=== PATIENT | female | born 1935 | race Caucasian/White ===

== ENCOUNTER → 2017-02-13 | Outpatient (CLI) | payer OTHER ==
[~2017-02-13] MED LIST: ALBUAER19 INH; ANT25 PO; CHOL1000 PO; CLC100 PO; CLINPOW; CLOP1TAB54 PO; DOXY100C2 PO; HYDR-5688 PO; LEVO100T PO; LEVO100T7 PO; LVQ750 PO; MDRDP21 PO; MECL1TAB42 PO; MRLP17X PO; PHEN-1043 PO; PLV75 PO; RANI150T2 PO; SPIR1TAB72 PO; TRAM-10 PO; ULT50 PO; ZNTT/150 PO
[2017-02-13 12:13] LABS: ALT/SGPT 15 U/L (12-78); BLOOD UREA NITROGEN 21 mg/dl (7-18); BUN/CREATININE RATIO 17.8 (10-20); CALCIUM 9.3 mg/dl (8.5-10.1); CARBON DIOXIDE 28 mmol/L (21-32); CHLORIDE 101 mmol/L (98-107); CHOLESTEROL 201 mg/dl (0-200); GLUCOSE 89 mg/dl (70-99); POTASSIUM 4.6 mmol/L (3.5-5.1); SODIUM 139 mmol/L (136-145)
[2017-02-13 12:22] LABS: BASO % 0.5 %; BASO ABS # 0.04 K/uL (0-0.2); COMPLETE YES; HEMATOCRIT 43.2 % (37-47); IG% 0.4 %; LYMPH % 27.4 %; LYMPH ABS # 2.17 K/uL (1.2-3.4); MEAN CELL VOLUME 96.9 fL (80-100); MONO % 10.5 %; NEUT % 60.2 %; PLATELET COUNT 248 K/uL (130-400); RED BLOOD COUNT 4.46 M/uL (4.2-5.4); WHITE BLOOD COUNT 7.93 K/uL (4.8-10.8)
[2017-02-13 12:24] LABS: ALB/GLOB RATIO 1.1 (0.9-2); ALKALINE PHOSPHATASE 76 U/L (45-117); AST/SGOT 19 U/L (15-37); CHOLESTEROL/HDL RATIO 3.4; HDL CHOLESTEROL 59 mg/dl; LDL CHOLESTEROL CALCULATED 117 mg/dl; PHOSPHORUS 2.8 mg/dl (2.5-4.9); THYROID STIMULATING HORMONE 0.393 uIu/ml (0.300-4.500); TRIGLYCERIDES 126 mg/dl (0-150); VERY LOW DENSITY LIPOPROT CALC 25 mg/dl
== END | disposition home or self-care (01) ==
LOC: C.LABBFT 09:36
PROVIDERS: ATTEND Physician Assistant Medical
DX: N18.3 Chronic kidney disease, stage 3 (moderate) (principal); E03.9 Hypothyroidism, unspecified; E55.9 Vitamin D deficiency, unspecified; I12.9 Hypertensive chronic kidney disease with stage 1 through stage 4 chronic kidney disease, or unspecified chronic kidney disease

== ENCOUNTER → 2017-02-20 | Outpatient (CLI) | payer OTHER ==
[~2017-02-20] MED LIST changes: +GADAVIST IV PRN
--- NOTE | 2017-02-20 10:38 | DIAGNOSTIC IMAGING REPORT ---
LUMBAR SPINE MRI WITH AND WITHOUT CONTRAST HISTORY: M54.16 Lumbar [id number] TECHNIQUE: Multiplanar multisequence MRI of the lumbar spine was performed both before and after the intravenous administration of contrast. COMPARISON: Lumbar spine 12/30/2015. FINDINGS: For the purpose of the report the L5-S1 disc space will be located on axial image 23 of 25. At the left side of the T8 vertebral body there is a 2.7 cm hyperintense paraspinal lesion. This is only seen on the decal decorator images. Alignment is intact. No fractures within the lumbar spine. Posterior decompression from L3 through L5. There are pedicle screws and rods at L3-L4. There is a single left-sided pedicle screw at L5. Severe disc space narrowing at L2-L3 and L5-S1. The conus terminates at the L2-L3 disc space level. Mild soft tissue edema at the laminectomy site is likely due to postoperative change. Endplate edema at L2-L3 and L4-L5 with minimal paraspinal soft tissue edema. Anterior disc protrusions at these locations. These endplates demonstrate enhancement. However, there is no significant bony destruction identified. Therefore, these findings favor long-standing degenerative change rather than discitis/osteomyelitis. The visualized retroperitoneal soft tissues are unremarkable. L1-L2: No significant central canal or neural foraminal narrowing. L2-L3: Small broad-based posterior disc bulge without significant central canal narrowing. There is mild bilateral neural foraminal narrowing. L3-L4: No central canal narrowing due to the posterior decompression. There is mild left and moderate right neural foraminal narrowing. L4-L5: No central canal narrowing due to the posterior decompression. Mild right neural foraminal narrowing. L5-S1: No significant central canal narrowing. There is moderate left and mild right neural foraminal narrowing. IMPRESSION: 1. Postoperative changes as described above. 2. Severe disc space at L2-L3 and L5-S1. There is associated endplate signal abnormality and enhancement. However, there is no endplate erosion. The endplate signal abnormality favors long-standing degenerative change. A discitis/osteomyelitis is considered less likely given the lack of bony destruction. However, if the patient symptoms continue to progress, then consider follow-up MRI to exclude the less likely possibility of a developing discitis/osteomyelitis. 3. No significant central canal narrowing. Multilevel bilateral neural foraminal narrowing as described above. Electronically signed by: Robinson Coon M.D. 02/20/2017 10:36 AM Dictated Date/Time: 02/20/2017 10:24 AM
== END | disposition home or self-care (01) ==
LOC: C.MRI 08:35
PROVIDERS: ATTEND Internal Medicine
DX: M54.16 Radiculopathy, lumbar region (principal)

== ENCOUNTER 2017-05-12 09:52 | Emergency (ER) | payer OTHER ==
[~2017-05-12 09:52] MED LIST changes: -ANT25 PO; -CHOL1000 PO; -CLC100 PO; -CLINPOW; -DOXY100C2 PO; -GADAVIST IV PRN; -HYDR-5688 PO; -LEVO100T7 PO; -LVQ750 PO; -MDRDP21 PO; -MRLP17X PO; -PHEN-1043 PO; -PLV75 PO; -RANI150T2 PO; -ULT50 PO
[2017-05-12 09:55] VITALS: TEMP 36.5; Ht 162.6 cm
[2017-05-12] MEDS ORDERED: KETOROLAC TROMETHAMINE 30 MG/ML VIAL IV STA (10:05)
[2017-05-12] MEDS ORDERED: SODIUM CHLORIDE 0.9% 1000ML 250 ML IV STA (10:05)
[2017-05-12] MEDS ORDERED: ONDANSETRON INJ 2 MG/ML 2 ML VIAL IV STA (10:05)
[2017-05-12] MEDS ORDERED: MoRPHine SULFATE 4 MG/ML 1 ML CARP\\VIAL IV PRN (10:15)
--- NOTE | 2017-05-12 10:15 | EMERGENCY ROOM VISIT NOTE ---
History Report prepared by Milagros: Maximo Llamas Under the Supervision of: Dr. Camilo Malik M.D. First contact with patient: 09:59 Chief Complaint: FLANK PAIN Stated Complaint: PAIN ON RIGHT SIDE GOING TO LEFT SIDE UNDER BREAST History of Present Illness The patient is a 81 year old female who presents to the Emergency Room with complaints of persistent bilateral flank pain beginning this week. She states that her pain was previously just on her left, but now wraps around across her back to her right side as well. Her pain is worsened with certain movements. The patient denies any falls, trauma, or abnormal twisting. She also complains of a cough and sweating. She denies any fevers, urinary symptoms, or SOB. The patient has no history of similar symptoms. She has a history of osteoporosis but states that her current symptoms feel very different. She notes that she is on doxycycline and prednisone for bronchitis--started today. The patient has a history of a blood clot in her leg occurring many years ago, and was previously on blood thinners. She states that she has been eating and drinking normally today. Source of History: patient Onset: This week Position: other (bilateral flank) Timing: other (persistent) Modifying Factors (Worsening): movement (certain) Associated Symptoms: + cough, No fevers, No SOB, No urinary symptoms Review of Systems See HPI for pertinent positives & negatives. A total of 10 systems reviewed and were otherwise negative. 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,& CEREBRAL INFARCTION W/OUT RES DEFICITS (15) PURE HYPERCHOLESTEROLEM (16) SCIATICA (17) SPINAL STENOSIS-LUMBAR Family History Cancer Heart disease Social History Smoking Status: Former Smoker Alcohol Use: none Drug Use: none Marital Status: Housing Status: lives with significant other Occupation Status: retired Current/Historical Medications Scheduled Clopidogrel Bisulfate (Plavix), 75 MG PO DAILY Doxycycline Hyclate (Vibramycin), 100 MG PO BID Hctz/Spironolactone (Spironolactone/Hydrochlor 25-25 mg), 1 TAB PO DAILY Levothyroxine Sodium (Synthroid), 100 MCG PO DAILY Methylprednisolone (Methylprednisolone Dose P), 1 DOSE PO DIRECTED Ranitidine (Zantac), 150 MG PO BID Scheduled PRN Meclizine Hcl (Meclizine Hcl), 25 MG PO TID PRN for Dizziness or Vertigo Tramadol (Ultram), 50 MG PO BID PRN for Pain Tramadol (Ultram), 50-100 MG PO Q6 PRN for Pain Allergies Coded Allergies: Clarithromycin (Verified Allergy, Intermediate, RASH, 05/12/17) Penicillins (Verified Allergy, Intermediate, RASH, 05/12/17) Shellfish (Verified Allergy, Intermediate, itch all over, 05/12/17) Propranolol (Unverified Allergy, Unknown, dizziness, 05/12/17) Sulfa Antibiotics (Verified Allergy, Unknown, ?, 05/12/17) White Fish (Verified Allergy, Unknown, SEAFOOD, FISH, 05/12/17) Codeine (Verified Adverse Reaction, Intermediate, NAUSEA/VOMITING, 05/12/17) Oxycodone (Verified Adverse Reaction, Unknown, UNKN, 05/12/17) Physical Exam Vital Signs Date Time Temp Pulse Resp B/P (MAP) Pulse Ox O2 Delivery O2 Flow Rate FiO2 05/12/17 12:35 65 18 136/69 95 05/12/17 11:10 62 20 127/52 05/12/17 10:21 75 05/12/17 09:55 36.5 78 20 145/81 96 Room Air Physical Exam GENERAL: Patient is in no acute distress. HEENT: No acute trauma, normocephalic atraumatic, mucous membranes moist, no nasal congestion, no scleral icterus. NECK: No stridor, no adenopathy, no meningismus, trachea is midline. LUNGS: Clear to auscultation bilaterally, no wheeze, no rhonchi, breath sounds equal. HEART: Without murmurs gallops or rubs, regular rate and rhythm. ABDOMEN: Soft, nontender, bowel sounds positive, no hernias, no peritonitis. BACK: No rash. No bony step-off. Old healed surgical scars. Pain worsens with movement. EXTREMITIES: No cyanosis, full range of motion of all the joints without pain or difficulty, no signs for acute trauma. Mild bilateral pedal edema. NEUROLOGIC: Oriented x 3, no acute motor or sensory deficits, no focal weakness. SKIN: No rash, no jaundice, no diaphoresis. Medical Decision & Procedures ER Provider Diagnostic Interpretation: Radiology results as stated below per my review and radiologist interpretation: CHEST ONE VIEW PORTABLE FINDINGS: The bones soft tissues and hemidiaphragms are normal. The cardiomediastinal silhouette is normal. The lungs are clear. The pulmonary vasculature is normal. IMPRESSION: Negative chest. Electronically signed by: Francois Ward M.D. THORACIC SPINE CT FINDINGS: Degenerative disc change throughout the entire thoracic region. No evidence for an acute compression deformity. Left paravertebral soft tissue density measuring 2 cm unchanged compared to prior studies and felt to be benign given stability characteristics. This is approximately at the level T9 on the left. No acute process is appreciated. IMPRESSION: Moderate degenerative change. No acute process. Electronically signed by: Francois Ward M.D. LUMBAR SPINE WITHOUT FINDINGS: Prior laminectomy with posterior interbody rods and screw fixation again seen at the L3-L4 through L4-L5 levels. Prior discectomy at L4-L5. There is unchanged 4 mm anterolisthesis of L4 on L5. Multilevel severe intervertebral disc space narrowing with spondylitic spurring and advanced facet arthropathy is present. Ankylosis of the facets at L4-L5 is present with partial ankylosis at L3-L4. No acute compression deformity. There is nodular thickening of the bilateral adrenal glands. There is a 1.2 x 0.9 cm somewhat low attenuating lesion of the left adrenal gland with Hounsfield unit of 14. This appears unchanged from 08/09/2015 suggesting benign etiology. There is atherosclerosis of the aorta. T11-T12: Moderate intervertebral disc space narrowing with moderate facet arthropathy, posterior spondylitic ridging and circumferential annular disc bulge. There is mild central canal narrowing without significant foraminal stenosis. T12-L1: Moderate facet arthrosis without central canal or foraminal narrowing. L1-L2: Facet arthrosis without central canal or foraminal narrowing. L2-L3: Severe intervertebral disc space narrowing with circumferential annular disc bulge and moderate to severe facet arthrosis. There is mild central canal and mild inferior right foraminal narrowing. The left foramen is patent. No significant change. L3-L4: Severe intervertebral disc space narrowing and severe facet arthrosis. Circumferential annular disc bulge is present with broad-based posterior disc osteophyte complex. There is effacement of the ventral thecal sac without significant central canal narrowing. There is moderate bilateral foraminal narrowing. No significant change. L4-L5: Unchanged 4 mm anterolisthesis. Severe facet arthrosis in intervertebral disc space narrowing with posterior spondylitic ridging combines to form moderate to severe right foraminal narrowing. The central canal and left foramen are patent. L5-S1: Severe intervertebral disc space narrowing with broad-based posterior disc osteophyte complex and facet arthrosis. There is moderate to severe left and moderate right foraminal narrowing. No central canal stenosis. Unchanged. IMPRESSION: 1. No acute fracture or dislocation is identified. 2. Prior laminectomy with posterior interbody rods and screw fixation at L3-L5 with discectomy at L4-L5. Unchanged 4 mm anterolisthesis at L4-L5. 3. Multilevel advanced intervertebral disc space narrowing and severe facet arthropathy as detailed level by level above results in varying degrees of central canal and foraminal narrowing without significant change from MRI study dated 02/20/2017. 4. Incidental note of a 1.2 cm lesion of the left adrenal gland, unchanged from 08/09/2015 suggesting benign etiology. The above report was generated using voice recognition software. It may contain grammatical, syntax or spelling errors. Electronically signed by: Avtar Arce CHEST CTA for PULMONARY ARTERIES FINDINGS: Mild abscess chronic change thoracic aorta. No evidence for aneurysm or dissection. Moderate prominence of the central pulmonary arterial vasculature is similar compared to the prior study. Mild in homogeneity of enhancement of the left main pulmonary artery transaxial image 68 felt to represent flow artifact. Pulmonary vasculature enhances appropriately. There are no major filling defects. Lungs are considered clear. There are no focal infiltrative changes. Minimal dependent bibasilar atelectasis. Paravertebral soft tissue nodule on the left measuring 2.2 cm. This is been present previously and is essentially unchanged. Survey evaluation of the thoracic vertebral column shows moderate degenerative disc change. There is no acute compression deformity. IMPRESSION: 1. Study is negative for pulmonary embolus. 2. Chronic prominence of the central pulmonary vasculature. 3. Lungs are clear. 4. Unchanging stable left paravertebral soft tissue density considered stable and benign in appearance Electronically signed by: Francois Ward M.D. Laboratory Results 05/12/17 10:20 Red Blood Count 4.57, Mean Corpuscular Volume 97.4, Mean Corpuscular Hemoglobin 33.3, Mean Corpuscular Hemoglobin Concent 34.2, Mean Platelet Volume 10.7, Neutrophils (%) (Auto) 80.8, Lymphocytes (%) (Auto) 13.7, Monocytes (%) (Auto) 4.3, Eosinophils (%) (Auto) 0.4, Basophils (%) (Auto) 0.5, Neutrophils # (Auto) 6.17, Lymphocytes # (Auto) 1.05, Monocytes # (Auto) 0.33, Eosinophils # (Auto) 0.03, Basophils # (Auto) 0.04 05/12/17 10:20 Test 05/12/17 10:20 05/12/17 11:05 White Blood Count 7.64 K/uL (4.8-10.8) Red Blood Count 4.57 M/uL (4.2-5.4) Hemoglobin 15.2 g/dL (12.0-16.0) Hematocrit 44.5 % (37-47) Mean Corpuscular Volume 97.4 fL (80-100) Mean Corpuscular Hemoglobin 33.3 pg (25-34) Mean Corpuscular Hemoglobin Concent 34.2 g/dl (32-36) Platelet Count 246 K/uL (130-400) Mean Platelet Volume 10.7 fL (7.4-10.4) Neutrophils (%) (Auto) 80.8 % Lymphocytes (%) (Auto) 13.7 % Monocytes (%) (Auto) 4.3 % Eosinophils (%) (Auto) 0.4 % Basophils (%) (Auto) 0.5 % Neutrophils # (Auto) 6.17 K/uL (1.4-6.5) Lymphocytes # (Auto) 1.05 K/uL (1.2-3.4) Monocytes # (Auto) 0.33 K/uL (0.11-0.59) Eosinophils # (Auto) 0.03 K/uL (0-0.5) Basophils # (Auto) 0.04 K/uL (0-0.2) RDW Standard Deviation 44.1 fL (36.4-46.3) RDW Coefficient of Variation 12.5 % (11.5-14.5) Immature Granulocyte % (Auto) 0.3 % Immature Granulocyte # (Auto) 0.02 K/uL (0.00-0.02) Prothrombin Time 10.7 SECONDS (9.0-12.0) Prothromb Time International Ratio 1.0 (0.9-1.1) Activated Partial Thromboplast Time 25.9 SECONDS (21.0-31.0) Partial Thromboplastin Ratio 1.0 Anion Gap 9.0 mmol/L (3-11) Estimated GFR () 44.9 Estimated GFR (Non- 38.7 BUN/Creatinine Ratio 15.6 (10-20) Calcium Level 9.8 mg/dl (8.5-10.1) Total Bilirubin 0.8 mg/dl (0.2-1) Direct Bilirubin 0.1 mg/dl (0-0.2) Aspartate Amino Transf (AST/SGOT) 23 U/L (15-37) Alanine Aminotransferase (ALT/SGPT) 19 U/L (12-78) Alkaline Phosphatase 86 U/L (45-117) Troponin I < 0.015 ng/ml (0-0.045) Total Protein 7.9 gm/dl (6.4-8.2) Albumin 4.0 gm/dl (3.4-5.0) Lipase 362 U/L (73-393) Urine Color YELLOW Urine Appearance CLEAR (CLEAR) Urine pH 8.0 (4.5-7.5) Urine Specific [place] 1.023 (1.000-1.030) Urine Protein NEG (NEG) Urine Glucose (UA) NEG (NEG) Urine Ketones NEG (NEG) Urine Occult Blood NEG (NEG) Urine Nitrite NEG (NEG) Urine Bilirubin NEG (NEG) Urine Urobilinogen NEG (NEG) Urine Leukocyte Esterase SMALL (NEG) Urine WBC (Auto) 1-5 /hpf (0-5) Urine RBC (Auto) 0-4 /hpf (0-4) Urine Hyaline Casts (Auto) 1-5 /lpf (0-5) Urine Epithelial Cells (Auto) >30 /lpf (0-5) Urine Bacteria (Auto) NEG (NEG) Laboratory results reviewed by me. Medications Administered Medications (Trade) Dose Ordered Sig/Rea Route Start Time Stop Time Status Last Admin Dose Admin Sodium Chloride 250 ml @ 999 mls/hr Q16M STAT IV 7/7/17 10:05 05/12/17 10:20 DC 05/12/17 10:25 999 MLS/HR Ondansetron HCl (Zofran Inj) 4 mg NOW STAT IV 05/12/17 10:05 05/12/17 10:09 DC 05/12/17 10:25 4 MG Morphine Sulfate (MoRPHine SULFATE INJ) 2 mg Q15M PRN IV 05/12/17 10:15 05/12/17 13:20 DC 05/12/17 10:25 2 MG Ketorolac Tromethamine (Toradol Inj) 15 mg NOW STAT IV 05/12/17 10:05 05/12/17 10:09 DC 05/12/17 10:25 15 MG ECG Indication: back/shoulder pain Rate (beats per minute): 66 Rhythm: normal sinus Findings: RBBB, no acute ischemic change, no ectopy ED Course 1001: The patient was evaluated in room B4B. A complete history and physical exam was performed. 1005: Ordered Toradol Inj 15 mg IV, Zofran Inj 4 mg IV, Sodium Chloride 250 ml @ 999 mls/hr IV. 1015: Ordered Morphine Sulfate 2 mg IV. 1210: Reevaluated the patient. Discussed results and discharge instructions: she verbalized understanding and agreement. The patient is ready for discharge. Medical Decision The patient is a 81 year old female who presents to the ED with complaints of bilateral flank pain. Differential diagnoses considered include nerve impingement, compression fracture, renal colic, UTI, pancreatitis, biliary colic , pneumonia, PE, aortic dissection, MO as well as other etiologies were considered. Blood pressure screening: Patient was found to have a slightly elevated blood pressure due to circumstances. I do not believe that the patient requires hypertension monitoring. Medication Reconciliation: I attest that I have personally reviewed the patient' s current medication list. There is no leukocytosis or concerning anemia. No significant electrolyte abnormality, kidney failure or hepatitis. There is no pancreatitis. Urinalysis does not show significant hematuria or infection. Chest film does not show pneumonia or CHF. Chest CT shows no PE, no pneumonia. Thoracic and lumbar spine CTs show old changes, nothing appears acute by CT scan. EKG shows a sinus rhythm, no acute ischemia. Cardiac enzyme testing times one is not consistent with acute cardiac injury. The patient received IV saline, IV Toradol, IV Zofran and IV morphine, she feels improved. The patient's pain seems musculoskeletal. I suspect the pain is related to her previous back surgical issues. Patient was advised to use tramadol for pain, she has used this in the past with success. She will watch for any shingles rash. She can follow with her doctor and return here for worsening symptoms. [place] Drug Monitoring Program Search Results: patient reviewed within database, no issues identified Impression Primary Impression: Thoracic back pain Scribe Attestation The scribe's documentation has been prepared under my direction and personally reviewed by me in its entirety. I confirm that the note above accurately reflects all work, treatment, procedures, and medical decision making performed by me. Departure Information Dispostion Home / Self-Care Prescriptions Tramadol (Ultram) 50 Mg Tab 50-100 MG PO Q6 Y for Pain, #15 TAB Prov: Camilo Malik M.D. 05/12/17 Referrals Dada Bernard M.D. (PCP) Forms HOME CARE DOCUMENTATION FORM, IMPORTANT VISIT INFORMATION Patient Instructions My [facility] Additional Instructions may use tylenol for pain heat or heating pad should help see your doctor monday for a recheck return to ER for fever or worsening pain watch for a shingles rash as discussed Tramadol 1-2 tab every 6 hours for severe pain
[2017-05-12] MEDS ORDERED: MDRDP21 PO (10:24)
[2017-05-12] MEDS ORDERED: DOXY100C2 PO (10:24)
--- NOTE | 2017-05-12 10:41 | DIAGNOSTIC IMAGING REPORT ---
CHEST ONE VIEW PORTABLE CLINICAL HISTORY: FLANK PAIN/HEMATURIA pain COMPARISON STUDY: 08/22/2015 FINDINGS: The bones soft tissues and hemidiaphragms are normal. The cardiomediastinal silhouette is normal. The lungs are clear. The pulmonary vasculature is normal. IMPRESSION: Negative chest. Electronically signed by: Francois Ward M.D. 05/12/2017 10:40 AM Dictated Date/Time: 05/12/2017 10:38 AM
[2017-05-12 10:46] LABS: BASO % 0.5 %; BASO ABS # 0.04 K/uL (0-0.2); COMPLETE YES; EOS % 0.4 %; HEMATOCRIT 44.5 % (37-47); IG% 0.3 %; LYMPH % 13.7 %; LYMPH ABS # 1.05 K/uL (1.2-3.4); MEAN CELL VOLUME 97.4 fL (80-100); MEAN CORPUSCULAR HEMOGLOBIN 33.3 pg (25-34); MEAN CORPUSCULAR HGB CONC 34.2 g/dl (32-36); MEAN PLATELET VOLUME 10.7 fL (7.4-10.4); MONO % 4.3 %; NEUT % 80.8 %; PLATELET COUNT 246 K/uL (130-400); RED BLOOD COUNT 4.57 M/uL (4.2-5.4); WHITE BLOOD COUNT 7.64 K/uL (4.8-10.8)
[2017-05-12 10:54] LABS: PROTHROMBIN TIME (PATIENT) 10.7 SECONDS (9.0-12.0)
[2017-05-12 10:57] LABS: ALT/SGPT 19 U/L (12-78); BLOOD UREA NITROGEN 20 mg/dl (7-18); BUN/CREATININE RATIO 15.6 (10-20); CALCIUM 9.8 mg/dl (8.5-10.1); CARBON DIOXIDE 26 mmol/L (21-32); CHLORIDE 102 mmol/L (98-107); GLUCOSE 97 mg/dl (70-99); SODIUM 137 mmol/L (136-145)
[2017-05-12 11:02] LABS: ALKALINE PHOSPHATASE 86 U/L (45-117); AST/SGOT 23 U/L (15-37)
[2017-05-12] MEDS ORDERED: OPTIRAY 320 IV PRN (11:15)
[2017-05-12 11:25] LABS: URINE APPEARANCE CLEAR (CLEAR); URINE BILIRUBIN NEG (NEG); URINE COLOR YELLOW; URINE EPITHELIAL CELL AUTO >30 /lpf (0-5); URINE NITRITE NEG (NEG); URINE SPECIFIC GRAVITY 1.023 (1.000-1.030); UROBILINOGEN NEG (NEG); ZZUR CULT IF INDIC CLEAN CATCH NO
[2017-05-12 11:26] LABS: MANUAL MICROSCOPIC REQUIRED? NO; REVIEW REQ? NO
--- NOTE | 2017-05-12 11:55 | DIAGNOSTIC IMAGING REPORT ---
CHEST CTA for PULMONARY ARTERIES CT DOSE: 1507.58 mGy.cm HISTORY: Pain postoperative pain TECHNIQUE: Multiaxial CT images of the chest were performed following the intravenous administration of contrast to evaluate the pulmonary arteries. Maximal intensity projection images were also obtained. COMPARISON STUDY: 05/06/2009 FINDINGS: Mild abscess chronic change thoracic aorta. No evidence for aneurysm or dissection. Moderate prominence of the central pulmonary arterial vasculature is similar compared to the prior study. Mild in homogeneity of enhancement of the left main pulmonary artery transaxial image 68 felt to represent flow artifact. Pulmonary vasculature enhances appropriately. There are no major filling defects. Lungs are considered clear. There are no focal infiltrative changes. Minimal dependent bibasilar atelectasis. Paravertebral soft tissue nodule on the left measuring 2.2 cm. This is been present previously and is essentially unchanged. Survey evaluation of the thoracic vertebral column shows moderate degenerative disc change. There is no acute compression deformity. IMPRESSION: 1. Study is negative for pulmonary embolus. 2. Chronic prominence of the central pulmonary vasculature. 3. Lungs are clear. 4. Unchanging stable left paravertebral soft tissue density considered stable and benign in appearance Electronically signed by: Francois Ward M.D. 05/12/2017 11:54 AM Dictated Date/Time: 05/12/2017 11:47 AM
--- NOTE | 2017-05-12 11:57 | DIAGNOSTIC IMAGING REPORT ---
THORACIC SPINE CT CT DOSE: HISTORY: Trauma history of osteoporosis and fx--had surgery TECHNIQUE: Multiaxial CT images of the thoracic spine were performed and reformatted in the sagittal and coronal plane without the use of contrast. COMPARISON: None. FINDINGS: Degenerative disc change throughout the entire thoracic region. No evidence for an acute compression deformity. Left paravertebral soft tissue density measuring 2 cm unchanged compared to prior studies and felt to be benign given stability characteristics. This is approximately at the level T9 on the left. No acute process is appreciated. IMPRESSION: Moderate degenerative change. No acute process. Electronically signed by: Francois Ward M.D. 05/12/2017 11:56 AM Dictated Date/Time: 05/12/2017 11:54 AM
--- NOTE | 2017-05-12 12:00 | DIAGNOSTIC IMAGING REPORT ---
LUMBAR SPINE WITHOUT HISTORY:81 yearsFemalehistory of osteoporosis and fx--had surgery COMPARISON: MRI of the lumbar spine dated 02/20/2017, CT abdomen and pelvis 08/09/2015 TECHNIQUE: Multiple axial CT images of the lumbar spine were obtained without IV contrast. Coronal and sagittal reformatted images were obtained from the axial data set and submitted for review. FINDINGS: Prior laminectomy with posterior interbody rods and screw fixation again seen at the L3-L4 through L4-L5 levels. Prior discectomy at L4-L5. There is unchanged 4 mm anterolisthesis of L4 on L5. Multilevel severe intervertebral disc space narrowing with spondylitic spurring and advanced facet arthropathy is present. Ankylosis of the facets at L4-L5 is present with partial ankylosis at L3-L4. No acute compression deformity. There is nodular thickening of the bilateral adrenal glands. There is a 1.2 x 0.9 cm somewhat low attenuating lesion of the left adrenal gland with Hounsfield unit of 14. This appears unchanged from 08/09/2015 suggesting benign etiology. There is atherosclerosis of the aorta. T11-T12: Moderate intervertebral disc space narrowing with moderate facet arthropathy, posterior spondylitic ridging and circumferential annular disc bulge. There is mild central canal narrowing without significant foraminal stenosis. T12-L1: Moderate facet arthrosis without central canal or foraminal narrowing. L1-L2: Facet arthrosis without central canal or foraminal narrowing. L2-L3: Severe intervertebral disc space narrowing with circumferential annular disc bulge and moderate to severe facet arthrosis. There is mild central canal and mild inferior right foraminal narrowing. The left foramen is patent. No significant change. L3-L4: Severe intervertebral disc space narrowing and severe facet arthrosis. Circumferential annular disc bulge is present with broad-based posterior disc osteophyte complex. There is effacement of the ventral thecal sac without significant central canal narrowing. There is moderate bilateral foraminal narrowing. No significant change. L4-L5: Unchanged 4 mm anterolisthesis. Severe facet arthrosis in intervertebral disc space narrowing with posterior spondylitic ridging combines to form moderate to severe right foraminal narrowing. The central canal and left foramen are patent. L5-S1: Severe intervertebral disc space narrowing with broad-based posterior disc osteophyte complex and facet arthrosis. There is moderate to severe left and moderate right foraminal narrowing. No central canal stenosis. Unchanged. IMPRESSION: 1. No acute fracture or dislocation is identified. 2. Prior laminectomy with posterior interbody rods and screw fixation at L3-L5 with discectomy at L4-L5. Unchanged 4 mm anterolisthesis at L4-L5. 3. Multilevel advanced intervertebral disc space narrowing and severe facet arthropathy as detailed level by level above results in varying degrees of central canal and foraminal narrowing without significant change from MRI study dated 02/20/2017. 4. Incidental note of a 1.2 cm lesion of the left adrenal gland, unchanged from 08/09/2015 suggesting benign etiology. The above report was generated using voice recognition software. It may contain grammatical, syntax or spelling errors. Electronically signed by: Avtar Arce 05/12/2017 11:59 AM Dictated Date/Time: 05/12/2017 11:46 AM
[2017-05-12] MEDS ORDERED: TRAM-10 PO (12:20)
[2017-05-12 12:35] VITALS: BP 136/69; PULSE 65; O2SAT 95
[2017-07-07] MEDS ORDERED: CLINPOW (13:09)
== END 2017-05-12 12:36 | disposition home or self-care (01) ==
LOC: C.EDB 09:53
DX: M54.6 Pain in thoracic spine (principal); M81.0 Age-related osteoporosis without current pathological fracture; Z86.718 Personal history of other venous thrombosis and embolism; F41.9 Anxiety disorder, unspecified; J45.909 Unspecified asthma, uncomplicated; K21.9 Gastro-esophageal reflux disease without esophagitis; Z82.49 Family history of ischemic heart disease and other diseases of the circulatory system; Z80.9 Family history of malignant neoplasm, unspecified; I10 Essential (primary) hypertension; E03.9 Hypothyroidism, unspecified; Z96.659 Presence of unspecified artificial knee joint; M19.90 Unspecified osteoarthritis, unspecified site; Z86.73 Personal history of transient ischemic attack (TIA), and cerebral infarction without residual deficits; E78.00 Pure hypercholesterolemia, unspecified; Z87.891 Personal history of nicotine dependence; Z79.01 Long term (current) use of anticoagulants; Z79.899 Other long term (current) drug therapy

== ENCOUNTER 2017-06-11 10:26 | Inpatient (IN) | payer OTHER ==
[~2017-06-11] VITALS: Ht 165.1 cm; Wt 86.4 kg
[~2017-06-11 10:26] MED LIST changes: -ALBUAER19 INH; +DOXY100C2 PO; +MDRDP21 PO
[2017-06-11] MEDS ORDERED: CHOL1000 PO (10:41)
[2017-06-11] MEDS ORDERED: ONDANSETRON INJ 2 MG/ML 2 ML VIAL IV STA (11:07)
[2017-06-11] MEDS ORDERED: SODIUM CHLORIDE 0.9% 1000ML 250 ML IV STA (11:07)
[2017-06-11] MEDS ORDERED: MoRPHine SULFATE 2 MG/ML CARP IV STA (11:07)
[2017-06-11] MEDS ORDERED: SODIUM CHLORIDE 0.9% 1000ML 1,000 ML IV STA (11:07)
--- NOTE | 2017-06-11 11:48 | EMERGENCY ROOM VISIT NOTE ---
History Report prepared by Milagros: Lorrie Barrett Under the Supervision of: Dr. Cresencio Xie M.D. First contact with patient: 11:01 Chief Complaint: ABD PAIN Stated Complaint: RIGHT SIDED PAIN, PAIN BACK/TOP OF LEG PAIN History of Present Illness The patient is a 81 year old female who presents to the Emergency Room with complaints of constant lower abdominal pain for the past 7 hours. She has two known hernias in her abdomen that she states are on each side of her belly button. She woke up this morning at 4am with right sided pain that radiated into her right leg and up to her chest. The patient rates her pain as a 6/10 in severity. Movement exacerbates her pain. She thinks that her pain is from her hernias. The patient denies fevers, chills, nausea, vomiting, and urinary symptoms. She has been having normal bowel movements. She has not taken any medications for her pain. She is on Plavix for previous history of strokes. Source of History: patient Onset: 7 hours ago Position: abdomen Symptom Intensity: 6/10 Quality: other (radiating) Timing: constant Modifying Factors (Worsening): movement Associated Symptoms: No fevers, No chills, No nausea, No vomiting, No urinary symptoms Review of Systems See HPI for pertinent positives & negatives. A total of 10 systems reviewed and were otherwise negative. 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,& CEREBRAL INFARCTION W/OUT RES DEFICITS (15) PURE HYPERCHOLESTEROLEM (16) SCIATICA (17) SPINAL STENOSIS-LUMBAR Old medical records were reviewed. Nurse's notes were reviewed and I agree with. She is on chronic Plavix Family History Cancer Heart disease Social History Smoking Status: Former Smoker Alcohol Use: none Drug Use: none Marital Status: Housing Status: lives with significant other Occupation Status: retired Current/Historical Medications Scheduled Cholecalciferol (Vitamin D3), 2,000 INTER.UNIT PO DAILY Clopidogrel Bisulfate (Plavix), 75 MG PO DAILY Hctz/Spironolactone (Spironolactone/Hydrochlor 25-25 mg), 1 TAB PO DAILY Levothyroxine Sodium (Synthroid), 100 MCG PO DAILY Ranitidine (Zantac), 150 MG PO BID Scheduled PRN Meclizine Hcl (Meclizine Hcl), 25 MG PO TID PRN for Dizziness or Vertigo Tramadol (Ultram), 50 MG PO BID PRN for Pain Allergies Coded Allergies: Clarithromycin (Verified Allergy, Intermediate, RASH, 06/11/17) Penicillins (Verified Allergy, Intermediate, RASH, 06/11/17) Shellfish (Verified Allergy, Intermediate, itch all over, 06/11/17) Propranolol (Unverified Allergy, Unknown, dizziness, 06/11/17) Sulfa Antibiotics (Verified Allergy, Unknown, ?, 06/11/17) White Fish (Verified Allergy, Unknown, SEAFOOD, FISH, 06/11/17) Codeine (Verified Adverse Reaction, Intermediate, NAUSEA/VOMITING, 06/11/17) Oxycodone (Verified Adverse Reaction, Unknown, UNKN, 06/11/17) Physical Exam Vital Signs Date Time Temp Pulse Resp B/P (MAP) Pulse Ox O2 Delivery O2 Flow Rate FiO2 06/11/17 14:27 70 16 117/69 94 Room Air 06/11/17 14:15 94 Room Air 06/11/17 12:05 66 18 102/61 94 Room Air 06/11/17 10:34 36.5 96 20 136/81 95 Room Air Physical Exam General: Well developed well nourished non ill appearing older female, mildly uncomfortable, in no acute distress, breathing comfortably on room air. Normal speech HEENT: Normal cephalic atraumatic. Pupils are equal round and reactive to light. Extraocular movements are intact. Oropharynx is pink with moist mucous membranes. No swelling of the mouth lips or tongue. Neck: Supple with a midline trachea. No meningeal signs or stiffness, no JVD or bruits. No Stridor. Chest: Clear to auscultation bilaterally. No wheezes or rhonchi. No increased work of breathing. Heart: regular rate and rhythm. Abdomen: Soft, tenderness centrally slightly to the right and inferior to the umbilicus, mild induration. No redness or warmth, nondistended without rebound guarding or rigidity. Extremities: No cyanosis clubbing or edema. No calf tenderness or assymetry Spine/Back. Non tender to palpation. No CVA tenderness Skin: Good turgor without rashes. Neurologic exam: Cranial nerves two through 12 are intact. Motor and sensation are intact and symmetrical throughout. Medical Decision & Procedures ER Provider Diagnostic Interpretation: Radiology results as stated below per my review and radiologist interpretation: ABDOMEN AND PELVIS CT WITHOUT CONTRAST CT DOSE: 605.17 mGy.cm HISTORY: Right lower quadrant abdominal pain. eval for hernia TECHNIQUE: Multiaxial CT images of the abdomen and pelvis were performed without contrast. A dose lowering technique was utilized adhering to the principles of ALARA. COMPARISON STUDY: Abdomen and pelvis CT 08/09/2015. FINDINGS: The lung bases are clear. Posterior decompression and fusion within the lumbar spine. Trace pericardial fluid, unchanged. Stable 3 x 2.4 cm low-density left paraspinal lesion at the T9 level. Cholecystectomy. The unenhanced liver, pancreas, spleen, and adrenal glands are unremarkable. No renal stones or hydronephrosis. Punctate calcifications within the pelvis. Represent phleboliths. No retroperitoneal lymphadenopathy. Normal bladder. Hysterectomy. Suboptimal evaluation for bowel pathology due to the lack of intravenous and oral contrast. However, there is no definite bowel wall thickening or obstruction. The appendix is not identified and is likely surgically absent. Small fat-containing left inguinal hernia. There is also small right inguinal hernia which contains a short segment of nondilated small bowel. Punctate focus of gas adjacent to the distal sigmoid colon on image 307 is likely due to a diverticulum. IMPRESSION: 1. Small right inguinal hernia containing a short segment of nondilated small bowel. No distended loops of small bowel at this time to suggest an obstruction. 2. Small left inguinal fat-containing hernia. 3. Colonic diverticulosis. 4. Cholecystectomy, hysterectomy, and appendectomy. 5. No change in the 3.0 x 2.4 cm low-density left paraspinal lesion at the T9 level. Electronically signed by: Robinson Coon M.D. 06/11/2017 12:05 PM Dictated Date/Time: 06/11/2017 11:56 AM Laboratory Results 06/11/17 11:30 Red Blood Count 4.39, Mean Corpuscular Volume 96.4, Mean Corpuscular Hemoglobin 33.9, Mean Corpuscular Hemoglobin Concent 35.2, Mean Platelet Volume 10.3, Neutrophils (%) (Auto) 61.3, Lymphocytes (%) (Auto) 26.0, Monocytes (%) (Auto) 10.7, Eosinophils (%) (Auto) 1.2, Basophils (%) (Auto) 0.4, Neutrophils # (Auto ) 4.99, Lymphocytes # (Auto) 2.12, Monocytes # (Auto) 0.87, Eosinophils # (Auto ) 0.10, Basophils # (Auto) 0.03 06/11/17 11:30 Test 06/11/17 11:25 06/11/17 11:30 06/11/17 13:07 Urine Color YELLOW Urine Appearance CLEAR (CLEAR) Urine pH 8.0 (4.5-7.5) Urine Specific [place] 1.012 (1.000-1.030) Urine Protein NEG (NEG) Urine Glucose (UA) NEG (NEG) Urine Ketones NEG (NEG) Urine Occult Blood NEG (NEG) Urine Nitrite NEG (NEG) Urine Bilirubin NEG (NEG) Urine Urobilinogen NEG (NEG) Urine Leukocyte Esterase TRACE (NEG) Urine WBC (Auto) 1-5 /hpf (0-5) Urine RBC (Auto) 0-4 /hpf (0-4) Urine Hyaline Casts (Auto) 0 /lpf (0-5) Urine Epithelial Cells (Auto) 20-30 /lpf (0-5) Urine Bacteria (Auto) NEG (NEG) White Blood Count 8.14 K/uL (4.8-10.8) Red Blood Count 4.39 M/uL (4.2-5.4) Hemoglobin 14.9 g/dL (12.0-16.0) Hematocrit 42.3 % (37-47) Mean Corpuscular Volume 96.4 fL (80-100) Mean Corpuscular Hemoglobin 33.9 pg (25-34) Mean Corpuscular Hemoglobin Concent 35.2 g/dl (32-36) Platelet Count 236 K/uL (130-400) Mean Platelet Volume 10.3 fL (7.4-10.4) Neutrophils (%) (Auto) 61.3 % Lymphocytes (%) (Auto) 26.0 % Monocytes (%) (Auto) 10.7 % Eosinophils (%) (Auto) 1.2 % Basophils (%) (Auto) 0.4 % Neutrophils # (Auto) 4.99 K/uL (1.4-6.5) Lymphocytes # (Auto) 2.12 K/uL (1.2-3.4) Monocytes # (Auto) 0.87 K/uL (0.11-0.59) Eosinophils # (Auto) 0.10 K/uL (0-0.5) Basophils # (Auto) 0.03 K/uL (0-0.2) RDW Standard Deviation 43.6 fL (36.4-46.3) RDW Coefficient of Variation 12.4 % (11.5-14.5) Immature Granulocyte % (Auto) 0.4 % Immature Granulocyte # (Auto) 0.03 K/uL (0.00-0.02) Anion Gap 7.0 mmol/L (3-11) Est Creatinine Clear Calc Drug Dose 40.6 ml/min Estimated GFR () 49.4 Estimated GFR (Non- 42.7 BUN/Creatinine Ratio 13.9 (10-20) Calcium Level 9.8 mg/dl (8.5-10.1) Total Bilirubin 1.0 mg/dl (0.2-1) Direct Bilirubin 0.2 mg/dl (0-0.2) Aspartate Amino Transf (AST/SGOT) 23 U/L (15-37) Alanine Aminotransferase (ALT/SGPT) 19 U/L (12-78) Alkaline Phosphatase 82 U/L (45-117) Total Protein 7.4 gm/dl (6.4-8.2) Albumin 3.8 gm/dl (3.4-5.0) Lipase 293 U/L (73-393) Bedside Lactic Acid Venous 0.78 mmol/L (0.90-1.70) Laboratory studies as stated above per my review. Medications Administered Medications (Trade) Dose Ordered Sig/Rea Route Start Time Stop Time Status Last Admin Dose Admin Ondansetron HCl (Zofran Inj) 4 mg NOW STAT IV 06/11/17 11:07 06/11/17 11:10 DC 06/11/17 11:25 4 MG Morphine Sulfate (MoRPHine SULFATE INJ) 2 mg NOW STAT IV 06/11/17 11:07 06/11/17 11:10 DC 8/6/17 11:25 2 MG Sodium Chloride 250 ml @ 999 mls/hr Q16M STAT IV 06/11/17 11:07 06/11/17 11:22 DC 06/11/17 11:25 999 MLS/HR Sodium Chloride 1,000 ml @ 100 mls/hr Q10H STAT IV 06/11/17 11:07 06/11/17 21:06 06/11/17 11:26 100 MLS/HR ED Course 1101: Past medical records reviewed. The patient was evaluated in room B3B, and a complete history and physical examination were performed. 1107: NSS 1000 ml @ 100 mls/hr IV, NSS 250 ml @ 999 mls/hr IV, Morphine sulfate 2 mg IV, Zofran 4 mg IV 1241: I reassessed the patient at this time. She is feeling better and resting comfortably. I discussed the results and treatment plan with the patient and her family. I answered all pertaining questions that they had. They expressed understanding and verbalized agreement. 1249: I discussed the patient's case with Dr. aRo of general surgery. 1319: I spoke with Dr. Sweet. We discussed the patients case. The patient will be evaluated by the [facility] for further management. Medical Decision Differential diagnoses includes hernia, bowel obstruction, infection, electrolyte or metabolic abnormality. This patient comes in as described above she has no known hernia that has gotten more painful today was severely painful this morning. She initially appeared uncomfortable and had some tenderness on exam. She has no redness or warmth. IV access established and she was given IV morphine and IV Zofran and felt a lot better. She had some gentle IV hydration. She's had no white count or fever to suggest infection. No vomiting. I did a CAT scan of her abdomen the hernia is seen with some small intestines but there is no definite obstruction at this point. I did discuss case with Dr. Rao and he feels she should be admitted in the hospital for further treatment and monitoring. He will see her and also asked if the medical team can admit her given the fact she is on Plavix she will not likely go to the or acutely regardless. At this point, she has no evidence of incarceration however would be at risk for this. Dr. Jennings will be seen her. Dr. Cox also saw her in the ER will admit her for these measures. Medication Reconcilliation Current Medication List: was personally reviewed by me Blood Pressure Screening Patient's blood pressure: Normal blood pressure Consults Time Called: 1247 Consulting Physician: Dr. Rao Returned Call: 1248 I discussed the patient's case with Dr. Rao of general surgery. Additional Consults: Time Called: 1310 Consulted Physician: Dr. Sweet Returned Call: 1311 Additional Comments: I spoke with Dr. Sweet. We discussed the patients case. The patient will be evaluated by the [facility] for further management. Impression Primary Impression: Central abdominal pain Additional Impression: Hernia Scribe Attestation The scribe's documentation has been prepared under my direction and personally reviewed by me in its entirety. I confirm that the note above accurately reflects all work, treatment, procedures, and medical decision making performed by me. Departure Information Dispostion Being Evaluated By Hospitalist Referrals Dada Bernard M.D. (PCP) Patient Instructions My [facility] Problem Qualifiers
[2017-06-11 11:53] LABS: URINE APPEARANCE CLEAR (CLEAR); URINE BILIRUBIN NEG (NEG); URINE COLOR YELLOW; URINE EPITHELIAL CELL AUTO 20-30 /lpf (0-5); URINE NITRITE NEG (NEG); URINE SPECIFIC GRAVITY 1.012 (1.000-1.030); UROBILINOGEN NEG (NEG)
[2017-06-11 11:58] LABS: MANUAL MICROSCOPIC REQUIRED? NO; REVIEW REQ? NO
[2017-06-11 12:06] LABS: BUN/CREATININE RATIO 13.9 (10-20); CALCIUM 9.8 mg/dl (8.5-10.1); CREATININE 1.2 mg/dl (0.60-1.20); POTASSIUM 3.6 mmol/L (3.5-5.1)
--- NOTE | 2017-06-11 12:07 | DIAGNOSTIC IMAGING REPORT ---
ABDOMEN AND PELVIS CT WITHOUT CONTRAST CT DOSE: 605.17 mGy.cm HISTORY: Right lower quadrant abdominal pain. eval for hernia TECHNIQUE: Multiaxial CT images of the abdomen and pelvis were performed without contrast. A dose lowering technique was utilized adhering to the principles of ALARA. COMPARISON STUDY: Abdomen and pelvis CT 08/09/2015. FINDINGS: The lung bases are clear. Posterior decompression and fusion within the lumbar spine. Trace pericardial fluid, unchanged. Stable 3 x 2.4 cm low-density left paraspinal lesion at the T9 level. Cholecystectomy. The unenhanced liver, pancreas, spleen, and adrenal glands are unremarkable. No renal stones or hydronephrosis. Punctate calcifications within the pelvis. Represent phleboliths. No retroperitoneal lymphadenopathy. Normal bladder. Hysterectomy. Suboptimal evaluation for bowel pathology due to the lack of intravenous and oral contrast. However, there is no definite bowel wall thickening or obstruction. The appendix is not identified and is likely surgically absent. Small fat-containing left inguinal hernia. There is also small right inguinal hernia which contains a short segment of nondilated small bowel. Punctate focus of gas adjacent to the distal sigmoid colon on image 307 is likely due to a diverticulum. IMPRESSION: 1. Small right inguinal hernia containing a short segment of nondilated small bowel. No distended loops of small bowel at this time to suggest an obstruction. 2. Small left inguinal fat-containing hernia. 3. Colonic diverticulosis. 4. Cholecystectomy, hysterectomy, and appendectomy. 5. No change in the 3.0 x 2.4 cm low-density left paraspinal lesion at the T9 level. Electronically signed by: Robinson Coon M.D. 06/11/2017 12:05 PM Dictated Date/Time: 06/11/2017 11:56 AM
[2017-06-11 12:14] LABS: BASO % 0.4 %; BASO ABS # 0.03 K/uL (0-0.2); COMPLETE YES; EOS % 1.2 %; HEMATOCRIT 42.3 % (37-47); IG% 0.4 %; LYMPH ABS # 2.12 K/uL (1.2-3.4); MEAN CELL VOLUME 96.4 fL (80-100); MEAN CORPUSCULAR HEMOGLOBIN 33.9 pg (25-34); MEAN CORPUSCULAR HGB CONC 35.2 g/dl (32-36); MEAN PLATELET VOLUME 10.3 fL (7.4-10.4); MONO % 10.7 %; NEUT % 61.3 %; PLATELET COUNT 236 K/uL (130-400); RED BLOOD COUNT 4.39 M/uL (4.2-5.4); WHITE BLOOD COUNT 8.14 K/uL (4.8-10.8)
[2017-06-11 14:15] VITALS: O2SAT 94; Ht 165.1 cm; Wt 86.4 kg
[2017-06-11] MEDS ORDERED: MoRPHine SULFATE 2 MG/ML CARP IV PRN (14:15)
--- NOTE | 2017-06-11 14:33 | DIAGNOSTIC IMAGING REPORT ---
CHEST ONE VIEW PORTABLE HISTORY: PRE-OP COMPARISON: Chest 05/12/2017. FINDINGS: Stable calcified granuloma within the right upper lobe. Small linear scarlike densities within the left midlung zone, unchanged. No new focal lung consolidations. No evidence for pulmonary edema. The heart is normal in size. No pleural effusions. No pneumothorax. IMPRESSION: No significant change compared to the prior study. No acute process. Electronically signed by: Robinson Coon M.D. 06/11/2017 2:32 PM Dictated Date/Time: 06/11/2017 2:31 PM
[2017-06-11 15:30] VITALS: BP 142/77; PULSE 76; TEMP 36.5; O2SAT 94
--- NOTE | 2017-06-11 16:33 | History and Physical ---
History & Physical Date & Time of Service: Jun 11, 2017 at 16:24 Chief Complaint: Abdominal Pain, Hernia Primary Care Physician: Dada Bernard M.D. History of Present Illness Source: patient, family pt with known hernias/has occ pain from them began to have severe 10/10 pain this am around 4 am. no n/v. no inciting incident other than walking to the bathroom. she does c/o of chronic constipation. she also complains of chronic upper abdominal pain that she blames a prior attempt at hiatal hernia repair on. Past Medical/Surgical History Medical Problems: (1) ANXIETY STATE NOS Status: Chronic (2) ASTHMA, UNSPECIFIED Status: Chronic (3) CHRONIC SINUSITIS NOS Status: Chronic (4) ESOPHAGEAL REFLUX Status: Chronic (5) FAMILY HISTORY OF OTHER CARDIOVASCULAR DISEASES Status: Chronic (6) FAMILY HX-MALIGNANCY NOS Status: Chronic (7) HEMORRHOIDS NOS Status: Chronic (8) HYPERTENSION NOS Status: Chronic (9) HYPOTHYROIDISM NOS Status: Chronic (10) KNEE JOINT REPLACEMENT STATUS Status: Chronic (11) LUMBAGO Status: Chronic (12) OSTEOARTHROS NOS-UNSPEC Status: Chronic (13) OSTEOPOROSIS NOS Status: Chronic (14) PERSONAL HX OF TIA,& 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 (15) PURE HYPERCHOLESTEROLEM Status: Chronic (16) SCIATICA Status: Chronic (17) SPINAL STENOSIS-LUMBAR Status: Chronic Family History Cancer Heart disease Social History Smoking Status: Former Smoker Drug Use: none Marital Status: Housing status: lives with family Occupational Status: retired Immunizations History of Influenza Vaccine: No Influenza Vaccine Date: Aug 06, 2009 History of Tetanus Vaccine?: Yes History of Pneumococcal: No Pneumococcal Date: Jan 06, 1998 History of Hepatitis B Vaccine: No Multi-Drug Resistant Organisms History of MDRO: No Allergies Coded Allergies: Clarithromycin (Verified Allergy, Intermediate, RASH, 06/11/17) Penicillins (Verified Allergy, Intermediate, RASH, 06/11/17) Shellfish (Verified Allergy, Intermediate, itch all over, 06/11/17) Propranolol (Unverified Allergy, Unknown, dizziness, 06/11/17) Sulfa Antibiotics (Verified Allergy, Unknown, ?, 06/11/17) White Fish (Verified Allergy, Unknown, SEAFOOD, FISH, 06/11/17) Codeine (Verified Adverse Reaction, Intermediate, NAUSEA/VOMITING, 06/11/17) Oxycodone (Verified Adverse Reaction, Unknown, UNKN, 06/11/17) Home Medications Scheduled Cholecalciferol (Vitamin D3), 2,000 INTER.UNIT PO DAILY Clopidogrel Bisulfate (Plavix), 75 MG PO DAILY Hctz/Spironolactone (Spironolactone/Hydrochlor 25-25 mg), 1 TAB PO DAILY Levothyroxine Sodium (Synthroid), 100 MCG PO DAILY Ranitidine (Zantac), 150 MG PO BID Scheduled PRN Meclizine Hcl (Meclizine Hcl), 25 MG PO TID PRN for Dizziness or Vertigo Tramadol (Ultram), 50 MG PO BID PRN for Pain Review of Systems Abdomen: + pain, + constipation Neurologic: + memory loss, + problem reported (history of 3 TIA's) Physical Exam Vital Signs Date Time Temp Pulse Resp B/P (MAP) Pulse Ox O2 Delivery O2 Flow Rate FiO2 06/11/17 15:21 62 16 109/64 98 06/11/17 14:27 70 16 117/69 94 Room Air 06/11/17 14:15 94 Room Air 06/11/17 12:05 66 18 102/61 94 Room Air 06/11/17 10:34 36.5 96 20 136/81 95 Room Air General Appearance: + mild distress Head: normocephalic, atraumatic Eyes: EOMI ENT: hearing grossly normal Neck: supple, no JVD Respiratory/Chest: no respiratory distress, no accessory muscle use Abdomen/GI: soft, + pertinent finding (+tenderness in RLQ. hernia not palpable. no g/r/r) Neurologic/Psych: alert, oriented x 3 Skin: warm/dry, no rash Diagnostics Laboratory Results Results Past 24 Hours Test 06/11/17 11:25 06/11/17 11:30 06/11/17 13:07 Range/Units Urine Color YELLOW Urine Appearance CLEAR CLEAR Urine pH 8.0 4.5-7.5 Urine Specific [place] 1.012 1.000-1.030 Urine Protein NEG NEG Urine Glucose (UA) NEG NEG Urine Ketones NEG NEG Urine Occult Blood NEG NEG Urine Nitrite NEG NEG Urine Bilirubin NEG NEG Urine Urobilinogen NEG NEG Urine Leukocyte Esterase TRACE NEG Urine WBC (Auto) 1-5 0-5 /hpf Urine RBC (Auto) 0-4 0-4 /hpf Urine Hyaline Casts (Auto) 0 0-5 /lpf Urine Epithelial Cells (Auto) 20-30 0-5 /lpf Urine Bacteria (Auto) NEG NEG White Blood Count 8.14 4.8-10.8 K/uL Red Blood Count 4.39 4.2-5.4 M/uL Hemoglobin 14.9 12.0-16.0 g/dL Hematocrit 42.3 37-47 % Mean Corpuscular Volume 96.4 80-100 fL Mean Corpuscular Hemoglobin 33.9 25-34 pg Mean Corpuscular Hemoglobin Concent 35.2 32-36 g/dl Platelet Count 236 130-400 K/uL Mean Platelet Volume 10.3 7.4-10.4 fL Neutrophils (%) (Auto) 61.3 % Lymphocytes (%) (Auto) 26.0 % Monocytes (%) (Auto) 10.7 % Eosinophils (%) (Auto) 1.2 % Basophils (%) (Auto) 0.4 % Neutrophils # (Auto) 4.99 1.4-6.5 K/uL Lymphocytes # (Auto) 2.12 1.2-3.4 K/uL Monocytes # (Auto) 0.87 0.11-0.59 K/uL Eosinophils # (Auto) 0.10 0-0.5 K/uL Basophils # (Auto) 0.03 0-0.2 K/uL RDW Standard Deviation 43.6 36.4-46.3 fL RDW Coefficient of Variation 12.4 11.5-14.5 % Immature Granulocyte % (Auto) 0.4 % Immature Granulocyte # (Auto) 0.03 0.00-0.02 K/uL Sodium Level 138 136-145 mmol/L Potassium Level 3.6 3.5-5.1 mmol/L Chloride Level 101 98-107 mmol/L Carbon Dioxide Level 30 21-32 mmol/L Anion Gap 7.0 3-11 mmol/L Blood Urea Nitrogen 17 7-18 mg/dl Creatinine 1.20 0.60-1.20 mg/dl Est Creatinine Clear Calc Drug Dose 40.6 ml/min Estimated GFR () 49.4 Estimated GFR (Non- 42.7 BUN/Creatinine Ratio 13.9 10-20 Random Glucose 92 70-99 mg/dl Calcium Level 9.8 8.5-10.1 mg/dl Total Bilirubin 1.0 0.2-1 mg/dl Direct Bilirubin 0.2 0-0.2 mg/dl Aspartate Amino Transf (AST/SGOT) 23 15-37 U/L Alanine Aminotransferase (ALT/SGPT) 19 12-78 U/L Alkaline Phosphatase 82 45-117 U/L Total Protein 7.4 6.4-8.2 gm/dl Albumin 3.8 3.4-5.0 gm/dl Lipase 293 73-393 U/L Bedside Lactic Acid Venous 0.78 0.90-1.70 mmol/L Microbiology Results 06/11/17 Urine Culture, Received Pending Diagnostic Radiology b/l inguinal hernias with some non-dilated/non-obstructed small bowel in right hernia. Impression Assessment and Plan 1.abdominal pain secondary to incarcerated RIH. clinically still some mild discomfort but much improved lactic acid and wbc normal last dose of plavix was last night. preferably would be able to wait a couple of days for the plavix to washout but I don't think she will be able to wait that long. her is currently in the room beside her with metastatic colon ca, non-operable. currently not emergent. will plan to repair tomorrow. will attempt laparoscopically with mesh. I told her I will also at least look up to where her chronic upper abdominal pain is though the goal tomorrow is the incarcerated inguinal hernia. discussed options and risks ( bleeding infection, dvt/pe, mi, injury to other organs such as bladder, bowel etc... chronic post op pain) all questions answered. will plan for OR tomorrow. hold plavix Advanced Directives Existing Living Will: Yes Existing Power of Broacher: Yes VTE Prophylaxis VTE Risk Assessment Done? Y/N: Yes Risk Level: Moderate
[2017-06-11] MEDS: FAMOTIDINE IV INJ 20 MG in DEXTROSE 5% 100ML 100 ML IV SCH (16:35)
[2017-06-11] MEDS: NSS + 20MEQ KCL 1000ML 1,000 ML IV SCH (16:35)
[2017-06-11] MEDS ORDERED: CEFTRIAXONE SOD INJ 1 GM in DEXTROSE 5% ADD-VANTAGE 50ML 50 ML IV SCH (18:30)
[2017-06-11] MEDS: MoRPHine SULFATE 4 MG/ML 1 ML CARP\\VIAL IV PRN (21:57)
[2017-06-11 22:52] VITALS: BP 106/67; PULSE 71; TEMP 36.5; O2SAT 94
[2017-06-12] VITALS (9 sets, daily range): BP systolic 102–118; BP diastolic 53–76; PULSE 45–98; TEMP 36.1–36.8; O2SAT 95–100
[2017-06-12] MEDS: NSS + 20MEQ KCL 1000ML 1,000 ML IV SCH ×2 (02:44→18:38)
[2017-06-12] MEDS: FAMOTIDINE IV INJ 20 MG in DEXTROSE 5% 100ML 100 ML IV SCH ×2 (03:56→18:27)
[2017-06-12] MEDS: LEVOTHYROXINE 100 MCG TAB PO SCH (05:42)
[2017-06-12] MEDS: ONDANSETRON INJ 2 MG/ML 2 ML VIAL IV PRN (05:53)
[2017-06-12 06:48] LABS: BASO % 0.7 %; BASO ABS # 0.04 K/uL (0-0.2); COMPLETE YES; EOS % 2.1 %; HEMATOCRIT 37.9 % (37-47); IG% 0.3 %; LYMPH % 28.2 %; LYMPH ABS # 1.62 K/uL (1.2-3.4); MEAN CELL VOLUME 97.9 fL (80-100); MEAN CORPUSCULAR HEMOGLOBIN 32.6 pg (25-34); MEAN CORPUSCULAR HGB CONC 33.2 g/dl (32-36); MEAN PLATELET VOLUME 9.8 fL (7.4-10.4); NEUT % 57.7 %; PLATELET COUNT 203 K/uL (130-400); RED BLOOD COUNT 3.87 M/uL (4.2-5.4); WHITE BLOOD COUNT 5.75 K/uL (4.8-10.8)
[2017-06-12 06:56] LABS: INR 1.1 (0.9-1.1); PROTHROMBIN TIME (PATIENT) 11.3 SECONDS (9.0-12.0)
[2017-06-12 07:31] LABS: BUN/CREATININE RATIO 11.7 (10-20); CALCIUM 8.6 mg/dl (8.5-10.1); CREATININE 1.1 mg/dl (0.60-1.20); MAGNESIUM 1.7 mg/dl (1.8-2.4); POTASSIUM 4.1 mmol/L (3.5-5.1)
[2017-06-12] MEDS ORDERED: FENTANYL CITRATE INJ 50 MCG/1 ML 2 ML VIAL ONE ×2 (09:34→11:03)
[2017-06-12] MEDS ORDERED: ROCURONIUM BROMIDE 10 MG/ML 5 ML VIAL ONE (09:34)
[2017-06-12] MEDS ORDERED: LIDOCAINE HCL 2% 2 ML VIAL (20MG/ML) ONE (09:34)
[2017-06-12] MEDS ORDERED: PROPOFOL IV EMULSION 10 MG/ML 20 ML VIAL IV ONE (09:34)
[2017-06-12] MEDS ORDERED: ONDANSETRON INJ 2 MG/ML 2 ML VIAL ONE (09:34)
[2017-06-12] MEDS ORDERED: CEFAZOLIN IV 2,000 MG/60 ML D5W IV ONE (09:47)
--- NOTE | 2017-06-12 09:47 | History & Physical Bridge Note ---
H&P Re-Evaluation Bridge Note: I have examined the patient, reviewed the History & Physical and in the interval since the performance of the History & Physical I have noted the following changes of clinical significance: No changes noted
[2017-06-12] MEDS ORDERED: NURSING VERBAL MED ORDER ONE (10:00)
[2017-06-12] MEDS ORDERED: BUPIVACAINE/EPINEPHRINE 0.5% MPF 1:200,000 10 ML VIAL ONE (10:50)
[2017-06-12] MEDS ORDERED: NEOSTIGMINE METHYLSULFATE 5 MG/5 ML SYR ONE (10:53)
[2017-06-12] MEDS ORDERED: GLYCOPYRROLATE INJ 0.2 MG/ML VIAL ONE (10:53)
[2017-06-12] MEDS ORDERED: EpHEDrine SULFATE 50MG/5ML SYR ONE ×2 (10:53→12:00)
[2017-06-12] MEDS ORDERED: ATROPINE SULFATE 0.1 MG/ML 5ML SYR IV PRN (11:00)
[2017-06-12] MEDS ORDERED: ONDANSETRON INJ 2 MG/ML 2 ML VIAL IV PRN (11:00)
[2017-06-12] MEDS ORDERED: LABETALOL HCL IV 5 MG/ML 20ML IV ONE (12:28)
[2017-06-12] MEDS ORDERED: CEFOXITIN IV 2,000 MG in DEXTROSE 5% 50ML 50 ML IV SCH (12:45)
[2017-06-12] MEDS: HYDROmorphone INJ 2 MG/ML SYR/VIAL IV PRN ×8 (12:48→13:37)
--- NOTE | 2017-06-12 13:05 | [facility] Operative Report ---
Operative Report Operative Date Jun 12, 2017. Pre-Operative Diagnosis Incarcerated Right Inguinal Hernia Post-Operative Diagnosis Incarcerated Right Inguinal Hernia; extensive adhesions Procedure(s) Performed Laparoscopy with extensive entrolysis, repair of right inguinal hernia with mesh, mini laparotomy with repair of enterotomy Surgeon Dr. Rao Supervisor [employer] Surgeon(s) Irene Ortiz PA-C; Rasheed Manley PA-C Estimated Blood Loss 30cc Findings large RIH; extensive adhesions Specimens none Drains NETTE into RUQ Anesthesia get Complication(s) enterotomy during enterolysis requiring staple/oversew Disposition Recovery Room / PACU Description of Procedure After informed consent was obtained the patient was taken operating suite placed in supine position. After successful intubation a Osorio catheter was placed and the arms were tucked. The abdomen was sterilely prepped and draped. A periumbilical incision was made with an 11 blade scalpel and carried down through the soft tissue using electrocautery. Anterior rectus fascia was opened using electrocautery and 2 #0 Vicryl stay sutures were placed. Peritoneum was entered using blunt finger penetration and a finger sweep was performed. A 12 mm Martinez trocar was placed in the abdomen was insufflated to 18 mmHg. Lap scope was inserted in the abdomen was examined 360. There was extensive adhesions in the upper abdomen. There was also a large right inguinal hernia. There was no bowel stuck within it at the time. The left groin despite findings on CAT scan appeared to have scarring and there was no evidence of a left inguinal hernia. We did examine all the small bowel in the lower abdomen there was no evidence of any ischemia or injury. I placed a left lower quadrant 5 mL trocar a left midabdominal 5 mm trocar and eventually a left upper quadrant 12 mm trocar. We began by taking down adhesions in the lower abdomen. we did this with the Harmonic scalpel. Once these were down I placed a 12 cm round mesh with silicone barrier into the lower abdomen through the camera port site. We unrolled it and laid it over top of the hernia defect. It overlapped for several centimeters in all directions. I used a pro- tack device to secure the mesh anterior to the iliopubic tract as well as one into the pubic bone itself. It laid nice and tension free and covered the defect nicely. Because of the patient's rather severe upper abdominal pain she had asked me to evaluate this as well. She did have a lot of adhesions to her prior upper midline upper abdominal incision. There was some bowel twisted and stuck and it was hanging from the undersurface of the fascia certainly could have been the etiology of her pain. I saw no other reason for her having this pain. We then tediously used traction countertraction blunt dissection sharp scissor lysis and small amounts of Harmonic scalpel to take all these adhesions down. Unfortunately during one aspect I saw what appeared to be a tinge of bile. I could not definitively identify an enterotomy but I was worried enough and then decided to make a minilaparotomy to better evaluate things. Once I had all the adhesions down laparoscopically we used her old scar line in the right upper quadrant and used a 10 blade scalpel to open this. We used electrocautery down to the fascia which we also opened. We then were able to identify the area of the enterotomy. I was able to take down the remainder of the bowel from the fascial surface. It did involve the cecum and right colon. It was a very small subcentimeter pinhole. I was able to free this up and then used a NIR 60mm camargo cartridge stapler to staple off this small enterotomy. I used 3-0 silk to oversew it. We oversewed it with Lembert fashion. There was no evidence of contamination within the abdomen. I did change my gloves and then thoroughly irrigated the abdomen. We placed a 10 flat Fran-Florentino drain in the right upper quadrant and brought out through one of the port sites secured to skin using 2-0 nylon. One final irrigation was performed. There was adequate hemostasis at the end of the case. I closed the fascia using #1 PDS starting interpole and running them securing them in the midline. Soft tissue was irrigated and skin was closed using skin toya the fascia the camera port was closed using 0 Vicryl figure of 8 fashion in all the trocar sites were also closed using toya. Silver dressing was applied. The patient was awaken extubated and transferred recovery in stable condition I attest to the content of the Intraoperative Record and any orders documented therein. Any exceptions are noted below.
[2017-06-12] MEDS: ACETAMINOPHEN IV 100 ML IV PRN (13:41)
[2017-06-12] MEDS ORDERED: PROMETHAZINE HCL INJ 6.25 MG in SODIUM CHLORIDE 0.9% 50ML 50 ML IV PRN (13:45)
[2017-06-12] MEDS ORDERED: FENTANYL CITRATE INJ 50 MCG/1 ML 2 ML VIAL IV PRN (13:45)
--- NOTE | 2017-06-12 14:09 | Anesthesiology Progress Note ---
Anesthesia Post Op Note Date & Time Jun 12, 2017 at 14:09 Vital Signs Vital Signs Past 12 Hours Date Time Temp Pulse Resp B/P (MAP) Pulse Ox O2 Delivery O2 Flow Rate FiO2 06/12/17 13:17 76 15 06/12/17 13:17 74 15 97 06/12/17 13:16 114/74 06/12/17 13:12 85 22 06/12/17 13:12 85 22 100 06/12/17 13:11 139/85 06/12/17 13:07 84 26 06/12/17 13:07 84 26 100 06/12/17 13:06 134/75 06/12/17 13:02 79 18 06/12/17 13:02 79 18 100 06/12/17 13:01 140/102 06/12/17 12:58 84 21 100 06/12/17 12:58 83 21 06/12/17 12:56 118/77 06/12/17 12:53 80 16 100 06/12/17 12:53 81 16 06/12/17 12:51 131/74 06/12/17 12:48 80 20 100 06/12/17 12:48 80 20 06/12/17 12:46 134/78 06/12/17 12:43 82 19 98 06/12/17 12:43 82 19 06/12/17 12:41 147/81 06/12/17 12:39 139/83 06/12/17 12:38 87 18 06/12/17 12:38 36.3 87 18 139/83 99 Mask 15 06/12/17 12:38 100 18 97 06/12/17 07:30 Room Air 06/12/17 06:51 36.7 62 18 117/76 (90) 95 Room Air Notes Mental Status: alert / awake / arousable, participated in evaluation Pt Amnestic to Procedure: Yes Nausea / Vomiting: adequately controlled Pain: adequately controlled Airway Patency, RR, SpO2: stable & adequate BP & HR: stable & adequate Hydration State: stable & adequate Anesthetic Complications: no major complications apparent
--- NOTE | 2017-06-12 14:18 | Surgery Consultation ---
Consultation Date of Consultation: Jun 12, 2017. Attending Physician: Spencer Sweet M.D. Reason for Consultation: History & Physical Patient Name: Kirti Pink Unit Number: [id number] Date of : 1935 Patient Status: Admitted Inpatient Attending Doctor: Spencer Sweet M.D. History - H&P History & Physical Date & Time of Service: Jun 11, 2017 at 16:24 Chief Complaint: Abdominal Pain, Hernia Primary Care Physician: Dada Bernard M.D. History of Present Illness Source: patient, family pt with known hernias/has occ pain from them began to have severe 10/10 pain this am around 4 am. no n/v. no inciting incident other than walking to the bathroom. she does c/o of chronic constipation. she also complains of chronic upper abdominal pain that she blames a prior attempt at hiatal hernia repair on. Past Medical/Surgical History Medical Problems: (1) ANXIETY STATE NOS Status: Chronic (2) ASTHMA, UNSPECIFIED Status: Chronic (3) CHRONIC SINUSITIS NOS Status: Chronic (4) ESOPHAGEAL REFLUX Status: Chronic (5) FAMILY HISTORY OF OTHER CARDIOVASCULAR DISEASES Status: Chronic (6) FAMILY HX-MALIGNANCY NOS Status: Chronic (7) HEMORRHOIDS NOS Status: Chronic (8) HYPERTENSION NOS Status: Chronic (9) HYPOTHYROIDISM NOS Status: Chronic (10) KNEE JOINT REPLACEMENT STATUS Status: Chronic (11) LUMBAGO Status: Chronic (12) OSTEOARTHROS NOS-UNSPEC Status: Chronic (13) OSTEOPOROSIS NOS Status: Chronic (14) PERSONAL HX OF TIA,& 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 (15) PURE HYPERCHOLESTEROLEM Status: Chronic (16) SCIATICA Status: Chronic (17) SPINAL STENOSIS-LUMBAR Status: Chronic Family History Cancer Heart disease Social History Smoking Status: Former Smoker Drug Use: none Marital Status: Housing status: lives with family Occupational Status: retired Immunizations History of Influenza Vaccine: No Influenza Vaccine Date: Aug 06, 2009 History of Tetanus Vaccine?: Yes History of Pneumococcal: No Pneumococcal Date: Jan 06, 1998 History of Hepatitis B Vaccine: No Multi-Drug Resistant Organisms History of MDRO: No Allergies Coded Allergies: Clarithromycin (Verified Allergy, Intermediate, RASH, 06/11/17) Penicillins (Verified Allergy, Intermediate, RASH, 06/11/17) Shellfish (Verified Allergy, Intermediate, itch all over, 06/11/17) Propranolol (Unverified Allergy, Unknown, dizziness, 06/11/17) Sulfa Antibiotics (Verified Allergy, Unknown, ?, 06/11/17) White Fish (Verified Allergy, Unknown, SEAFOOD, FISH, 06/11/17) Codeine (Verified Adverse Reaction, Intermediate, NAUSEA/VOMITING, 06/11/17) Oxycodone (Verified Adverse Reaction, Unknown, UNKN, 06/11/17) Home Medications Scheduled Cholecalciferol (Vitamin D3), 2,000 INTER.UNIT PO DAILY Clopidogrel Bisulfate (Plavix), 75 MG PO DAILY Hctz/Spironolactone (Spironolactone/Hydrochlor 25-25 mg), 1 TAB PO DAILY Levothyroxine Sodium (Synthroid), 100 MCG PO DAILY Ranitidine (Zantac), 150 MG PO BID Scheduled PRN Meclizine Hcl (Meclizine Hcl), 25 MG PO TID PRN for Dizziness or Vertigo Tramadol (Ultram), 50 MG PO BID PRN for Pain Review of Systems Abdomen: + pain, + constipation Neurologic: + memory loss, + problem reported (history of 3 TIA's) Physical Ex - H&P Physical Exam Vital Signs Date Time Temp Pulse Resp B/P (MAP) Pulse Ox O2 Delivery O2 Flow Rate FiO2 06/11/17 15:21 62 16 109/64 98 06/11/17 14:27 70 16 117/69 94 Room Air 06/11/17 14:15 94 Room Air 06/11/17 12:05 66 18 102/61 94 Room Air 06/11/17 10:34 36.5 96 20 136/81 95 Room Air General Appearance: + mild distress Head: normocephalic, atraumatic Eyes: EOMI ENT: hearing grossly normal Neck: supple, no JVD Respiratory/Chest: no respiratory distress, no accessory muscle use Abdomen/GI: soft, + pertinent finding (+tenderness in RLQ. hernia not palpable. no g/r/r) Neurologic/Psych: alert, oriented x 3 Skin: warm/dry, no rash Diagnostics - H&P Diagnostics Laboratory Results Results Past 24 Hours Test 06/11/17 11:25 06/11/17 11:30 06/11/17 13:07 Range/Units Urine Color YELLOW Urine Appearance CLEAR CLEAR Urine pH 8.0 4.5-7.5 Urine Specific [place] 1.012 1.000-1.030 Urine Protein NEG NEG Urine Glucose (UA) NEG NEG Urine Ketones NEG NEG Urine Occult Blood NEG NEG Urine Nitrite NEG NEG Urine Bilirubin NEG NEG Urine Urobilinogen NEG NEG Urine Leukocyte Esterase TRACE NEG Urine WBC (Auto) 1-5 0-5 /hpf Urine RBC (Auto) 0-4 0-4 /hpf Urine Hyaline Casts (Auto) 0 0-5 /lpf Urine Epithelial Cells (Auto) 20-30 0-5 /lpf Urine Bacteria (Auto) NEG NEG White Blood Count 8.14 4.8-10.8 K/uL Red Blood Count 4.39 4.2-5.4 M/uL Hemoglobin 14.9 12.0-16.0 g/dL Hematocrit 42.3 37-47 % Mean Corpuscular Volume 96.4 80-100 fL Mean Corpuscular Hemoglobin 33.9 25-34 pg Mean Corpuscular Hemoglobin Concent 35.2 32-36 g/dl Platelet Count 236 130-400 K/uL Mean Platelet Volume 10.3 7.4-10.4 fL Neutrophils (%) (Auto) 61.3 % Lymphocytes (%) (Auto) 26.0 % Monocytes (%) (Auto) 10.7 % Eosinophils (%) (Auto) 1.2 % Basophils (%) (Auto) 0.4 % Neutrophils # (Auto) 4.99 1.4-6.5 K/uL Lymphocytes # (Auto) 2.12 1.2-3.4 K/uL Monocytes # (Auto) 0.87 0.11-0.59 K/uL Eosinophils # (Auto) 0.10 0-0.5 K/uL Basophils # (Auto) 0.03 0-0.2 K/uL RDW Standard Deviation 43.6 36.4-46.3 fL RDW Coefficient of Variation 12.4 11.5-14.5 % Immature Granulocyte % (Auto) 0.4 % Immature Granulocyte # (Auto) 0.03 0.00-0.02 K/uL Sodium Level 138 136-145 mmol/L Potassium Level 3.6 3.5-5.1 mmol/L Chloride Level 101 98-107 mmol/L Carbon Dioxide Level 30 21-32 mmol/L Anion Gap 7.0 3-11 mmol/L Blood Urea Nitrogen 17 7-18 mg/dl Creatinine 1.20 0.60-1.20 mg/dl Est Creatinine Clear Calc Drug Dose 40.6 ml/min Estimated GFR () 49.4 Estimated GFR (Non- 42.7 BUN/Creatinine Ratio 13.9 10-20 Random Glucose 92 70-99 mg/dl Calcium Level 9.8 8.5-10.1 mg/dl Total Bilirubin 1.0 0.2-1 mg/dl Direct Bilirubin 0.2 0-0.2 mg/dl Aspartate Amino Transf (AST/SGOT) 23 15-37 U/L Alanine Aminotransferase (ALT/SGPT) 19 12-78 U/L Alkaline Phosphatase 82 45-117 U/L Total Protein 7.4 6.4-8.2 gm/dl Albumin 3.8 3.4-5.0 gm/dl Lipase 293 73-393 U/L Bedside Lactic Acid Venous 0.78 0.90-1.70 mmol/L Microbiology Results 06/11/17 Urine Culture, Received Pending Diagnostic Radiology b/l inguinal hernias with some non-dilated/non-obstructed small bowel in right hernia. Impression - H&P Impression Assessment and Plan 1.abdominal pain secondary to incarcerated RIH. clinically still some mild discomfort but much improved lactic acid and wbc normal last dose of plavix was last night. preferably would be able to wait a couple of days for the plavix to washout but I don't think she will be able to wait that long. her is currently in the room beside her with metastatic colon ca, non-operable. currently not emergent. will plan to repair tomorrow. will attempt laparoscopically with mesh. I told her I will also at least look up to where her chronic upper abdominal pain is though the goal tomorrow is the incarcerated inguinal hernia. discussed options and risks ( bleeding infection, dvt/pe, mi, injury to other organs such as bladder, bowel etc... chronic post op pain) all questions answered. will plan for OR tomorrow. hold plavix Advanced Directives Existing Living Will: Yes Existing Power of Nurse College: Yes VTE Prophylaxis VTE Risk Assessment Done? Y/N: Yes Risk Level: Moderate Past Medical/Surgical History Medical Problems: (1) Abdominal pain Status: Acute (2) Central abdominal pain Status: Acute (3) Hernia Status: Acute (4) Thoracic back pain Status: Acute Family History Cancer Heart disease Social History Smoking Status: Former Smoker Drug Use: none Marital Status: Housing Status: lives with significant other Occupation Status: retired Allergies Coded Allergies: Clarithromycin (Verified Allergy, Intermediate, RASH, 06/11/17) Penicillins (Verified Allergy, Intermediate, RASH, 06/11/17) Shellfish (Verified Allergy, Intermediate, itch all over, 06/11/17) Propranolol (Unverified Allergy, Unknown, dizziness, 06/11/17) Sulfa Antibiotics (Verified Allergy, Unknown, ?, 06/11/17) White Fish (Verified Allergy, Unknown, SEAFOOD, FISH, 06/11/17) Codeine (Verified Adverse Reaction, Intermediate, NAUSEA/VOMITING, 06/11/17) Oxycodone (Verified Adverse Reaction, Unknown, UNKN, 06/11/17) Home Medications Scheduled Cholecalciferol (Vitamin D3), 2,000 INTER.UNIT PO DAILY Clopidogrel Bisulfate (Plavix), 75 MG PO DAILY Hctz/Spironolactone (Spironolactone/Hydrochlor 25-25 mg), 1 TAB PO DAILY Levothyroxine Sodium (Synthroid), 100 MCG PO DAILY Ranitidine (Zantac), 150 MG PO BID Scheduled PRN Meclizine Hcl (Meclizine Hcl), 25 MG PO TID PRN for Dizziness or Vertigo Tramadol (Ultram), 50 MG PO BID PRN for Pain Current Inpatient Medications Current Inpatient Medications Medications (Trade) Dose Ordered Sig/Rea Route Start Time Stop Time Status Last Admin Dose Admin Levothyroxine Sodium (Synthroid Tab) 100 mcg DAILYBB PO 06/12/17 06:00 07/12/17 06:59 06/12/17 05:42 100 MCG Ondansetron HCl (Zofran Inj) 4 mg Q6H PRN IV 06/11/17 14:15 07/11/17 14:14 06/12/17 05:53 4 MG Famotidine 20 mg/ Dextrose 102 ml @ 200 mls/hr Q12H IV 06/11/17 16:00 07/11/17 14:14 06/12/17 03:56 200 MLS/HR Acetaminophen 100 ml @ 400 mls/hr Q8H PRN IV 06/11/17 14:15 07/11/17 14:14 06/12/17 13:41 400 MLS/HR Potassium Chloride/Sodium Chloride 1,000 ml @ 100 mls/hr Q10H IV 06/11/17 16:15 07/11/17 14:04 06/12/17 02:44 100 MLS/HR Morphine Sulfate (MoRPHine SULFATE INJ) 2 mg Q2H PRN IV 06/11/17 14:15 06/25/17 14:14 Morphine Sulfate (MoRPHine SULFATE INJ) 4 mg Q2H PRN IV 06/11/17 14:15 06/25/17 14:14 06/11/17 21:57 4 MG Ondansetron HCl (Zofran Inj) 4 mg ONE PRN IV 06/12/17 11:00 06/12/17 16:00 06/12/17 13:36 4 MG Atropine Sulfate (Atropine Sulfate 0.1MG/Ml Inj) 0.5 mg Q1M PRN IV 06/12/17 11:00 06/12/17 16:00 Hydromorphone HCl (Dilaudid Inj) 0.25 mg Q5M PRN IV 06/12/17 11:00 06/12/17 16:00 06/12/17 13:37 0.25 MG Ciprofloxacin/ Dextrose 400 mg/ Prmx 200 ml @ 100 mls/hr Q12 IV 06/12/17 21:00 06/22/17 20:59 UNV Metronidazole 500 mg/Prmx 100 ml @ 100 mls/hr Q8H IV 06/12/17 13:00 06/22/17 12:59 UNV Fentanyl Citrate (Fentanyl Inj) 25 mcg Q5M PRN IV 06/12/17 13:45 06/12/17 18:45 06/12/17 13:59 25 MCG Promethazine HCl 6.25 mg/Sodium Chloride 50.25 ml @ 202 mls/hr ONE PRN IV 06/12/17 13:45 06/13/17 13:44 Physical Exam Date Time Temp Pulse Resp B/P (MAP) Pulse Ox O2 Delivery O2 Flow Rate FiO2 06/12/17 13:17 76 15 06/12/17 13:17 74 15 97 06/12/17 13:16 114/74 06/12/17 13:12 85 22 06/12/17 13:12 85 22 100 06/12/17 13:11 139/85 06/12/17 13:07 84 26 06/12/17 13:07 84 26 100 06/12/17 13:06 134/75 06/12/17 13:02 79 18 06/12/17 13:02 79 18 100 06/12/17 13:01 140/102 06/12/17 12:58 84 21 100 06/12/17 12:58 83 21 06/12/17 12:56 118/77 06/12/17 12:53 80 16 100 06/12/17 12:53 81 16 06/12/17 12:51 131/74 06/12/17 12:48 80 20 100 06/12/17 12:48 80 20 06/12/17 12:46 134/78 06/12/17 12:43 82 19 98 06/12/17 12:43 82 19 06/12/17 12:41 147/81 06/12/17 12:39 139/83 06/12/17 12:38 87 18 06/12/17 12:38 36.3 87 18 139/83 99 Mask 15 06/12/17 12:38 100 18 97 06/12/17 07:30 Room Air 06/12/17 06:51 36.7 62 18 117/76 (90) 95 Room Air 06/11/17 23:25 Room Air 06/11/17 22:52 36.5 71 16 106/67 (80) 94 Room Air 06/11/17 15:30 36.5 76 14 142/77 (98) 94 Room Air 06/11/17 15:30 Room Air 06/11/17 15:21 62 16 109/64 98 06/11/17 14:27 70 16 117/69 94 Room Air Laboratory Results Last 24 Hours Test 06/12/17 06:25 White Blood Count 5.75 K/uL Red Blood Count 3.87 M/uL Hemoglobin 12.6 g/dL Hematocrit 37.9 % Mean Corpuscular Volume 97.9 fL Mean Corpuscular Hemoglobin 32.6 pg Mean Corpuscular Hemoglobin Concent 33.2 g/dl Platelet Count 203 K/uL Mean Platelet Volume 9.8 fL Neutrophils (%) (Auto) 57.7 % Lymphocytes (%) (Auto) 28.2 % Monocytes (%) (Auto) 11.0 % Eosinophils (%) (Auto) 2.1 % Basophils (%) (Auto) 0.7 % Neutrophils # (Auto) 3.32 K/uL Lymphocytes # (Auto) 1.62 K/uL Monocytes # (Auto) 0.63 K/uL Eosinophils # (Auto) 0.12 K/uL Basophils # (Auto) 0.04 K/uL RDW Standard Deviation 45.0 fL RDW Coefficient of Variation 12.6 % Immature Granulocyte % (Auto) 0.3 % Immature Granulocyte # (Auto) 0.02 K/uL Prothrombin Time 11.3 SECONDS Prothromb Time International Ratio 1.1 Activated Partial Thromboplast Time 26.0 SECONDS Partial Thromboplastin Ratio 1.0 Sodium Level 139 mmol/L Potassium Level 4.1 mmol/L Chloride Level 105 mmol/L Carbon Dioxide Level 30 mmol/L Anion Gap 4.0 mmol/L Blood Urea Nitrogen 13 mg/dl Creatinine 1.10 mg/dl Est Creatinine Clear Calc Drug Dose 44.3 ml/min Estimated GFR () 54.9 Estimated GFR (Non- 47.4 BUN/Creatinine Ratio 11.7 Random Glucose 83 mg/dl Calcium Level 8.6 mg/dl Magnesium Level 1.7 mg/dl Assessment & Plan 1.abdominal pain secondary to incarcerated RIH. clinically still some mild discomfort but much improved lactic acid and wbc normal last dose of plavix was last night. preferably would be able to wait a couple of days for the plavix to washout but I don't think she will be able to wait that long. her is currently in the room beside her with metastatic colon ca, non-operable. currently not emergent. will plan to repair tomorrow. will attempt laparoscopically with mesh. I told her I will also at least look up to where her chronic upper abdominal pain is though the goal tomorrow is the incarcerated inguinal hernia. discussed options and risks ( bleeding infection, dvt/pe, mi, injury to other organs such as bladder, bowel etc... chronic post op pain) all questions answered. will plan for OR tomorrow. hold plavix
[2017-06-12] MEDS: METRONIDAZOLE / NSS 500 MG in PREMIXED NSS 100 ML IV SCH ×2 (15:38→21:27)
[2017-06-12] MEDS: CIPROFLOXACIN / D5W 400 MG in PREMIXED IN D5W 200 ML IV SCH (16:08)
--- NOTE | 2017-06-12 16:33 | Progress Note ---
Subjective Date of Service: Jun 12, 2017. Subjective Pt evaluation today including: conversation w/ patient, conversation w/ family (daughters), physical exam, lab review, review of inpatient medication list Pain: post op pain PO Intake: chips and sips Voiding: no voiding problems patient had lap inguinal hernia repair with mesh and lysis of adhesions small jori in bowel, repaired immediately patient with pain post op, no dyspnea or chest pain no vomiting discussed with daughters at bedside Problem List Medical Problems: (1) Abdominal pain Status: Acute (2) Central abdominal pain Status: Acute (3) Hernia Status: Acute (4) Thoracic back pain Status: Acute Review of Systems Abdomen: + pain All Other Systems: Reviewed and Negative Medications Current Inpatient Medications Medications (Trade) Dose Ordered Sig/Rea Route Start Time Stop Time Status Last Admin Dose Admin Levothyroxine Sodium (Synthroid Tab) 100 mcg DAILYBB PO 06/12/17 06:00 07/12/17 06:59 06/12/17 05:42 100 MCG Ondansetron HCl (Zofran Inj) 4 mg Q6H PRN IV 06/11/17 14:15 07/11/17 14:14 06/12/17 05:53 4 MG Famotidine 20 mg/ Dextrose 102 ml @ 200 mls/hr Q12H IV 06/11/17 16:00 07/11/17 14:14 06/12/17 03:56 200 MLS/HR Acetaminophen 100 ml @ 400 mls/hr Q8H PRN IV 06/11/17 14:15 07/11/17 14:14 06/12/17 13:41 400 MLS/HR Potassium Chloride/Sodium Chloride 1,000 ml @ 100 mls/hr Q10H IV 06/11/17 16:15 07/11/17 14:04 06/12/17 02:44 100 MLS/HR Morphine Sulfate (MoRPHine SULFATE INJ) 2 mg Q2H PRN IV 06/11/17 14:15 06/25/17 14:14 Morphine Sulfate (MoRPHine SULFATE INJ) 4 mg Q2H PRN IV 06/11/17 14:15 06/25/17 14:14 06/11/17 21:57 4 MG Ciprofloxacin/ Dextrose 400 mg/ Prmx 200 ml @ 100 mls/hr Q12@0400,1600 IV 06/12/17 16:00 06/22/17 15:59 06/12/17 16:08 100 MLS/HR Metronidazole 500 mg/Prmx 100 ml @ 100 mls/hr Q8 IV 06/12/17 15:00 06/22/17 14:59 06/12/17 15:38 100 MLS/HR Fentanyl Citrate (Fentanyl Inj) 25 mcg Q5M PRN IV 06/12/17 13:45 06/12/17 18:45 06/12/17 13:59 25 MCG Promethazine HCl 6.25 mg/Sodium Chloride 50.25 ml @ 202 mls/hr ONE PRN IV 06/12/17 13:45 06/13/17 13:44 06/12/17 14:19 202 MLS/HR Objective Vital Signs Date Time Temp Pulse Resp B/P (MAP) Pulse Ox O2 Delivery O2 Flow Rate FiO2 06/12/17 15:45 36.3 83 18 116/70 (85) 100 Nasal Cannula 4.0 06/12/17 15:15 36.1 76 16 118/53 (74) 97 Nasal Cannula 4.0 06/12/17 14:45 36.1 45 12 115/73 (87) 95 Nasal Cannula 4.0 06/12/17 14:33 116/54 06/12/17 14:31 90/50 06/12/17 14:29 72 17 06/12/17 14:29 74 17 97 06/12/17 14:26 109/61 06/12/17 14:24 54 15 06/12/17 14:24 55 15 98 06/12/17 14:22 112/57 06/12/17 14:21 98/72 06/12/17 14:19 67 15 06/12/17 14:19 66 15 94 06/12/17 14:17 36.2 06/12/17 14:16 113/59 06/12/17 14:14 72 13 94 06/12/17 14:14 72 13 06/12/17 14:13 68 16 06/12/17 14:13 68 16 92 06/12/17 14:11 123/64 06/12/17 14:08 69 19 92 06/12/17 14:08 69 19 06/12/17 14:06 120/58 06/12/17 14:03 78 19 06/12/17 14:03 78 19 98 8/7/17 14:01 95/57 87/17 13:58 53 15 87/17 13:58 52 15 97 87/17 13:56 135/76 87/17 13:53 72 16 87/17 13:53 73 16 97 87/17 13:51 113/72 87/17 13:48 58 14 87/17 13:48 58 14 97 87/17 13:46 123/71 87/17 13:43 71 15 97 87/17 13:43 69 15 87/17 13:41 121/83 87/17 13:38 78 16 98 87/17 13:38 78 16 87/17 13:36 116/61 87/17 13:33 79 18 87/17 13:33 79 18 98 87/17 13:31 121/70 87/17 13:28 81 21 99 87/17 13:28 81 21 87/17 13:26 135/64 06/12/17 13:23 81 21 87/17 13:23 81 21 96 7/17 13:21 138/62 8/17 13:18 78 24 8/17 13:18 78 24 96 06/12/17 13:17 76 15 06/12/17 13:17 74 15 97 7/17 13:16 114/74 06/12/17 13:12 85 22 87/17 13:12 85 22 100 87/17 13:11 139/85 17 13:07 84 26 87/17 13:07 84 26 100 87/17 13:06 134/75 87/17 13:02 79 18 87/17 13:02 79 18 100 87/17 13:01 140/102 87/17 12:58 84 21 100 8/7/17 12:58 83 21 8/7/17 12:56 118/77 87/17 12:53 80 16 100 8/7/17 12:53 81 16 8/7/17 12:51 131/74 87/17 12:48 80 20 100 8/7/17 12:48 80 20 8/7/17 12:46 134/78 06/12/17 12:43 82 19 98 06/12/17 12:43 82 19 06/12/17 12:41 147/81 06/12/17 12:39 139/83 06/12/17 12:38 87 18 06/12/17 12:38 36.3 87 18 139/83 99 Mask 15 06/12/17 12:38 100 18 97 06/12/17 07:30 Room Air 06/12/17 06:51 36.7 62 18 117/76 (90) 95 Room Air 06/11/17 23:25 Room Air 06/11/17 22:52 36.5 71 16 106/67 (80) 94 Room Air Physical Exam General Appearance: WD/WN, no apparent distress Respiratory/Chest: chest non-tender, lungs clear, no respiratory distress, no accessory muscle use, + decreased breath sounds (bases) Cardiovascular: regular rate, rhythm, no edema, no gallop, no JVD, no murmur Abdomen: soft, no organomegaly, + abnormal bowel sounds (hypoactive), + tenderness Extremities: normal range of motion, non-tender, normal inspection, no pedal edema, no calf tenderness Neurologic/Psychiatric: cigarette maker II-XII nml as tested, no motor/sensory deficits, alert, normal mood/affect, oriented x 3 Skin: normal color, warm/dry, no rash Laboratory Results Last 24 Hours Test 06/12/17 06:25 White Blood Count 5.75 K/uL Red Blood Count 3.87 M/uL Hemoglobin 12.6 g/dL Hematocrit 37.9 % Mean Corpuscular Volume 97.9 fL Mean Corpuscular Hemoglobin 32.6 pg Mean Corpuscular Hemoglobin Concent 33.2 g/dl Platelet Count 203 K/uL Mean Platelet Volume 9.8 fL Neutrophils (%) (Auto) 57.7 % Lymphocytes (%) (Auto) 28.2 % Monocytes (%) (Auto) 11.0 % Eosinophils (%) (Auto) 2.1 % Basophils (%) (Auto) 0.7 % Neutrophils # (Auto) 3.32 K/uL Lymphocytes # (Auto) 1.62 K/uL Monocytes # (Auto) 0.63 K/uL Eosinophils # (Auto) 0.12 K/uL Basophils # (Auto) 0.04 K/uL RDW Standard Deviation 45.0 fL RDW Coefficient of Variation 12.6 % Immature Granulocyte % (Auto) 0.3 % Immature Granulocyte # (Auto) 0.02 K/uL Prothrombin Time 11.3 SECONDS Prothromb Time International Ratio 1.1 Activated Partial Thromboplast Time 26.0 SECONDS Partial Thromboplastin Ratio 1.0 Sodium Level 139 mmol/L Potassium Level 4.1 mmol/L Chloride Level 105 mmol/L Carbon Dioxide Level 30 mmol/L Anion Gap 4.0 mmol/L Blood Urea Nitrogen 13 mg/dl Creatinine 1.10 mg/dl Est Creatinine Clear Calc Drug Dose 44.3 ml/min Estimated GFR () 54.9 Estimated GFR (Non- 47.4 BUN/Creatinine Ratio 11.7 Random Glucose 83 mg/dl Calcium Level 8.6 mg/dl Magnesium Level 1.7 mg/dl Assessment and Plan 81 yo female with abdominal pain, found to have incarcerated right inguinal hernia - Incarcerated right inguinal hernia: reduced and repaired with mesh on 06/11 - Lysis of adhesions: small enterostomy, repaired immediately - H/o stroke: continue Plavix - HTN: continue home meds diet, pain control and d/c per surgery
[2017-06-12] MEDS: MoRPHine SULFATE 4 MG/ML 1 ML CARP\\VIAL IV PRN (23:49)
[2017-06-13] VITALS (10 sets, daily range): BP systolic 104–118; BP diastolic 67–78; PULSE 84–98; TEMP 36.5–37.3; O2SAT 80–98
[2017-06-13] MEDS: NSS + 20MEQ KCL 1000ML 1,000 ML IV SCH ×3 (03:35→21:41)
[2017-06-13] MEDS: FAMOTIDINE IV INJ 20 MG in DEXTROSE 5% 100ML 100 ML IV SCH ×2 (03:35→16:25)
[2017-06-13] MEDS: CIPROFLOXACIN / D5W 400 MG in PREMIXED IN D5W 200 ML IV SCH ×2 (03:35→15:23)
[2017-06-13] MEDS: LEVOTHYROXINE 100 MCG TAB PO SCH (05:42)
[2017-06-13] MEDS: MoRPHine SULFATE 4 MG/ML 1 ML CARP\\VIAL IV PRN ×2 (05:42→08:04)
[2017-06-13] MEDS: METRONIDAZOLE / NSS 500 MG in PREMIXED NSS 100 ML IV SCH ×3 (05:42→21:41)
[2017-06-13 06:36] LABS: BASO % 0.2 %; BASO ABS # 0.02 K/uL (0-0.2); COMPLETE YES; HEMATOCRIT 37.7 % (37-47); IG% 0.4 %; LYMPH ABS # 1.21 K/uL (1.2-3.4); MEAN CELL VOLUME 98.7 fL (80-100); MEAN CORPUSCULAR HGB CONC 33.4 g/dl (32-36); MEAN PLATELET VOLUME 10.4 fL (7.4-10.4); MONO % 10.2 %; NEUT % 79.2 %; PLATELET COUNT 182 K/uL (130-400); RED BLOOD COUNT 3.82 M/uL (4.2-5.4); WHITE BLOOD COUNT 12.15 K/uL (4.8-10.8)
[2017-06-13 07:04] LABS: CREATININE 1.3 mg/dl (0.60-1.20)
[2017-06-13 07:05] LABS: BUN/CREATININE RATIO 10.4 (10-20); CALCIUM 8.4 mg/dl (8.5-10.1); MAGNESIUM 1.2 mg/dl (1.8-2.4); POTASSIUM 4.4 mmol/L (3.5-5.1)
--- NOTE | 2017-06-13 08:58 | Surgery Progress Note ---
Surgery Progress Note Date of Service Jun 13, 2017. Subjective Post OP Day: 1 + complaints (pain), + diet (ice/water), No nausea Objective Vital Signs: Date Time Temp Pulse Resp B/P (MAP) Pulse Ox O2 Delivery O2 Flow Rate FiO2 06/13/17 08:13 96 Nasal Cannula 1.0 06/13/17 07:58 36.6 94 16 118/78 (91) 96 Nasal Cannula 1.0 06/13/17 07:39 Nasal Cannula 1.0 06/13/17 06:02 98 Nasal Cannula 1.0 06/13/17 06:01 80 Room Air 06/13/17 03:11 36.9 98 16 115/67 (83) 97 Nasal Cannula 2.0 06/12/17 23:45 Nasal Cannula 2.0 06/12/17 23:07 36.4 98 16 102/67 (79) 98 Nasal Cannula 2.0 06/12/17 21:39 100 Nasal Cannula 2.0 06/12/17 19:40 36.2 84 16 110/70 (83) 100 Nasal Cannula 4.0 06/12/17 17:51 36.8 75 16 108/70 (83) 100 Nasal Cannula 4.0 06/12/17 16:45 36.2 72 16 106/69 (81) 100 Nasal Cannula 4.0 06/12/17 15:45 36.3 83 18 116/70 (85) 100 Nasal Cannula 4.0 06/12/17 15:20 Nasal Cannula 4.0 06/12/17 15:20 Nasal Cannula 4.0 06/12/17 15:15 36.1 76 16 118/53 (74) 97 Nasal Cannula 4.0 06/12/17 14:45 36.1 45 12 115/73 (87) 95 Nasal Cannula 4.0 06/12/17 14:33 116/54 06/12/17 14:31 90/50 06/12/17 14:29 72 17 06/12/17 14:29 74 17 97 06/12/17 14:26 109/61 06/12/17 14:24 54 15 06/12/17 14:24 55 15 98 06/12/17 14:22 112/57 06/12/17 14:21 98/72 06/12/17 14:19 67 15 06/12/17 14:19 66 15 94 06/12/17 14:17 36.2 06/12/17 14:16 113/59 06/12/17 14:14 72 13 94 06/12/17 14:14 72 13 06/12/17 14:13 68 16 06/12/17 14:13 68 16 92 06/12/17 14:11 123/64 06/12/17 14:08 69 19 92 06/12/17 14:08 69 19 06/12/17 14:06 120/58 06/12/17 14:03 78 19 06/12/17 14:03 78 19 98 06/12/17 14:01 95/57 06/12/17 13:58 53 15 06/12/17 13:58 52 15 97 06/12/17 13:56 135/76 06/12/17 13:53 72 16 06/12/17 13:53 73 16 97 06/12/17 13:51 113/72 06/12/17 13:48 58 14 06/12/17 13:48 58 14 97 06/12/17 13:46 123/71 06/12/17 13:43 71 15 97 06/12/17 13:43 69 15 06/12/17 13:41 121/83 06/12/17 13:38 78 16 98 06/12/17 13:38 78 16 06/12/17 13:36 116/61 06/12/17 13:33 79 18 06/12/17 13:33 79 18 98 06/12/17 13:31 121/70 06/12/17 13:28 81 21 99 06/12/17 13:28 81 21 06/12/17 13:26 135/64 06/12/17 13:23 81 21 06/12/17 13:23 81 21 96 06/12/17 13:21 138/62 17 13:18 78 24 06/12/17 13:18 78 24 96 06/12/17 13:17 76 15 06/12/17 13:17 74 15 97 06/12/17 13:16 114/74 06/12/17 13:12 85 22 8/ 13:12 85 22 100 06/12/17 13:11 139/85 06/12/17 13:07 84 26 06/12/17 13:07 84 26 100 8//17 13:06 134/75 06/12/17 13:02 79 18 06/12/17 13:02 79 18 100 06/12/17 13:01 140/102 06/12/17 12:58 84 21 100 06/12/17 12:58 83 21 06/12/17 12:56 118/77 06/12/17 12:53 80 16 100 06/12/17 12:53 81 16 06/12/17 12:51 131/74 06/12/17 12:48 80 20 100 06/12/17 12:48 80 20 06/12/17 12:46 134/78 06/12/17 12:43 82 19 98 06/12/17 12:43 82 19 06/12/17 12:41 147/81 06/12/17 12:39 139/83 06/12/17 12:38 87 18 06/12/17 12:38 36.3 87 18 139/83 99 Mask 15 06/12/17 12:38 100 18 97 Physical Exam: NETTE drainage (10 cc overnight) Abdomen: non distended, soft Incision(s): drainage (lateral ports) Laboratory Results: Results Past 24 Hours Test 06/13/17 05:46 Range/Units White Blood Count 12.15 4.8-10.8 K/uL Red Blood Count 3.82 4.2-5.4 M/uL Hemoglobin 12.6 12.0-16.0 g/dL Hematocrit 37.7 37-47 % Mean Corpuscular Volume 98.7 80-100 fL Mean Corpuscular Hemoglobin 33.0 25-34 pg Mean Corpuscular Hemoglobin Concent 33.4 32-36 g/dl Platelet Count 182 130-400 K/uL Mean Platelet Volume 10.4 7.4-10.4 fL Neutrophils (%) (Auto) 79.2 % Lymphocytes (%) (Auto) 10.0 % Monocytes (%) (Auto) 10.2 % Eosinophils (%) (Auto) 0.0 % Basophils (%) (Auto) 0.2 % Neutrophils # (Auto) 9.63 1.4-6.5 K/uL Lymphocytes # (Auto) 1.21 1.2-3.4 K/uL Monocytes # (Auto) 1.24 0.11-0.59 K/uL Eosinophils # (Auto) 0.00 0-0.5 K/uL Basophils # (Auto) 0.02 0-0.2 K/uL RDW Standard Deviation 45.8 36.4-46.3 fL RDW Coefficient of Variation 12.7 11.5-14.5 % Immature Granulocyte % (Auto) 0.4 % Immature Granulocyte # (Auto) 0.05 0.00-0.02 K/uL Sodium Level 136 136-145 mmol/L Potassium Level 4.4 3.5-5.1 mmol/L Chloride Level 103 98-107 mmol/L Carbon Dioxide Level 25 21-32 mmol/L Anion Gap 8.0 3-11 mmol/L Blood Urea Nitrogen 14 7-18 mg/dl Creatinine 1.30 0.60-1.20 mg/dl Est Creatinine Clear Calc Drug Dose 37.5 ml/min Estimated GFR () 44.9 Estimated GFR (Non- 38.7 BUN/Creatinine Ratio 10.4 10-20 Random Glucose 135 70-99 mg/dl Calcium Level 8.4 8.5-10.1 mg/dl Magnesium Level 1.2 1.8-2.4 mg/dl Assessment & Plan s/p lap RI repair, open repair enterotomy wants to ambulate can have clears later today IV Cipro/Flagyl PT
[2017-06-13] MEDS: HYDROmorphone INJ 1 MG/ML SYR IV PRN ×3 (10:28→20:36)
[2017-06-13] MEDS: MAGNESIUM SULFATE 1GM / D5W 1 GM in PREMIXED IN D5W 100 ML IV SCH ×2 (10:29→11:31)
--- NOTE | 2017-06-13 10:46 | Anesthesiology Progress Note ---
Anesthesia Post Op Note Date & Time Jun 13, 2017 at 10:46 Vital Signs Pain Intensity: 9.0 Vital Signs Past 12 Hours Date Time Temp Pulse Resp B/P (MAP) Pulse Ox O2 Delivery O2 Flow Rate FiO2 06/13/17 08:13 96 Nasal Cannula 1.0 06/13/17 07:58 36.6 94 16 118/78 (91) 96 Nasal Cannula 1.0 06/13/17 07:39 Nasal Cannula 1.0 06/13/17 06:02 98 Nasal Cannula 1.0 06/13/17 06:01 80 Room Air 06/13/17 03:11 36.9 98 16 115/67 (83) 97 Nasal Cannula 2.0 06/12/17 23:45 Nasal Cannula 2.0 06/12/17 23:07 36.4 98 16 102/67 (79) 98 Nasal Cannula 2.0 Notes Mental Status: alert / awake / arousable, participated in evaluation Pt Amnestic to Procedure: Yes Nausea / Vomiting: adequately controlled Pain: adequately controlled Airway Patency, RR, SpO2: stable & adequate BP & HR: stable & adequate Hydration State: stable & adequate Anesthetic Complications: no major complications apparent
--- NOTE | 2017-06-13 14:50 | Progress Note ---
Subjective Date of Service: Jun 13, 2017. Subjective Pt evaluation today including: conversation w/ patient, physical exam, lab review, conversation w/ accounting policy consultant, review of inpatient medication list Pain: moderate pain PO Intake: clears today Voiding: lopez catheter in place patient with pain, limits deep breathing and coughing tolerating sips of clears, no real appetite not OOB today, feels weak appreciate note from surgery labs reviewed, Mag low, will replace IV Problem List Medical Problems: (1) Abdominal pain Status: Acute (2) Central abdominal pain Status: Acute (3) Hernia Status: Acute (4) Thoracic back pain Status: Acute Review of Systems All Other Systems: Reviewed and Negative Medications Current Inpatient Medications Medications (Trade) Dose Ordered Sig/Rea Route Start Time Stop Time Status Last Admin Dose Admin Levothyroxine Sodium (Synthroid Tab) 100 mcg DAILYBB PO 06/12/17 06:00 07/12/17 06:59 06/13/17 05:42 100 MCG Ondansetron HCl (Zofran Inj) 4 mg Q6H PRN IV 06/11/17 14:15 07/11/17 14:14 06/12/17 05:53 4 MG Famotidine 20 mg/ Dextrose 102 ml @ 200 mls/hr Q12H IV 06/11/17 16:00 07/11/17 14:14 06/13/17 03:35 200 MLS/HR Acetaminophen 100 ml @ 400 mls/hr Q8H PRN IV 06/11/17 14:15 07/11/17 14:14 06/12/17 13:41 400 MLS/HR Potassium Chloride/Sodium Chloride 1,000 ml @ 100 mls/hr Q10H IV 06/11/17 16:15 07/11/17 14:04 06/13/17 11:31 100 MLS/HR Ciprofloxacin/ Dextrose 400 mg/ Prmx 200 ml @ 100 mls/hr Q12@0400,1600 IV 06/12/17 16:00 06/22/17 15:59 06/13/17 03:35 100 MLS/HR Metronidazole 500 mg/Prmx 100 ml @ 100 mls/hr Q8 IV 06/12/17 15:00 06/22/17 14:59 06/13/17 14:18 100 MLS/HR Hydromorphone HCl (Dilaudid Inj) 1 mg Q2HWA PRN IV 06/13/17 10:00 06/27/17 09:59 06/13/17 10:28 1 MG Objective Vital Signs Date Time Temp Pulse Resp B/P (MAP) Pulse Ox O2 Delivery O2 Flow Rate FiO2 06/13/17 11:15 37.3 92 14 114/70 (85) 96 Nasal Cannula 06/13/17 08:13 96 Nasal Cannula 1.0 06/13/17 07:58 36.6 94 16 118/78 (91) 96 Nasal Cannula 1.0 06/13/17 07:39 Nasal Cannula 1.0 06/13/17 06:02 98 Nasal Cannula 1.0 06/13/17 06:01 80 Room Air 06/13/17 03:11 36.9 98 16 115/67 (83) 97 Nasal Cannula 2.0 06/12/17 23:45 Nasal Cannula 2.0 06/12/17 23:07 36.4 98 16 102/67 (79) 98 Nasal Cannula 2.0 06/12/17 21:39 100 Nasal Cannula 2.0 06/12/17 19:40 36.2 84 16 110/70 (83) 100 Nasal Cannula 4.0 06/12/17 17:51 36.8 75 16 108/70 (83) 100 Nasal Cannula 4.0 06/12/17 16:45 36.2 72 16 106/69 (81) 100 Nasal Cannula 4.0 06/12/17 15:45 36.3 83 18 116/70 (85) 100 Nasal Cannula 4.0 06/12/17 15:20 Nasal Cannula 4.0 06/12/17 15:20 Nasal Cannula 4.0 06/12/17 15:15 36.1 76 16 118/53 (74) 97 Nasal Cannula 4.0 Physical Exam General Appearance: WD/WN, no apparent distress Eyes: normal inspection, EOMI, sclerae normal ENT: normal ENT inspection, hearing grossly normal, pharynx normal Respiratory/Chest: chest non-tender, lungs clear, no respiratory distress, no accessory muscle use, + decreased breath sounds (bases) Cardiovascular: regular rate, rhythm, no edema, no gallop, no JVD, no murmur Abdomen: no organomegaly, + abnormal bowel sounds (hypoactive), + tenderness, + pertinent finding (incision clean and dry) Extremities: normal range of motion, non-tender, normal inspection, no pedal edema, no calf tenderness, pelvis stable Neurologic/Psychiatric: folding machine tender II-XII nml as tested, no motor/sensory deficits, alert, normal mood/affect, oriented x 3 Skin: normal color, warm/dry, no rash Laboratory Results Last 24 Hours Test 06/13/17 05:46 White Blood Count 12.15 K/uL Red Blood Count 3.82 M/uL Hemoglobin 12.6 g/dL Hematocrit 37.7 % Mean Corpuscular Volume 98.7 fL Mean Corpuscular Hemoglobin 33.0 pg Mean Corpuscular Hemoglobin Concent 33.4 g/dl Platelet Count 182 K/uL Mean Platelet Volume 10.4 fL Neutrophils (%) (Auto) 79.2 % Lymphocytes (%) (Auto) 10.0 % Monocytes (%) (Auto) 10.2 % Eosinophils (%) (Auto) 0.0 % Basophils (%) (Auto) 0.2 % Neutrophils # (Auto) 9.63 K/uL Lymphocytes # (Auto) 1.21 K/uL Monocytes # (Auto) 1.24 K/uL Eosinophils # (Auto) 0.00 K/uL Basophils # (Auto) 0.02 K/uL RDW Standard Deviation 45.8 fL RDW Coefficient of Variation 12.7 % Immature Granulocyte % (Auto) 0.4 % Immature Granulocyte # (Auto) 0.05 K/uL Sodium Level 136 mmol/L Potassium Level 4.4 mmol/L Chloride Level 103 mmol/L Carbon Dioxide Level 25 mmol/L Anion Gap 8.0 mmol/L Blood Urea Nitrogen 14 mg/dl Creatinine 1.30 mg/dl Est Creatinine Clear Calc Drug Dose 37.5 ml/min Estimated GFR () 44.9 Estimated GFR (Non- 38.7 BUN/Creatinine Ratio 10.4 Random Glucose 135 mg/dl Calcium Level 8.4 mg/dl Magnesium Level 1.2 mg/dl Assessment and Plan 81 yo female with abdominal pain, found to have incarcerated right inguinal hernia - Incarcerated right inguinal hernia: reduced and repaired with mesh on 06/11 pain control per surgery diet advanced to clears today - Lysis of adhesions: small enterotomy, repaired immediately continue Cipro and Flagyl per surgery clears only today d/c will be up to surgery - Hypomagnesemia: 2gm IV today - H/o stroke: continue Plavix - HTN: BP stable, holding spironolactone/HCTZ - Hypothyroid: continue Synthroid diet, pain control and d/c per surgery
[2017-06-13] MEDS: ACETAMINOPHEN IV 100 ML IV PRN (21:49)
[2017-06-14] MEDS: FAMOTIDINE IV INJ 20 MG in DEXTROSE 5% 100ML 100 ML IV SCH (04:07)
[2017-06-14] MEDS: CIPROFLOXACIN / D5W 400 MG in PREMIXED IN D5W 200 ML IV SCH (04:07)
[2017-06-14] MEDS: METRONIDAZOLE / NSS 500 MG in PREMIXED NSS 100 ML IV SCH (05:25)
[2017-06-14] MEDS: LEVOTHYROXINE 100 MCG TAB PO SCH (05:30)
[2017-06-14 07:57] VITALS: BP 128/64; PULSE 79; TEMP 36.6; O2SAT 98
[2017-06-14 08:09] LABS: BASO % 0.1 %; BASO ABS # 0.01 K/uL (0-0.2); COMPLETE YES; HEMATOCRIT 34.1 % (37-47); IG% 0.5 %; LYMPH % 10.6 %; LYMPH ABS # 1.06 K/uL (1.2-3.4); MEAN CELL VOLUME 97.7 fL (80-100); MEAN CORPUSCULAR HGB CONC 33.7 g/dl (32-36); MONO % 13.5 %; NEUT % 74.3 %; PLATELET COUNT 168 K/uL (130-400); RED BLOOD COUNT 3.49 M/uL (4.2-5.4); WHITE BLOOD COUNT 9.97 K/uL (4.8-10.8)
[2017-06-14 08:50] LABS: BUN/CREATININE RATIO 9.6 (10-20); CALCIUM 8.9 mg/dl (8.5-10.1); CREATININE 0.97 mg/dl (0.60-1.20); MAGNESIUM 1.5 mg/dl (1.8-2.4)
--- NOTE | 2017-06-14 09:06 | Surgery Progress Note ---
Surgery Progress Note Date of Service Jun 14, 2017. Subjective Post OP Day: 2 + pain controlled (improved), No complaints, No bowel movement, No flatus, No nausea Objective Vital Signs: Date Time Temp Pulse Resp B/P (MAP) Pulse Ox O2 Delivery O2 Flow Rate FiO2 06/14/17 07:57 36.6 79 15 128/64 (85) 98 Nasal Cannula 2.0 06/14/17 07:40 Nasal Cannula 2.0 06/14/17 00:15 Nasal Cannula 2.0 06/13/17 23:00 36.5 84 18 104/67 (79) 97 Nasal Cannula 2.0 06/13/17 20:46 93 Nasal Cannula 2.0 06/13/17 20:45 87 Room Air 06/13/17 15:20 Nasal Cannula 1.0 06/13/17 15:04 36.5 90 16 110/71 (84) 91 Nasal Cannula 1.0 06/13/17 11:15 37.3 92 14 114/70 (85) 96 Nasal Cannula Abdomen: non distended, soft Incision(s): intact (dressing) Laboratory Results: Results Past 24 Hours Test 06/14/17 07:45 Range/Units White Blood Count 9.97 4.8-10.8 K/uL Red Blood Count 3.49 4.2-5.4 M/uL Hemoglobin 11.5 12.0-16.0 g/dL Hematocrit 34.1 37-47 % Mean Corpuscular Volume 97.7 80-100 fL Mean Corpuscular Hemoglobin 33.0 25-34 pg Mean Corpuscular Hemoglobin Concent 33.7 32-36 g/dl Platelet Count 168 130-400 K/uL Mean Platelet Volume 10.0 7.4-10.4 fL Neutrophils (%) (Auto) 74.3 % Lymphocytes (%) (Auto) 10.6 % Monocytes (%) (Auto) 13.5 % Eosinophils (%) (Auto) 1.0 % Basophils (%) (Auto) 0.1 % Neutrophils # (Auto) 7.40 1.4-6.5 K/uL Lymphocytes # (Auto) 1.06 1.2-3.4 K/uL Monocytes # (Auto) 1.35 0.11-0.59 K/uL Eosinophils # (Auto) 0.10 0-0.5 K/uL Basophils # (Auto) 0.01 0-0.2 K/uL RDW Standard Deviation 45.0 36.4-46.3 fL RDW Coefficient of Variation 12.7 11.5-14.5 % Immature Granulocyte % (Auto) 0.5 % Immature Granulocyte # (Auto) 0.05 0.00-0.02 K/uL Sodium Level 138 136-145 mmol/L Potassium Level 4.0 3.5-5.1 mmol/L Chloride Level 105 98-107 mmol/L Carbon Dioxide Level 27 21-32 mmol/L Anion Gap 6.0 3-11 mmol/L Blood Urea Nitrogen 9 7-18 mg/dl Creatinine 0.97 0.60-1.20 mg/dl Est Creatinine Clear Calc Drug Dose 50.2 ml/min Estimated GFR () 63.9 Estimated GFR (Non- 55.2 BUN/Creatinine Ratio 9.6 10-20 Random Glucose 98 70-99 mg/dl Calcium Level 8.9 8.5-10.1 mg/dl Magnesium Level 1.5 1.8-2.4 mg/dl Assessment & Plan s/p lap RIH repair, open repair enterotomy keep on clears for today IV Cipro/Flagyl d/c jessica seen with Dr. Rao
[2017-06-14 09:18] VITALS: O2SAT 98
[2017-06-14] MEDS: NSS + 20MEQ KCL 1000ML 1,000 ML IV SCH (09:35)
[2017-06-14] MEDS: HYDROmorphone INJ 1 MG/ML SYR IV PRN (09:37)
[2017-06-14] MEDS: METRONIDAZOLE 500 MG TAB PO SCH ×2 (14:05→20:42)
[2017-06-14 14:25] VITALS: BP 156/83; PULSE 109; O2SAT 94
--- NOTE | 2017-06-14 14:25 | Progress Note ---
Subjective Date of Service: Jun 14, 2017. Subjective Pt evaluation today including: conversation w/ patient, physical exam, lab review, conversation w/ center lead consultant, review of inpatient medication list Pain: moderate, better after Dilaudid PO Intake: clears Voiding: lopez catheter in place patient with pain this AM, relieved with Dilaudid 1mg but it made her very dizzy d/w RN and patient, will try 0.5mg next time for pain relief tolerating clears, not much of an appetite, no flatus or BM, + belching breathing well, no chest pain tearful at the end of visit, frustrated with being in hospital Problem List Medical Problems: (1) Abdominal pain Status: Acute (2) Central abdominal pain Status: Acute (3) Hernia Status: Acute (4) Thoracic back pain Status: Acute Review of Systems Constitutional: + weakness, + fatigue Abdomen: + pain, + constipation Neurologic: + weakness, + vertigo Psychiatric: + depression symptoms All Other Systems: Reviewed and Negative Medications Current Inpatient Medications Medications (Trade) Dose Ordered Sig/Rea Route Start Time Stop Time Status Last Admin Dose Admin Levothyroxine Sodium (Synthroid Tab) 100 mcg DAILYBB PO 06/12/17 06:00 07/12/17 06:59 06/14/17 05:30 100 MCG Ondansetron HCl (Zofran Inj) 4 mg Q6H PRN IV 06/11/17 14:15 07/11/17 14:14 06/12/17 05:53 4 MG Acetaminophen 100 ml @ 400 mls/hr Q8H PRN IV 06/11/17 14:15 07/11/17 14:14 06/13/17 21:49 400 MLS/HR Potassium Chloride/Sodium Chloride 1,000 ml @ 50 mls/hr Q20H IV 06/11/17 16:15 07/11/17 14:04 06/14/17 09:35 50 MLS/HR Hydromorphone HCl (Dilaudid Inj) 1 mg Q2HWA PRN IV 06/13/17 10:00 06/27/17 09:59 06/14/17 09:37 1 MG Ciprofloxacin (Cipro Tab) 500 mg BID PO 06/14/17 16:00 06/22/17 15:59 Metronidazole (Flagyl Tab) 500 mg TID PO 8/9/17 14:00 06/22/17 13:59 06/14/17 14:05 500 MG Famotidine (Pepcid Tab) 20 mg BID PO 06/14/17 21:00 07/14/17 20:59 Objective Vital Signs Date Time Temp Pulse Resp B/P (MAP) Pulse Ox O2 Delivery O2 Flow Rate FiO2 06/14/17 09:18 98 Nasal Cannula 2.0 06/14/17 07:57 36.6 79 15 128/64 (85) 98 Nasal Cannula 2.0 06/14/17 07:40 Nasal Cannula 2.0 06/14/17 00:15 Nasal Cannula 2.0 06/13/17 23:00 36.5 84 18 104/67 (79) 97 Nasal Cannula 2.0 06/13/17 20:46 93 Nasal Cannula 2.0 06/13/17 20:45 87 Room Air 06/13/17 15:20 Nasal Cannula 1.0 06/13/17 15:04 36.5 90 16 110/71 (84) 91 Nasal Cannula 1.0 Physical Exam General Appearance: WD/WN, no apparent distress Eyes: normal inspection, EOMI, sclerae normal Respiratory/Chest: chest non-tender, lungs clear, normal breath sounds, no respiratory distress, no accessory muscle use Cardiovascular: regular rate, rhythm, no edema, no gallop, no JVD, no murmur Abdomen: soft, no organomegaly, + abnormal bowel sounds (hypoactive), + tenderness, + pertinent finding (incision clean and dry, NETTE with serosanguinous drainage) Extremities: normal range of motion, non-tender, normal inspection, no pedal edema, no calf tenderness Neurologic/Psychiatric: take down sorter II-XII nml as tested, alert, oriented x 3, + motor weakness, + depressed affect Skin: normal color, warm/dry, no rash Laboratory Results Last 24 Hours Test 06/14/17 07:45 White Blood Count 9.97 K/uL Red Blood Count 3.49 M/uL Hemoglobin 11.5 g/dL Hematocrit 34.1 % Mean Corpuscular Volume 97.7 fL Mean Corpuscular Hemoglobin 33.0 pg Mean Corpuscular Hemoglobin Concent 33.7 g/dl Platelet Count 168 K/uL Mean Platelet Volume 10.0 fL Neutrophils (%) (Auto) 74.3 % Lymphocytes (%) (Auto) 10.6 % Monocytes (%) (Auto) 13.5 % Eosinophils (%) (Auto) 1.0 % Basophils (%) (Auto) 0.1 % Neutrophils # (Auto) 7.40 K/uL Lymphocytes # (Auto) 1.06 K/uL Monocytes # (Auto) 1.35 K/uL Eosinophils # (Auto) 0.10 K/uL Basophils # (Auto) 0.01 K/uL RDW Standard Deviation 45.0 fL RDW Coefficient of Variation 12.7 % Immature Granulocyte % (Auto) 0.5 % Immature Granulocyte # (Auto) 0.05 K/uL Sodium Level 138 mmol/L Potassium Level 4.0 mmol/L Chloride Level 105 mmol/L Carbon Dioxide Level 27 mmol/L Anion Gap 6.0 mmol/L Blood Urea Nitrogen 9 mg/dl Creatinine 0.97 mg/dl Est Creatinine Clear Calc Drug Dose 50.2 ml/min Estimated GFR () 63.9 Estimated GFR (Non- 55.2 BUN/Creatinine Ratio 9.6 Random Glucose 98 mg/dl Calcium Level 8.9 mg/dl Magnesium Level 1.5 mg/dl Assessment and Plan 81 yo female with abdominal pain, found to have incarcerated right inguinal hernia - Incarcerated right inguinal hernia: reduced and repaired with mesh on 06/11 pain control per surgery, will try 0.5mg of Dilaudid IV to see if it offers relief without weakness/dizziness continue clears today no flatus or BM, + belching defer timing of d/c lopez to surgery - Lysis of adhesions: small enterotomy, repaired immediately continue Cipro and Flagyl per surgery clears only today - Hypomagnesemia: repeat 2gm IV today for Mg of 1.5 - H/o stroke: continue Plavix - HTN: BP stable, holding spironolactone/HCTZ - Hypothyroid: continue Synthroid diet, pain control and d/c per surgery
[2017-06-14] MEDS ORDERED: HYDROmorphone INJ 0.5 MG/0.5 ML SYR IV PRN (15:00)
[2017-06-14 15:40] VITALS: BP 113/73; PULSE 95; TEMP 36.5; O2SAT 94
[2017-06-14] MEDS: MAGNESIUM SULFATE 1GM / D5W 1 GM in PREMIXED IN D5W 100 ML IV SCH ×2 (15:40→17:29)
[2017-06-14] MEDS: ONDANSETRON INJ 2 MG/ML 2 ML VIAL IV PRN (15:44)
[2017-06-14] MEDS: CIPROFLOXACIN 500 MG TAB PO SCH (15:46)
[2017-06-14] MEDS ORDERED: NURSING VERBAL MED ORDER ONE (17:00)
[2017-06-14] MEDS ORDERED: CALCIUM CARBONATE 500 MG CHEWABLE PO PRN (17:00)
[2017-06-14] MEDS ORDERED: PANTOprazole INJ 40 MG in SYRINGE 0 ML IV ONE (17:30)
[2017-06-14] MEDS: FAMOTIDINE 20 MG TAB PO SCH (20:43)
[2017-06-14] MEDS: ACETAMINOPHEN IV 100 ML IV PRN (21:38)
[2017-06-14 23:35] VITALS: BP 112/69; PULSE 93; TEMP 36.9; O2SAT 93
[2017-06-15] MEDS: NSS + 20MEQ KCL 1000ML 1,000 ML IV SCH ×2 (02:37→23:14)
[2017-06-15] MEDS: LEVOTHYROXINE 100 MCG TAB PO SCH (05:39)
[2017-06-15 07:37] VITALS: BP 132/78; PULSE 91; TEMP 36.7; O2SAT 95
[2017-06-15] MEDS: FAMOTIDINE 20 MG TAB PO SCH ×2 (07:40→21:38)
[2017-06-15] MEDS: CIPROFLOXACIN 500 MG TAB PO SCH ×2 (07:40→21:38)
[2017-06-15] MEDS: METRONIDAZOLE 500 MG TAB PO SCH ×3 (07:40→21:38)
[2017-06-15 07:59] VITALS: O2SAT 95
[2017-06-15 08:00] VITALS: O2SAT 95
--- NOTE | 2017-06-15 08:12 | Surgery Progress Note ---
Surgery Progress Note Date of Service Jun 15, 2017. Subjective Post OP Day: 3 + pain controlled, + diet (clears), No bowel movement, No flatus, No nausea Objective Vital Signs: Date Time Temp Pulse Resp B/P (MAP) Pulse Ox O2 Delivery O2 Flow Rate FiO2 06/15/17 07:59 95 Room Air 06/15/17 07:37 36.7 91 18 132/78 (96) 95 Room Air 06/14/17 23:35 36.9 93 17 112/69 (83) 93 Room Air 06/14/17 19:20 Room Air 06/14/17 15:40 36.5 95 16 113/73 (86) 94 Room Air 06/14/17 14:25 109 94 06/14/17 09:18 98 Nasal Cannula 2.0 Physical Exam: Fausto drainage (60) Abdomen: non distended, soft Incision(s): intact (dressing) Assessment & Plan s/p lap RIH repair, open repair enterotomy advance to full liquids continue IV abx
[2017-06-15 14:07] VITALS: BP 144/83; PULSE 90; O2SAT 95
[2017-06-15 15:22] VITALS: BP 135/76; PULSE 99; TEMP 37.4; O2SAT 97
--- NOTE | 2017-06-15 16:16 | Progress Note ---
Subjective Date of Service: Jun 15, 2017. Subjective Pt evaluation today including: conversation w/ patient, physical exam, lab review, review of inpatient medication list Pain: less abdominal pain today PO Intake: tolerating clears Voiding: no voiding problems patient feeling slightly better, depressed about not going home yet and leaving tolerating full liquids no flatus or BM, more bowel sounds on exam though ambulating in halls labs reviewed appreciate surgery note Problem List Medical Problems: (1) Abdominal pain Status: Acute (2) Central abdominal pain Status: Acute (3) Hernia Status: Acute (4) Thoracic back pain Status: Acute Review of Systems Constitutional: + weakness, + fatigue Abdomen: + pain, + constipation Psychiatric: + depression symptoms All Other Systems: Reviewed and Negative Medications Current Inpatient Medications Medications (Trade) Dose Ordered Sig/Rea Route Start Time Stop Time Status Last Admin Dose Admin Levothyroxine Sodium (Synthroid Tab) 100 mcg DAILYBB PO 06/12/17 06:00 07/12/17 06:59 06/15/17 05:39 100 MCG Ondansetron HCl (Zofran Inj) 4 mg Q6H PRN IV 06/11/17 14:15 07/11/17 14:14 06/14/17 15:44 4 MG Acetaminophen 100 ml @ 400 mls/hr Q8H PRN IV 06/11/17 14:15 07/11/17 14:14 06/14/17 21:38 400 MLS/HR Potassium Chloride/Sodium Chloride 1,000 ml @ 50 mls/hr Q20H IV 06/11/17 16:15 07/11/17 14:04 06/15/17 02:37 50 MLS/HR Ciprofloxacin (Cipro Tab) 500 mg BID PO 06/14/17 16:00 06/22/17 15:59 06/15/17 07:40 500 MG Metronidazole (Flagyl Tab) 500 mg TID PO 06/14/17 14:00 06/22/17 13:59 06/15/17 14:23 500 MG Famotidine (Pepcid Tab) 20 mg BID PO 06/14/17 21:00 07/14/17 20:59 06/15/17 07:40 20 MG Hydromorphone HCl (Dilaudid Inj) 0.5 mg Q2HWA PRN IV 06/14/17 15:00 06/27/17 09:59 Calcium Carbonate (Tums Chew Tab) 500 mg Q4H PRN PO 06/14/17 17:00 07/14/17 16:59 Objective Vital Signs Date Time Temp Pulse Resp B/P (MAP) Pulse Ox O2 Delivery O2 Flow Rate FiO2 06/15/17 15:22 37.4 99 18 135/76 (95) 97 Room Air 06/15/17 14:07 90 95 06/15/17 08:00 95 Room Air 06/15/17 07:59 95 Room Air 06/15/17 07:37 36.7 91 18 132/78 (96) 95 Room Air 06/14/17 23:35 36.9 93 17 112/69 (83) 93 Room Air 06/14/17 19:20 Room Air Physical Exam General Appearance: WD/WN, no apparent distress Neck: supple, no adenopathy, no JVD, trachea midline Respiratory/Chest: chest non-tender, lungs clear, normal breath sounds, no respiratory distress, no accessory muscle use Cardiovascular: regular rate, rhythm, no edema, no gallop, no JVD, no murmur Abdomen: normal bowel sounds, non tender, soft, no organomegaly Extremities: normal range of motion, non-tender, normal inspection, no pedal edema, no calf tenderness Neurologic/Psychiatric: automobile repossessor II-XII nml as tested, no motor/sensory deficits, alert, normal mood/affect, oriented x 3 Skin: normal color, warm/dry, no rash Lymphatic: no adenopathy Assessment and Plan 81 yo female with abdominal pain, found to have incarcerated right inguinal hernia - Incarcerated right inguinal hernia: reduced and repaired with mesh on 06/11 pain controlled better today tolerating clears no flatus or BM, + belching, more bowel sounds today loepz out keep on full liquids, look for bowel function - Lysis of adhesions: small enterotomy, repaired immediately continue Cipro and Flagyl per surgery full liquids today - Hypomagnesemia: treated with total of 4gm IV - H/o stroke: continue Plavix - HTN: BP stable, holding spironolactone/HCTZ - Hypothyroid: continue Synthroid PT/OT, pain control, look for bowel function
[2017-06-15] MEDS: ACETAMINOPHEN IV 100 ML IV PRN (20:14)
[2017-06-15] MEDS: ONDANSETRON INJ 2 MG/ML 2 ML VIAL IV PRN (20:14)
[2017-06-15 23:23] VITALS: BP 115/74; PULSE 90; TEMP 36.8; O2SAT 92
[2017-06-16] MEDS: LEVOTHYROXINE 100 MCG TAB PO SCH (05:28)
--- NOTE | 2017-06-16 07:44 | Surgery Progress Note ---
Surgery Progress Note Date of Service Jun 16, 2017. Subjective Post OP Day: 4 + flatus, + pain controlled, + diet (full liquids), No complaints, No bowel movement Objective Vital Signs: Date Time Temp Pulse Resp B/P (MAP) Pulse Ox O2 Delivery O2 Flow Rate FiO2 06/15/17 23:30 Room Air 06/15/17 23:23 36.8 90 18 115/74 (88) 92 Room Air 06/15/17 15:40 Room Air 06/15/17 15:22 37.4 99 18 135/76 (95) 97 Room Air 06/15/17 14:07 90 95 06/15/17 08:00 95 Room Air 06/15/17 07:59 95 Room Air Abdomen: non tender, non distended, soft Incision(s): clean, dry, no erythema, ecchymosis Assessment & Plan s/p lap RIH repair, open repair enterotomy bowel function returning, can have regular diet likely home in next 24 hours
[2017-06-16 07:50] VITALS: BP 112/58; PULSE 74; TEMP 36.7; O2SAT 94
[2017-06-16 08:13] VITALS: BP 138/88; PULSE 88; TEMP 36.6; O2SAT 96
[2017-06-16 08:14] VITALS: O2SAT 94
[2017-06-16] MEDS: FAMOTIDINE 20 MG TAB PO SCH ×2 (08:38→21:03)
[2017-06-16] MEDS: CIPROFLOXACIN 500 MG TAB PO SCH ×2 (08:38→21:03)
[2017-06-16] MEDS: METRONIDAZOLE 500 MG TAB PO SCH ×3 (08:38→21:03)
[2017-06-16] MEDS ORDERED: BISACODYL 10 MG SUPP PR ONE (11:00)
[2017-06-16] MEDS ORDERED: MECLIZINE HCL 25 MG TAB PO PRN (11:00)
[2017-06-16] MEDS ORDERED: BISACODYL 10 MG SUPP PR PRN (11:00)
[2017-06-16] MEDS ORDERED: ACETAMINOPHEN 325 MG TAB PO PRN (11:45)
--- NOTE | 2017-06-16 13:25 | Progress Note ---
Subjective Date of Service: Jun 16, 2017. Subjective Pt evaluation today including: conversation w/ patient, physical exam, conversation w/ workforce consultant, review of inpatient medication list Pain: less abdominal pain today PO Intake: improving Voiding: no voiding problems + flatus last night, no BM yet, less abdominal pain, no vomiting, tolerating diet surgery anticipates discharge in 24 hours discussed with patient she has vertigo today, will give Meclizine, history of intermittent vertigo plan to go home tomorrow with home nursing Problem List Medical Problems: (1) Abdominal pain Status: Acute (2) Central abdominal pain Status: Acute (3) Hernia Status: Acute (4) Thoracic back pain Status: Acute Review of Systems Abdomen: + pain, + constipation Neurologic: + vertigo Psychiatric: + depression symptoms All Other Systems: Reviewed and Negative Medications Current Inpatient Medications Medications (Trade) Dose Ordered Sig/Rea Route Start Time Stop Time Status Last Admin Dose Admin Levothyroxine Sodium (Synthroid Tab) 100 mcg DAILYBB PO 06/12/17 06:00 07/12/17 06:59 06/16/17 05:28 100 MCG Ondansetron HCl (Zofran Inj) 4 mg Q6H PRN IV 06/11/17 14:15 07/11/17 14:14 06/15/17 20:14 4 MG Ciprofloxacin (Cipro Tab) 500 mg BID PO 06/14/17 16:00 06/22/17 15:59 06/16/17 08:38 500 MG Metronidazole (Flagyl Tab) 500 mg TID PO 06/14/17 14:00 06/22/17 13:59 06/16/17 08:38 500 MG Famotidine (Pepcid Tab) 20 mg BID PO 06/14/17 21:00 07/14/17 20:59 06/16/17 08:38 20 MG Hydromorphone HCl (Dilaudid Inj) 0.5 mg Q2HWA PRN IV 06/14/17 15:00 06/27/17 09:59 Calcium Carbonate (Tums Chew Tab) 500 mg Q4H PRN PO 06/14/17 17:00 07/14/17 16:59 Meclizine HCl (Antivert Tab) 25 mg TID PRN PO 06/16/17 11:00 07/16/17 10:59 Bisacodyl (Dulcolax Supp) 10 mg BID PRN OR 06/16/17 11:00 07/16/17 10:59 Acetaminophen (Tylenol Tab) 650 mg Q4H PRN PO 06/16/17 11:45 07/16/17 11:44 Objective Vital Signs Date Time Temp Pulse Resp B/P (MAP) Pulse Ox O2 Delivery O2 Flow Rate FiO2 06/16/17 08:20 Room Air 06/16/17 08:14 94 Room Air 06/16/17 08:13 36.6 88 18 138/88 (105) 96 Room Air 06/15/17 23:30 Room Air 06/15/17 23:23 36.8 90 18 115/74 (88) 92 Room Air 06/15/17 15:40 Room Air 06/15/17 15:22 37.4 99 18 135/76 (95) 97 Room Air 06/15/17 14:07 90 95 Physical Exam General Appearance: WD/WN, no apparent distress Neck: supple, no adenopathy, no JVD, trachea midline Respiratory/Chest: chest non-tender, lungs clear, normal breath sounds, no respiratory distress, no accessory muscle use Cardiovascular: regular rate, rhythm, no edema, no gallop, no JVD, no murmur Abdomen: normal bowel sounds, soft, no organomegaly, + tenderness (mild), + pertinent finding (incision clean and dry) Extremities: normal range of motion, non-tender, normal inspection, no pedal edema, no calf tenderness 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, no motor/sensory deficits, alert, normal mood/affect, oriented x 3 Skin: normal color, warm/dry, no rash Assessment and Plan 81 yo female with abdominal pain, found to have incarcerated right inguinal hernia - Incarcerated right inguinal hernia: reduced and repaired with mesh on 06/11 much less pain today tolerating full liquids today, advance to low fat, mechanical soft + flatus last night and this AM, no BM yet surgery anticipates d/c in 24 hours if she progresses - Lysis of adhesions: small enterotomy, repaired immediately continue Cipro and Flagyl per surgery, will need to discuss if she needs this on discharge and how long afebrile, WBC normal, no peritoneal signs - Hypomagnesemia: treated with total of 4gm IV two days ago, will repeat BMP and Mag tomorrow - H/o stroke: continue Plavix - HTN: BP stable, holding spironolactone/HCTZ, can resume on discharge - Hypothyroid: continue Synthroid tentatively plan to d/c to home tomorrow with home nursing, surgery follow up
[2017-06-16 15:45] VITALS: BP 128/78; PULSE 89; TEMP 36.8; O2SAT 96
[2017-06-16 23:04] VITALS: BP 122/74; PULSE 80; TEMP 36.9; O2SAT 95
[2017-06-17] MEDS ORDERED: NURSING VERBAL MED ORDER ONE (01:00)
[2017-06-17] MEDS: LEVOTHYROXINE 100 MCG TAB PO SCH (05:42)
[2017-06-17 06:58] VITALS: BP 127/80; PULSE 91; TEMP 37.2; O2SAT 92
[2017-06-17 07:50] LABS: CALCIUM 8.6 mg/dl (8.5-10.1); CREATININE 0.91 mg/dl (0.60-1.20); MAGNESIUM 1.1 mg/dl (1.8-2.4); POTASSIUM 3.8 mmol/L (3.5-5.1)
--- NOTE | 2017-06-17 08:47 | Surgery Progress Note ---
Surgery Progress Note Date of Service Jun 17, 2017. Subjective Post OP Day: 5 + feeling well, + bowel movement, + diet (doing well), No complaints, No nausea , No vomiting Objective Vital Signs: Date Time Temp Pulse Resp B/P (MAP) Pulse Ox O2 Delivery O2 Flow Rate FiO2 06/17/17 06:58 37.2 91 17 127/80 (96) 92 Room Air 06/16/17 23:30 Room Air 06/16/17 23:04 36.9 80 20 122/74 (90) 95 Room Air 06/16/17 15:45 36.8 89 16 128/78 (95) 96 Room Air 06/16/17 15:45 Room Air Physical Exam: NETTE drainage (minimal) General Appearance: WD/WN, no apparent distress Head: normocephalic, atraumatic Neck: supple, trachea midline Respiratory/Chest: lungs clear Cardiovascular: regular rate, rhythm Abdomen: normal bowel sounds, non distended, soft, + tenderness (mild) Incision(s): clean, dry, intact Extremities: non-tender, no pedal edema Laboratory Results: Results Past 24 Hours Test 06/17/17 06:48 Range/Units Sodium Level 138 136-145 mmol/L Potassium Level 3.8 3.5-5.1 mmol/L Chloride Level 104 98-107 mmol/L Carbon Dioxide Level 27 21-32 mmol/L Anion Gap 7.0 3-11 mmol/L Blood Urea Nitrogen 8 7-18 mg/dl Creatinine 0.91 0.60-1.20 mg/dl Est Creatinine Clear Calc Drug Dose 53.5 ml/min Estimated GFR () 69.1 Estimated GFR (Non- 59.6 BUN/Creatinine Ratio 9.0 10-20 Random Glucose 90 70-99 mg/dl Calcium Level 8.6 8.5-10.1 mg/dl Magnesium Level 1.1 1.8-2.4 mg/dl Assessment & Plan s/p IH repair and repair of cecal injury -eating well -ambulating -drain removed -discharge today per medical team -F/U [address] Rao's office
[2017-06-17] MEDS ORDERED: HYDR-5688 PO (08:49)
[2017-06-17] MEDS ORDERED: MAGNESIUM OXIDE 400 MG TAB PO SCH (09:00)
[2017-06-17] MEDS: MAGNESIUM SULFATE 1GM / D5W 1 GM in PREMIXED IN D5W 100 ML IV SCH ×2 (09:18→10:37)
[2017-06-17] MEDS: CIPROFLOXACIN 500 MG TAB PO SCH (09:18)
[2017-06-17] MEDS: METRONIDAZOLE 500 MG TAB PO SCH (09:18)
[2017-06-17] MEDS: FAMOTIDINE 20 MG TAB PO SCH (09:19)
--- NOTE | 2017-06-17 10:07 | Discharge Instructions ---
Discharge Instructions Date of Service Jun 17, 2017. Admission Reason for Admission: Incarcerated right inguinal hernia Discharge Discharge Diagnosis / Problem: Incarcerated right inguinal hernia, s/p repain, lysis of adhesions Discharge Goals Goal(s): Decrease discomfort, Improve function Activity Recommendations Activity Limitations: resume your previous activity Lifting Limitations: no more than 5 pounds Exercise/Sports Limitations: as tolerated May Resume Sexual Activity: when tolerated Shower/Bathe: keep incision dry (may shower, do not soak in tub) Driving or Machine Use: no driving . Instructions / Follow-Up Instructions / Follow-Up Medications: resume all prior home medications - NORCO: may use as needed for abdominal pain In summary, you had a repair of right inguinal hernia with mesh as well as lysis of adhesions. Small cut in colon, repaired immediately, treated with several days of antibiotics, no signs of infection. You are eating well, moving bowels, ambulating well. Cleared for discharge home. FOLLOW UP - Dr. Rao in 1-2 weeks, call his office on Monday if you want to schedule the visit with your , Current Hospital Diet Patient's current hospital diet: Low Fat Diet Discharge Diet Recommended Diet: Low Fat Diet (advance as tolerated) Procedures Procedures Performed: Laparoscopy with extensive entrolysis, repair of right inguinal hernia with mesh, mini laparotomy with repair of enterotomy Pending Studies Studies pending at discharge: no Medical Emergencies . Who to Call and When: Medical Emergencies: If at any time you feel your situation is an emergency, please call 911 immediately. . Non-Emergent Contact Non-Emergency issues call your: Surgeon (Dr. Rao) Contact Number: [phone] Call Non-Emergent contact if: you have a fever, your pain is worsening, you have any medication questions . . "Provider Documentation" section prepared by Jake Wray. . VTE Core Measure Inpt VTE Proph given/why not?: SCD's [place] Drug Monitoring Program Search Results: no issues identified
[2017-06-17 11:49] VITALS: BP 127/80; PULSE 91; TEMP 37.2; O2SAT 92
--- NOTE | 2017-06-17 11:57 | Discharge Summary ---
Discharge Summary Date of Service Jun 17, 2017. Discharge Summary Admission Date: Jun 11, 2017 at 14:09 Discharge Date: Jun 17, 2017 Discharge Disposition: Home with services Principal Diagnosis: Incarcerated right inguinal hernia Problems/Secondary Diagnoses: Lysis of adhesions with enterotomy, immediately repaired H/o stroke HTN Depression Immunizations: Have You Had Influenza Vaccine: No Influenza Vaccine Date: Aug 06, 2009 History of Tetanus Vaccine?: Yes History of Pneumococcal: No Pneumococcal Date: Jan 06, 1998 History of Hepatitis B Vaccine: No Procedures: Laparoscopy with extensive entrolysis, repair of right inguinal hernia with mesh, mini laparotomy with repair of enterotomy Consultations: General surgery - Dr. Rao Medication Reconciliation New Medications: Hydrocodone/Acetaminophen 5MG/325MG ([place] 5MG/325MG) Tab 1 TABLET PO Q6H PRN for Pain, #20 TAB Continued Medications: Cholecalciferol (Vitamin D3) 1,000 Unit Tab 2000 INTER.UNIT PO DAILY, TAB 3 Refills Clopidogrel Bisulfate (Plavix) 75 Mg Tab 75 MG PO DAILY, TAB Hctz/Spironolactone (Spironolactone/Hydrochlor 25-25 mg) 1 Ea Tab 1 TAB PO DAILY Levothyroxine Sodium (Synthroid) 100 Mcg Tab 100 MCG PO DAILY, TAB Meclizine Hcl (Meclizine Hcl) 25 Mg Tab 25 MG PO TID PRN for Dizziness or Vertigo for 30 Days, #90 TAB Ranitidine (Zantac) 150 Mg Tab 150 MG PO BID, TAB Tramadol (Ultram) 50 Mg Tab 50 MG PO BID PRN for Pain, TAB Discharge Exam Patient feeling much better today, no pain, eating well, moved bowels twice yesterday. Dr. Park pulled NETTE today. Cleared to d/c home from surgical standpoint. Mag low, getting IV replacement and PO, can go home after finished. Review of Systems: Constitutional: + weakness, + fatigue, No fever, No chills, No sweats, No weight loss, No problem reported Eyes: No worsening of vision, No eye pain, No redness, No discharge, No diplopia, No problem reported ENT: No hearing loss, No unusual epistaxis, No nasal symptoms, No sore throat, No tinnitus, No dental problems, No trouble swallowing, No problem reported Respiratory: No cough, No sputum, No wheezing, No shortness of breath, No dyspnea on exertion, No dyspnea at rest, No hemoptysis, No problem reported Cardiovascular: No chest pain, No orthopnea, No PND, No edema, No claudication, No palpitations, No problem reported Abdomen: + pain (only on coughing), No nausea, No vomiting, No diarrhea, No constipation, No GI bleeding, No problem reported Musculoskeletal: No joint pain, No muscle pain, No swelling, No calf pain, No problem reported Genitourinary - Female: No dysuria, No urinary frequency, No urinary urgency , No urinary incontinence, No urinary retention, No hematuria Neurologic: No memory loss, No paralysis, No weakness, No numbness/tingling , No vertigo, No balance problems, No problem reported Psychiatric: + depression symptoms (but now happy to go home with ), No anhedonism, No anxiety, No insomnia, No substance abuse, No problem reported Endocrine: No fatigue, No excessive thirst, No excessive urination, No problem reported Hematologic / Lymphatic: No abnormal bleeding/bruising, No clotting problems , No swollen lymph nodes, No night sweats, No problem reported Integumentary: No rash, No itch, No new/changing skin lesions, No color change, No bleeding, No problem reported Physical Exam: General Appearance: WD/WN, no apparent distress Eyes: normal inspection, EOMI, sclerae normal ENT: normal ENT inspection, hearing grossly normal, pharynx normal Neck: supple, no adenopathy, no JVD, trachea midline Respiratory/Chest: chest non-tender, lungs clear, normal breath sounds, no respiratory distress, no accessory muscle use Cardiovascular: regular rate, rhythm, no edema, no gallop, no JVD, no murmur , normal peripheral pulses Abdomen / GI: normal bowel sounds, soft, no organomegaly, + tenderness ( mild tenderness with incisions), + pertinent finding (incisions clean and dry, well approximated) Extremities: normal inspection, no calf tenderness, normal capillary refill , no pedal edema, normal range of motion, pelvis stable 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 Rao in 2 weeks - Lysis of adhesions: small enterotomy, repaired immediately treated with Cipro and Flagyl while admitted afebrile, WBC normal, no peritoneal signs no need for antibiotics after discharge - Hypomagnesemia: low at 1.1 this AM, 2gm IV ordered and 400mg Mag Oxide - H/o stroke: continue Plavix - HTN: BP stable, holding spironolactone/HCTZ, can resume on discharge - Hypothyroid: continue Synthroid d/c to home with home health Total Time Spent: Greater than 30 minutes This includes examination of the patient, discharge planning, medication reconciliation, and communication with other providers. Discharge Instructions Please refer to the electronic Patient Visit Report (Discharge Instructions) for additional information. Follow-Up Dr. Rao in 1-2 weeks Additional Copies To Jitendra Rao D.O.; Dada Bernard M.D.
[2017-07-07] MEDS ORDERED: CLINPOW (13:09)
== END 2017-06-17 12:29 | disposition home health service (06) | DRG 330 ==
LOC: C.EDB 10:28 → C.MSN 14:09 → ENRESERV 14:48 → C.MSN 06-14 13:56
PROVIDERS: ADMIT Hospitalist; ATTEND Hospitalist
PROC: 0WUF0JZ Supplement Abdominal Wall with Synthetic Substitute, Open Approach (ICD-10-PCS; principal; 2017-06-12 10:15)
PROC: 0DNW4ZZ Release Peritoneum, Percutaneous Endoscopic Approach (ICD-10-PCS; principal; 2017-06-12 10:15)
PROC: 0DQK0ZZ Repair Ascending Colon, Open Approach (ICD-10-PCS; principal; 2017-06-12 10:15)
DX: K40.30 Unilateral inguinal hernia, with obstruction, without gangrene, not specified as recurrent (principal); K91.71 Accidental puncture and laceration of a digestive system organ or structure during a digestive system procedure; K56.5 Intestinal adhesions [bands] with obstruction (postinfection); S36.530A Laceration of ascending [right] colon, initial encounter; J45.909 Unspecified asthma, uncomplicated; I10 Essential (primary) hypertension; E78.00 Pure hypercholesterolemia, unspecified; E03.9 Hypothyroidism, unspecified; M81.0 Age-related osteoporosis without current pathological fracture; E83.42 Hypomagnesemia; K21.9 Gastro-esophageal reflux disease without esophagitis; M48.06 Spinal stenosis, lumbar region; Z87.891 Personal history of nicotine dependence; Z96.659 Presence of unspecified artificial knee joint; Z88.0 Allergy status to penicillin; Z86.73 Personal history of transient ischemic attack (TIA), and cerebral infarction without residual deficits; Y83.8 Other surgical procedures as the cause of abnormal reaction of the patient, or of later complication, without mention of misadventure at the time of the procedure; Y92.234 Operating room of hospital as the place of occurrence of the external cause; Z88.2 Allergy status to sulfonamides

== ENCOUNTER → 2017-07-11 | Outpatient (CLI) | payer OTHER ==
[~2017-07-11] MED LIST changes: +CHOL1000 PO; +CLINPOW; -DOXY100C2 PO; +HYDR-5688 PO; -MDRDP21 PO
[2017-07-11 12:51] LABS: MAGNESIUM 1.7 mg/dl (1.8-2.4); THYROID STIMULATING HORMONE 3.18 uIu/ml (0.300-4.500)
== END | disposition home or self-care (01) ==
LOC: C.LABBFT 08:31
PROVIDERS: ATTEND Internal Medicine
DX: E83.42 Hypomagnesemia (principal); E03.9 Hypothyroidism, unspecified; E55.9 Vitamin D deficiency, unspecified

== ENCOUNTER 2017-09-23 18:57 | Observation (INO) | payer OTHER ==
[~2017-09-23] VITALS: Ht 165.1 cm; Wt 82.5 kg
[~2017-09-23 18:57] MED LIST changes: -CLINPOW; -SPIR1TAB72 PO
[2017-09-23] MEDS ORDERED: ONDANSETRON INJ 2 MG/ML 2 ML VIAL IV STA (19:09)
[2017-09-23] MEDS ORDERED: MoRPHine SULFATE 4 MG/ML 1 ML CARP\\VIAL IV STA ×2 (19:09→20:32)
[2017-09-23] MEDS ORDERED: OPTIRAY 320 IV PRN (19:15)
[2017-09-23 19:32] LABS: BASO % 0.5 %; BASO ABS # 0.04 K/uL (0-0.2); COMPLETE YES; EOS % 2.7 %; HEMATOCRIT 40.1 % (37-47); IG% 0.3 %; LYMPH % 33.7 %; LYMPH ABS # 2.64 K/uL (1.2-3.4); MEAN CELL VOLUME 95.9 fL (80-100); MEAN CORPUSCULAR HEMOGLOBIN 32.1 pg (25-34); MEAN CORPUSCULAR HGB CONC 33.4 g/dl (32-36); MEAN PLATELET VOLUME 10.2 fL (7.4-10.4); MONO % 15.1 %; NEUT % 47.7 %; PLATELET COUNT 253 K/uL (130-400); RED BLOOD COUNT 4.18 M/uL (4.2-5.4); WHITE BLOOD COUNT 7.84 K/uL (4.8-10.8)
[2017-09-23 19:45] LABS: BUN/CREATININE RATIO 13.3 (10-20); CALCIUM 9.6 mg/dl (8.5-10.1); CREATININE 1.52 mg/dl (0.60-1.20); POTASSIUM 3.8 mmol/L (3.5-5.1)
[2017-09-23] MEDS ORDERED: SPIR1TAB72 PO (19:56)
[2017-09-23] MEDS ORDERED: ULT50 PO (20:54)
[2017-09-23] MEDS ORDERED: PLV75 PO (20:54)
[2017-09-23] MEDS ORDERED: LEVO100T7 PO (20:54)
[2017-09-23] MEDS ORDERED: ANT25 PO (20:54)
[2017-09-23] MEDS ORDERED: RANI150T2 PO (20:54)
[2017-09-23] MEDS ORDERED: ONDANSETRON INJ 2 MG/ML 2 ML VIAL ONE (21:55)
--- NOTE | 2017-09-23 21:58 | DIAGNOSTIC IMAGING REPORT ---
CT ABD/PELVIS IV AND ORAL CONT CLINICAL HISTORY: Lower abdominal pain. Possible diverticulitis. COMPARISON STUDY: 06/11/2017 TECHNIQUE: Following the IV administration of 92 mL of Optiray-320, CT scan of the abdomen and pelvis was performed from the lung bases to the proximal femurs. Images are reviewed in the axial, sagittal, and coronal planes. IV contrast was administered without complication. A dose lowering technique was utilized adhering to the principles of ALARA. CT DOSE: 728.61 mGy.cm FINDINGS: Lower chest: There is a partially visualized low-density 28 mm left-sided paraspinal mass. This remains essentially unchanged. There are bibasal atelectatic changes. Liver: There are no focal hepatic masses. There is mild intrahepatic biliary ductal dilatation. Gallbladder: Surgically absent. The common bile duct remains mildly dilated measuring 1 cm. Spleen: Normal in size and attenuation. Pancreas: Unremarkable. Adrenal glands: Unremarkable. Kidneys: There is symmetric renal cortical enhancement. The kidneys are normal in size without hydronephrosis. Bowel: There are no transition zones indicate bowel obstruction. Peritoneum: There are bilateral fat-containing inguinal hernias. The right internal hernia contains a small low-density tubular focus. This does not contain contrast and is unlikely represent a bowel loop. There is no free air. There is trace fluid in the lower right paracolic gutter. Vasculature: The abdominal aorta is normal in course and caliber. Adenopathy: None. Pelvic viscera: The uterus is surgically absent. Skeletal structures: There are postsurgical changes present within the lumbar spine. IMPRESSION: 1. Surgically absent gallbladder and appendix and uterus 2. No evidence of bowel obstruction. No evidence of free air 3. No evidence of acute diverticulitis 4. Bilateral inguinal hernias. 5. Trace free fluid within the right paracolic gutter 6. Mild intra and extrahepatic biliary ductal dilatation, similar to the prior study and possibly related to prior gallbladder disease. 7. Stable low density left paraspinal lesion at the T9 level Electronically signed by: Wong Mtz M.D. 09/23/2017 9:56 PM Dictated Date/Time: 09/23/2017 9:48 PM
--- NOTE | 2017-09-23 23:12 | History and Physical ---
History & Physical Date & Time of Service: Sep 23, 2017 at 23:11 Chief Complaint: Abd Pain Primary Care Physician: Dada Bernard M.D. History of Present Illness Source: patient, family 82 yo F, in June had an R incarcerated inguinal hernia repaired by Dr Rao.She reports she was fine since then but has been more constipated lately. Noticed lower abdominal pain x 2 days with "rabbit stool" pellets only. The pain was more on the left side, did not radiate, 5/10 severity. She did not have any nausea or vomiting. She did have diarrhea a few days ago, which lasted 2-3 days. Does feel dehydrated. When she came to the ED, she was given IV narcotics which made her pain go away, but she feels it is creeping back now. 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 Past Medical/Surgical History Medical Problems: (1) ANXIETY STATE NOS Status: Chronic (2) ASTHMA, UNSPECIFIED Status: Chronic (3) CHRONIC SINUSITIS NOS Status: Chronic (4) ESOPHAGEAL REFLUX Status: Chronic (5) FAMILY HISTORY OF OTHER CARDIOVASCULAR DISEASES Status: Chronic (6) FAMILY HX-MALIGNANCY NOS Status: Chronic (7) HEMORRHOIDS NOS Status: Chronic (8) HYPERTENSION NOS Status: Chronic (9) HYPOTHYROIDISM NOS Status: Chronic (10) KNEE JOINT REPLACEMENT STATUS Status: Chronic (11) LUMBAGO Status: Chronic (12) OSTEOARTHROS NOS-UNSPEC Status: Chronic (13) OSTEOPOROSIS NOS Status: Chronic (14) PERSONAL HX OF TIA,& 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 (15) PURE HYPERCHOLESTEROLEM Status: Chronic (16) SCIATICA Status: Chronic (17) SPINAL STENOSIS-LUMBAR Status: Chronic Family History Cancer Heart disease Social History Smoking Status: Never Smoker Smokeless Tobacco Use: No Alcohol Use: none Drug Use: none Marital Status: Housing status: lives with family Occupational Status: retired Immunizations History of Influenza Vaccine: No Influenza Vaccine Date: Aug 06, 2009 History of Tetanus Vaccine?: Yes History of Pneumococcal: No Pneumococcal Date: Jan 06, 1998 History of Hepatitis B Vaccine: No Multi-Drug Resistant Organisms History of MDRO: No Allergies Coded Allergies: Clarithromycin (Verified Allergy, Intermediate, RASH, 06/11/17) Penicillins (Verified Allergy, Intermediate, RASH, 06/11/17) Shellfish (Verified Allergy, Intermediate, itch all over, 06/11/17) Propranolol (Unverified Allergy, Unknown, dizziness, 06/11/17) Sulfa Antibiotics (Verified Allergy, Unknown, ?, 06/11/17) White Fish (Verified Allergy, Unknown, SEAFOOD, FISH, 06/11/17) Codeine (Verified Adverse Reaction, Intermediate, NAUSEA/VOMITING, 06/11/17) Oxycodone (Verified Adverse Reaction, Unknown, UNKN, 06/11/17) Home Medications Scheduled Cholecalciferol (Vitamin D3), 2,000 INTER.UNIT PO DAILY Clopidogrel Bisulfate (Clopidogrel), 75 MG PO DAILY Docusate Sodium (Docusate Sodium), 100 MG PO BID Hctz/Spironolactone (Spironolactone/Hydrochlor 25-25 mg), 1 TAB PO DAILY Levofloxacin (Levofloxacin), 750 MG PO Q2D@1100 Levothyroxine Sodium (Levothyroxine Sodium), 100 MCG PO DAILY Ranitidine HCl (Ranitidine HCl), 150 MG PO BID Scheduled PRN Meclizine HCl (Meclizine HCl), 25 MG PO Q6H PRN for Dizziness or Vertigo Phenazopyridine HCl (Phenazopyridine HCl), 200 MG PO TID PRN for Bladder pain Polyethylene (Miralax), 17 GM PO DAILY PRN for Constipation Tramadol HCl (Tramadol HCl), 50-100 MG PO Q6H PRN for Pain Review of Systems See HPI for pertinent positives & negatives. A total of 10 systems reviewed and were otherwise negative. Physical Exam Vital Signs Date Time Temp Pulse Resp B/P (MAP) Pulse Ox O2 Delivery O2 Flow Rate FiO2 09/23/17 21:52 76 18 124/111 93 Room Air 09/23/17 20:43 77 18 119/78 97 Room Air 09/23/17 19:00 36.9 83 20 152/79 95 Room Air General Appearance: WD/WN, no apparent distress Head: normocephalic, atraumatic Eyes: normal inspection, PERRL ENT: hearing grossly normal Neck: supple, no JVD Respiratory/Chest: lungs clear, normal breath sounds, no respiratory distress Cardiovascular: regular rate, rhythm, no murmur Abdomen/GI: normal bowel sounds, non tender, soft Back: no CVA tenderness, no muscle spasm Extremities/Musculoskelatal: no calf tenderness, no pedal edema Neurologic/Psych: alert, normal mood/affect, normal reflexes, oriented x 3 Skin: no rash Diagnostics Laboratory Results Results Past 24 Hours Test 09/23/17 19:10 Range/Units White Blood Count 7.84 4.8-10.8 K/uL Red Blood Count 4.18 4.2-5.4 M/uL Hemoglobin 13.4 12.0-16.0 g/dL Hematocrit 40.1 37-47 % Mean Corpuscular Volume 95.9 80-100 fL Mean Corpuscular Hemoglobin 32.1 25-34 pg Mean Corpuscular Hemoglobin Concent 33.4 32-36 g/dl Platelet Count 253 130-400 K/uL Mean Platelet Volume 10.2 7.4-10.4 fL Neutrophils (%) (Auto) 47.7 % Lymphocytes (%) (Auto) 33.7 % Monocytes (%) (Auto) 15.1 % Eosinophils (%) (Auto) 2.7 % Basophils (%) (Auto) 0.5 % Neutrophils # (Auto) 3.75 1.4-6.5 K/uL Lymphocytes # (Auto) 2.64 1.2-3.4 K/uL Monocytes # (Auto) 1.18 0.11-0.59 K/uL Eosinophils # (Auto) 0.21 0-0.5 K/uL Basophils # (Auto) 0.04 0-0.2 K/uL RDW Standard Deviation 43.9 36.4-46.3 fL RDW Coefficient of Variation 12.8 11.5-14.5 % Immature Granulocyte % (Auto) 0.3 % Immature Granulocyte # (Auto) 0.02 0.00-0.02 K/uL Sodium Level 136 136-145 mmol/L Potassium Level 3.8 3.5-5.1 mmol/L Chloride Level 100 98-107 mmol/L Carbon Dioxide Level 30 21-32 mmol/L Anion Gap 6.0 3-11 mmol/L Blood Urea Nitrogen 20 7-18 mg/dl Creatinine 1.52 0.60-1.20 mg/dl Est Creatinine Clear Calc Drug Dose 30.0 ml/min Estimated GFR () 36.9 Estimated GFR (Non- 31.8 BUN/Creatinine Ratio 13.3 10-20 Random Glucose 86 70-99 mg/dl Calcium Level 9.6 8.5-10.1 mg/dl Total Bilirubin 0.5 0.2-1 mg/dl Direct Bilirubin 0.1 0-0.2 mg/dl Aspartate Amino Transf (AST/SGOT) 21 15-37 U/L Alanine Aminotransferase (ALT/SGPT) 14 12-78 U/L Alkaline Phosphatase 74 45-117 U/L Total Protein 7.9 6.4-8.2 gm/dl Albumin 3.8 3.4-5.0 gm/dl Lipase 366 73-393 U/L Diagnostic Radiology CT ABD/PELVIS IV AND ORAL CONT CLINICAL HISTORY: Lower abdominal pain. Possible diverticulitis. COMPARISON STUDY: 06/11/2017 TECHNIQUE: Following the IV administration of 92 mL of Optiray-320, CT scan of the abdomen and pelvis was performed from the lung bases to the proximal femurs. Images are reviewed in the axial, sagittal, and coronal planes. IV contrast was administered without complication. A dose lowering technique was utilized adhering to the principles of ALARA. CT DOSE: 728.61 mGy.cm FINDINGS: Lower chest: There is a partially visualized low-density 28 mm left-sided paraspinal mass. This remains essentially unchanged. There are bibasal atelectatic changes. Liver: There are no focal hepatic masses. There is mild intrahepatic biliary ductal dilatation. Gallbladder: Surgically absent. The common bile duct remains mildly dilated measuring 1 cm. Spleen: Normal in size and attenuation. Pancreas: Unremarkable. Adrenal glands: Unremarkable. Kidneys: There is symmetric renal cortical enhancement. The kidneys are normal in size without hydronephrosis. Bowel: There are no transition zones indicate bowel obstruction. Peritoneum: There are bilateral fat-containing inguinal hernias. The right internal hernia contains a small low-density tubular focus. This does not contain contrast and is unlikely represent a bowel loop. There is no free air. There is trace fluid in the lower right paracolic gutter. Vasculature: The abdominal aorta is normal in course and caliber. Adenopathy: None. Pelvic viscera: The uterus is surgically absent. Skeletal structures: There are postsurgical changes present within the lumbar spine. IMPRESSION: 1. Surgically absent gallbladder and appendix and uterus 2. No evidence of bowel obstruction. No evidence of free air 3. No evidence of acute diverticulitis 4. Bilateral inguinal hernias. 5. Trace free fluid within the right paracolic gutter 6. Mild intra and extrahepatic biliary ductal dilatation, similar to the prior study and possibly related to prior gallbladder disease. 7. Stable low density left paraspinal lesion at the T9 level Impression Assessment and Plan 82 yo F, hx of R inguinal hernia repair, who presents with LLQ abdominal pain, with no evidence of obstruction, incarcerated hernia, or free air. DDx constipation vs stress related vs idiopathic Abdominal pain - Observe overnight - Bentyl PRN ROSEMARIE, likely pre-renal - Hydrate overnight - Repeat PRP in Am Hypothyroidism - Continue Synthroid HTN - Continue HCTZ-Spironolactone - Continue aspirin VTE: Heparin Dispo: Obs on Med surg Code status: Full Attending addendum: I have physically seen this patient, have supervised the medical residents activities, and agree with the H&P unless as otherwise noted. Assessment and Plan: Abdominal/groin pain-- Admitted to the medical floor for observation. No significant abnormality on CT abdomen and pelvis Hypertension/Acute kidney injury-- IV fluids overnight Hold HCTZ/spironolactone Continue aspirin Repeat PRP and magnesium in the a.m. Level of Care Med/Surg Advanced Directives Existing Advance Directive: No Existing Living Will: No Existing Power of Remote Inpatient Coder: No Resuscitation Status FULL RESUSCITATION VTE Prophylaxis VTE Risk Assessment Done? Y/N: Yes Risk Level: Moderate Given or contraindicated: SCD's Resident Tracking Resident Involvement: Resident Care Provided Care Provided: Adult Hospital Medicine
[2017-09-23] MEDS ORDERED: DICYCLOMINE HCL 10 MG CAP PO PRN (23:15)
[2017-09-23] MEDS ORDERED: POLYETHYLENE (MIRALAX) 17 GM PACK PO PRN (23:15)
[2017-09-23] MEDS ORDERED: MAGNESIUM HYDROXIDE SUSP 30 ML UDC PO PRN (23:15)
[2017-09-23] MEDS ORDERED: ALUMINUM/MAGNESIUM/SIMETH (MAALOX MAX) 30 ML UDC PO PRN (23:15)
[2017-09-23] MEDS ORDERED: ACETAMINOPHEN 325 MG TAB PO PRN (23:15)
[2017-09-23] MEDS ORDERED: ONDANSETRON INJ 2 MG/ML 2 ML VIAL IV PRN (23:15)
[2017-09-23] MEDS ORDERED: MECLIZINE HCL 25 MG TAB PO PRN (23:15)
[2017-09-23] MEDS ORDERED: TRAMADOL HCL 50 MG TAB PO PRN (23:15)
--- NOTE | 2017-09-23 23:42 | EMERGENCY ROOM VISIT NOTE ---
History Report prepared by Milagros: Shala Mayer Under the Supervision of: Dr. Nils Marmolejo M.D. First contact with patient: 19:03 Chief Complaint: ABDOMINAL PAIN Stated Complaint: ABD PAIN History of Present Illness The patient is an 82 year old female who presents to the Emergency Room with complaints of worsening abdominal pain starting a few days ago. The patient states that the pain is across her lower abdomen and shoots into her ribs. The patient states that it got worse this evening and feels like her previous hernia. She notes that the pain feels sharp. The patient denies vomiting, but notes intermittent diarrhea throughout the day. The patient denies urinary symptoms. She notes that she had surgery on it in June. Source of History: patient Onset: a few days ago Position: abdomen (lower) Quality: sharp Timing: worsening Associated Symptoms: + diarrhea, No vomiting, No urinary symptoms Review of Systems See HPI for pertinent positives & negatives. A total of 10 systems reviewed and were otherwise negative. Past Medical & Surgical Medical Problems: (1) ROSEMARIE (acute kidney injury) (2) ANXIETY STATE NOS (3) ASTHMA, UNSPECIFIED (4) CHRONIC SINUSITIS NOS (5) ESOPHAGEAL REFLUX (6) FAMILY HISTORY OF OTHER CARDIOVASCULAR DISEASES (7) FAMILY HX-MALIGNANCY NOS (8) HEMORRHOIDS NOS (9) HYPERTENSION NOS (10) HYPOTHYROIDISM NOS (11) KNEE JOINT REPLACEMENT STATUS (12) LUMBAGO (13) OSTEOARTHROS NOS-UNSPEC (14) OSTEOPOROSIS NOS (15) PERSONAL HX OF TIA,& CEREBRAL INFARCTION W/OUT RES DEFICITS (16) PURE HYPERCHOLESTEROLEM (17) SCIATICA (18) SPINAL STENOSIS-LUMBAR Family History Cancer Heart disease Social History Smoking Status: Never Smoker Alcohol Use: none Drug Use: none Marital Status: Housing Status: lives with significant other Occupation Status: retired Current/Historical Medications Scheduled Cholecalciferol (Vitamin D3), 2,000 INTER.UNIT PO DAILY Clopidogrel Bisulfate (Clopidogrel), 75 MG PO DAILY Hctz/Spironolactone (Spironolactone/Hydrochlor 25-25 mg), 1 TAB PO DAILY Levothyroxine Sodium (Levothyroxine Sodium), 100 MCG PO DAILY Ranitidine HCl (Ranitidine HCl), 150 MG PO BID Scheduled PRN Meclizine HCl (Meclizine HCl), 25 MG PO Q6H PRN for Dizziness or Vertigo Tramadol HCl (Tramadol HCl), 50-100 MG PO Q6H PRN for Pain Allergies Coded Allergies: Clarithromycin (Verified Allergy, Intermediate, RASH, 06/11/17) Penicillins (Verified Allergy, Intermediate, RASH, 06/11/17) Shellfish (Verified Allergy, Intermediate, itch all over, 06/11/17) Propranolol (Unverified Allergy, Unknown, dizziness, 06/11/17) Sulfa Antibiotics (Verified Allergy, Unknown, ?, 06/11/17) White Fish (Verified Allergy, Unknown, SEAFOOD, FISH, 06/11/17) Codeine (Verified Adverse Reaction, Intermediate, NAUSEA/VOMITING, 06/11/17) Oxycodone (Verified Adverse Reaction, Unknown, UNKN, 06/11/17) Physical Exam Vital Signs Date Time Temp Pulse Resp B/P (MAP) Pulse Ox O2 Delivery O2 Flow Rate FiO2 09/23/17 21:52 76 18 124/111 93 Room Air 09/23/17 20:43 77 18 119/78 97 Room Air 09/23/17 19:00 36.9 83 20 152/79 95 Room Air Physical Exam Constitutional: Vital signs reviewed. Eyes: Pupils are equal round reactive to light. Conjunctiva are noninjected. ENT: Pharynx is clear without erythema or exudate. Mucous membranes are moist. Neck supple without meningeal signs. Respiratory: Clear to auscultation bilaterally. Breath sounds are equal bilaterally. Cardiovascular: Regular rate and rhythm. No rubs or gallops. GI: Soft, nondistended. Bowel sounds are present. Suprapubic tenderness. No guarding. Musculoskeletal: No peripheral edema. No lower extremity tenderness. Integumentary: No cyanosis. Neurological: The patient is awake and alert. No focal deficits. Psychiatric: Normal affect. Medical Decision & Procedures ER Provider Diagnostic Interpretation: Radiology results as stated below per my review and the radiologist's interpretation: CT ABD/PELVIS IV AND ORAL CONT CLINICAL HISTORY: Lower abdominal pain. Possible diverticulitis. COMPARISON STUDY: 06/11/2017 TECHNIQUE: Following the IV administration of 92 mL of Optiray-320, CT scan of the abdomen and pelvis was performed from the lung bases to the proximal femurs. Images are reviewed in the axial, sagittal, and coronal planes. IV contrast was administered without complication. A dose lowering technique was utilized adhering to the principles of ALARA. CT DOSE: 728.61 mGy.cm FINDINGS: Lower chest: There is a partially visualized low-density 28 mm left-sided paraspinal mass. This remains essentially unchanged. There are bibasal atelectatic changes. Liver: There are no focal hepatic masses. There is mild intrahepatic biliary ductal dilatation. Gallbladder: Surgically absent. The common bile duct remains mildly dilated measuring 1 cm. Spleen: Normal in size and attenuation. Pancreas: Unremarkable. Adrenal glands: Unremarkable. Kidneys: There is symmetric renal cortical enhancement. The kidneys are normal in size without hydronephrosis. Bowel: There are no transition zones indicate bowel obstruction. Peritoneum: There are bilateral fat-containing inguinal hernias. The right internal hernia contains a small low-density tubular focus. This does not contain contrast and is unlikely represent a bowel loop. There is no free air. There is trace fluid in the lower right paracolic gutter. Vasculature: The abdominal aorta is normal in course and caliber. Adenopathy: None. Pelvic viscera: The uterus is surgically absent. Skeletal structures: There are postsurgical changes present within the lumbar spine. IMPRESSION: 1. Surgically absent gallbladder and appendix and uterus 2. No evidence of bowel obstruction. No evidence of free air 3. No evidence of acute diverticulitis 4. Bilateral inguinal hernias. 5. Trace free fluid within the right paracolic gutter 6. Mild intra and extrahepatic biliary ductal dilatation, similar to the prior study and possibly related to prior gallbladder disease. 7. Stable low density left paraspinal lesion at the T9 level Electronically signed by: Wong Mtz M.D. 09/23/2017 9:56 PM Dictated Date/Time: 09/23/2017 9:48 PM Laboratory Results 09/23/17 19:10 Red Blood Count 4.18, Mean Corpuscular Volume 95.9, Mean Corpuscular Hemoglobin 32.1, Mean Corpuscular Hemoglobin Concent 33.4, Mean Platelet Volume 10.2, Neutrophils (%) (Auto) 47.7, Lymphocytes (%) (Auto) 33.7, Monocytes (%) (Auto) 15.1, Eosinophils (%) (Auto) 2.7, Basophils (%) (Auto) 0.5, Neutrophils # (Auto ) 3.75, Lymphocytes # (Auto) 2.64, Monocytes # (Auto) 1.18, Eosinophils # (Auto ) 0.21, Basophils # (Auto) 0.04 09/23/17 19:10 Test 09/23/17 19:10 White Blood Count 7.84 K/uL (4.8-10.8) Red Blood Count 4.18 M/uL (4.2-5.4) Hemoglobin 13.4 g/dL (12.0-16.0) Hematocrit 40.1 % (37-47) Mean Corpuscular Volume 95.9 fL (80-100) Mean Corpuscular Hemoglobin 32.1 pg (25-34) Mean Corpuscular Hemoglobin Concent 33.4 g/dl (32-36) Platelet Count 253 K/uL (130-400) Mean Platelet Volume 10.2 fL (7.4-10.4) Neutrophils (%) (Auto) 47.7 % Lymphocytes (%) (Auto) 33.7 % Monocytes (%) (Auto) 15.1 % Eosinophils (%) (Auto) 2.7 % Basophils (%) (Auto) 0.5 % Neutrophils # (Auto) 3.75 K/uL (1.4-6.5) Lymphocytes # (Auto) 2.64 K/uL (1.2-3.4) Monocytes # (Auto) 1.18 K/uL (0.11-0.59) Eosinophils # (Auto) 0.21 K/uL (0-0.5) Basophils # (Auto) 0.04 K/uL (0-0.2) RDW Standard Deviation 43.9 fL (36.4-46.3) RDW Coefficient of Variation 12.8 % (11.5-14.5) Immature Granulocyte % (Auto) 0.3 % Immature Granulocyte # (Auto) 0.02 K/uL (0.00-0.02) Anion Gap 6.0 mmol/L (3-11) Est Creatinine Clear Calc Drug Dose 30.0 ml/min Estimated GFR () 36.9 Estimated GFR (Non- 31.8 BUN/Creatinine Ratio 13.3 (10-20) Calcium Level 9.6 mg/dl (8.5-10.1) Total Bilirubin 0.5 mg/dl (0.2-1) Direct Bilirubin 0.1 mg/dl (0-0.2) Aspartate Amino Transf (AST/SGOT) 21 U/L (15-37) Alanine Aminotransferase (ALT/SGPT) 14 U/L (12-78) Alkaline Phosphatase 74 U/L (45-117) Total Protein 7.9 gm/dl (6.4-8.2) Albumin 3.8 gm/dl (3.4-5.0) Lipase 366 U/L (73-393) Laboratory results as reviewed by me. Medications Administered Medications (Trade) Dose Ordered Sig/Rea Route Start Time Stop Time Status Last Admin Dose Admin Morphine Sulfate (MoRPHine SULFATE INJ) 4 mg ONE STAT IV 09/23/17 19:09 09/23/17 19:10 DC 09/23/17 19:21 4 MG Ondansetron HCl (Zofran Inj) 4 mg NOW STAT IV 09/23/17 19:09 09/23/17 19:10 DC 09/23/17 19:21 4 MG Morphine Sulfate (MoRPHine SULFATE INJ) 4 mg NOW STAT IV 09/23/17 20:32 09/23/17 20:33 DC 09/23/17 20:40 4 MG Ondansetron HCl (Zofran Inj) 4 mg STK-MED ONCE .ROUTE 09/23/17 21:55 09/23/17 21:56 DC 09/23/17 21:55 4 MG ED Course 5: The patient was evaluated in room B6. A complete history and physical exam was performed. 1908: Ordered Zofran Inj 4 mg IV, Morphine Sulfate 4 mg IV. 2030: The patient would like more pain medications. 2031: Ordered Morphine Sulfate 4 mg IV. 3: I spoke to Dr. Mtz of Radiology. He said that the right side does not appear to be a loop of bowel within the inguinal hernia. 2224: I consulted Dr. Hastings of Surgery. She said that she wouldn't do any acute intervention at this time, but to admit the patient to medicine for pain control and further work up. 2256: I spoke with Dr. Sweet of [facility]. We discussed the patient and her results. The patient will be further evaluated by Dr. Sweet. Medical Decision This is an 82-year-old female presents with lower abdominal pain. Differential diagnosis includes diverticulitis, colitis, partial bowel obstruction, hernia, perforation, abscess. I did perform a limited focused review of portions of the patient's old chart on the electronic medical record. The patient was here in June for an incarcerated right inguinal hernia. The patient had lyses of adhesions with enterotomy. I did evaluate the patient as noted above. The patient is presenting with lower abdominal pain. She states it feels similar to when she had an incarcerated hernia in June. On examination she is tender mostly in the suprapubic and left lower quadrant. Some minor tenderness to the right side. IV access was established. I did treat the patient with IV morphine and Zofran. The patient did require an additional dose of IV morphine and Zofran for continued nausea and pain. I did order and review the patient's blood work as noted in the electronic medical record. Her creatinine is slightly elevated. I did order a CT of the abdomen and pelvis. I did review the images myself as well as the radiology report as described above. She does not have any evidence of bowel obstruction. She does have bilateral inguinal hernias. I did speak to the radiologist who did not feel it was likely that she had any bowel in the right inguinal hernia. I did discuss the case with the surgeon principal automation engineer who felt that the patient did not require any acute intervention. I did discuss the case with the hospitalist for further care. I did discuss the test results with the patient and reexamined her. She continues to be tender in the left pelvic region. He does not have any significant right lower quadrant pain. Medication Reconcilliation Current Medication List: was personally reviewed by me Blood Pressure Screening Patient's blood pressure: Elevated blood pressure Blood pressure disposition: Referred to PCP Consults Time Called: 2199 Consulting Physician: Dr. Mtz of Radiology Returned Call: [phone] Mtz of Radiology. He said that the right side does not appear to be a loop of bowel within the inguinal hernia. Additional Consults: Time Called: 2206 Consulted Physician: Dr. Hastings of Surgery Returned Call: [phone] Additional Comments: I consulted Dr. Hastings of Surgery. She said that she wouldn't do any acute intervention at this time, but to admit the patient to medicine for pain control and further work up. Time Called: 2226 Consulted Physician: Dr. Sweet of [facility] Returned Call: 1 Additional Comments: I spoke with Dr. Sweet of [facility]. We discussed the patient and her results. The patient will be further evaluated by Dr. Sweet. Impression Primary Impression: Lower abdominal pain Additional Impression: Bilateral inguinal hernia Scribe Attestation The scribe's documentation has been prepared under my direct and personally reviewed by me in its entirety. I confirm that the note above accurately reflects all work, treatment, procedures, and medical decision making performed by me. Departure Information Dispostion Being Evaluated By Hospitalist Referrals Dada Bernard M.D. (PCP) Patient Instructions My [facility] Problem Qualifiers Additional Impression: Bilateral inguinal hernia Obstruction and gangrene presence: without obstruction or gangrene Recurrence : recurrent Qualified Codes: K40.21 - Bilateral inguinal hernia, without obstruction or gangrene, recurrent
[2017-09-23] MEDS ORDERED: IV FLUIDS COMPLETED PRN (23:45)
[2017-09-24] VITALS: BP 133/76; PULSE 73; TEMP 36.6; O2SAT 98
[2017-09-24] MEDS: LACTATED RINGER'S 1000ML 1,000 ML IV SCH ×2 (00:16→06:29)
[2017-09-24 01:37] VITALS: Ht 165.1 cm; Wt 82.5 kg
[2017-09-24] MEDS ORDERED: LEVOTHYROXINE 100 MCG TAB PO SCH (06:30)
[2017-09-24 06:58] VITALS: BP 134/72; PULSE 55; TEMP 36.7; O2SAT 99
[2017-09-24] MEDS ORDERED: SPIRONOLACTONE/HCTZ 25-25 PO SCH (08:00)
[2017-09-24] MEDS ORDERED: CHOLECALCIFEROL 1000 INTER.UNIT TAB PO SCH (08:00)
[2017-09-24] MEDS ORDERED: RANITIDINE HCL 150 MG TAB PO SCH (08:00)
[2017-09-24] MEDS ORDERED: CLOPIDOGREL BISULFATE 75 MG TAB PO SCH (08:00)
[2017-09-24 08:10] LABS: INR 1.1 (0.9-1.1); PROTHROMBIN TIME (PATIENT) 11.4 SECONDS (9.0-12.0)
[2017-09-24] MEDS ORDERED: HEPARIN SOD 5000 UNIT/0.5 ML CARP SQ SCH (09:00)
[2017-09-24 09:59] VITALS: O2SAT 99
[2017-09-24 10:17] LABS: CREATININE 1.21 mg/dl (0.60-1.20); POTASSIUM 4.4 mmol/L (3.5-5.1)
[2017-09-24 13:32] LABS: URINE APPEARANCE CLEAR (CLEAR); URINE BILIRUBIN NEG (NEG); URINE COLOR YELLOW; URINE EPITHELIAL CELL AUTO >30 /lpf (0-5); URINE NITRITE NEG (NEG); URINE PH 6.5 (4.5-7.5); URINE SPECIFIC GRAVITY 1.015 (1.000-1.030); UROBILINOGEN NEG (NEG)
[2017-09-24 13:35] LABS: MANUAL MICROSCOPIC REQUIRED? NO; REVIEW REQ? NO
[2017-09-24] MEDS ORDERED: LEVOFLOXACIN 750 MG TAB PO ONE (13:50)
[2017-09-24] MEDS ORDERED: NURSING VERBAL MED ORDER ONE (14:30)
[2017-09-24] MEDS ORDERED: PHENAZOPYRIDINE HCL 200 MG TAB PO SCH ×2 (14:30)
[2017-09-24 14:37] VITALS: BP 146/81; PULSE 74; TEMP 36.6; O2SAT 93
[2017-09-24 15:53] VITALS: O2SAT 93
[2017-09-24] MEDS ORDERED: CLC100 PO (16:19)
[2017-09-24] MEDS ORDERED: LVQ750 PO (16:19)
[2017-09-24] MEDS ORDERED: MRLP17X PO (16:19)
[2017-09-24] MEDS ORDERED: PHEN-1043 PO (16:19)
--- NOTE | 2017-09-24 16:23 | Discharge Instructions ---
Discharge Instructions Date of Service Sep 24, 2017. Admission Reason for Admission: Abdominal pain, Acute kidney injury Discharge Discharge Diagnosis / Problem: UTI Discharge Goals Goal(s): Improve disease control, Diagnostic testing, Therapeutic intervention Activity Recommendations Activity Limitations: resume your previous activity Lifting Limitations: none Exercise/Sports Limitations: none Shower/Bathe: no limitations . Instructions / Follow-Up Instructions / Follow-Up You were admitted with abdominal pain in your lower abdomen. You were found to have a urinary tract infection as well as constipation. Your symptoms completely resolved after taking Pyridium and an antibiotic called Levaquin, as well as after you had a bowel movement. You should continue on the Pyridium and the antibiotic as prescribed. Please follow up with your PCP within 1 week. Your PCP will need to follow up on the final Urine culture result to see which bacteria grows out (if any). Please take a stool softener twice daily and increase your prune juice intake to once daily to help with your constipation. Current Hospital Diet Patient's current hospital diet: [facility] Diet (Heart Healthy) Discharge Diet Recommended Diet: [facility] Diet (Heart Healthy) Procedures Procedures Performed: CT abdomen/pelvis Pending Studies Studies pending at discharge: yes List of pending studies: Urine culture Laboratory Results Last 24 Hours Test 09/23/17 19:10 09/24/17 07:42 09/24/17 13:18 White Blood Count 7.84 K/uL Red Blood Count 4.18 M/uL Hemoglobin 13.4 g/dL Hematocrit 40.1 % Mean Corpuscular Volume 95.9 fL Mean Corpuscular Hemoglobin 32.1 pg Mean Corpuscular Hemoglobin Concent 33.4 g/dl Platelet Count 253 K/uL Mean Platelet Volume 10.2 fL Neutrophils (%) (Auto) 47.7 % Lymphocytes (%) (Auto) 33.7 % Monocytes (%) (Auto) 15.1 % Eosinophils (%) (Auto) 2.7 % Basophils (%) (Auto) 0.5 % Neutrophils # (Auto) 3.75 K/uL Lymphocytes # (Auto) 2.64 K/uL Monocytes # (Auto) 1.18 K/uL Eosinophils # (Auto) 0.21 K/uL Basophils # (Auto) 0.04 K/uL RDW Standard Deviation 43.9 fL RDW Coefficient of Variation 12.8 % Immature Granulocyte % (Auto) 0.3 % Immature Granulocyte # (Auto) 0.02 K/uL Sodium Level 136 mmol/L 137 mmol/L Potassium Level 3.8 mmol/L 4.4 mmol/L Chloride Level 100 mmol/L 100 mmol/L Carbon Dioxide Level 30 mmol/L 30 mmol/L Anion Gap 6.0 mmol/L 7.0 mmol/L Blood Urea Nitrogen 20 mg/dl 16 mg/dl Creatinine 1.52 mg/dl 1.21 mg/dl Est Creatinine Clear Calc Drug Dose 30.0 ml/min 38.7 ml/min Estimated GFR () 36.9 48.6 Estimated GFR (Non- 31.8 41.9 BUN/Creatinine Ratio 13.3 13.0 Random Glucose 86 mg/dl 85 mg/dl Calcium Level 9.6 mg/dl 9.0 mg/dl Total Bilirubin 0.5 mg/dl Direct Bilirubin 0.1 mg/dl Aspartate Amino Transf (AST/SGOT) 21 U/L Alanine Aminotransferase (ALT/SGPT) 14 U/L Alkaline Phosphatase 74 U/L Total Protein 7.9 gm/dl Albumin 3.8 gm/dl Lipase 366 U/L Prothrombin Time 11.4 SECONDS Prothromb Time International Ratio 1.1 Magnesium Level 2.0 mg/dl Urine Color YELLOW Urine Appearance CLEAR Urine pH 6.5 Urine Specific [place] 1.015 Urine Protein NEG Urine Glucose (UA) NEG Urine Ketones NEG Urine Occult Blood NEG Urine Nitrite NEG Urine Bilirubin NEG Urine Urobilinogen NEG Urine Leukocyte Esterase SMALL Urine WBC (Auto) 5-10 /hpf Urine RBC (Auto) 0-4 /hpf Urine Hyaline Casts (Auto) 0 /lpf Urine Epithelial Cells (Auto) >30 /lpf Urine Bacteria (Auto) NEG Medical Emergencies . Who to Call and When: Medical Emergencies: If at any time you feel your situation is an emergency, please call 911 immediately. . Non-Emergent Contact Non-Emergency issues call your: Primary Care Provider Call Non-Emergent contact if: you have a fever, temperature is above 100.5, your pain is not controlled, your pain is worsening, your pain is unusual for you, your pain is concerning you, you have any medication questions . . "Provider Documentation" section prepared by Kateryna Boyd. . VTE Core Measure Inpt VTE Proph given/why not?: Unfractionated heparin SQ
[2017-09-24 16:26] VITALS: BP 146/81; PULSE 74; TEMP 36.6; O2SAT 93
[2017-09-24] MEDS ORDERED: PHENAZOPYRIDINE HOME PACK 200 MG VIAL PO ONE (16:30)
--- NOTE | 2017-09-24 16:40 | Discharge Summary ---
Discharge Summary Date of Service Sep 24, 2017. Discharge Summary Admission Date: Sep 23, 2017 at 23:11 Discharge Date: Sep 24, 2017 Discharge Disposition: Home Principal Diagnosis: UTI, ROSEMARIE Problems/Secondary Diagnoses: Constipation Bilateral fat containing inguinal hernias Asthma GERD HTN HYPOTHYROIDISM OSTEOPOROSIS NOS PERSONAL HX OF TIA,& CEREBRAL INFARCTION W/OUT RES DEFICITS Dyslipidemia Sciatica SPINAL STENOSIS-LUMBAR Stable 28 mm left-sided paraspinal mass at T9 on CT Immunizations: Have You Had Influenza Vaccine: No Influenza Vaccine Date: Aug 06, 2009 History of Tetanus Vaccine?: Yes History of Pneumococcal: No Pneumococcal Date: Jan 06, 1998 History of Hepatitis B Vaccine: No Procedures: CT abdomen/pelvis Consultations: None Medication Reconciliation New Medications: Docusate Sodium (Docusate Sodium) 100 Mg Cap 100 MG PO BID for 30 Days To prevent constipation Levofloxacin (Levofloxacin) 750 Mg Tab 750 MG PO Q2D@1100, #3 TAB Next dose DUE 09/26/17 Phenazopyridine HCl (Phenazopyridine HCl) 200 Mg Tab 200 MG PO TID PRN for Bladder pain, #3 TAB Polyethylene (Miralax) 17 Gm Pow 17 GM PO DAILY PRN for Constipation for 30 Days Continued Medications: Cholecalciferol (Vitamin D3) 1,000 Unit Tab 2000 INTER.UNIT PO DAILY, TAB Clopidogrel Bisulfate (Clopidogrel) 75 Mg Tab 75 MG PO DAILY Hctz/Spironolactone (Spironolactone/Hydrochlor 25-25 mg) 1 Ea Tab 1 TAB PO DAILY Levothyroxine Sodium (Levothyroxine Sodium) 100 Mcg Tab 100 MCG PO DAILY Meclizine HCl (Meclizine HCl) 25 Mg Tab 25 MG PO Q6H PRN for Dizziness or Vertigo Ranitidine HCl (Ranitidine HCl) 150 Mg Tab 150 MG PO BID Tramadol HCl (Tramadol HCl) 50 Mg Tab 50-100 MG PO Q6H PRN for Pain Discharge Exam Pt described suprapubic pain that radiated across entire lower abdomen and somewhat around to the lower back on admission. This was constant and progressing over several days. Upon further questioning, she did also report dysuria. No fevers here or at home. UA here performed after admission was contaminated with epis, but did have small LE and some WBCs. She also describes constipation since her RIH repair 3 months ago. Stools are every other day and frequently hard chano or thin pencils. No bleeding. SHe had a colonoscopy about 1 year ago that was normal. All of her abdominal pain completely resolved today about 1 hour after taking Levaquin, pyridium, and after having a large looser BM. She was doing very well and was stable for discharge to home. Her repeat abdominal exam later in the day was completely benign; she had no further TTP. Review of Systems: Constitutional: No fever, No chills Eyes: No problem reported ENT: No problem reported Respiratory: No shortness of breath Cardiovascular: No chest pain Abdomen: + problem reported (as per HPI) Musculoskeletal: No problem reported Genitourinary - Female: + dysuria, No hematuria Neurologic: No problem reported Psychiatric: No problem reported Endocrine: No problem reported Hematologic / Lymphatic: No problem reported Integumentary: No problem reported Physical Exam: General Appearance: WD/WN, no apparent distress, + obese Eyes: normal inspection, sclerae normal ENT: hearing grossly normal, pharynx normal Neck: trachea midline Respiratory/Chest: lungs clear, normal breath sounds, no respiratory distress, no accessory muscle use Cardiovascular: regular rate, rhythm, no edema, no gallop, no JVD, no murmur , normal peripheral pulses Abdomen / GI: normal bowel sounds, soft, + tenderness (in suprapubic region without guarding or rebound) Extremities: normal inspection, no calf tenderness, normal capillary refill , no pedal edema Neurologic/Psychiatric: alert, normal mood/affect, oriented x 3 Skin: normal color, warm/dry, no rash Hospital Course This pt is an 82 yo female with a h/o Asthma, GERD, HTN, hypothyroidism, osteoporosis, TIA, Dyslipidemia, Sciatica, and SPINAL STENOSIS-LUMBAR, and a recent hx of R incarcerated inguinal hernia repair, who presents with suprapubic abdominal pain, with no evidence of obstruction, incarcerated hernia , or free air seen on CT abd/pelvis. She was initially admitted for observation for abdominal pain thought to be from constipation, however a UA was not done prior to admission. Pt described suprapubic pain that radiated across entire lower abdomen and somewhat around to the lower back on admission. This was constant and progressing over several days. Upon further questioning, she did also report dysuria. No fevers here or at home. UA here performed after admission was contaminated with epis, but did have small LE and some WBCs. She also describes constipation since her RIH repair 3 months ago. Stools are every other day and frequently hard chano or thin pencils. No bleeding. SHe had a colonoscopy about 1 year ago that was normal. All of her abdominal pain completely resolved today about 1 hour after taking Levaquin, pyridium, and after having a large looser BM. She was doing very well and was stable for discharge to home. 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 It improved with IVF hydration to 1.2 by the next day. She will be continued on all of her usual home medications upon discharge. For her constipation, it is recommended that she take prune juice daily, Miralax daily prn, and docusate 100mg po bid. Total Time Spent: Greater than 30 minutes This includes examination of the patient, discharge planning, medication reconciliation, and communication with other providers. Discharge Instructions Please refer to the electronic Patient Visit Report (Discharge Instructions) for additional information. Follow-Up PCP within 1 week Follow up on urine culture Additional Copies To Dada Bernard M.D.
[2017-09-26] MEDS ORDERED: LEVOFLOXACIN 750 MG TAB PO SCH (11:00)
== END 2017-09-24 17:07 | disposition home or self-care (01) ==
LOC: C.EDB 18:58 → C.MS4W 23:11 → ENRESERV 23:26
PROVIDERS: ADMIT Hospitalist; ATTEND Family Medicine
DX: N39.0 Urinary tract infection, site not specified (principal); N17.9 Acute kidney failure, unspecified; K40.20 Bilateral inguinal hernia, without obstruction or gangrene, not specified as recurrent; K59.00 Constipation, unspecified; I10 Essential (primary) hypertension; E78.5 Hyperlipidemia, unspecified; J45.909 Unspecified asthma, uncomplicated; K21.9 Gastro-esophageal reflux disease without esophagitis; E03.9 Hypothyroidism, unspecified; F41.9 Anxiety disorder, unspecified; M81.0 Age-related osteoporosis without current pathological fracture; M19.90 Unspecified osteoarthritis, unspecified site; M48.061 Spinal stenosis, lumbar region without neurogenic claudication; Z96.659 Presence of unspecified artificial knee joint; Z82.49 Family history of ischemic heart disease and other diseases of the circulatory system; Z80.9 Family history of malignant neoplasm, unspecified; Z79.899 Other long term (current) drug therapy

== ENCOUNTER → 2017-10-03 | Outpatient (CLI) | payer OTHER ==
[~2017-10-03] MED LIST changes: +ANT25 PO; +CLC100 PO; -CLOP1TAB54 PO; -HYDR-5688 PO; -LEVO100T PO; +LEVO100T7 PO; +LVQ750 PO; -MECL1TAB42 PO; +MRLP17X PO; +PHEN-1043 PO; +PLV75 PO; +RANI150T2 PO; +SPIR1TAB72 PO; -TRAM-10 PO; +ULT50 PO; -ZNTT/150 PO
[2017-10-03 12:54] LABS: THYROID STIMULATING HORMONE 1.81 uIu/ml (0.300-4.500)
== END | disposition home or self-care (01) ==
LOC: C.LABBFT 09:33
PROVIDERS: ATTEND Physician Assistant Medical
DX: E03.9 Hypothyroidism, unspecified (principal)

== ENCOUNTER 2018-01-25 15:47 | Emergency (ER) | payer OTHER ==
[~2018-01-25] VITALS: Ht 165.1 cm; Wt 93.0 kg
[2018-01-25 15:58] VITALS: TEMP 36.7; O2SAT 95; Ht 165.1 cm; Wt 93.0 kg
[2018-01-25] MEDS ORDERED: SERT25TA PO (16:05)
[2018-01-25] MEDS ORDERED: DOXY100C76 PO (16:05)
[2018-01-25] MEDS ORDERED: PRD/1 PO (16:10)
[2018-01-25] MEDS ORDERED: SODIUM CHLORIDE 0.9% 500ML 500 ML IV STA (16:19)
[2018-01-25] MEDS ORDERED: GI COCKTAIL PO STA (16:19)
[2018-01-25] MEDS ORDERED: FAMOTIDINE 20 MG TAB PO ONE (16:30)
[2018-01-25] MEDS ORDERED: ALUMINUM/MAGNESIUM SUSP 30 ML UDC ONE (16:35)
[2018-01-25] MEDS ORDERED: LIDOCAINE HCL 2% VISC SOLN 20 ML UDC ONE (16:35)
--- NOTE | 2018-01-25 16:45 | DIAGNOSTIC IMAGING REPORT ---
CHEST ONE VIEW PORTABLE CLINICAL HISTORY: CHEST PAIN dyspnea COMPARISON STUDY: 06/11/2017 FINDINGS: The bones soft tissues and hemidiaphragms are normal. The cardiomediastinal silhouette is normal. The lungs are clear. The pulmonary vasculature is normal. IMPRESSION: Negative chest. The above report was generated using voice recognition software. It may contain grammatical, syntax or spelling errors. Electronically signed by: Francois Ward M.D. 01/25/2018 4:44 PM Dictated Date/Time: 01/25/2018 4:44 PM
[2018-01-25 16:49] LABS: BASO % 0.4 %; BASO ABS # 0.04 K/uL (0-0.2); EOS % 0.2 %; EOS ABS # 0.02 K/uL (0-0.5); HEMATOCRIT 38.9 % (37-47); HEMOGLOBIN 12.9 g/dL (12.0-16.0); LYMPH % 17.9 %; LYMPH ABS # 1.82 K/uL (1.2-3.4); MEAN CORPUSCULAR HEMOGLOBIN 31.9 pg (25-34); MEAN CORPUSCULAR HGB CONC 33.2 g/dl (32-36); MEAN PLATELET VOLUME 10.3 fL (7.4-10.4); MONO % 9.7 %; MONO ABS # 0.99 K/uL (0.11-0.59); NEUT % 70.8 %; NEUT ABS # 7.21 K/uL (1.4-6.5); PLATELET COUNT 262 K/uL (130-400); RED CELL DISTRIBUTION WIDTH CV 13.5 % (11.5-14.5); RED CELL DISTRIBUTION WIDTH SD 47.3 fL (36.4-46.3); WHITE BLOOD COUNT 10.18 K/uL (4.8-10.8)
[2018-01-25 16:59] LABS: ALBUMIN 3.2 gm/dl (3.4-5.0); CALCIUM 8.4 mg/dl (8.5-10.1); CREATININE 1.26 mg/dl (0.60-1.20); POTASSIUM 4.1 mmol/L (3.5-5.1)
[2018-01-25 17:05] LABS: TOTAL PROTEIN 6.6 gm/dl (6.4-8.2)
[2018-01-25] MEDS ORDERED: FAMO20TA9 PO (18:27)
--- NOTE | 2018-01-25 18:28 | EMERGENCY ROOM VISIT NOTE ---
History Report prepared by Milagros: Maximo Llamas Under the Supervision of: Dr. Jamar Abad M.D. First contact with patient: 16:04 Chief Complaint: CHEST PAIN Stated Complaint: CHEST PAIN History of Present Illness The patient is a 82 year old female who presents to the Emergency Room by EMS with complaints of constant chest pain beginning 1.5 hours ago. Her pain began in her epigastric area and moved upwards into her right chest and neck. The patient rates her pain as a 4/10 in severity. Her pain is worsened with deep breathing. She notes that she had a hamburger and hungarian fries for lunch a few hours ago (which she notes she eats frequently). The patient states "I thought I was gonna ". She was given Nitroglycerin and Zofran en route. The patient denies SOB, nausea, vomiting, diarrhea, fevers, chills, cough, or urinary symptoms. She states that she occasionally feels dizzy, but this is normal for her. She notes that she normally has very small bowel movement since she had a hernia surgery seven months ago. The patient is on Plavix. She has a previous history of GERD. Source of History: patient Onset: 1.5 hours ago Position: chest Symptom Intensity: 4/10 Timing: constant Modifying Factors (Worsening): breathing (deep) Associated Symptoms: + neck pain, + abdominal pain (epigastric), No fevers, No chills, No cough, No SOB, No nausea, No vomiting, No diarrhea, No urinary symptoms Review of Systems See HPI for pertinent positives and negatives. A total of ten systems were reviewed and were otherwise negative. Past Medical & Surgical Medical Problems: (1) ROSEMARIE (acute kidney injury) (2) ANXIETY STATE NOS (3) ASTHMA, UNSPECIFIED (4) CHRONIC SINUSITIS NOS (5) ESOPHAGEAL REFLUX (6) FAMILY HISTORY OF OTHER CARDIOVASCULAR DISEASES (7) FAMILY HX-MALIGNANCY NOS (8) HEMORRHOIDS NOS (9) HYPERTENSION NOS (10) HYPOTHYROIDISM NOS (11) KNEE JOINT REPLACEMENT STATUS (12) LUMBAGO (13) OSTEOARTHROS NOS-UNSPEC (14) OSTEOPOROSIS NOS (15) PERSONAL HX OF TIA,& CEREBRAL INFARCTION W/OUT RES DEFICITS (16) PURE HYPERCHOLESTEROLEM (17) SCIATICA (18) SPINAL STENOSIS-LUMBAR Family History Cancer Heart disease Social History Smoking Status: Former Smoker Alcohol Use: none Drug Use: none Marital Status: Housing Status: lives with significant other Occupation Status: retired Current/Historical Medications Scheduled Cholecalciferol (Vitamin D3), 1,000 INTER.UNIT PO DAILY Clopidogrel Bisulfate (Clopidogrel), 75 MG PO DAILY Doxycycline Monohydrate (Monodox), 100 MG PO BID Famotidine (Pepcid), 20 MG PO BID Hctz/Spironolactone (Spironolactone/Hydrochlor 25-25 mg), 1 TAB PO DAILY Levothyroxine Sodium (Levothyroxine Sodium), 100 MCG PO DAILY Prednisone (Prednisone), 4 MG PO TID Ranitidine HCl (Ranitidine HCl), 150 MG PO BID Scheduled PRN Meclizine HCl (Meclizine HCl), 25 MG PO Q6H PRN for Dizziness or Vertigo Allergies Coded Allergies: Clarithromycin (Verified Allergy, Intermediate, RASH, 01/25/18) Penicillins (Verified Allergy, Intermediate, RASH, 01/25/18) Shellfish (Verified Allergy, Intermediate, itch all over, 01/25/18) Propranolol (Unverified Allergy, Unknown, dizziness, 01/25/18) Sulfa Antibiotics (Verified Allergy, Unknown, ?, 01/25/18) White Fish (Verified Allergy, Unknown, SEAFOOD, FISH, 01/25/18) Codeine (Verified Adverse Reaction, Intermediate, NAUSEA/VOMITING, 01/25/18 ) Oxycodone (Verified Adverse Reaction, Unknown, UNKN, 01/25/18) Physical Exam Vital Signs Date Time Temp Pulse Resp B/P (MAP) Pulse Ox O2 Delivery O2 Flow Rate FiO2 01/25/18 18:44 68 18 109/59 96 01/25/18 18:08 70 16 109/57 95 Room Air 01/25/18 17:47 73 20 95 Room Air 01/25/18 17:17 68 22 97 Room Air 01/25/18 16:47 66 17 96 Room Air 01/25/18 16:17 74 19 96 Room Air 01/25/18 16:13 79 01/25/18 15:58 36.7 77 20 133/76 95 Room Air 01/25/18 15:58 95 Room Air 01/25/18 15:58 95 Room Air Physical Exam GENERAL: Awake, alert, uncomfortable-appearing, in no distress HENT: Normocephalic, atraumatic. Oropharynx unremarkable other than dry mucous membranes. EYES: Normal conjunctiva. Sclera non-icteric. NECK: Supple. No nuchal rigidity. FROM. No JVD. RESPIRATORY: Clear to auscultation. CARDIAC: Regular rate, normal rhythm. Extremities warm and well perfused. Pulses equal. ABDOMEN: Soft, non-distended. No rebound or guarding. No masses. Mild epigastric discomfort, but no discrete tenderness. No peritoneal signs. RECTAL: Deferred. MUSCULOSKELETAL: Chest examination reveals no tenderness. The back is symmetrical on inspection without obvious abnormality. There is no CVA tenderness to palpation. No joint edema. LOWER EXTREMITIES: Calves are equal size bilaterally and non-tender. No edema. No discoloration. NEURO: Normal sensorium. No sensory or motor deficits noted. SKIN: No rash or jaundice noted. Medical Decision & Procedures ER Provider Diagnostic Interpretation: Radiology results as stated below per my review and radiologist interpretation: CHEST ONE VIEW PORTABLE FINDINGS: The bones soft tissues and hemidiaphragms are normal. The cardiomediastinal silhouette is normal. The lungs are clear. The pulmonary vasculature is normal. IMPRESSION: Negative chest. The above report was generated using voice recognition software. It may contain grammatical, syntax or spelling errors. Electronically signed by: Francois Ward M.D. 01/25/2018 4:44 PM Laboratory Results 01/25/18 16:09 Red Blood Count 4.05, Mean Corpuscular Volume 96.0, Mean Corpuscular Hemoglobin 31.9, Mean Corpuscular Hemoglobin Concent 33.2, Mean Platelet Volume 10.3, Neutrophils (%) (Auto) 70.8, Lymphocytes (%) (Auto) 17.9, Monocytes (%) (Auto) 9.7, Eosinophils (%) (Auto) 0.2, Basophils (%) (Auto) 0.4, Neutrophils # (Auto) 7.21, Lymphocytes # (Auto) 1.82, Monocytes # (Auto) 0.99, Eosinophils # (Auto) 0.02, Basophils # (Auto) 0.04 01/25/18 16:09 Test 01/25/18 16:09 01/25/18 17:44 White Blood Count 10.18 K/uL (4.8-10.8) Red Blood Count 4.05 M/uL (4.2-5.4) Hemoglobin 12.9 g/dL (12.0-16.0) Hematocrit 38.9 % (37-47) Mean Corpuscular Volume 96.0 fL (80-100) Mean Corpuscular Hemoglobin 31.9 pg (25-34) Mean Corpuscular Hemoglobin Concent 33.2 g/dl (32-36) Platelet Count 262 K/uL (130-400) Mean Platelet Volume 10.3 fL (7.4-10.4) Neutrophils (%) (Auto) 70.8 % Lymphocytes (%) (Auto) 17.9 % Monocytes (%) (Auto) 9.7 % Eosinophils (%) (Auto) 0.2 % Basophils (%) (Auto) 0.4 % Neutrophils # (Auto) 7.21 K/uL (1.4-6.5) Lymphocytes # (Auto) 1.82 K/uL (1.2-3.4) Monocytes # (Auto) 0.99 K/uL (0.11-0.59) Eosinophils # (Auto) 0.02 K/uL (0-0.5) Basophils # (Auto) 0.04 K/uL (0-0.2) RDW Standard Deviation 47.3 fL (36.4-46.3) RDW Coefficient of Variation 13.5 % (11.5-14.5) Immature Granulocyte % (Auto) 1.0 % Immature Granulocyte # (Auto) 0.10 K/uL (0.00-0.02) Prothrombin Time 10.9 SECONDS (9.0-12.0) Prothromb Time International Ratio 1.0 (0.9-1.1) Anion Gap 4.0 mmol/L (3-11) Est Creatinine Clear Calc Drug Dose 39.5 ml/min Estimated GFR () 46.3 Estimated GFR (Non- 39.9 BUN/Creatinine Ratio 22.5 (10-20) Calcium Level 8.4 mg/dl (8.5-10.1) Magnesium Level 1.8 mg/dl (1.8-2.4) Total Bilirubin 0.6 mg/dl (0.2-1) Direct Bilirubin 0.2 mg/dl (0-0.2) Aspartate Amino Transf (AST/SGOT) 24 U/L (15-37) Alanine Aminotransferase (ALT/SGPT) 21 U/L (12-78) Alkaline Phosphatase 67 U/L (45-117) Pro-B-Type Natriuretic Peptide 253 pg/ml (0-1800) Total Protein 6.6 gm/dl (6.4-8.2) Albumin 3.2 gm/dl (3.4-5.0) Lipase 328 U/L (73-393) Troponin I 0.021 ng/ml (0-0.045) Laboratory results reviewed by me Medications Administered Medications (Trade) Dose Ordered Sig/Rea Route Start Time Stop Time Status Last Admin Dose Admin Sodium Chloride 500 ml @ 999 mls/hr Q31M STAT IV 01/25/18 16:19 01/25/18 16:49 DC 01/25/18 16:41 999 MLS/HR Famotidine (Pepcid Tab) 20 mg NOW ONCE PO 01/25/18 16:30 01/25/18 16:31 DC 01/25/18 16:40 20 MG Al Hydroxide/Mg Hydroxide (Maalox Susp) 30 ml STK-MED ONCE .ROUTE 01/25/18 16:35 01/25/18 16:36 DC 01/25/18 16:41 30 ML Lidocaine HCl (Viscous Lidocaine 2% Soln) 20 ml STK-MED ONCE .ROUTE 01/25/18 16:35 01/25/18 16:36 DC 01/25/18 16:40 20 ML ECG Per My Interpretation Indication: chest pain Rate (beats per minute): 76 Rhythm: normal sinus Findings: RBBB, other (Normal axis. No ST elevation. ) ED Course 1611: The patient was evaluated in room B2. A complete history and physical exam was performed. Medical Decision I reviewed the patient's past medical history, medications, and the nursing notes as described above. Differential diagnosis: Etiologies such as cardiac ischemia, aortic dissection, pulmonary embolism, pneumonia, pneumothorax, musculoskeletal, infections, pericarditis, myocarditis , esophageal rupture, gastrointestinal, as well as others were entertained. 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 On arrival the patient is in NAD, AFVSS. EKG unremarkable, unchanged from prior. CXR negative. Initial troponin negative. WBC wnl. Cr at baseline. On exam patient has mild epigastric discomfort suggesting likely reflux gastritis. Patient has no improvement with NTG by EMS. Patient with resolution of sx with pepcid and GI cocktail further suggesting likely reflux/gastritis particularly given sx occurred in the setting of a heavy meal (hamburger and hungarian fries). Given patient's age and risk factors, delta troponin sent and was negative/unhchanged. Findings and plan for follow-up reviewed with patient. Patient agreeable and d/c'd per discharge instructions. Medication Reconcilliation Current Medication List: was personally reviewed by me Blood Pressure Screening Patient's blood pressure: Elevated blood pressure Blood pressure disposition: Elevated BP felt to be situational Impression Primary Impression: Chest pain due to GERD Scribe Attestation The scribe's documentation has been prepared under my direction and personally reviewed by me in its entirety. I confirm that the note above accurately reflects all work, treatment, procedures, and medical decision making performed by me. Departure Information Dispostion Home / Self-Care Prescriptions Famotidine (PEPCID) 20 Mg Tab 20 MG PO BID for 14 Days, #28 TAB Prov: Jamar Abad M.D. 01/25/18 Referrals Dada Bernard M.D. (PCP) Patient Instructions ED Chest Pain Atypical Unkn Cause, ED GERD, ED Gastritis, My [facility] Additional Instructions Please follow up with your primary care physician in the next 1-3 days for re- evaluation. Your symptoms are most likely related to reflux/gastritis. Otherwise, your exam, EKG, chest xray, and lab results did not show signs of an emergent condition at this time. Pepcid as directed for acid reduction. Drink plenty of fluids to ensure hydration. Return to the emergency department for worsening symptoms as described in the accompanying instructions.
[2018-01-25 18:44] VITALS: BP 109/59; PULSE 68; O2SAT 96
== END 2018-01-25 18:44 | disposition home or self-care (01) ==
LOC: EDBD 15:47 → C.EDB 15:48
DX: R07.9 Chest pain, unspecified (principal); K21.9 Gastro-esophageal reflux disease without esophagitis; F41.9 Anxiety disorder, unspecified; N17.9 Acute kidney failure, unspecified; J45.909 Unspecified asthma, uncomplicated; J32.9 Chronic sinusitis, unspecified; I10 Essential (primary) hypertension; E03.9 Hypothyroidism, unspecified; M19.90 Unspecified osteoarthritis, unspecified site; M81.0 Age-related osteoporosis without current pathological fracture; Z86.73 Personal history of transient ischemic attack (TIA), and cerebral infarction without residual deficits; E78.00 Pure hypercholesterolemia, unspecified; M54.30 Sciatica, unspecified side; M48.061 Spinal stenosis, lumbar region without neurogenic claudication; Z80.9 Family history of malignant neoplasm, unspecified; Z82.49 Family history of ischemic heart disease and other diseases of the circulatory system; Z87.891 Personal history of nicotine dependence; Z79.52 Long term (current) use of systemic steroids; Z79.899 Other long term (current) drug therapy; Z88.0 Allergy status to penicillin; Z88.2 Allergy status to sulfonamides; Z88.5 Allergy status to narcotic agent; Z88.1 Allergy status to other antibiotic agents; Z91.013 Allergy to seafood

== ENCOUNTER → 2018-02-06 | Outpatient (CLI) | payer OTHER ==
[~2018-02-06] MED LIST changes: -CLC100 PO; +DOXY100C76 PO; +FAMO20TA9 PO; -LVQ750 PO; -MRLP17X PO; -PHEN-1043 PO; +PRD/1 PO; -ULT50 PO
== END | disposition home or self-care (01) ==
LOC: C.LABBFT 12:08
PROVIDERS: ATTEND Internal Medicine
DX: R25.1 Tremor, unspecified (principal); E78.5 Hyperlipidemia, unspecified; E55.9 Vitamin D deficiency, unspecified

== ENCOUNTER → 2018-06-27 | Outpatient (CLI) | payer OTHER ==
[~2018-06-27] MED LIST changes: +CARB25TA12 PO; -DOXY100C76 PO; -FAMO20TA9 PO; -LEVO100T7 PO; -PRD/1 PO
== END | disposition home or self-care (01) ==
LOC: C.LABBFT 12:02
PROVIDERS: ATTEND Internal Medicine
DX: E03.9 Hypothyroidism, unspecified (principal)

== ENCOUNTER 2022-05-25 01:43 | Inpatient (IN) ==
[2022-05-25] MEDS ORDERED: ACETAMINOPHEN 1,000 MG/100 ML VIAL IV STA (02:13)
[2022-05-25] MEDS ORDERED: SODIUM CHLORIDE 0.9% 1000ML 1,000 ML IV SCH (02:15)
--- NOTE | 2022-05-25 02:34 | Emergency Department Note ---
History of Present Illness General Chief complaint: Chest Pain Time Seen by Provider: 05/25/22 01:47 Source: patient Mode of arrival: EMS Limitations: altered mental status History of Present Illness Provider complaint: Chest pain Onset (ago): hour(s) 2 This is an 86-year-old female brought in by EMS with complaints of chest pain. Patient states symptoms started a couple hours ago. Family who arrived at bedside stated she called them complaining of chest pain at a court of midnight. Patient states its in the left side of her chest. Family states she told him that it radiated into her back and left arm. Patient denies any coming dizziness, nausea, or shortness of breath. Family states when they arrived at her place, she appealed pale and diaphoretic. No prior cardiac history. Patient was given aspirin by EMS prior to arrival, no other treatment prior to arrival. Patient denies any similar previous episodes. She states she has never seen cardiology. She denies any recent fevers, chills, cough, or illness. Patient states she has noticed some slight leg swelling. Patient denies any change in medications. Family at bedside including son and daughter. Daughter states she as well as her sister are her anderson of contract attorney. They state they have been trying to get their mother placed into a facility but had a difficult time. They state they did have people coming to help her during the day and they have taken turns staying with her overnight as they are concerned for her decline over the last 6 months. He states she has chased away any help that they had arranged for during the day while they were at work. Pt seen during a time of high acuity and national emergency pandemic while wearing PPE. Home Medications Medication Instructions Recorded Confirmed Type tamoxifen 20 mg tablet 20 mg PO DAILY 09/29/21 05/25/22 History hydroxyzine HCl 25 mg tablet 25 mg PO BID PRN itching #30 tabs 12/23/21 05/25/22 Rx levothyroxine 150 mcg tablet 150 mcg PO DAILY #30 tabs 05/16/22 05/25/22 Rx acetaminophen 500 mg tablet 1,000 mg PO AMPM 05/25/22 05/25/22 History (Tylenol Extra Strength) diphenhydramine HCl 25 mg tablet 25 mg PO HS 05/25/22 05/25/22 History (Benadryl Allergy) lidocaine 5 % topical patch 1 patch topical DAILY PRN Pain 05/25/22 05/25/22 History Allergies Allergy/AdvReac Type Severity Reaction Status Date / Time clarithromycin Allergy Intermediate RASH Verified 05/25/22 03:05 Penicillins Allergy Intermediate RASH Verified 05/25/22 03:05 shellfish derived Allergy Intermediate itch all Verified 05/25/22 03:05 over Fish Containing Products Allergy Unknown SEAFOOD, Verified 05/25/22 03:05 FISH propranolol Allergy Unknown dizziness Verified 05/25/22 03:05 Sulfa (Sulfonamide Allergy Unknown CAN'T Verified 05/25/22 03:05 Antibiotics) REMEMBER codeine AdvReac Intermediate NAUSEA/VOMI Verified 05/25/22 03:05 TING paroxetine [From Paxil] AdvReac Intermediate hallucinati Verified 05/25/22 03:05 ons ibuprofen AdvReac Unknown Unknown Verified 05/25/22 03:05 levofloxacin [From Levaquin] AdvReac Unknown Unknown Verified 05/25/22 03:05 oxycodone AdvReac Unknown UNKN Verified 05/25/22 03:05 Past Med/Surg History Medical History Adverse drug reaction ROSEMARIE (acute kidney injury) Altered mental status Breast cancer CVA (cerebral vascular accident) Depression Grief reaction History of basal cell carcinoma History of SCC (squamous cell carcinoma) of skin Hypertension Hypokalemia Spondylolisthesis of lumbar region Unspecified hemorrhoids (03/19/13) Surgical History History of back surgery History of inguinal hernia repair History of lumbar laminectomy for spinal cord decompression History of repair of rectocele History of right knee surgery History of total abdominal hysterectomy Hx of appendectomy Hx of cholecystectomy Hx of laparoscopy S/P removal of left ovary Family History Sister Lung cancer Father Colorectal cancer Brother Colorectal cancer Prostate cancer Mother Colorectal cancer Denies family history of Ovarian cancer Myocardial infarction Breast cancer Social History Smoking Status: Never smoker Tobacco Type: Cigarettes Age Started Using Tobacco: 18; Age Quit Using Tobacco: 19; packs per day: 0.5; Second Hand Exposure: No; Hx Alcohol Use: No Hx Substance Use: No Preferred Language: Hungarian Visual Impairment: No Limitations Hearing Ability: Normal marital status: / Current Living Situation: Alone current occupational status: retired current occupation: retired from career in [employer] Feels Safe at Home: Yes Childhood Exposure to Second-Hand Smoke: No caffeine: No Dental Care, Regularly: No Physical Activity Frequency: Does not Exercise Seatbelt Use: always Sunscreen Use: No Review of Systems A total of 10 systems reviewed and were otherwise negative All systems reviewed & are unremarkable except as noted in HPI & below Physical Exam Vital Signs Vital Signs - 24 hr 05/25/22 02:01 Temperature 36.9 C Temperature Source Oral Pulse Rate 57 L Respiratory Rate 16 Respiratory Effort / Characteristics Non-Labored Spontaneous Respiratory Depth Normal Respiratory Pattern Regular Blood Pressure 144/65 H Blood Pressure Mean 91 Pulse Oximetry 98 Oxygen Delivery Method Room Air Sepsis Recent Fever Within 48 Hours No Sepsis New/Unexplained Change in Mental Status N/A Sepsis Action Taken by Nursing No Action Required GENERAL: alert, well appearing, well nourished, no distress, non-toxic EYE EXAM: normal conjunctiva, PERRL and EOM's grossly intact OROPHARYNX: no exudate, no erythema, lips, buccal mucosa, and tongue normal and mucous membranes are moist NECK: supple, no nuchal rigidity, no adenopathy, non-tender LUNGS: Clear to auscultation. Normal chest wall mechanics, no w/r/r HEART: no murmurs, S1 normal and S2 normal ABDOMEN: abdomen soft, non-tender, normo-active bowel sounds, no masses, no rebound or guarding. BACK: Back is symmetrical on inspection and there is no deformity, no midline tenderness, no CVA tenderness. SKIN: no rashes and no bruising UPPER EXTREMITIES: upper extremities are grossly normal. FROM, nml pulses b/l. LOWER EXTREMITIES: No pitting edema. FROM, nml pulses b/l. NEURO EXAM: Normal sensorium, cranial nerves II-XII grossly intact, normal speech, no gross weakness of arms, no gross weakness of legs. Gross sensation intact. Course Administered Medications Acetaminophen (Acetaminophen 325 Mg Tab) 650 mg PO Q6H PRN PRN Reason: Pain or Fever Stop: 06/24/22 05:51 Last Admin: 05/26/22 07:42 Dose: 650 mg Documented By: TAYLOR Enoxaparin Sodium (Enoxaparin Inj 30 Mg/0.3 Ml Syr) 30 mg SQ Q24H ROSEMARY Stop: 06/24/22 08:59 Last Admin: 05/26/22 07:37 Dose: Not Given Documented By: Admin: 05/25/22 08:14 Dose: 30 mg Documented By: TED Levothyroxine Sodium (Levothyroxine Sodium 150 Mcg Tablet) 150 mcg PO DAILYBB ROSEMARY Stop: 06/24/22 06:29 Last Admin: 05/26/22 06:22 Dose: Not Given Documented By: Admin: 05/25/22 06:45 Dose: 150 mcg Documented By: KEVIN Tamoxifen Citrate (Tamoxifen Citrate 10 Mg Tablet) 20 mg PO DAILY ROSEMARY Stop: 06/24/22 08:59 Last Admin: 05/26/22 07:37 Dose: 20 mg Documented By: TAYLOR Co-signed By: EVANS Admin: 05/25/22 08:14 Dose: 20 mg Documented By: TED Co-signed By: LUCY Discontinued Medications Acetaminophen (Ofirmev) 1,000 mg in 100 mls @ 400 mls/hr IV NOW STA Stop: 05/25/22 02:27 Last Infusion: 05/25/22 02:34 Dose: 0 mls/hr Documented By: Admin: 05/25/22 02:21 Dose: 400 mls/hr Documented By: OLLIE Sodium Chloride (Nss 1000ml) 1,000 mls @ 125 mls/hr IV .Q8H ROSEMARY Stop: 06/24/22 02:14 Last Infusion: 05/25/22 08:56 Dose: 0 mls/hr Documented By: Admin: 05/25/22 02:21 Dose: 125 mls/hr Documented By: OLLIE Magnesium Sulfate/Dextrose (Magnesium Sulfate / D5w) 1 gm in 100 mls @ 100 mls/hr IV NOW STA Stop: 05/25/22 04:13 Last Infusion: 05/25/22 04:36 Dose: 0 mls/hr Documented By: LUIS MANUEL Admin: 05/25/22 03:25 Dose: 100 mls/hr Documented By: LUIS MANUEL Magnesium Sulfate/Dextrose (Magnesium Sulfate / D5w) 1 gm in 100 mls @ 50 mls/hr IV ONE ONE Stop: 05/25/22 06:29 Last Infusion: 05/25/22 06:46 Dose: 0 mls/hr Documented By: Admin: 05/25/22 04:41 Dose: 50 mls/hr Documented By: LUIS MANUEL Potassium Chloride (K Boo / Wtr) 10 meq in 100 mls @ 100 mls/hr IV Q1H ROSEMARY; Protocol Stop: 05/25/22 12:14 Last Admin: 05/25/22 11:31 Dose: Not Given Documented By: VIKAS Medical Decision Making Differential Diagnosis Differential diagnoses includes but is not limited to acute coronary syndrome, myocardial infarction, pericarditis, pulmonary embolus, aortic dissection, pneumonia, pneumothorax, musculoskeletal, shingles, esophageal. Medical Records Attestation: I reviewed the patient's medical records. Home Medications Current Medication List: was personally reviewed by me Laboratory Data Attestation: I reviewed the patient's lab results. Result diagrams: 05/25/22 01:56 05/25/22 01:56 Lab Results 05/25/22 05/25/22 05/25/22 Range/Units 01:56 01:56 01:56 WBC 6.53 (4.8-10.8) K/ul RBC 3.71 L (3.93-5.22) M/uL Hgb 12.3 (12.0-16.0) g/dl Hct 37.2 (34.1-44.9) % MCV 100.3 H (80.0-100.0) fL MCH 33.2 (25.0-34.0) pg MCHC 33.1 (32.0-36.0) g/dL RDW Std Deviation 43.9 (36.4-46.3) fL RDW Coeff of Louie 12.0 (11.5-14.5) % Plt Count 199 (130-400) K/uL MPV 10.6 (9.4-12.3) fL Immature Gran % (Auto) 0.3 % Neut % (Auto) 47.5 % Lymph % (Auto) 35.1 % [place] % (Auto) 13.9 % Eos % (Auto) 2.3 % Baso % (Auto) 0.9 % Neut # (Auto) 3.10 (1.4-6.5) K/uL Lymph # (Auto) 2.29 (1.2-3.4) K/uL [place] # (Auto) 0.91 H (0.24-0.82) K/uL Eos # (Auto) 0.15 (0-0.50) K/uL Baso # (Auto) 0.06 (0-0.2) K/uL Immature Gran # (Auto) 0.02 (0.00-0.02) K/uL PT Cancelled INR Cancelled Sodium 139 (136-145) mmol/L Potassium 3.7 (3.5-5.1) mmol/L Chloride 106 (98-107) mmol/L Carbon Dioxide 27 (21-32) mmol/L Anion Gap 6 (3-11) BUN 15 (6-23) mg/dl Creatinine 1.16 (0.6-1.2) mg/dl Est Cr Clr Drug Dosing 33.5 ml/min Est GFR ( Amer) 49.7 ml/min Est GFR (Non-Af Amer) 42.9 ml/min BUN/Creatinine Ratio 12.9 (10-20) Glucose 97 (70-99(Fasting)) mg/dl Calcium 8.5 (8.5-10.1) mg/dl Magnesium 1.5 L (1.7-2.4) mg/dl Total Bilirubin 0.5 (0.2-1.0) mg/dl AST 20 (13-39) U/L ALT 10 (7-52) U/L Alkaline Phosphatase 58 (34-104) U/L Troponin I High Sens 28.0 H (0-14) pg/ml Total Protein 6.5 (6.0-8.3) gm/dl Albumin 3.7 (3.4-5.0) gm/dl Globulin 2.8 (2.5-4.0) gm/dl Albumin/Globulin Ratio 1.3 (0.9-2) Lipase 70 (11-82) U/L TSH (0.300-4.500) uIu/ml SARS-CoV-2, RNA, NAAT (NEGATIVE) 05/25/22 05/25/22 05/25/22 Range/Units 01:56 03:25 03:25 WBC (4.8-10.8) K/ul RBC (3.93-5.22) M/uL Hgb (12.0-16.0) g/dl Hct (34.1-44.9) % MCV (80.0-100.0) fL MCH (25.0-34.0) pg MCHC (32.0-36.0) g/dL RDW Std Deviation (36.4-46.3) fL RDW Coeff of Louie (11.5-14.5) % Plt Count (130-400) K/uL MPV (9.4-12.3) fL Immature Gran % (Auto) % Neut % (Auto) % Lymph % (Auto) % [place] % (Auto) % Eos % (Auto) % Baso % (Auto) % Neut # (Auto) (1.4-6.5) K/uL Lymph # (Auto) (1.2-3.4) K/uL [place] # (Auto) (0.24-0.82) K/uL Eos # (Auto) (0-0.50) K/uL Baso # (Auto) (0-0.2) K/uL Immature Gran # (Auto) (0.00-0.02) K/uL PT 11.8 INR 1.1 Sodium (136-145) mmol/L Potassium (3.5-5.1) mmol/L Chloride (98-107) mmol/L Carbon Dioxide (21-32) mmol/L Anion Gap (3-11) BUN (6-23) mg/dl Creatinine (0.6-1.2) mg/dl Est Cr Clr Drug Dosing ml/min Est GFR ( Amer) ml/min Est GFR (Non-Af Amer) ml/min BUN/Creatinine Ratio (10-20) Glucose (70-99(Fasting)) mg/dl Calcium (8.5-10.1) mg/dl Magnesium (1.7-2.4) mg/dl Total Bilirubin (0.2-1.0) mg/dl AST (13-39) U/L ALT (7-52) U/L Alkaline Phosphatase (34-104) U/L Troponin I High Sens (0-14) pg/ml Total Protein (6.0-8.3) gm/dl Albumin (3.4-5.0) gm/dl Globulin (2.5-4.0) gm/dl Albumin/Globulin Ratio (0.9-2) Lipase (11-82) U/L TSH 0.492 (0.300-4.500) uIu/ml SARS-CoV-2, RNA, NAAT NEGATIVE (NEGATIVE) Imaging Data My Impression: X-ray: I interpreted the following studies. Chest: A single view study of the chest was reviewed and was negative for cardiomegaly, focal infiltrate, effusion, pulmonary edema, or wide mediastinum. ECG Data Attestation: I personally reviewed and interpreted this ECG as follows: Indication: + chest pain Rate (beats per minute): 60 Rhythm: + normal sinus ECG Intervals/blocks: + Right Bundle branch block and + Normal QT ECG [place]: + Normal ECG ST segments: + Nonspecific ST abnormalities MDM Narrative An order was placed for continuous cardiac monitoring. The monitor shows a rate of _62_ with _normal sinus__ rhythm. This is an 86-year-old female who presents via EMS due to concern for chest pain and shortness of breath. Labs drawn and sent, chest x-ray performed, and EKG reviewed. No acute changes noted on EKG. Patient does have a history of dementia and family does help to provide additional history. Patient's symptoms resolved here, first troponin was elevated though. Did discuss with them additional cardiac evaluation as patient has no prior cardiac history. Family also concerned about possible need for more permanent placement as she has been living at home with aides coming in during the day and family taking turns in the evening. They state patient has been declining over the last 6 months. No evidence of acute CHF. I do not suspect PE, pericardial effusion, pericarditis/myocarditis, mediastinitis, perforation, GI bleed, or pneumonia. No ectopy or dysrhythmia noted on telemetry. Impression & Plan Chest pain, Hypertension, Dementia Discharge Plan Visit Data Chief Complaint: Chest Pain ED Provider: Denisha Frazier Discharge Problem: Chest pain, Hypertension, Dementia Patient Disposition: Admitted As Inpatient Condition: Good Discharge Instructions Interventions: ED Discharge Assessment Last Done: 05/25/22 05:56
[2022-05-25 02:45] LABS: Basophils # (auto) 0.06 K/uL (0-0.2); Basophils % (auto) 0.9 %; Eosinophils # (auto) 0.15 K/uL (0-0.50); Eosinophils % (auto) 2.3 %; Hematocrit (blood only) 37.2 % (34.1-44.9); Hemoglobin 12.3 g/dl (12.0-16.0); Immature Granulocytes # (auto) 0.02 K/uL (0.00-0.02); Immature Granulocytes % (auto) 0.3 %; Lymphocytes # (auto) 2.29 K/uL (1.2-3.4); Lymphocytes % (auto) 35.1 %; Mean Corpuscular Hemoglobin 33.2 pg (25.0-34.0); Mean Corpuscular Hgb Conc 33.1 g/dL (32.0-36.0); Mean Corpuscular Volume 100.3 fL (80.0-100.0); Mean Platelet Volume 10.6 fL (9.4-12.3); Monocytes # (auto) 0.91 K/uL (0.24-0.82); Monocytes % (auto) 13.9 %; Neutrophils % (auto) 47.5 %; Platelet Count 199 K/uL (130-400); RDW Standard Deviation 43.9 fL (36.4-46.3); Red Blood Count 3.71 M/uL (3.93-5.22); White Blood Count 6.53 K/ul (4.8-10.8)
[2022-05-25 03:04] LABS: Albumin Globulin Ratio 1.3 (0.9-2); Albumin Level 3.7 gm/dl (3.4-5.0); BUN Creatinine Ratio 12.9 (10-20); Bilirubin,Total 0.5 mg/dl (0.2-1.0); Calcium 8.5 mg/dl (8.5-10.1); Creatinine Clr Calc Pharmacy 33.5 ml/min; Est GFR (African American) 49.7 ml/min; Est GFR (Non-African American) 42.9 ml/min; Globulin 2.8 gm/dl (2.5-4.0); Magnesium 1.5 mg/dl (1.7-2.4); Potassium 3.7 mmol/L (3.5-5.1); Total Protein 6.5 gm/dl (6.0-8.3)
[2022-05-25] MEDS ORDERED: MAGNESIUM SULFATE / D5W 1 GM/100 ML BAG IV STA (03:14)
--- NOTE | 2022-05-25 03:46 | History & Physical Report ---
Date of Service May 25, 2022 Assessment & Plan (1) Elevated troponin: Plan: Atypical chest pain that woke patient up from sleep, with associated diaphoresis and skin pallor. Resolved after several hours, without Nitro. hsTroponin mildly elevated at 28, and EKG showing NSR with RBBB (chronic) and no ST/T abnormalities. - will admit to med/tele - ordered TTE - serial troponin now, and again in 6 hours - trend to peak - PRN EKG/Nitro for chest pain (2) Carotid artery plaque: Plan: Confirmed via previous CT imaging, without previous angina or [place]. - plan as stated above (3) Hypomagnesemia: Plan: Mg 1.5, repleted in ED - trend (4) Parkinsons disease: Plan: Chronic, progressive, with associated shuffling gait, instability, ambulatory dysfunction and occasional falls. Patient lives alone and family members are concerned that they cannot provide necessary assistance for her. - PT/OT consults placed - appreciate recs (5) Breast cancer: Plan: Diagnosed in 2020 - invasive lobular carcinoma grade 1, on Tamoxifen. Patient has declined surgery. - continue Tamoxifen (6) Chronic kidney disease, stage III (moderate): Plan: Chronic. Cr 1.16 here. - avoid nephrotoxic agents (7) Hypertension: Plan: Chronic, not on medications. Normotensive currently. - consider VERENA-I/ARB +/- BB - pending ACS work-up (8) Hyperlipidemia: Plan: Chronic. Cholesterol 211 and LDL 124 as of 2020 lipid profile. - consider statin - pending ACS work-up (9) Hypothyroidism: Plan: Chronic, TSH 0.492 today. - continue home Synthroid Plan FEN/GI: NPO for now (pending serial troponin) DVT Prophylaxis: Lovenox Code Status: full code Disposition: med/tele, PT/OT consults pending - may require SNF vs rehab on discharge History of Present Illness Chief Complaint: chest pain Primary Care Provider: Dada Bernard MD Kirti Pink is an 86yo female with PMHx significant for Parkinson's disease, dementia, breast cancer (invasive lobular carcinoma grade 1, on Tamoxifen), h/o CVA, and hypothyroidism, who presented to [facility] ED On 05/25 for acute-onset left- sided chest pain radiating to back and left arm that woke her up at ~midnight; symptoms x several hours. Per family patient was also diaphoretic and pale when they arrived at her house. Patient denies associated dizziness/lightheadedness, palpitations, SOB, syncope/near-syncope or nausea. Patient received Aspirin 324mg by EMS and chest pain reportedly resolved upon arrival at ED. Patient denies current chest pain and feels "good overall". Denies previous chest pain/angina or heart attack. Of note, patient has evidence of CAD, per previous CT imaging. Patient's daughter and sister have been trying to arrange help for their mother during the day and night, as she lives alone and has been progressively declining in overall function over the last year or so. Patient's daughter reports that she is concerned specifically for patient's declining ambulatory status - she has a progressively worsening shuffling gait and often trips, with occasional falls. Patient has a 30 pack smoking history - quit at age 51. No alcohol use or drug use. In the ED the patient was afebrile and hemodynamically stable on room air. Labs significant for hsTroponin 28 (EKG showing NSR with RBBB which is chronic, no ST/T abnormalities). Mg 1.5. Otherwise CBC/CMP/PT/INR WNL. TSH 0.492. COVID-19 negative. CXR unremarkable. Patient received Mg sulfate 1g, Tylenol 1g, and was started on NSS @125cc/hr. Allergies Allergy/AdvReac Type Severity Reaction Status Date / Time clarithromycin Allergy Intermediate RASH Verified 05/25/22 03:05 Penicillins Allergy Intermediate RASH Verified 05/25/22 03:05 shellfish derived Allergy Intermediate itch all Verified 05/25/22 03:05 over Fish Containing Products Allergy Unknown SEAFOOD, Verified 05/25/22 03:05 FISH propranolol Allergy Unknown dizziness Verified 05/25/22 03:05 Sulfa (Sulfonamide Allergy Unknown CAN'T Verified 05/25/22 03:05 Antibiotics) REMEMBER codeine AdvReac Intermediate NAUSEA/VOMI Verified 05/25/22 03:05 TING paroxetine [From Paxil] AdvReac Intermediate hallucinati Verified 05/25/22 03:05 ons ibuprofen AdvReac Unknown Unknown Verified 05/25/22 03:05 levofloxacin [From Levaquin] AdvReac Unknown Unknown Verified 05/25/22 03:05 oxycodone AdvReac Unknown UNKN Verified 05/25/22 03:05 Home Medications Medication Instructions Recorded Confirmed Type tamoxifen 20 mg tablet 20 mg PO DAILY 09/29/21 05/25/22 History hydroxyzine HCl 25 mg tablet 25 mg PO BID PRN itching #30 tabs 12/23/21 05/25/22 Rx levothyroxine 150 mcg tablet 150 mcg PO DAILY #30 tabs 05/16/22 05/25/22 Rx acetaminophen 500 mg tablet 1,000 mg PO AMPM 05/25/22 05/25/22 History (Tylenol Extra Strength) diphenhydramine HCl 25 mg tablet 25 mg PO HS 05/25/22 05/25/22 History (Benadryl Allergy) lidocaine 5 % topical patch 1 patch topical DAILY PRN Pain 05/25/22 05/25/22 History Past Med/Surg History Medical History Adverse drug reaction ROSEMARIE (acute kidney injury) Altered mental status Breast cancer CVA (cerebral vascular accident) Depression Grief reaction History of basal cell carcinoma History of SCC (squamous cell carcinoma) of skin Hypertension Hypokalemia Spondylolisthesis of lumbar region Unspecified hemorrhoids (03/19/13) Surgical History History of back surgery History of inguinal hernia repair History of lumbar laminectomy for spinal cord decompression History of repair of rectocele History of right knee surgery History of total abdominal hysterectomy Hx of appendectomy Hx of cholecystectomy Hx of laparoscopy S/P removal of left ovary Family History Sister Lung cancer Father Colorectal cancer Brother Colorectal cancer Prostate cancer Mother Colorectal cancer Denies family history of Ovarian cancer Myocardial infarction Breast cancer Social History Smoking Status: Never smoker Tobacco Type: Cigarettes Age Started Using Tobacco: 18; Age Quit Using Tobacco: 19; packs per day: 0.5; Second Hand Exposure: No; Hx Alcohol Use: No Hx Substance Use: No Preferred Language: Citizen Of [place] Visual Impairment: No Limitations Hearing Ability: Normal marital status: / Current Living Situation: Alone current occupational status: retired current occupation: retired from career in [employer] Feels Safe at Home: Yes Childhood Exposure to Second-Hand Smoke: No caffeine: No Dental Care, Regularly: No Physical Activity Frequency: Does not Exercise Seatbelt Use: always Sunscreen Use: No Review of Systems Review of Systems: All systems reviewed & are unremarkable except as noted in HPI & below Physical Exam Physical Exam: General: A&Ox3. NAD. Cooperative. HEENT: Atraumatic, normocephalic. Pulm: CTAB A&P. -wheezes, -rales, -rhonchi. Symmetrical chest rise. No increase work of breathing. No respiratory distress. Cardiac: RRR, -mrg. Radial pulses intact and symmetrical. No LE edema. Abdominal: soft, non-tender, non-distended, BS x 4 Skin: warm, dry, no rash Results & Data Results & Data ([facility]) Vital Signs (Past 12 Hours) Vital Signs Temp Pulse Pulse Resp BP BP Pulse Ox 05/25/22 02:41 55 L 16 117/56 L 98 05/25/22 02:01 36.9 C 57 L 16 144/65 H 98 O2 Del Method 05/25/22 02:41 Room Air 05/25/22 02:01 Room Air Supervising Physician Co-Signing Physician Notes Attending addendum: I have physically seen this patient, have supervised the medical residents activities, and agree with the H&P unless as otherwise noted. Assessment and Plan: Elevated troponin/atypical chest pain- The patient will be admitted to telemetry for serial cardiac enzymes, serial EKG's, cardiac rhythm monitoring and a 2-D echocardiogram with Dopplers. Aspirin 81 mg daily Check fasting lipid panel and hemoglobin A1c Hypomagnesemia- Magnesium 1.5 upon admission Bleeding both orally and IV Repeat laboratories in a.m. Hypothyroidism- Continue levothyroxine 150 mcg daily Breast cancer- Continue tamoxifen Remaining orders and notations as noted Resident Activity Tracking Resident Involvement: Resident Care Provided Care Provided: Adult Hospital Medicine
[2022-05-25 03:57] LABS: INR 1.1 (0.9-1.1); Prothrombin Time 11.8 Seconds (9.0-12.0)
[2022-05-25] MEDS ORDERED: MAGNESIUM SULFATE / D5W 1 GM/100 ML BAG IV ONE (04:30)
[2022-05-25] MEDS ORDERED: NITROGLYCERIN SL 0.4 MG/TAB TAB SL PRN (05:52)
[2022-05-25] MEDS ORDERED: ONDANSETRON INJ 2 MG/ML 2 ML VIAL IV PRN (05:52)
[2022-05-25] MEDS: LEVOTHYROXINE SODIUM 150 MCG TABLET PO SCH (06:45)
--- NOTE | 2022-05-25 08:03 | XRay Report ---
XR chest 1V portable CLINICAL HISTORY: chest pain. COMPARISON STUDY: 09/29/2021 TECHNIQUE: 1 view of the chest FINDINGS: Single frontal view of the chest demonstrates the cardiomediastinal silhouette to be within normal li mits. There is a decreased inspiratory effort with elevation of the hemidiaphragms and crowding of th e bronchovascular markings at the lung bases and centrally. The lungs are clear of alveolar opacities . There is no evidence for pleural effusion. There is no evidence for vascular congestion. There is n o acute osseous pathology. IMPRESSION: 1. There is a decreased inspiratory effort with otherwise no acute chest disease. ACT 112: Negative or not required by law. Electronically signed by: Dipesh Collazo M.D. 05/25/2022 8:02 AM
[2022-05-25] MEDS: ENOXAPARIN INJ 30 MG/0.3 ML SYR SQ SCH (08:14)
[2022-05-25] MEDS: TAMOXIFEN CITRATE 10 MG TABLET PO SCH (08:14)
--- NOTE | 2022-05-25 08:27 | Hospitalist Progress Note ---
Date of Service May 25, 2022 Assessment & Plan (1) Elevated troponin: Plan: 86yo female with PMHx significant for Parkinson's disease, dementia, breast cancer (invasive lobular carcinoma grade 1, on Tamoxifen), h/o CVA, and hypothyroidism, who presented to [facility] ED On 05/25 for acute-onset left-sided chest pain radiating to back and left arm that woke her up at ~midnight; symptoms x several hours 1) Dementia -Patient noted to have significant sundowning with hallucinations at night, occasional inability to recognize family in daytime, family concerned for safety risk. Patient lives alone, family able to accompany overnight but not in daytime. Request Case management assistance for home management as she is unlikely to quality for SNF or nursing homes given she is still fairly mobile -PT/OT ordered, OT recommend 24/7 care and supervision 1) Elevated troponin: - downtrending Atypical chest pain that woke patient up from sleep, with associated diaphoresis and skin pallor. Resolved after several hours, without Nitro. hsTroponin mildly elevated at 28, and EKG showing NSR with RBBB (chronic) and no ST/T abnormalities. - will admit to med/tele - TTE unremarkable - troponin downtrending - PRN EKG/Nitro for chest pain (2) Carotid artery plaque: Confirmed via previous CT imaging, without previous angina or [place]. - plan as stated above (3) Hypomagnesemia: - repleted Mg 1.5, repleted in ED - trend (5) Breast cancer: Diagnosed in 2020 - invasive lobular carcinoma grade 1, on Tamoxifen. Patient has declined surgery. - continue Tamoxifen (6) Chronic kidney disease, stage III (moderate): Chronic. Cr 1.16 here. - avoid nephrotoxic agents (7) Hypertension: Chronic, not on medications. Normotensive currently. - consider VERENA-I/ARB +/- BB - pending ACS work-up (8) Hyperlipidemia: Chronic. Cholesterol 211 and LDL 124 as of 2020 lipid profile. - consider statin - pending ACS work-up (9) Hypothyroidism: Chronic, TSH 0.492 today. - continue home Synthroid Plan FEN/GI: regular DVT Prophylaxis: Lovenox Code Status: full code Disposition: med/tele, PT/OT consulted (2) Carotid artery plaque: (3) Hypomagnesemia: (4) Breast cancer: (5) Chronic kidney disease, stage III (moderate): (6) Hypertension: (7) Hyperlipidemia: (8) Hypothyroidism: (9) Dementia: Admission and Anticipated Discharge Date Admission Date: May 25, 2022 Supervising Physician Co-Signing Physician Notes I personally examined the patient and verified all duong points of history and exam, discussed case, and agree with decision making with Dr Mabry Wants to go home, but does not know where she is. Son present at the bedsidenotes that they have been staying with her as a family for quite a while but are starting to get overwhelmed with her care, believe she probably needs placementfamily is working on that. Vitals noted, in general she is awake and alert fairly upset disoriented. Breathing unlabored no accessory muscle use good effort. Skin shows no rashes no pallor or icterus. Chest painvery nominal troponin elevation, echo very reassuring. Doubt cardiac Dementia/failure to thrive at homefamily has been providing a significant level of support, and it appears she is probably failing that as well. Family working on safe arrangements. DVT prophylaxisLovenox Subjective Patient was seen at bedside, comfortable cooperative. Daughter present in room. Patient unable to initially recall her chest pain, was able to remember with prompting from daughter. Patient denies any current chest pain SOB headache dizziness, states she wants to go home. Patient demonstrated ability to walk across the room with cane assistance. She states she feels fine, no acute concerns at this time. Daughter walks out of room, states patient has dementia with sundowning, is unable to recognize family members and has hallucinations during that time, family is alternating staying overnight with patient as she is unwilling to move, however patient occasionally unable to recognize family members. Daughter is concerned about patient having safety risk living by herself, is unable to provide supervision in daytime due to jobs. Review of Systems Review of Systems: Negative fever chills Negative headache dizziness Negative chest pain palpitations SOB Negative nausea vomitting diarrhea constipation Negative numbness tingling rash swelling Physical Exam Constitutional: WD/WN, vitals as above Eyes: PERRL, conjunctivae normal, anicteric sclerae ENMT: external ear and nose normal, oropharynx normal Neck: trachea midline, no thyromegaly Respiratory: normal respiratory effort, lungs clear to auscultation Cardiovascular: RRR, no murmur, no edema Chest (Breasts): normal inspection/palpation of breasts Gastrointestinal (Abdomen): normal bowel sounds, soft, nontender, no hepatosplenomegaly Skin: no rashes, warm and dry Psychiatric: Orientation: oriented to person and oriented to place Results & Data Results & Data ([facility]) Vital Signs (Past 12 Hours) Vital Signs Temp Pulse Pulse Resp BP BP Pulse Ox 05/25/22 07:16 59 L 18 111/53 L 100 05/25/22 04:30 64 20 131/67 95 05/25/22 04:00 67 18 139/80 98 05/25/22 03:30 59 L 20 128/64 96 05/25/22 02:41 55 L 16 117/56 L 98 05/25/22 02:01 36.9 C 57 L 16 144/65 H 98 O2 Del Method 05/25/22 07:16 Room Air 05/25/22 04:30 05/25/22 04:00 05/25/22 03:30 05/25/22 02:41 Room Air 05/25/22 02:01 Room Air Diagnostic Findings Laboratory Results WBC 6.53 K/ul (4.8-10.8) 05/25/22 01:56 RBC 3.71 M/uL (3.93-5.22) L 05/25/22 01:56 Hgb 12.3 g/dl (12.0-16.0) 05/25/22 01:56 Hct 37.2 % (34.1-44.9) 05/25/22 01:56 MCV 100.3 fL (80.0-100.0) H 05/25/22 01:56 MCH 33.2 pg (25.0-34.0) 05/25/22 01:56 MCHC 33.1 g/dL (32.0-36.0) 05/25/22 01:56 RDW Std Deviation 43.9 fL (36.4-46.3) 05/25/22 01:56 RDW Coeff of Louie 12.0 % (11.5-14.5) 05/25/22 01:56 Plt Count 199 K/uL (130-400) 05/25/22 01:56 MPV 10.6 fL (9.4-12.3) 05/25/22 01:56 Immature Gran % (Auto) 0.3 % 05/25/22 01:56 Neut % (Auto) 47.5 % 05/25/22 01:56 Lymph % (Auto) 35.1 % 05/25/22 01:56 [place] % (Auto) 13.9 % 05/25/22 01:56 Eos % (Auto) 2.3 % 05/25/22 01:56 Baso % (Auto) 0.9 % 05/25/22 01:56 Neut # (Auto) 3.10 K/uL (1.4-6.5) 05/25/22 01:56 Lymph # (Auto) 2.29 K/uL (1.2-3.4) 05/25/22 01:56 [place] # (Auto) 0.91 K/uL (0.24-0.82) H 05/25/22 01:56 Eos # (Auto) 0.15 K/uL (0-0.50) 05/25/22 01:56 Baso # (Auto) 0.06 K/uL (0-0.2) 05/25/22 01:56 Immature Gran # (Auto) 0.02 K/uL (0.00-0.02) 05/25/22 01:56 PT 11.8 Seconds (9.0-12.0) 05/25/22 03:25 INR 1.1 (0.9-1.1) 05/25/22 03:25 Sodium 139 mmol/L (136-145) 05/25/22 01:56 Potassium 3.7 mmol/L (3.5-5.1) 05/25/22 01:56 Chloride 106 mmol/L (98-107) 05/25/22 01:56 Carbon Dioxide 27 mmol/L (21-32) 05/25/22 01:56 Anion Gap 6 (3-11) 05/25/22 01:56 BUN 15 mg/dl (6-23) 05/25/22 01:56 Creatinine 1.16 mg/dl (0.6-1.2) 05/25/22 01:56 Est Cr Clr Drug Dosing 33.5 ml/min 05/25/22 01:56 Est GFR ( Amer) 49.7 ml/min 05/25/22 01:56 Est GFR (Non-Af Amer) 42.9 ml/min 05/25/22 01:56 BUN/Creatinine Ratio 12.9 (10-20) 05/25/22 01:56 Glucose 97 mg/dl (70-99(Fasting)) 05/25/22 01:56 Calcium 8.5 mg/dl (8.5-10.1) 05/25/22 01:56 Magnesium 1.5 mg/dl (1.7-2.4) L 05/25/22 01:56 Total Bilirubin 0.5 mg/dl (0.2-1.0) 05/25/22 01:56 AST 20 U/L (13-39) 05/25/22 01:56 ALT 10 U/L (7-52) 05/25/22 01:56 Alkaline Phosphatase 58 U/L (34-104) 05/25/22 01:56 Troponin I High Sens 27.1 pg/ml (0-14) H 05/25/22 10:08 Total Protein 6.5 gm/dl (6.0-8.3) 05/25/22 01:56 Albumin 3.7 gm/dl (3.4-5.0) 05/25/22 01:56 Globulin 2.8 gm/dl (2.5-4.0) 05/25/22 01:56 Albumin/Globulin Ratio 1.3 (0.9-2) 05/25/22 01:56 Lipase 70 U/L (11-82) 05/25/22 01:56 TSH 0.492 uIu/ml (0.300-4.500) 05/25/22 01:56 SARS-CoV-2, RNA, NAAT NEGATIVE (NEGATIVE) 05/25/22 03:25 Impressions Chest X-Ray 05/25/22 02:14 XR chest 1V portable CLINICAL HISTORY: chest pain. COMPARISON STUDY: 09/29/2021 TECHNIQUE: 1 view of the chest FINDINGS: Single frontal view of the chest demonstrates the cardiomediastinal silhouette to be within normal limits. There is a decreased inspiratory effort with elevation of the hemidiaphragms and crowding of the bronchovascular markings at the lung bases and centrally. The lungs are clear of alveolar opacities. There is no evidence for pleural effusion. There is no evidence for vascular congestion. There is no acute osseous pathology. IMPRESSION: 1. There is a decreased inspiratory effort with otherwise no acute chest disease. ACT 112: Negative or not required by law. Electronically signed by: Dipesh Collazo M.D. 05/25/2022 8:02 AM Resident Activity Tracking Resident Involvement: Resident Care Provided Care Provided: Adult Hospital Medicine
[2022-05-25] MEDS ORDERED: POTASSIUM CHLORIDE / WTR 10 MEQ/100 ML PLCT IV SCH (10:15)
--- NOTE | 2022-05-25 14:40 | XCELERA ---
[id number]
--- NOTE | 2022-05-25 16:42 | Electrocardiogram Report ---
Test Reason : Blood Pressure : / mmHG Vent. Rate : 060 BPM Atrial Rate : 060 BPM P-R Int : 116 ms QRS Dur : 122 ms QT Int : 476 ms P-R-T Axes : 116 -15 -01 degrees QTc Int : 476 ms Poor data quality, interpretation may be adversely affected Normal sinus rhythm Right bundle branch block Moderate voltage criteria for LVH, may be normal variant Abnormal ECG When compared with ECG of 29-SEP-2021 09:47, QT has lengthened Confirmed by Jose Edouard ([id number]) on 05/25/2022 4:42:43 PM Referred By: REFERRED SELF Confirmed By:Jose Edouard
[2022-05-25] MEDS ORDERED: MELATONIN 3 MG TAB PO PRN (21:44)
--- NOTE | 2022-05-26 03:18 | Billing Data ---
Date of Service May 26, 2022 Coding Level of Care Code 85888 Initial Inpt Care Lvl 2
[2022-05-26] MEDS: LEVOTHYROXINE SODIUM 150 MCG TABLET PO SCH (06:22)
[2022-05-26] MEDS: TAMOXIFEN CITRATE 10 MG TABLET PO SCH (07:37)
[2022-05-26] MEDS: ENOXAPARIN INJ 30 MG/0.3 ML SYR SQ SCH (07:37)
[2022-05-26] MEDS: ACETAMINOPHEN 325 MG TAB PO PRN (07:42)
--- NOTE | 2022-05-26 08:01 | Hospitalist Progress Note ---
Date of Service May 26, 2022 Assessment & Plan (1) Elevated troponin: Plan: 86yo female with PMHx significant for Parkinson's disease, dementia, breast cancer (invasive lobular carcinoma grade 1, on Tamoxifen), h/o CVA, and hypothyroidism, who presented to [facility] ED On 05/25 for acute-onset left-sided chest pain radiating to back and left arm that woke her up at ~midnight; symptoms x several hours 1) Dementia -Patient noted to have significant sundowning with hallucinations at night, occasional inability to recognize family in daytime, family concerned for safety risk. Patient lives alone, family able to accompany overnight but not in daytime. Request Case management assistance for home management as she is unlikely to quality for SNF or nursing homes given she is still fairly mobile -PT/OT ordered, OT recommend 24/7 care and supervision -Case management aware, looking into [facility], family informed of other locations to contact 1) Elevated troponin: - downtrending Atypical chest pain that woke patient up from sleep, with associated diaphoresis and skin pallor. Resolved after several hours, without Nitro. hsTroponin mildly elevated at 28, and EKG showing NSR with RBBB (chronic) and no ST/T abnormalities. - will admit to med/tele - TTE unremarkable - troponin downtrending - PRN EKG/Nitro for chest pain (2) Carotid artery plaque: Confirmed via previous CT imaging, without previous angina or [place]. - plan as stated above (3) Hypomagnesemia: - repleted Mg 1.5, repleted in ED - trend (5) Breast cancer: Diagnosed in 2020 - invasive lobular carcinoma grade 1, on Tamoxifen. Patient has declined surgery. - continue Tamoxifen (6) Chronic kidney disease, stage III (moderate): Chronic. Cr 1.16 here. - avoid nephrotoxic agents (7) Hypertension: Chronic, not on medications. Normotensive currently. - consider VERENA-I/ARB +/- BB - pending ACS work-up (8) Hyperlipidemia: Chronic. Cholesterol 211 and LDL 124 as of 2020 lipid profile. - consider statin - pending ACS work-up (9) Hypothyroidism: Chronic, TSH 0.492 today. - continue home Synthroid Plan FEN/GI: regular DVT Prophylaxis: Lovenox Code Status: full code Disposition: med/tele, PT/OT consulted (2) Carotid artery plaque: (3) Hypomagnesemia: (4) Breast cancer: (5) Chronic kidney disease, stage III (moderate): (6) Hypertension: (7) Hyperlipidemia: (8) Hypothyroidism: (9) Dementia: Admission and Anticipated Discharge Date Admission Date: May 25, 2022 Supervising Physician Co-Signing Physician Notes I personally examined the patient and verified all duong points of history and exam, discussed case, and agree with decision making with Dr Raghavendra Sinha today. Sitting in chair. No complaints. Just wonders when she is going home. Vitals noted, in general she is awake pleasant no distress. Breathing unlabored no accessory muscle use good effort. Skin shows no rashes no pallor or icterus. Chest painvery nominal troponin elevation, echo very reassuring. Doubt cardiac Dementia/failure to thrive at homefamily has been providing a significant level of support, and it appears she is probably failing that as well. Family working on safe arrangements. Case management assisting DVT prophylaxisLovenox Subjective Patient seen at bedside seated upright, calm comfortable cooperative, states she feels great and wants to go home. Family still would prefer placement at assisted living. Per nursing she took her tylenol and levothyroxine, did not want lovenox, no acute events overnight. Review of Systems Review of Systems: Negative fever chills Negative headache dizziness Negative chest pain palpitations SOB Negative nausea vomitting diarrhea constipation Negative numbness tingling rash swelling Physical Exam Constitutional: WD/WN, vitals as above Eyes: PERRL, conjunctivae normal, anicteric sclerae ENMT: external ear and nose normal, oropharynx normal Neck: trachea midline, no thyromegaly Respiratory: normal respiratory effort, lungs clear to auscultation Cardiovascular: RRR, no murmur, no edema Chest (Breasts): normal inspection/palpation of breasts Gastrointestinal (Abdomen): normal bowel sounds, soft, nontender, no hepatosplenomegaly Skin: no rashes, warm and dry Psychiatric: Orientation: oriented to person and oriented to place Results & Data Results & Data ([facility]) Vital Signs (Past 12 Hours) Vital Signs Temp Pulse Pulse Resp BP Pulse Ox O2 Del Method 05/26/22 07:23 56 L 05/26/22 07:18 37.1 C 76 18 159/76 H 91 Room Air 05/25/22 22:17 51 L Resident Activity Tracking Resident Involvement: Resident Care Provided Care Provided: Adult Hospital Medicine
[2022-05-26 10:37] LABS: BUN Creatinine Ratio 10.7 (10-20); Calcium 8.9 mg/dl (8.5-10.1); Creatinine Clr Calc Pharmacy 37.7 ml/min; Est GFR (African American) 57.4 ml/min; Est GFR (Non-African American) 49.5 ml/min; Magnesium 1.7 mg/dl (1.7-2.4); Potassium 4.2 mmol/L (3.5-5.1)
[2022-05-26 10:46] LABS: Folate (Folic Acid) 8.71 ng/ml (>5.38)
--- NOTE | 2022-05-26 18:14 | Billing Data ---
Date of Service May 26, 2022 Coding Level of Care Code 72076 Subseq Hosp Care Lvl 2
[2022-05-26] MEDS: MELATONIN 3 MG TAB PO SCH (22:40)
[2022-05-27] MEDS: LEVOTHYROXINE SODIUM 150 MCG TABLET PO SCH (06:42)
--- NOTE | 2022-05-27 07:15 | Hospitalist Progress Note ---
Date of Service May 27, 2022 Assessment & Plan (1) Elevated troponin: Plan: 86yo female with PMHx significant for Parkinson's disease, dementia, breast cancer (invasive lobular carcinoma grade 1, on Tamoxifen), h/o CVA, and hypothyroidism, who presented to [facility] ED On 05/25 for acute-onset left-sided chest pain radiating to back and left arm that woke her up at ~midnight; symptoms x several hours 1) Dementia -Patient noted to have significant sundowning with hallucinations at night, occasional inability to recognize family in daytime, family concerned for safety risk. Patient lives alone, family able to accompany overnight but not in daytime. Request Case management assistance for home management as she is unlikely to quality for SNF or nursing homes given she is still fairly mobile -PT/OT ordered, OT recommend 24/7 care and supervision -Case management aware, looking into [facility], family to look into other locations over the weekend, will reassess next week 1) Elevated troponin: - downtrending Atypical chest pain that woke patient up from sleep, with associated diaphoresis and skin pallor. Resolved after several hours, without Nitro. hsTroponin mildly elevated at 28, and EKG showing NSR with RBBB (chronic) and no ST/T abnormalities. Admitted to Med/Tele. TTE unremarkable. Troponin downtrending (2) Carotid artery plaque: Confirmed via previous CT imaging, without previous angina or [place]. (3) Hypomagnesemia: - repleted Mg 1.5, repleted in ED (5) Breast cancer: Diagnosed in 2020 - invasive lobular carcinoma grade 1, on Tamoxifen. Patient has declined surgery. Continue Tamoxifen (6) Chronic kidney disease, stage III (moderate): Chronic. Cr 1.16 here. Patient to avoid nephrotoxic agents (7) Hypertension: Chronic, not on medications. Normotensive currently. - consider VERENA-I/ARB +/- BB - pending ACS work-up (8) Hyperlipidemia: Chronic. Cholesterol 211 and LDL 124 as of 2020 lipid profile. - consider statin - pending ACS work-up (9) Hypothyroidism: Chronic, TSH 0.492 today. Continue home Synthroid Plan FEN/GI: regular DVT Prophylaxis: Lovenox Code Status: full code Disposition: med/tele, PT/OT consulted, case management and family looking into placement (2) Carotid artery plaque: (3) Hypomagnesemia: (4) Breast cancer: (5) Chronic kidney disease, stage III (moderate): (6) Hypertension: (7) Hyperlipidemia: (8) Hypothyroidism: (9) Dementia: Admission and Anticipated Discharge Date Admission Date: May 25, 2022 Supervising Physician Co-Signing Physician Notes I personally examined the patient and verified all duong points of history and exam, discussed case, and agree with decision making with Dr Mabry Sitting in chair. Calm today. When discussing disposition she becomes agitated, but is very quickly and almost definitively distracted by talking about the word search book in front of her. Later extensive discussion with daughter in regards to dementia, placement, provided empathy and support, discussed progression of dementia, distraction techniques, etc. Answered all questions to the best my ability. Daughter notes that they are actively searching for what they feel would be a good fit for personal care, and have no designs of leaving her in the hospital any longer than is absolutely necessary, but do not feel like she is safe at home anymore. Vitals noted, in general she is awake pleasant no distress. Breathing unlabored no accessory muscle use good effort. Skin shows no rashes no pallor or icterus. Chest painvery nominal troponin elevation, echo very reassuring. Doubt cardiac Dementia/failure to thrive at homefamily has been providing a significant level of support, and it appears she is probably failing that as well. Family working on safe arrangements. Case management assisting. Hopefully they will find arrangements in the very near future. Apparently had some episodes of violent agitation earlier, will add a very low-dose of Haldol only to be given as needed violent agitation. DVT prophylaxisLovenox Subjective Patient seen at bedside, comfortable. Still awaiting placement Review of Systems Review of Systems: Negative fever chills Negative headache dizziness Negative chest pain palpitations SOB Negative nausea vomitting diarrhea constipation Negative numbness tingling rash swelling Physical Exam Constitutional: WD/WN, vitals as above Eyes: PERRL, conjunctivae normal, anicteric sclerae ENMT: external ear and nose normal, oropharynx normal Neck: trachea midline, no thyromegaly Respiratory: normal respiratory effort, lungs clear to auscultation Cardiovascular: RRR, no murmur, no edema Chest (Breasts): normal inspection/palpation of breasts Gastrointestinal (Abdomen): normal bowel sounds, soft, nontender, no hepatosplenomegaly Skin: no rashes, warm and dry Psychiatric: Orientation: oriented to person and oriented to place Results & Data Results & Data ([facility]) Vital Signs (Past 12 Hours) Vital Signs Temp Pulse Resp BP Pulse Ox O2 Del Method 05/26/22 20:45 Room Air 05/26/22 19:26 36.7 C 75 18 166/76 H 98 Room Air Resident Activity Tracking Resident Involvement: Resident Care Provided Care Provided: Adult Hospital Medicine
[2022-05-27] MEDS: TAMOXIFEN CITRATE 10 MG TABLET PO SCH (07:21)
[2022-05-27] MEDS: ENOXAPARIN INJ 30 MG/0.3 ML SYR SQ SCH (07:22)
[2022-05-27] MEDS: CYANOCOBALAMIN (B-12) 500 MCG TABLET PO SCH (09:15)
[2022-05-27] MEDS ORDERED: HALOPERIDOL LACTATE 5 MG/ML 1 ML VIAL IM PRN (18:05)
--- NOTE | 2022-05-27 18:14 | Billing Data ---
Date of Service May 27, 2022 Coding Level of Care Code 55629 Subseq Hosp Care Lvl 3
[2022-05-27] MEDS: MELATONIN 3 MG TAB PO SCH (20:35)
[2022-05-27] MEDS: ACETAMINOPHEN 325 MG TAB PO PRN (20:36)
[2022-05-28] MEDS: LEVOTHYROXINE SODIUM 150 MCG TABLET PO SCH (06:39)
--- NOTE | 2022-05-28 07:02 | Hospitalist Progress Note ---
Date of Service May 28, 2022 Assessment & Plan (1) Elevated troponin: Plan: 86yo female with PMHx significant for Parkinson's disease, dementia, breast cancer (invasive lobular carcinoma grade 1, on Tamoxifen), h/o CVA, and hypothyroidism, who presented to [facility] ED On 05/25 for acute-onset left-sided chest pain radiating to back and left arm that woke her up at ~midnight; symptoms x several hours. 1) Dementia -Patient noted to have significant sundowning with hallucinations at night, occasional inability to recognize family in daytime, family concerned for safety risk. Patient lives alone, family able to accompany overnight but not in daytime. Request Case management assistance for home management as she is unlikely to quality for SNF or nursing homes given she is still fairly mobile. -PT/OT ordered, OT recommend 24/7 care and supervision -Case management aware, looking into [facility], family to look into other locations over the weekend, will reassess next week. -Haldol 1mg PRN available for agitation with physical component 1) Elevated troponin: - downtrending Atypical chest pain that woke patient up from sleep, with associated diaphoresis and skin pallor. Resolved after several hours, without Nitro. hsTroponin mildly elevated at 28, and EKG showing NSR with RBBB (chronic) and no ST/T abnormalities. Admitted to Med/Tele. TTE unremarkable. Troponin downtrending (2) Carotid artery plaque: Confirmed via previous CT imaging, without previous angina or [place]. (3) Hypomagnesemia: - repleted Mg 1.5, repleted in ED (5) Breast cancer: Diagnosed in 2020 - invasive lobular carcinoma grade 1, on Tamoxifen. Patient has declined surgery. Continue Tamoxifen (6) Chronic kidney disease, stage III (moderate): Chronic. Cr 1.16 here. Patient to avoid nephrotoxic agents (7) Hypertension: Chronic, not on medications. Normotensive currently. - consider VERENA-I/ARB +/- BB - pending ACS work-up (8) Hyperlipidemia: Chronic. Cholesterol 211 and LDL 124 as of 2020 lipid profile. - consider statin - pending ACS work-up (9) Hypothyroidism: Chronic, TSH 0.492 today. Continue home Synthroid Plan FEN/GI: regular DVT Prophylaxis: Lovenox Code Status: full code Disposition: med/tele, PT/OT consulted, case management and family looking into placement (2) Carotid artery plaque: (3) Hypomagnesemia: (4) Breast cancer: (5) Chronic kidney disease, stage III (moderate): (6) Hypertension: (7) Hyperlipidemia: (8) Hypothyroidism: (9) Dementia: Admission and Anticipated Discharge Date Admission Date: May 25, 2022 Supervising Physician Co-Signing Physician Notes I personally examined the patient and verified all duong points of history and exam, discussed case, and agree with decision making with Dr Mabry no complaints, initially says wants to go home, but then easily distracted Vitals noted, in general she is awake pleasant no distress. Breathing unlabored no accessory muscle use good effort. Skin shows no rashes no pallor or icterus. Chest painvery nominal troponin elevation, echo very reassuring. Doubt cardiac Dementia/failure to thrive at homefamily has been providing a significant level of support, and it appears she is probably failing that as well. Family working on safe arrangements. Case management assisting. Expecting that they will find arrangements in the very near future. Apparently had some episodes of violent agitationand therefore very low-dose of infrequent Haldol as needed violent agitation was added yesterdaywhich she does not appear to have needed it. DVT prophylaxisLovenox Subjective Patient seen at bedside. Still awaiting placement at this time. Per nursing no acute events overnight, patient was able to be redirected. Still wants to go home. Review of Systems Review of Systems: Negative fever chills Negative headache dizziness Negative chest pain palpitations SOB Negative nausea vomitting diarrhea constipation Negative numbness tingling rash swelling Physical Exam Constitutional: WD/WN, vitals as above Eyes: PERRL, conjunctivae normal, anicteric sclerae ENMT: external ear and nose normal, oropharynx normal Neck: trachea midline, no thyromegaly Respiratory: normal respiratory effort, lungs clear to auscultation Cardiovascular: RRR, no murmur, no edema Chest (Breasts): normal inspection/palpation of breasts Gastrointestinal (Abdomen): normal bowel sounds, soft, nontender, no hepatosplenomegaly Skin: no rashes, warm and dry Psychiatric: Orientation: oriented to person and oriented to place Results & Data Results & Data ([facility]) Vital Signs (Past 12 Hours) Vital Signs Temp Pulse Resp BP BP Pulse Ox O2 Del Method 05/28/22 03:46 36.6 C 56 L 18 126/67 97 Room Air 05/27/22 20:00 Room Air 05/27/22 23:04 36.4 C L 59 L 18 109/69 99 Room Air Medications Administered Current Inpatient Medications Acetaminophen (Acetaminophen 325 Mg Tab) 650 mg PO Q6H PRN PRN Reason: Pain or Fever Stop: 06/24/22 05:51 Last Admin: 05/27/22 20:36 Dose: 650 mg Cyanocobalamin (Cyanocobalamin (B-12) 500 Mcg Tablet) 1,000 mcg PO QAM [facility] Stop: 06/26/22 08:59 Last Admin: 05/28/22 07:33 Dose: 1,000 mcg Enoxaparin Sodium (Enoxaparin Inj 30 Mg/0.3 Ml Syr) 30 mg SQ Q24H [facility] Stop: 06/24/22 08:59 Last Admin: 05/28/22 07:33 Dose: 30 mg Haloperidol Lactate (Haloperidol Lactate 5 Mg/Ml 1 Ml Vial) 1 mg IM DAILY PRN PRN Reason: violent agitation Stop: 06/26/22 18:04 Levothyroxine Sodium (Levothyroxine Sodium 150 Mcg Tablet) 150 mcg PO DAILYBB [facility] Stop: 06/24/22 06:29 Last Admin: 05/28/22 06:39 Dose: 150 mcg Melatonin (Melatonin 3 Mg Tab) 3 mg PO HS [facility] Stop: 06/25/22 20:59 Last Admin: 05/27/22 20:35 Dose: 3 mg Nitroglycerin (Nitroglycerin Sl 0.4 Mg/Tab Tab) 0.4 mg SL UD PRN PRN Reason: Chest Pain Stop: 06/24/22 05:51 Ondansetron HCl (Ondansetron Inj 2 Mg/Ml 2 Ml Vial) 4 mg IV Q6H PRN PRN Reason: Nausea Stop: 06/24/22 05:51 Tamoxifen Citrate (Tamoxifen Citrate 10 Mg Tablet) 20 mg PO DAILY [facility] Stop: 06/24/22 08:59 Last Admin: 05/28/22 07:33 Dose: 20 mg Resident Activity Tracking Resident Involvement: Resident Care Provided Care Provided: Adult Hospital Medicine
[2022-05-28] MEDS: ENOXAPARIN INJ 30 MG/0.3 ML SYR SQ SCH (07:33)
[2022-05-28] MEDS: CYANOCOBALAMIN (B-12) 500 MCG TABLET PO SCH (07:33)
[2022-05-28] MEDS: TAMOXIFEN CITRATE 10 MG TABLET PO SCH (07:33)
--- NOTE | 2022-05-28 17:14 | Billing Data ---
Date of Service May 28, 2022 Coding Level of Care Code 93687 Subseq Hosp Care Lvl 1
[2022-05-28] MEDS: MELATONIN 3 MG TAB PO SCH (20:48)
[2022-05-29] MEDS: LEVOTHYROXINE SODIUM 150 MCG TABLET PO SCH (05:52)
--- NOTE | 2022-05-29 06:53 | Hospitalist Progress Note ---
Date of Service May 29, 2022 Assessment & Plan (1) Elevated troponin: Plan: 86yo female with PMHx significant for Parkinson's disease, dementia, breast cancer (invasive lobular carcinoma grade 1, on Tamoxifen), h/o CVA, and hypothyroidism, who presented to [facility] ED On 05/25 for acute-onset left-sided chest pain radiating to back and left arm that woke her up at ~midnight; symptoms x several hours. 1) Dementia -Patient noted to have significant sundowning with hallucinations at night, occasional inability to recognize family in daytime, family concerned for safety risk. Patient lives alone, family able to accompany overnight but not in daytime. Request Case management assistance for home management as she is unlikely to quality for SNF or nursing homes given she is still fairly mobile. -ordered 1:! PRN -PT/OT ordered, OT recommend 24 care and supervision -Case management aware, looking into [facility], family to look into other locations over the weekend, to be reviewed next week. Family does not want patient to stay in hospital for extended period of time. -Haldol 1mg PRN available for agitation with physical component 1) Elevated troponin: - downtrending Atypical chest pain that woke patient up from sleep, with associated diaphoresis and skin pallor. Resolved after several hours, without Nitro. hsTroponin mildly elevated at 28, and EKG showing NSR with RBBB (chronic) and no ST/T abnormalities. Admitted to Med/Tele. TTE unremarkable. Troponin downtrending ()Chest pain - resolved -EKG noted RBBB and occasional bradycardia otherwise unremarkable, troponins returned to wnl, CP resolved without further intervention. Echo showed mild AR and MR otherwise wnl. -b/l shoulder pain and back pain occured 05/29 likely arthritis, resolved with toradol. EKG unchanged (2) Carotid artery plaque: Confirmed via previous CT imaging, without previous angina or CT. (3) Hypomagnesemia: - repleted Mg 1.5, repleted in ED (5) Breast cancer: Diagnosed in 2020 - invasive lobular carcinoma grade 1, on Tamoxifen. Patient has declined surgery. Continue Tamoxifen (6) Chronic kidney disease, stage III (moderate): Chronic. Cr 1.16 here. Patient to avoid nephrotoxic agents (7) Hypertension: Chronic, not on medications. Normotensive currently. - consider VEREAN-I/ARB +/- BB - pending ACS work-up (8) Hyperlipidemia: Chronic. Cholesterol 211 and LDL 124 as of 2020 lipid profile. - consider statin - pending ACS work-up (9) Hypothyroidism: Chronic, TSH 0.492 today. Continue home Synthroid Plan FEN/GI: regular DVT Prophylaxis: Lovenox Code Status: full code Disposition: med/surg, PT/OT consulted, case management and family looking into placement (2) Carotid artery plaque: (3) Hypomagnesemia: (4) Breast cancer: (5) Chronic kidney disease, stage III (moderate): (6) Hypertension: (7) Hyperlipidemia: (8) Hypothyroidism: (9) Dementia: Admission and Anticipated Discharge Date Admission Date: May 25, 2022 Supervising Physician Co-Signing Physician Notes I personally examined the patient and verified all duong points of history and exam, discussed case, and agree with decision making with Dr Mabry no complaints,asks who i am. Vitals noted, in general she is awake pleasant no distress. Breathing unlabored no accessory muscle use good effort. Skin shows no rashes no pallor or icterus. Chest painvery nominal troponin elevation, echo very reassuring. Doubt cardiac. EKGs have been unchanged. likely MSK Dementia/failure to thrive at homefamily has been providing a significant level of support, and it appears she is probably failing that as well. Family working on safe arrangements. Case management assisting. Expecting that they will find arrangements in the very near future. has not had a need for haldol. generally has been calm. attempting to reduce 1:1 to prn DVT prophylaxisLovenox Subjective Patient seen at bedside complaining of b/l shoulder pain and back pain, states she probably has some arthritis in shoulders usually gets pain in these areas however it is worse than usual today. Ordered EKG to rule out cardiac origin, EKG unchanged from previous. Patient given tylenol lidocaine patch IM Toradol, no further complaints of pain noted. Review of Systems Review of Systems: Negative fever chills Negative headache dizziness Negative chest pain palpitations SOB Negative nausea vomitting diarrhea constipation Negative numbness tingling rash swelling Physical Exam Constitutional: WD/WN, vitals as above Eyes: PERRL, conjunctivae normal, anicteric sclerae ENMT: external ear and nose normal, oropharynx normal Neck: trachea midline, no thyromegaly Respiratory: normal respiratory effort, lungs clear to auscultation Cardiovascular: RRR, no murmur, no edema Chest (Breasts): normal inspection/palpation of breasts Gastrointestinal (Abdomen): normal bowel sounds, soft, nontender, no hepatosplenomegaly Skin: no rashes, warm and dry Psychiatric: Orientation: oriented to person and oriented to place Results & Data Results & Data ([facility]) Vital Signs (Past 12 Hours) Vital Signs Temp Pulse Resp BP Pulse Ox O2 Del Method 05/28/22 22:50 36.8 C 56 L 18 117/72 94 Room Air 05/28/22 22:03 37.2 C 70 18 139/71 97 Room Air Resident Activity Tracking Resident Involvement: Resident Care Provided Care Provided: Adult Hospital Medicine
[2022-05-29] MEDS: ACETAMINOPHEN 325 MG TAB PO PRN ×2 (07:26→20:14)
[2022-05-29] MEDS ORDERED: KETOROLAC TROMETHAMINE 15 MG/ML VIAL IM ONE (08:05)
[2022-05-29] MEDS: LIDOCAINE 5% 1 PATCH TD SCH (08:30)
[2022-05-29] MEDS: TAMOXIFEN CITRATE 10 MG TABLET PO SCH (09:00)
[2022-05-29] MEDS: CYANOCOBALAMIN (B-12) 500 MCG TABLET PO SCH (09:01)
[2022-05-29] MEDS: ENOXAPARIN INJ 30 MG/0.3 ML SYR SQ SCH (09:02)
--- NOTE | 2022-05-29 13:04 | Billing Data ---
Date of Service May 29, 2022 Coding Level of Care Code 17375 Subseq Hosp Care Lvl 1
[2022-05-29] MEDS: MELATONIN 3 MG TAB PO SCH (20:14)
[2022-05-30] MEDS: LEVOTHYROXINE SODIUM 150 MCG TABLET PO SCH (06:39)
[2022-05-30] MEDS: TAMOXIFEN CITRATE 10 MG TABLET PO SCH (08:36)
[2022-05-30] MEDS: ENOXAPARIN INJ 30 MG/0.3 ML SYR SQ SCH (08:36)
[2022-05-30] MEDS: LIDOCAINE 5% 1 PATCH TD SCH ×2 (08:36→08:52)
[2022-05-30] MEDS: CYANOCOBALAMIN (B-12) 500 MCG TABLET PO SCH (08:36)
[2022-05-30] MEDS: ACETAMINOPHEN 325 MG TAB PO PRN (08:49)
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
--- NOTE | 2022-05-30 13:28 | Billing Data ---
Date of Service May 30, 2022 Coding Level of Care Code 09270 Subseq Hosp Care Lvl 1
[2022-05-30] MEDS: POLYETHYLENE (MIRALAX) 17 GM PACK PO SCH (13:49)
--- NOTE | 2022-05-30 13:54 | Electrocardiogram Report ---
Test Reason : Blood Pressure : / mmHG Vent. Rate : 051 BPM Atrial Rate : 051 BPM P-R Int : 130 ms QRS Dur : 128 ms QT Int : 504 ms P-R-T Axes : 061 007 031 degrees QTc Int : 464 ms Sinus bradycardia Right bundle branch block Abnormal ECG When compared with ECG of 25-MAY-2022 01:51, No significant change was found Confirmed by Josh Atwood [id number]) on 05/30/2022 1:54:13 PM Referred By: REFERRED SELF Confirmed By:Josh Atwood
[2022-05-30] MEDS: MELATONIN 3 MG TAB PO SCH (20:37)
[2022-05-31] MEDS: LEVOTHYROXINE SODIUM 150 MCG TABLET PO SCH (05:52)
--- NOTE | 2022-05-31 07:00 | Hospitalist Progress Note ---
Date of Service May 31, 2022 Assessment & Plan (1) Elevated troponin: Plan: 86yo female with PMHx significant for Parkinson's disease, dementia, breast cancer (invasive lobular carcinoma grade 1, on Tamoxifen), h/o CVA, and hypothyroidism, who presented to [facility] ED On 05/25 for acute-onset left-sided chest pain radiating to back and left arm that woke her up at ~midnight; symptoms x several hours. 1) Elevated troponin: - downtrending Atypical chest pain that woke patient up from sleep, with associated diaphoresis and skin pallor. Resolved after several hours, without Nitro. hsTroponin mildly elevated at 28, and EKG showing NSR with RBBB (chronic) and no ST/T abnormalities. Admitted to Med/Tele. TTE unremarkable. Troponin downtrending. ()Chest pain - resolved EKG noted RBBB and occasional bradycardia otherwise unremarkable, troponins returned to wnl, CP resolved without further intervention. Echo showed mild AR and MR otherwise wnl. ()Back pain, musckuloskeletal Noted b/l shoulder pain and back pain occurred 05/29 likely arthritis, resolved with toradol. EKG unchanged -Toradol 10mg PO q12h available for pain (2) Carotid artery plaque: Confirmed via previous CT imaging, without previous angina or [place]. (3) Hypomagnesemia: - repleted Mg 1.5, repleted in ED (5) Breast cancer: Diagnosed in 2020 - invasive lobular carcinoma grade 1, on Tamoxifen. Patient has declined surgery. Continue Tamoxifen (6) Chronic kidney disease, stage III (moderate): Chronic. Cr 1.16 here. Last 1.03, will monitor. (7) Hypertension: Chronic, not on medications. Normotensive currently. (8) Hyperlipidemia: Chronic. Cholesterol 211 and LDL 124 as of 2020 lipid profile. (9) Hypothyroidism: Chronic, TSH 0.492 today. Continue home Synthroid () Dementia -Patient noted to have significant sundowning with hallucinations at night, occasional inability to recognize family in daytime, family concerned for safety risk. Patient lives alone, family able to accompany overnight but not in daytime. -ordered 1:1 PRN -Haldol 1mg PRN available for agitation with physical component -pleasant and comfortable today () Deconditioning -PT/OT ordered, OT recommend 29/05 care and supervision -Case management aware, looking into [facility], family identified bed available Plan FEN/GI: regular DVT Prophylaxis: Lovenox Code Status: full code Disposition: med/surg, PT/OT consulted, placement at [facility] (2) Carotid artery plaque: (3) Hypomagnesemia: (4) Breast cancer: (5) Chronic kidney disease, stage III (moderate): (6) Hypertension: (7) Hyperlipidemia: (8) Hypothyroidism: (9) Dementia: Admission and Anticipated Discharge Date Admission Date: May 25, 2022 Supervising Physician Co-Signing Physician Notes Resident Physician Supervision Note: I independently interviewed and examined the patient and verified the duong history and physical, reviewed labs and image studies and agree with resident Dr. Mabry findings and care plan. Subjective Patient seen at bedside complaining of lower back pain states she slid too far down the chair and it is uncomfortable, requests assistance in repositioning in chair, states she does not want the foot rest down. Patient was adjusted in chair, states her back still hurts she would appreciate something for the back, states pressing on her lower spine makes it worse. Patient reassured we would get her something for the pain. Placement pending Review of Systems Review of Systems: Negative fever chills Negative headache dizziness Negative chest pain palpitations SOB Negative nausea vomitting diarrhea constipation Negative numbness tingling rash swelling Physical Exam Constitutional: WD/WN, vitals as above Eyes: PERRL, conjunctivae normal, anicteric sclerae ENMT: external ear and nose normal, oropharynx normal Neck: trachea midline, no thyromegaly Respiratory: normal respiratory effort, lungs clear to auscultation Cardiovascular: RRR, no murmur, no edema Chest (Breasts): normal inspection/palpation of breasts Gastrointestinal (Abdomen): normal bowel sounds, soft, nontender, no hepa tosplenomegaly Skin: no rashes, warm and dry Psychiatric: Orientation: oriented to person and oriented to place Results & Data Results & Data ([facility]) Vital Signs (Past 12 Hours) Vital Signs Temp Pulse Resp BP Pulse Ox O2 Del Method 05/31/22 01:40 60 120/71 05/30/22 21:42 36.6 C 67 18 175/69 H 96 Room Air Resident Activity Tracking Resident Involvement: Resident Care Provided Care Provided: Adult Hospital Medicine
[2022-05-31] MEDS ORDERED: KETOROLAC TROMETHAMINE 15 MG/ML VIAL IM ONE (08:56)
[2022-05-31] MEDS: LIDOCAINE 5% 1 PATCH TD SCH (09:12)
[2022-05-31] MEDS: ENOXAPARIN INJ 30 MG/0.3 ML SYR SQ SCH (09:13)
[2022-05-31] MEDS: POLYETHYLENE (MIRALAX) 17 GM PACK PO SCH (09:13)
[2022-05-31] MEDS: CYANOCOBALAMIN (B-12) 500 MCG TABLET PO SCH (09:13)
[2022-05-31] MEDS: TAMOXIFEN CITRATE 10 MG TABLET PO SCH (09:13)
[2022-05-31] MEDS ORDERED: KETOROLAC TROMETHAMINE 10 MG TABLET PO PRN (10:28)
[2022-05-31] MEDS: MELATONIN 3 MG TAB PO SCH (20:08)
[2022-05-31] MEDS: ACETAMINOPHEN 325 MG TAB PO PRN (20:48)
[2022-06-01] MEDS: LEVOTHYROXINE SODIUM 150 MCG TABLET PO SCH (07:38)
--- NOTE | 2022-06-01 08:00 | Hospitalist Progress Note ---
Date of Service June 01, 2022 Assessment & Plan (1) Elevated troponin: Plan: 86yo female with PMHx significant for Parkinson's disease, dementia, breast cancer (invasive lobular carcinoma grade 1, on Tamoxifen), h/o CVA, and hypothyroidism, who presented to [facility] ED On 05/25 for acute-onset left-sided chest pain radiating to back and left arm that woke her up at ~midnight; symptoms x several hours. 1) Elevated troponin: - downtrending Atypical chest pain that woke patient up from sleep, with associated diaphoresis and skin pallor. Resolved after several hours, without Nitro. hsTroponin mildly elevated at 28, and EKG showing NSR with RBBB (chronic) and no ST/T abnormalities. TTE unremarkable. Troponin downtrending. ()Chest pain - resolved EKG noted RBBB and occasional bradycardia otherwise unremarkable, troponins returned to wnl, CP resolved without further intervention. Echo showed mild AR and MR otherwise wnl. ()Back pain, musckuloskeletal Noted b/l shoulder pain and back pain occurred 05/29 likely arthritis, resolved with toradol. EKG unchanged -Toradol 10mg PO q12h available for pain (2) Carotid artery plaque: Confirmed via previous CT imaging, without previous angina or PA. (3) Hypomagnesemia: - repleted Mg 1.5, repleted (5) Breast cancer: Diagnosed in 2020 - invasive lobular carcinoma grade 1, on Tamoxifen. Patient has declined surgery. Continue Tamoxifen (6) Chronic kidney disease, stage III (moderate): Chronic. Cr 1.16 here. Last 1.09 (7) Hypertension: Chronic, not on medications. Normotensive currently. (8) Hyperlipidemia: Chronic. Cholesterol 211 and LDL 124 as of 2020 lipid profile. (9) Hypothyroidism: Chronic, TSH 0.492 today. Continue home Synthroid () Dementia -Patient noted to have significant owning with hallucinations at night, occasional inability to recognize family in daytime, family concerned for safety risk. Patient lives alone, family able to accompany overnight but not in daytime. -ordered 1:1 PRN -Haldol 1mg PRN available for agitation with physical component () Deconditioning -PT/OT ordered, OT recommend 24/ care and supervision -Case management aware, looking into [facility], family identified bed available /Monday Plan FEN/GI: regular DVT Prophylaxis: Lovenox Code Status: full code Disposition: med/surg, PT/OT consulted, placement at [facility] (2) Carotid artery plaque: (3) Hypomagnesemia: (4) Breast cancer: (5) Chronic kidney disease, stage III (moderate): (6) Hypertension: (7) Hyperlipidemia: (8) Hypothyroidism: (9) Dementia: Admission and Anticipated Discharge Date Admission Date: May 25, 2022 Supervising Physician Co-Signing Physician Notes Resident Physician Supervision Note: I independently interviewed and examined the patient and verified the duong history and physical, reviewed labs and image studies and agree with resident Dr. Mabry findings and care plan. Subjective Patient seen at bedside, calm comfortable cooperative, states her back pain is chronic but not present at this time, requests a warm blanket and a warm washcloth for her face. Review of Systems Review of Systems: Negative fever chills Negative headache dizziness Negative chest pain palpitations SOB Negative nausea vomitting diarrhea constipation Negative numbness tingling rash swelling Physical Exam Constitutional: WD/WN, vitals as above Eyes: PERRL, conjunctivae normal, anicteric sclerae ENMT: external ear and nose normal, oropharynx normal Neck: trachea midline, no thyromegaly Respiratory: normal respiratory effort, lungs clear to auscultation Cardiovascular: RRR, no murmur, no edema Chest (Breasts): normal inspection/palpation of breasts Gastrointestinal (Abdomen): normal bowel sounds, soft, nontender, no hepatosplenomegaly Skin: no rashes, warm and dry Psychiatric: Orientation: oriented to person and oriented to place Results & Data Results & Data ([facility]) Vital Signs (Past 12 Hours) Vital Signs Temp Pulse Resp BP Pulse Ox O2 Del Method 06/01/22 07:34 36.6 C 100 H 16 134/82 97 Room Air Medications Administered Current Inpatient Medications Acetaminophen (Acetaminophen 325 Mg Tab) 650 mg PO Q6H PRN PRN Reason: Pain or Fever Stop: 06/24/22 05:51 Last Admin: 05/31/22 20:48 Dose: 650 mg Cyanocobalamin (Cyanocobalamin (B-12) 500 Mcg Tablet) 1,000 mcg PO QAM COUNTS INCLUDE 234 BEDS AT THE [facility] Stop: 06/26/22 08:59 Last Admin: 06/01/22 08:18 Dose: 1,000 mcg Enoxaparin Sodium (Enoxaparin Inj 30 Mg/0.3 Ml Syr) 30 mg SQ Q24H ROSEMARY Stop: 06/24/22 08:59 Last Admin: 06/01/22 08:18 Dose: 30 mg Haloperidol Lactate (Haloperidol Lactate 5 Mg/Ml 1 Ml Vial) 1 mg IM DAILY PRN PRN Reason: violent agitation Stop: 06/26/22 18:04 Ketorolac Tromethamine (Ketorolac Tromethamine 10 Mg Tablet) 10 mg PO Q12H PRN PRN Reason: pain Stop: 06/05/22 10:27 Levothyroxine Sodium (Levothyroxine Sodium 150 Mcg Tablet) 150 mcg PO DAILYBB ROSEMARY Stop: 06/24/22 06:29 Last Admin: 06/01/22 07:38 Dose: 150 mcg Lidocaine (Lidocaine 5% 1 Patch) 1 patch TD QAM ROSEMARY Stop: 06/28/22 08:59 Last Admin: 06/01/22 08:18 Dose: 1 patch Melatonin (Melatonin 3 Mg Tab) 3 mg PO HS ROSEMARY Stop: 06/25/22 20:59 Last Admin: 05/31/22 20:08 Dose: 3 mg Miscellaneous (Remove Lidoderm Patch) 1 each N/A DAILY@2100 ROSEMARY Stop: 06/28/22 20:59 Last Admin: 05/31/22 20:04 Dose: 1 each Nitroglycerin (Nitroglycerin Sl 0.4 Mg/Tab Tab) 0.4 mg SL UD PRN PRN Reason: Chest Pain Stop: 06/24/22 05:51 Ondansetron HCl (Ondansetron Inj 2 Mg/Ml 2 Ml Vial) 4 mg IV Q6H PRN PRN Reason: Nausea Stop: 06/24/22 05:51 Polyethylene Glycol (Polyethylene (Miralax) 17 Gm Pack) 17 gm PO DAILY ROSEMARY Stop: 06/29/22 12:29 Last Admin: 06/01/22 08:18 Dose: Not Given Tamoxifen Citrate (Tamoxifen Citrate 10 Mg Tablet) 20 mg PO DAILY ROSEMARY Stop: 06/24/22 08:59 Last Admin: 06/01/22 08:18 Dose: 20 mg Resident Activity Tracking Resident Involvement: Resident Care Provided Care Provided: Adult [facility]
[2022-06-01] MEDS: POLYETHYLENE (MIRALAX) 17 GM PACK PO SCH (08:18)
[2022-06-01] MEDS: LIDOCAINE 5% 1 PATCH TD SCH (08:18)
[2022-06-01] MEDS: ENOXAPARIN INJ 30 MG/0.3 ML SYR SQ SCH (08:18)
[2022-06-01] MEDS: TAMOXIFEN CITRATE 10 MG TABLET PO SCH (08:18)
[2022-06-01] MEDS: CYANOCOBALAMIN (B-12) 500 MCG TABLET PO SCH (08:18)
[2022-06-01 09:46] LABS: BUN Creatinine Ratio 10.1 (10-20); Calcium 8.8 mg/dl (8.5-10.1); Creatinine Clr Calc Pharmacy 35.3 ml/min; Est GFR (African American) 53.6 ml/min; Est GFR (Non-African American) 46.3 ml/min; Magnesium 1.4 mg/dl (1.7-2.4)
[2022-06-01] MEDS ORDERED: MAGNESIUM OXIDE 400 MG TAB PO ONE (10:48)
[2022-06-01] MEDS: MELATONIN 3 MG TAB PO SCH (20:04)
[2022-06-01] MEDS: ACETAMINOPHEN 325 MG TAB PO PRN (20:07)
[2022-06-02] MEDS: LEVOTHYROXINE SODIUM 150 MCG TABLET PO SCH (05:26)
--- NOTE | 2022-06-02 06:44 | Hospitalist Progress Note ---
Date of Service June 02, 2022 Assessment & Plan (1) Elevated troponin: Plan: 86yo female with PMHx significant for Parkinson's disease, dementia, breast cancer (invasive lobular carcinoma grade 1, on Tamoxifen), h/o CVA, and hypothyroidism, who presented to [facility] On 05/25 for acute-onset left-sided chest pain radiating to back and left arm that woke her up at ~midnight; symptoms x several hours. ()Chest pain - resolved EKG noted RBBB and occasional bradycardia otherwise unremarkable, troponins returned to wnl, CP resolved without further intervention. Echo showed mild AR and MR otherwise wnl. pain likely GI/MSK related. 1) Elevated troponin: Atypical chest pain that woke patient up from sleep, with associated diaphoresis and skin pallor. Resolved after several hours, without Nitro. hsTroponin mildly elevated at 28, and EKG showing NSR with RBBB (chronic) and no ST/T abnormalities. TTE unremarkable. ()Back pain, musckuloskeletal Noted b/l shoulder pain and back pain occurred 05/29 likely arthritis, resolved with toradol. EKG unchanged -Toradol 10mg PO q12h available for pain. (2) Carotid artery plaque: Confirmed via previous CT imaging, without previous angina or MT. (3) Hypomagnesemia: - repleted Mg 1.5, repleted. (5) Breast cancer: Diagnosed in 2020 - invasive lobular carcinoma grade 1, on Tamoxifen. Patient has declined surgery. Continue Tamoxifen (6) Chronic kidney disease, stage III (moderate): Chronic. Cr 1.16 here. Last 1.09. (7) Hypertension: Chronic, not on medications. Normotensive currently. (8) Hyperlipidemia: Chronic. Cholesterol 211 and LDL 124 as of 2020 lipid profile. (9) Hypothyroidism: Chronic, TSH 0.492 today. Continue home Synthroid. () Dementia -Patient noted to have significant owning with hallucinations at night, occasional inability to recognize family in daytime, family concerned for safety risk. Patient lives alone, family able to accompany overnight but not in daytime. -ordered 1:1 PRN -Haldol 1mg PRN available for agitation with physical component () Deconditioning -PT/OT ordered, OT recommend / care and supervision -Case management aware, looking into [facility], family identified bed available with transport Monday. Plan FEN/GI: regular DVT Prophylaxis: Lovenox Code Status: full code Disposition: med/surg, PT/OT consulted, placement at [facility] (2) Carotid artery plaque: (3) Hypomagnesemia: (4) Breast cancer: (5) Chronic kidney disease, stage III (moderate): (6) Hypertension: (7) Hyperlipidemia: (8) Hypothyroidism: (9) Dementia: Admission and Anticipated Discharge Date Admission Date: May 25, 2022 Supervising Physician Co-Signing Physician Notes Resident Physician Supervision Note: I independently interviewed and examined the patient and verified the duong history and physical, reviewed labs and image studies and agree with resident Dr. Mabry findings and care plan. Subjective Patient seen at bedside, calm comfortable cooperative, states she is going home tomorrow as stated by her sister Nilsa. Patient states it was too cold last ni ght, cmofortable temperature now not in any pain. Review of Systems Review of Systems: Negative fever chills Negative headache dizziness Negative chest pain palpitations SOB Negative nausea vomitting diarrhea constipation Negative numbness tingling rash swelling Physical Exam Constitutional: WD/WN, vitals as above Eyes: PERRL, conjunctivae normal, anicteric sclerae ENMT: external ear and nose normal, oropharynx normal Neck: trachea midline, no thyromegaly Respiratory: normal respiratory effort, lungs clear to auscultation Cardiovascular: RRR, no murmur, no edema Chest (Breasts): normal inspection/palpation of breasts Gastrointestinal (Abdomen): normal bowel sounds, soft, nontender, no hepatosplenomegaly Skin: no rashes, warm and dry Psychiatric: Orientation: oriented to person and oriented to place Results & Data Results & Data ([facility]) Vital Signs (Past 12 Hours) Vital Signs Temp Pulse Resp BP Pulse Ox O2 Del Method 06/01/22 22:41 36.4 C L 52 L 16 119/73 96 Room Air Medications Administered Current Inpatient Medications Acetaminophen (Acetaminophen 325 Mg Tab) 650 mg PO Q6H PRN PRN Reason: Pain or Fever Stop: 06/24/22 05:51 Last Admin: 06/02/22 09:00 Dose: 650 mg Cyanocobalamin (Cyanocobalamin (B-12) 500 Mcg Tablet) 1,000 mcg PO QAM [facility] Stop: 06/26/22 08:59 Last Admin: 06/02/22 08:57 Dose: 1,000 mcg Enoxaparin Sodium (Enoxaparin Inj 30 Mg/0.3 Ml Syr) 30 mg SQ Q24H ROSEMARY Stop: 06/24/22 08:59 Last Admin: 06/02/22 08:57 Dose: 30 mg Haloperidol Lactate (Haloperidol Lactate 5 Mg/Ml 1 Ml Vial) 1 mg IM DAILY PRN PRN Reason: violent agitation Stop: 06/26/22 18:04 Ketorolac Tromethamine (Ketorolac Tromethamine 10 Mg Tablet) 10 mg PO Q12H PRN PRN Reason: pain Stop: 06/05/22 10:27 Levothyroxine Sodium (Levothyroxine Sodium 150 Mcg Tablet) 150 mcg PO DAILYBB ROSEMARY Stop: 06/24/22 06:29 Last Admin: 06/02/22 05:26 Dose: 150 mcg Lidocaine (Lidocaine 5% 1 Patch) 1 patch TD QAM ROSEMARY Stop: 06/28/22 08:59 Last Admin: 06/02/22 08:57 Dose: 1 patch Melatonin (Melatonin 3 Mg Tab) 3 mg PO HS ROSEMARY Stop: 06/25/22 20:59 Last Admin: 06/01/22 20:04 Dose: 3 mg Miscellaneous (Remove Lidoderm Patch) 1 each N/A DAILY@2100 ROSEMARY Stop: 06/28/22 20:59 Last Admin: 06/01/22 20:04 Dose: 1 each Nitroglycerin (Nitroglycerin Sl 0.4 Mg/Tab Tab) 0.4 mg SL UD PRN PRN Reason: Chest Pain Stop: 06/24/22 05:51 Ondansetron HCl (Ondansetron Inj 2 Mg/Ml 2 Ml Vial) 4 mg IV Q6H PRN PRN Reason: Nausea Stop: 06/24/22 05:51 Polyethylene Glycol (Polyethylene (Miralax) 17 Gm Pack) 17 gm PO DAILY ROSEMARY Stop: 06/29/22 12:29 Last Admin: 06/02/22 08:57 Dose: 17 gm Tamoxifen Citrate (Tamoxifen Citrate 10 Mg Tablet) 20 mg PO DAILY ROSEMARY Stop: 06/24/22 08:59 Last Admin: 06/02/22 08:57 Dose: 20 mg Resident Activity Tracking Resident Involvement: Resident Care Provided Care Provided: Adult [facility] Medicine
[2022-06-02] MEDS: ENOXAPARIN INJ 30 MG/0.3 ML SYR SQ SCH (08:57)
[2022-06-02] MEDS: TAMOXIFEN CITRATE 10 MG TABLET PO SCH (08:57)
[2022-06-02] MEDS: LIDOCAINE 5% 1 PATCH TD SCH (08:57)
[2022-06-02] MEDS: CYANOCOBALAMIN (B-12) 500 MCG TABLET PO SCH (08:57)
[2022-06-02] MEDS: POLYETHYLENE (MIRALAX) 17 GM PACK PO SCH (08:57)
[2022-06-02] MEDS: ACETAMINOPHEN 325 MG TAB PO PRN ×2 (09:00→19:40)
[2022-06-02] MEDS: MELATONIN 3 MG TAB PO SCH (19:39)
[2022-06-03] MEDS: LEVOTHYROXINE SODIUM 150 MCG TABLET PO SCH (06:14)
--- NOTE | 2022-06-03 07:16 | Discharge Summary ---
Date of Service June 03, 2022 Admission HPI Per Admitting Provider Kirti Pink is an 86yo female with PMHx significant for Parkinson's disease, dementia, breast cancer (invasive lobular carcinoma grade 1, on Tamoxifen), h/o CVA, and hypothyroidism, who presented to [facility] On 05/25 for acute-onset left- sided chest pain radiating to back and left arm that woke her up at ~midnight; symptoms x several hours. Per family patient was also diaphoretic and pale when they arrived at her house. Patient denies associated dizziness/lightheadedness, palpitations, SOB, syncope/near-syncope or nausea. Patient received Aspirin 324mg by EMS and chest pain reportedly resolved upon arrival at ED. Patient denies current chest pain and feels "good overall". Denies previous chest pain/angina or heart attack. Of note, patient has evidence of CAD, per previous CT imaging. Patient's daughter and sister have been trying to arrange help for their mother during the day and night, as she lives alone and has been progressively declining in overall function over the last year or so. Patient's daughter reports that she is concerned specifically for patient's declining ambulatory status - she has a progressively worsening shuffling gait and often trips, with occasional falls. Patient has a 30 pack smoking history - quit at age 51. No alcohol use or drug use. In the ED the patient was afebrile and hemodynamically stable on room air. Labs significant for hsTroponin 28 (EKG showing NSR with RBBB which is chronic, no ST/T abnormalities). Mg 1.5. Otherwise CBC/CMP/PT/INR WNL. TSH 0.492. COVID-19 negative. CXR unremarkable. Patient received Mg sulfate 1g, Tylenol 1g, and was started on NSS @125cc/hr. Admission Exam Per Admitting Provider General: A&Ox3. NAD. Cooperative. HEENT: Atraumatic, normocephalic. Pulm: CTAB A&P. -wheezes, -rales, -rhonchi. Symmetrical chest rise. No increase work of breathing. No respiratory distress. Cardiac: RRR, -mrg. Radial pulses intact and symmetrical. No LE edema. Abdominal: soft, non-tender, non-distended, BS x 4 Skin: warm, dry, no rash Principal Diagnosis Dementia Discharge Exam Constitutional WD/WN, vitals as above Eyes PERRL, conjunctivae normal, anicteric sclerae ENMT external ear and nose normal, oropharynx normal Neck trachea midline, no thyromegaly Respiratory normal respiratory effort, lungs clear to auscultation Cardiovascular RRR, no murmur, no edema Chest (Breasts) normal inspection/palpation of breasts Gastrointestinal (Abdomen) normal bowel sounds, soft, nontender, no hepatosplenomegaly Skin no rashes, warm and dry Psychiatric Orientation: oriented to person and oriented to place Discharge Data Allergies Allergy/AdvReac Type Severity Reaction Status Date / Time clarithromycin Allergy Intermediate RASH Verified 05/25/22 03:05 Penicillins Allergy Intermediate RASH Verified 05/25/22 03:05 shellfish derived Allergy Intermediate itch all Verified 05/25/22 03:05 over Fish Containing Products Allergy Unknown SEAFOOD, Verified 05/25/22 03:05 FISH propranolol Allergy Unknown dizziness Verified 05/25/22 03:05 Sulfa (Sulfonamide Allergy Unknown CAN'T Verified 05/25/22 03:05 Antibiotics) REMEMBER codeine AdvReac Intermediate NAUSEA/VOMI Verified 05/25/22 03:05 TING paroxetine [From Paxil] AdvReac Intermediate hallucinati Verified 05/25/22 03:05 ons levofloxacin [From Levaquin] AdvReac Unknown Unknown Verified 05/25/22 03:05 oxycodone AdvReac Unknown UNKN Verified 05/25/22 03:05 Consultations 05/25/22 03:32 ED Decision to Admit Stat Hospital Course (1) Elevated troponin: 86yo female with PMHx significant for Parkinson's disease, dementia, breast cancer (invasive lobular carcinoma grade 1, on Tamoxifen), h/o CVA, and hypothyroidism, who presented to [facility] On 05/25 for acute-onset left-sided chest pain radiating to back and left arm that woke her up at ~midnight; symptoms x several hours. ()Chest pain - resolved EKG noted RBBB and occasional bradycardia otherwise unremarkable, troponins returned to wnl, CP resolved without further intervention. Echo showed mild AR and MR otherwise wnl. Pain likely GI/MSK related. 1) Elevated troponin: Atypical chest pain that woke patient up from sleep, with associated diaphoresis and skin pallor. Resolved after several hours, without Nitro. hsTroponin mildly elevated at 28, and EKG showing NSR with RBBB (chronic) and no ST/T abnormalities. TTE unremarkable. ()Back pain, musckuloskeletal Noted b/l shoulder pain and back pain occurred 05/29 likely arthritis, resolved with toradol. EKG unchanged (2) Carotid artery plaque: Confirmed via previous CT imaging, without previous angina or MO. (3) Hypomagnesemia: - repleted Mg 1.5, repleted. (5) Breast cancer: Diagnosed in 2020 - invasive lobular carcinoma grade 1, on Tamoxifen. Patient has declined surgery. Continue Tamoxifen (6) Chronic kidney disease, stage III (moderate): Chronic. Cr 1.16 here. Last 1.09. (7) Hypertension: Chronic, not on medications. Normotensive currently. (8) Hyperlipidemia: Chronic. Cholesterol 211 and LDL 124 as of 2020 lipid profile. (9) Hypothyroidism: Chronic, TSH 0.492 today. Continue home Synthroid. () Dementia Patient noted to have significant sundowning with hallucinations at night, occasional inability to recognize family in daytime, family concerned for safety risk. Patient lives alone, family able to accompany overnight but not in daytime. Patient sleeps well with Melatonin 3mg HS. () Deconditioning PT/OT ordered, OT recommend 29/05 care and supervision. Case management aware, looking into [facility], family identified bed available with transport Monday. (2) Carotid artery plaque: (3) Hypomagnesemia: (4) Breast cancer: (5) Chronic kidney disease, stage III (moderate): (6) Hypertension: (7) Hyperlipidemia: (8) Hypothyroidism: (9) Dementia: Total Time Total Time Spent Total Time Spent (In Minutes): see attending attestation Discharge Plan Discharge Items Patient Disposition: Personal Shelter Reason For Visit: CHEST PAIN Discharge Diagnosis: Dementia Condition on Discharge: Good Activity: Per Instructions section Non-emergency contact: Primary Care Provider Call non-emergency contact if: you have any medication questions, your symptoms worsen, your pain is not controlled and you have a fever Follow-up/Referrals: Dada Bernard MD [Primary Care Provider] - Diet: Regular Addtl Attending Provider Instructions: 86yo female with PMHx significant for Parkinson's disease, dementia, breast cancer (invasive lobular carcinoma grade 1, on Tamoxifen), h/o CVA, and hypothyroidism, who presented to [facility] On 05/25 for acute-onset left-sided chest pain radiating to back and left arm that woke her up at ~midnight; symptoms x several hours. ()Chest pain - resolved EKG noted RBBB and occasional bradycardia otherwise unremarkable, troponins returned to wnl, CP resolved without further intervention. Echo showed mild AR and MR otherwise wnl. Pain likely GI/MSK related. 1) Elevated troponin: Atypical chest pain that woke patient up from sleep, with associated diaphoresis and skin pallor. Resolved after several hours, without Nitro. hsTroponin mildly elevated at 28, and EKG showing NSR with RBBB (chronic) and no ST/T abnormalities. TTE unremarkable. ()Back pain, musckuloskeletal Noted b/l shoulder pain and back pain occurred 05/29 likely arthritis, resolved with toradol. EKG unchanged (2) Carotid artery plaque: Confirmed via previous CT imaging, without previous angina or MO. (3) Hypomagnesemia: - repleted Mg 1.5, repleted. (5) Breast cancer: Diagnosed in 2020 - invasive lobular carcinoma grade 1, on Tamoxifen. Patient has declined surgery. Continue Tamoxifen (6) Chronic kidney disease, stage III (moderate): Chronic. Cr 1.16 here. Last 1.09. (7) Hypertension: Chronic, not on medications. Normotensive currently. (8) Hyperlipidemia: Chronic. Cholesterol 211 and LDL 124 as of 2020 lipid profile. (9) Hypothyroidism: Chronic, TSH 0.492 today. Continue home Synthroid. () Dementia Patient noted to have significant sundowning with hallucinations at night, occasional inability to recognize family in daytime, family concerned for safety risk. Patient lives alone, family able to accompany overnight but not in daytime. Patient sleeps well with Melatonin 3mg HS. () Deconditioning PT/OT ordered, OT recommend 29/05 care and supervision. Case management aware, looking into [facility], family identified bed available with transport Monday. Pending Studies at Discharge: No Stand-Alone Forms: [employer], Smoking Cessation Skilled Items Patient informed of condition?: Yes DNR: No Discharge Level of Care: Other Communicable Disease: No Discharge Prognosis: Stable Lines: None Urinary Catheter: No Medications and DC Order Prescriptions: Continued hydroxyzine HCl 25 mg tablet 25 mg PO BID PRN (Reason: itching) Qty: 30 0RF levothyroxine 150 mcg tablet 150 mcg PO DAILY Qty: 30 0RF acetaminophen [Tylenol Extra Strength] 500 mg Tablet 1,000 mg PO AMPM diphenhydramine HCl [Benadryl Allergy] 25 mg Tablet 25 mg PO HS lidocaine 5 % adhesive patch,medicated 1 patch topical DAILY PRN (Reason: Pain) Rx Instructions: leave on most painful area for up to 12 hrs tamoxifen 20 mg tablet 20 mg PO DAILY Discharge Orders: Discharge Order (Routine); Ordered 06/03/22 Ordered By: Halley Mabry Admission Data Admit Date/Time: 05/25/22 04:13 Attending Provider: Lex George Admit Provider: oJse Osei Primary Care Provider: Dada Bernard Other Providers: Spencer Sweet ; Lemuel Morgan Other Interventions: Discharge Summary Assessment (RN) Last Done: 06/03/22 14:52 Supervising Physician Co-Signing Physician Notes Patient seen and examined independently of PGY-2 Dr. Mabry. Agree with history, exam findings, assessment and plan of care. 86 year old female with hx of Parkinsons, dementia, breast cancer (on tamoxifen), CVA, and hypothyroid admitted with acute left-sided chest pain that woke her from sleep. 1. Chest pain. Resolved. EKG with RBBB but no ischemic changes. Troponins normal. TTE unremarkable. 2. Back pain. Arthritis related. Resolved with Toradol. 3. Dementia. With hallucinations, sundowning. 1:1. Has not required Haldol for agitation. Dispo: Discharge to [facility] today. I personally spent 25 minute discharge planning for this patient. Resident Activity Tracking Resident Involvement: Resident Care Provided Care Provided: Adult Hospital Medicine
[2022-06-03] MEDS: CYANOCOBALAMIN (B-12) 500 MCG TABLET PO SCH (08:02)
[2022-06-03] MEDS: POLYETHYLENE (MIRALAX) 17 GM PACK PO SCH (08:02)
[2022-06-03] MEDS: TAMOXIFEN CITRATE 10 MG TABLET PO SCH (08:02)
[2022-06-03] MEDS: ENOXAPARIN INJ 30 MG/0.3 ML SYR SQ SCH (08:03)
[2022-06-03] MEDS: LIDOCAINE 5% 1 PATCH TD SCH (08:03)
== END 2022-06-03 15:56 | disposition home or self-care (01) | DRG 313 ==
LOC: ED 01:43 → EDINP 04:13 → SUATTDRO 04:13 → 2N 05:56 → 3W 05-28 22:43

== ENCOUNTER 2022-07-23 19:58 | Inpatient (IN) ==
[2022-07-23 21:35] LABS: INR 1.1 (0.9-1.1); Prothrombin Time 11.6 Seconds (9.0-12.0)
[2022-07-23 21:42] LABS: Basophils # (auto) 0.05 K/uL (0-0.2); Basophils % (auto) 0.8 %; Eosinophils # (auto) 0.06 K/uL (0-0.50); Hematocrit (blood only) 36.1 % (34.1-44.9); Hemoglobin 11.8 g/dl (12.0-16.0); Immature Granulocytes # (auto) 0.05 K/uL (0.00-0.02); Immature Granulocytes % (auto) 0.8 %; Lymphocytes # (auto) 1.85 K/uL (1.2-3.4); Lymphocytes % (auto) 30.6 %; Mean Corpuscular Hemoglobin 33.2 pg (25.0-34.0); Mean Corpuscular Hgb Conc 32.7 g/dL (32.0-36.0); Mean Corpuscular Volume 101.7 fL (80.0-100.0); Mean Platelet Volume 10.6 fL (9.4-12.3); Monocytes # (auto) 0.83 K/uL (0.24-0.82); Monocytes % (auto) 13.7 %; Neutrophils # (auto) 3.21 K/uL (1.4-6.5); Neutrophils % (auto) 53.1 %; Platelet Count 177 K/uL (130-400); RDW Coefficient of Variation 12.4 % (11.5-14.5); RDW Standard Deviation 46.5 fL (36.4-46.3); Red Blood Count 3.55 M/uL (3.93-5.22); White Blood Count 6.05 K/ul (4.8-10.8)
[2022-07-23 21:44] LABS: Anion Gap 5 (3-11); BUN Creatinine Ratio 13.5 (10-20); Blood Urea Nitrogen 15 mg/dl (6-23); Calcium 8.8 mg/dl (8.5-10.1); Carbon Dioxide 31 mmol/L (21-32); Chloride 102 mmol/L (98-107); Creatinine Clr Calc Pharmacy 34.9 ml/min; Est GFR (African American) 52.1 ml/min; Est GFR (Non-African American) 44.9 ml/min; Glucose 93 mg/dl (70-99(Fasting)); Potassium 3.4 mmol/L (3.5-5.1); Sodium 138 mmol/L (136-145)
[2022-07-23 21:49] LABS: Troponin I High Sensitivity 29.1 pg/ml (0-14)
[2022-07-23 21:58] LABS: Thyroid Stimulating Hormone 0.026 uIu/ml (0.300-4.500)
[2022-07-23 22:08] LABS: Alanine Aminotransferase < 3 U/L (7-52); Albumin Globulin Ratio 1.6 (0.9-2); Albumin Level 3.7 gm/dl (3.4-5.0); Alkaline Phosphatase 48 U/L (34-104); Aspartate Aminotransferase 24 U/L (13-39); Bilirubin,Total 0.5 mg/dl (0.2-1.0); Globulin 2.3 gm/dl (2.5-4.0); Lipase 256 U/L (11-82); Magnesium 1.5 mg/dl (1.7-2.4)
[2022-07-23] MEDS ORDERED: OPTIRAY 300 500mL IV ONE (22:33)
[2022-07-23 22:38] LABS: T4 Free Thyroxine 1.68 ng/dl (0.61-1.60)
[2022-07-23] MEDS ORDERED: MAGNESIUM SULFATE / D5W 1 GM/100 ML BAG IV STA (23:22)
--- NOTE | 2022-07-23 23:40 | Emergency Department Note ---
History of Present Illness General Chief complaint: Illness Stated complaint: FLUID IN LEGS, FOOT SWELLING, CHEST PAIN Time Seen by Provider: 07/23/22 20:31 Source: patient Mode of arrival: ambulatory Limitations: other (dementia) History of Present Illness Provider complaint: Chest pain, foot swelling Maximum Pain Intensity: 10 This is an 87-year-old female presents emergency department with complaints of chest pain and leg swelling. Family at bedside helps to provide history and states that the patient first began having increased leg swelling 2 weeks ago. She was started on furosemide 20 mg. The swelling continued to worsen and it was doubled to 40 mg daily. Patient states she continued to have swelling. She denies any dietary indiscretion. Denies any other change in medications. She states she has been trying to prop her feet up. She does not typically use compression stockings. This evening then patient complained of chest pain centrally and slightly right-sided that radiated into her right back. She denies any radiation of the pain into her arms, neck or jaw. She denies any coming shortness of breath, nausea, dizziness, or sweating. No recent illness including no fevers or chills. No recent change in activity. She denies any prior history of heart problems. Pt seen during a time of high acuity and national emergency pandemic while wearing PPE. Home Medications Medication Instructions Recorded Confirmed Type tamoxifen 20 mg tablet 20 mg PO DAILY 09/29/21 07/21/22 History acetaminophen 500 mg tablet 1,000 mg PO AMPM 05/25/22 07/21/22 History (Tylenol Extra Strength) diphenhydramine HCl 25 mg tablet 25 mg PO HS 05/25/22 07/21/22 History (Benadryl Allergy) hydrocortisone 2.5 % topical cream 1 applic PA TID PRN hemorrhoids 06/06/22 07/21/22 Rx with perineal applicator #30 grams aspirin 81 mg tablet,delayed 81 mg PO DAILY #30 tabs 06/08/22 07/21/22 Rx release citalopram 10 mg tablet 10 mg PO DAILY #30 tabs 06/08/22 07/21/22 Rx levothyroxine 150 mcg tablet 150 mcg PO DAILY #30 tabs 06/14/22 07/21/22 Rx carbidopa 25 mg-levodopa 100 mg 1 tab PO BID #60 tabs 09/09/22 09/15/22 Rx tablet compression socks, large #6 ea 07/15/22 07/21/22 Rx furosemide 20 mg tablet 20 mg PO DAILY #30 tabs 07/15/22 07/21/22 Rx melatonin 3 mg disintegrating 3 mg PO HS PRN sleep #90 tabs 07/15/22 07/21/22 Rx tablet Allergies Allergy/AdvReac Type Severity Reaction Status Date / Time clarithromycin Allergy Intermediate RASH Verified 07/21/22 09:46 Penicillins Allergy Intermediate RASH Verified 07/21/22 09:46 shellfish derived Allergy Intermediate itch all Verified 07/21/22 09:46 over Fish Containing Products Allergy Unknown SEAFOOD, Verified 07/21/22 09:46 FISH propranolol Allergy Unknown dizziness Verified 07/21/22 09:46 Sulfa (Sulfonamide Allergy Unknown CAN'T Verified 07/21/22 09:46 Antibiotics) REMEMBER codeine AdvReac Intermediate NAUSEA/VOMI Verified 07/21/22 09:46 TING paroxetine [From Paxil] AdvReac Intermediate hallucinati Verified 07/21/22 09:46 ons levofloxacin [From Levaquin] AdvReac Unknown Unknown Verified 07/21/22 09:46 oxycodone AdvReac Unknown UNKN Verified 07/21/22 09:46 Past Med/Surg History Medical History Adverse drug reaction ROSEMARIE (acute kidney injury) Altered mental status Breast cancer Chest pain CVA (cerebral vascular accident) Depression Elevated troponin Grief reaction History of basal cell carcinoma History of SCC (squamous cell carcinoma) of skin Hypertension Hypokalemia Hypomagnesemia Parkinsonism Spondylolisthesis of lumbar region Unspecified hemorrhoids (03/19/13) Surgical History History of back surgery History of inguinal hernia repair History of lumbar laminectomy for spinal cord decompression History of repair of rectocele History of right knee surgery History of total abdominal hysterectomy Hx of appendectomy Hx of cholecystectomy Hx of laparoscopy S/P removal of left ovary Family History Sister Lung cancer Father Colorectal cancer Brother Colorectal cancer Prostate cancer Mother Colorectal cancer Denies family history of Ovarian cancer Myocardial infarction Breast cancer Social History (Reviewed 09/17/22 @ 23:36 by JORDY Au Smoking Status: Unknown if ever smoked Tobacco Type: Cigarettes Age Started Using Tobacco: 18; Age Quit Using Tobacco: 19; packs per day: 0.5; Second Hand Exposure: No; Hx Alcohol Use: No Hx Substance Use: No Preferred Language: Colombian Communication Ability: Impaired Visual Impairment: No Limitations Hearing Ability: Normal Ambulatory Care Required: No marital status: / Current Living Situation: Residential current occupational status: retired current occupation: retired from career in [employer] Feels Safe at Home: Yes Childhood Exposure to Second-Hand Smoke: No caffeine: No Dental Care, Regularly: No Physical Activity Frequency: Does not Exercise Seatbelt Use: always Sunscreen Use: No Assistive Devices: Walker Review of Systems A total of 10 systems reviewed and were otherwise negative All systems reviewed & are unremarkable except as noted in HPI & below Physical Exam Vital Signs Vital Signs - 24 hr 07/23/22 20:03 07/23/22 20:21 07/23/22 21:01 Temperature 36.6 C Temperature Source Temporal Artery Scan Pulse Rate 69 Pulse Rate [Apical] 63 57 L Pulse Rhythm [Apical] Regular Regular Pulse Strength [Apical] Normal Normal Respiratory Rate 18 20 20 Respiratory Effort / Characteristics Non-Labored Spontaneous Non-Labored Non-Labored Respiratory Depth Normal Normal Normal Respiratory Pattern Regular Regular Blood Pressure 119/60 Blood Pressure [Right Arm] 121/60 111/62 Blood Pressure Mean 79 Blood Pressure Mean [Right Arm] 80 78 Blood Pressure Position Sitting Blood Pressure Position [Right Arm] Sitting Lying Pulse Oximetry 97 98 97 Oxygen Delivery Method Room Air Room Air Room Air Sepsis Recent Fever Within 48 Hours No Sepsis New/Unexplained Change in Mental Status No Sepsis Action Taken by Nursing No Action Required 07/23/22 23:00 Temperature Temperature Source Pulse Rate Pulse Rate [Apical] 60 Pulse Rhythm [Apical] Regular Pulse Strength [Apical] Normal Respiratory Rate 20 Respiratory Effort / Characteristics Non-Labored Respiratory Depth Normal Respiratory Pattern Regular Blood Pressure Blood Pressure [Right Arm] 102/51 L Blood Pressure Mean Blood Pressure Mean [Right Arm] 68 Blood Pressure Position Blood Pressure Position [Right Arm] Sitting Pulse Oximetry 96 Oxygen Delivery Method Room Air Sepsis Recent Fever Within 48 Hours Sepsis New/Unexplained Change in Mental Status Sepsis Action Taken by Nursing GENERAL: alert, well appearing, well nourished, no distress, non-toxic EYE EXAM: normal conjunctiva, PERRL and EOM's grossly intact OROPHARYNX: no exudate, no erythema, lips, buccal mucosa, and tongue normal and mucous membranes are moist NECK: supple, no nuchal rigidity, no adenopathy, non-tender LUNGS: Clear to auscultation. Normal chest wall mechanics, no w/r/r HEART: no murmurs, S1 normal and S2 normal, no reproducible chest wall tenderness with palpation ABDOMEN: abdomen soft, non-tender, normo-active bowel sounds, no masses, no rebound or guarding. BACK: Back is symmetrical on inspection and there is no deformity, no midline tenderness, no CVA tenderness. Patient along the medial border of the right scapula. SKIN: no rashes and no bruising UPPER EXTREMITIES: upper extremities are grossly normal. FROM, nml pulses b/l. LOWER EXTREMITIES: 3+ b/l pitting edema. FROM, nml pulses b/l. NEURO EXAM: Normal sensorium, cranial nerves II-XII grossly intact, normal speech, no gross weakness of arms, no gross weakness of legs. Gross sensation intact. Course Course 2350: Family updated at bedside. Administered Medications Acetaminophen (Acetaminophen 500 Mg Tab) 1,000 mg PO BID [facility] Stop: 08/23/22 08:59 Last Admin: 07/24/22 20:17 Dose: 1,000 mg Documented By: Admin: 07/24/22 07:59 Dose: 1,000 mg Documented By: DEYANIRA Aspirin (Aspirin 81 Mg Ectab) 81 mg PO DAILY [facility] Stop: 08/23/22 08:59 Last Admin: 07/24/22 08:01 Dose: 81 mg Documented By: DEYANIRA Carbidopa/Levodopa (Carbidopa/Levodopa 25/100mg Tab) 1 tab PO BID [facility] Stop: 08/23/22 08:59 Last Admin: 07/24/22 20:17 Dose: 1 tab Documented By: Admin: 07/24/22 08:01 Dose: 1 tab Documented By: DEYANIRA Citalopram Hydrobromide (Citalopram 20 Mg Tab) 10 mg PO DAILY [facility] Stop: 08/23/22 08:59 Last Admin: 07/24/22 08:01 Dose: 10 mg Documented By: DEYANIRA Enoxaparin Sodium (Enoxaparin Inj 40 Mg/0.4 Ml Syr) 40 mg SQ Q24H [facility] Stop: 08/23/22 01:14 Last Admin: 07/24/22 12:41 Dose: 40 mg Documented By: DEYANIRA Melatonin (Melatonin 3 Mg Tab) 3 mg PO HS PRN PRN Reason: sleep Stop: 08/23/22 04:13 Last Admin: 07/24/22 20:17 Dose: 3 mg Documented By: PETRONA Tamoxifen Citrate (Tamoxifen Citrate 10 Mg Tablet) 20 mg PO DAILY [facility] Stop: 08/23/22 08:59 Last Admin: 07/24/22 08:00 Dose: 20 mg Documented By: DEYANIRA Co-signed By: CUCO Discontinued Medications Diphenhydramine HCl (Diphenhydramine Capsule 25 Mg Cap) 25 mg PO HS [place] Stop: 08/23/22 20:59 Last Admin: 07/24/22 20:17 Dose: 25 mg Documented By: PETRONA Furosemide (Furosemide 40 Mg/4 Ml Vial) 40 mg IV ONE ONE Stop: 07/23/22 23:59 Last Admin: 07/24/22 03:46 Dose: Not Given Documented By: REINIER Furosemide (Furosemide 40 Mg/4 Ml Vial) Confirm Administered Dose 40 mg IV .STK- MED ONE Stop: 07/24/22 02:26 Last Admin: 07/24/22 03:31 Dose: Not Given Documented By: REINIER Furosemide (Furosemide 40 Mg/4 Ml Vial) 40 mg IV QAM [place] Stop: 07/25/22 08:59 Last Admin: 07/24/22 08:02 Dose: 40 mg Documented By: DEYANIRA Magnesium Sulfate/Dextrose (Magnesium Sulfate / D5w) 1 gm in 100 mls @ 100 mls/hr IV NOW STA Stop: 07/24/22 00:21 Last Infusion: 07/24/22 00:46 Dose: 0 mls/hr Documented By: Admin: 07/23/22 23:48 Dose: 100 mls/hr Documented By: REINIER Ioversol (Optiray 300 500ml) 118 ml IV ONCE ONE Stop: 07/23/22 22:34 Last Admin: 07/23/22 22:33 Dose: 118 ml Documented By: JOÃO Magnesium Hydroxide (Magnesium Hydroxide Susp 30 Ml Udc) 30 ml PO NOW ONE Stop: 07/24/22 17:34 Last Admin: 07/24/22 18:07 Dose: 30 ml Documented By: DEYANIRA Potassium Chloride (Potassium Chloride Crtab 20 Meq Tabcr) 40 meq PO NOW STA Stop: 07/23/22 23:59 Last Admin: 07/24/22 02:29 Dose: 40 meq Documented By: REINIER Potassium Chloride (Potassium Chloride 10 Meq Tabcr) Confirm Administered Dose 40 meq PO .STK-MED ONE Stop: 07/24/22 02:26 Last Admin: 07/24/22 03:32 Dose: Not Given Documented By: REINIER Medical Decision Making Differential Diagnosis Differential diagnoses includes but is not limited to acute coronary syndrome, myocardial infarction, pericarditis, pulmonary embolus, aortic dissection, pneumonia, pneumothorax, musculoskeletal, shingles, esophageal. Medical Records Attestation: I reviewed the patient's medical records. Home Medications Current Medication List: was personally reviewed by me Laboratory Data Attestation: I reviewed the patient's lab results. Result diagrams: 07/24/22 07:20 07/24/22 07:20 Lab Results 07/23/22 07/23/22 07/23/22 Range/Units 20:36 20:36 20:36 WBC 6.05 (4.8-10.8) K/ul RBC 3.55 L (3.93-5.22) M/uL Hgb 11.8 L (12.0-16.0) g/dl Hct 36.1 (34.1-44.9) % MCV 101.7 H (80.0-100.0) fL MCH 33.2 (25.0-34.0) pg MCHC 32.7 (32.0-36.0) g/dL RDW Std Deviation 46.5 H (36.4-46.3) fL RDW Coeff of Louie 12.4 (11.5-14.5) % Plt Count 177 (130-400) K/uL MPV 10.6 (9.4-12.3) fL Immature Gran % (Auto) 0.8 % Neut % (Auto) 53.1 % Lymph % (Auto) 30.6 % [place] % (Auto) 13.7 % Eos % (Auto) 1.0 % Baso % (Auto) 0.8 % Neut # (Auto) 3.21 (1.4-6.5) K/uL Lymph # (Auto) 1.85 (1.2-3.4) K/uL [place] # (Auto) 0.83 H (0.24-0.82) K/uL Eos # (Auto) 0.06 (0-0.50) K/uL Baso # (Auto) 0.05 (0-0.2) K/uL Immature Gran # (Auto) 0.05 H (0.00-0.02) K/uL PT 11.6 (9.0-12.0) Seconds INR 1.1 (0.9-1.1) Sodium 138 (136-145) mmol/L Potassium 3.4 L (3.5-5.1) mmol/L Chloride 102 (98-107) mmol/L Carbon Dioxide 31 (21-32) mmol/L Anion Gap 5 (3-11) BUN 15 (6-23) mg/dl Creatinine 1.11 (0.6-1.2) mg/dl Est Cr Clr Drug Dosing 34.9 ml/min Est GFR ( Amer) 52.1 ml/min Est GFR (Non-Af Amer) 44.9 ml/min BUN/Creatinine Ratio 13.5 (10-20) Glucose 93 (70-99(Fasting)) mg/dl Calcium 8.8 (8.5-10.1) mg/dl Magnesium 1.5 L (1.7-2.4) mg/dl Total Bilirubin 0.5 (0.2-1.0) mg/dl AST 24 (13-39) U/L ALT < 3 L (7-52) U/L Alkaline Phosphatase 48 (34-104) U/L Troponin I High Sens 29.1 H (0-14) pg/ml B-Natriuretic Peptide (0-100) pg/ml Total Protein 6.0 (6.0-8.3) gm/dl Albumin 3.7 (3.4-5.0) gm/dl Globulin 2.3 L (2.5-4.0) gm/dl Albumin/Globulin Ratio 1.6 (0.9-2) Triglycerides 55 (0-150) mg/dl Cholesterol 156 (0-200) mg/dl LDL Cholesterol, Calc 85 mg/dl VLDL Cholesterol, Calc 11 (0-30) mg/dl HDL Cholesterol 60 mg/dl Cholesterol/HDL Ratio 2.6 (0-5) Lipase 256 H (11-82) U/L TSH (0.300-4.500) uIu/ml Free T4 (0.61-1.60) ng/dl SARS-CoV-2, RNA, NAAT (NEGATIVE) 07/23/22 07/23/22 07/24/22 Range/Units 20:36 21:48 00:00 WBC (4.8-10.8) K/ul RBC (3.93-5.22) M/uL Hgb (12.0-16.0) g/dl Hct (34.1-44.9) % MCV (80.0-100.0) fL MCH (25.0-34.0) pg MCHC (32.0-36.0) g/dL RDW Std Deviation (36.4-46.3) fL RDW Coeff of Louie (11.5-14.5) % Plt Count (130-400) K/uL MPV (9.4-12.3) fL Immature Gran % (Auto) % Neut % (Auto) % Lymph % (Auto) % [place] % (Auto) % Eos % (Auto) % Baso % (Auto) % Neut # (Auto) (1.4-6.5) K/uL Lymph # (Auto) (1.2-3.4) K/uL [place] # (Auto) (0.24-0.82) K/uL Eos # (Auto) (0-0.50) K/uL Baso # (Auto) (0-0.2) K/uL Immature Gran # (Auto) (0.00-0.02) K/uL PT (9.0-12.0) Seconds INR (0.9-1.1) Sodium (136-145) mmol/L Potassium (3.5-5.1) mmol/L Chloride (98-107) mmol/L Carbon Dioxide (21-32) mmol/L Anion Gap (3-11) BUN (6-23) mg/dl Creatinine (0.6-1.2) mg/dl Est Cr Clr Drug Dosing ml/min Est GFR ( Amer) ml/min Est GFR (Non-Af Amer) ml/min BUN/Creatinine Ratio (10-20) Glucose (70-99(Fasting)) mg/dl Calcium (8.5-10.1) mg/dl Magnesium (1.7-2.4) mg/dl Total Bilirubin (0.2-1.0) mg/dl AST (13-39) U/L ALT (7-52) U/L Alkaline Phosphatase (34-104) U/L Troponin I High Sens (0-14) pg/ml B-Natriuretic Peptide 269 H (0-100) pg/ml Total Protein (6.0-8.3) gm/dl Albumin (3.4-5.0) gm/dl Globulin (2.5-4.0) gm/dl Albumin/Globulin Ratio (0.9-2) Triglycerides (0-150) mg/dl Cholesterol (0-200) mg/dl LDL Cholesterol, Calc mg/dl VLDL Cholesterol, Calc (0-30) mg/dl HDL Cholesterol mg/dl Cholesterol/HDL Ratio (0-5) Lipase (11-82) U/L TSH 0.026 L (0.300-4.500) uIu/ml Free T4 1.68 H (0.61-1.60) ng/dl SARS-CoV-2, RNA, NAAT NEGATIVE (NEGATIVE) Imaging Data Radiologist's Impression: CTA angio chest dissection with and without: Borderline ascending thoracic aortic aneurysm measures 4 x 4.1 cm without dissection. No acute airspace disease or effusions. Heart size is normal. Negative for CHF. Thoracic kyphotic deformity without acute fracture. Radiologist: Jake Siddiqui MD ECG Data Attestation: I personally reviewed and interpreted this ECG as follows: Indication: + chest pain Rate (beats per minute): 65 Rhythm: + normal sinus ECG Intervals/blocks: + Right Bundle branch block and + Normal QT ECG [place]: + Normal ECG ST segments: + Nonspecific ST abnormalities MDM Narrative An order was placed for continuous cardiac monitoring. The monitor shows a rate of _62_ with _normal sinus__ rhythm. This is an 87-year-old female presents emergency department due to concern for chest pain and worsening lower extremity edema. Daughter is at bedside help to provide additional history as patient does have mild dementia. Patient was started on Lasix as an outpatient, this was doubled, however her swelling continues to worsen. Once patient complained of chest pain, they brought her to the emergency room for additional evaluation. Vital signs stable, no acute ectopy or dysrhythmia noted. No obvious shortness of breath or rales on exam. Patient not hypoxic. Labs drawn and sent which did reveal an elevated BNP. Due to concern for chest pain with radiation of the back she was sent for CTA of the chest. I did discuss all results with the family at bedside including the tho racic aneurysm. No evidence for dissection or rupture. Patient is not anticoagulated. Patient was given a dose of Lasix here in the emergency department and case discussed with hospitalist for additional evaluation and treatment. No prior history of CHF. Impression & Plan Chest pain, Edema of both lower extremities, Failure of outpatient treatment, Elevated brain natriuretic peptide (BNP) level Discharge Plan Visit Data Chief Complaint: Illness Stated Complaint: FLUID IN LEGS, FOOT SWELLING, CHEST PAIN ED Provider: Denisha Frazier Discharge Problem: Chest pain, Edema of both lower extremities, Failure of outpatient treatment, Elevated brain natriuretic peptide (BNP) level Patient Disposition: Admitted As Inpatient Discharge Instructions Interventions: ED Discharge Assessment Last Done: 07/24/22 04:52
[2022-07-23] MEDS ORDERED: POTASSIUM CHLORIDE CRTAB 20 MEQ TABCR PO STA (23:58)
--- NOTE | 2022-07-24 00:15 | History & Physical Report ---
Date of Service July 24, 2022 Assessment & Plan (1) Lower extremity edema: Plan: This is an 87-year-old female with history of CVA, dementia, anxiety, depression, CKD 3, carotid artery plaque, hyperlipidemia, hypertension, hypothyroidism, TIA, parkinsonism who presented to [facility] for evaluation of chest pain and leg swelling Bilateral Lower Extremity Edema - Apparently has developed over the last 2 weeks -- no associated shortness of breath, PND/orthopnea, or other symptoms - Exam revealing 3+ peripheral edema; appear equally bilaterally, no overt evidence of cellulitis - Last TTE on 05/25: Normal left ventricular function without regional wall motion abnormalities, EF 55 to 60%, mild concentric LVH, mild aortic regurgitation, mild mitral regurgitation. - Possibly multifactorial? DDX- venous insufficiency, maybe a component of HFpEF (though no other findings c/w this - weight also appears stable from last admission), maybe medication-associated (given suppressed TSH; Sinemet also has documented associated with LE edema). Patient reportedly does not snore, but SONIA considered as well. Central obstruction? - Compression stockings. Elevate legs. - Consider: CT-A/P if new symptoms, nocturnal pulse oximetry - Will schedule another dose of Lasix 40mg IV x 1 in the morning - consider scheduling - Will check Dopplers - I&Os, daily weights - Monitor lytes - PT ordered (2) Abnormal TSH: Plan: - Patient with known history of hypothyroidism, controlled with levothyroxine 150mcg daily - On arrival, found to have TSH 0.026 and fT4 1.68 (last TSH at 0.492 in 05/2022) - Unclear why the sudden drop - staff administers RX, no other changes other than Sinemet (no interaction found) - Thankfully asymptomatic; lower extremity edema noted as above - Hold levothyroxine - may wish to decrease dose to 75-100mcg prior to discharge (3) Aortic ectasia: Plan: - CTA-Chest STAT-Rad revealing: "Borderline a sending thoracic aortic aneurysm measuring 4X 4.1 cm without dissection." - Can consider establishing with cardiology / discussion of initiating BB as an outpatient (4) Chest pain: Plan: - Given middle-right sided focality, suspect more musculoskeletal vs. dyspepsia - CTA-Chest (STAT Rad) without evidence of aortic dissection or PE - ECG unchanged from last admission. Troponin mildly elevated at 29.1 on arrival, will recheck once more - ECG prn (5) Parkinsonism: Plan: - History noted. Follows with Dr. Broussard as an outpatient - last visit on 07/06, where she was restarted on Sinamet - Continue Sinamet for now (6) Dementia: Plan: - Patient has known history of dementia, and previous admission notes do reflect that she has experienced significant sundowning with hallucinations, as well as issues with facial recognition - Monitor. (7) Chronic kidney disease, stage III (moderate): Plan: - BUN/Cr appear to be at baseline on admission - .11 - Monitor (8) Hypertension: Plan: - History noted, though not on any home medications. (9) Hypothyroidism: Plan: - History noted. See above. (10) Breast cancer: Plan: - History of invasive lobular carcinoma, diagnosed 2020, noted. Patient was reportedly not interested in procedural removal. - Continue tamoxifen (11) Elevated lipase: Plan: - Lipase elevated to 256 on admission - Etiology is unclear: patient does have known h/o CKD3, but otherwise no abdominal symptoms, LFTs otherwise normal, h/o CCY - Check lipid panel - Consider checking CT-A/P if abdominal symptoms develop (12) Electrolyte abnormality: Plan: - Hypokalemic and hypomagnesemic on arrival. Repleted. - Likely secondary to Lasix - Recheck in AM, replete PRN Plan Code: DNR/DNI - discussed w/ daughters at bedside Diet: Low sodium PPX: Lovenox Dispo: MS History of Present Illness Primary Care Provider: [facility] This is an 87-year-old female with history of CVA, dementia, anxiety, depression, CKD 3, carotid artery plaque, hyperlipidemia, hypertension, hypothyroidism, TIA, parkinsonism who presented to [facility] for evaluation of chest pain and leg swelling. Over the past 2 weeks, patient was noted to have incrementally increasing leg swelling. She was started on Lasix 20 mg initially, but because of worsening swelling, was increased to 40 mg. This is had minimal effect. Otherwise, she denies any other symptomsno paroxysmal nocturnal dyspnea, no orthopnea, no chest pain (except today), no palpitations, no changes in bowel movements. She denies any abdominal pain. No nausea or vomiting. No diarrhea. She has been taking her medications as prescribedthey were dispensed by her care team. Other than starting Sinemet 3 to 4 weeks ago, she denies any other changes in her medications. Medications reviewed and include Tylenol, aspirin, Sinemet, citalopram, Benadryl, Lasix, levothyroxine, melatonin, tamoxifen. Last TTE on 05/25: Normal left ventricular function without regional wall motion abnormalities, EF 55 to 60%, mild concentric LVH, mild aortic regurgitation, mild mitral regurgitation. On arrival in the emergency department, patient was found to have normal vital signs. Labs demonstrated macrocytic anemia at 11.8, mild hypokalemia 3.4, mild hypomagnesemia 1.5, high-sensitivity troponin 29, BNP 269, lipase 256, TSH 0.026, free T4 1.68. CTA of the chest, STAT-Rad: " Borderline a sending thoracic aortic aneurysm measuring 4X 4.1 cm without dissection. No acute airspace disease or effusions. Heart size is normal. Negative for CHF. Thoracic kyphotic deformity without acute fracture." Patient was given magnesium, Lasix 40mg IV, and KCl 40mEq. Allergies Allergy/AdvReac Type Severity Reaction Status Date / Time clarithromycin Allergy Intermediate RASH Verified 07/21/22 09:46 Penicillins Allergy Intermediate RASH Verified 07/21/22 09:46 shellfish derived Allergy Intermediate itch all Verified 07/21/22 09:46 over Fish Containing Products Allergy Unknown SEAFOOD, Verified 07/21/22 09:46 FISH propranolol Allergy Unknown dizziness Verified 07/21/22 09:46 Sulfa (Sulfonamide Allergy Unknown CAN'T Verified 07/21/22 09:46 Antibiotics) REMEMBER codeine AdvReac Intermediate NAUSEA/VOMI Verified 07/21/22 09:46 TING paroxetine [From Paxil] AdvReac Intermediate hallucinati Verified 07/21/22 09:46 ons levofloxacin [From Levaquin] AdvReac Unknown Unknown Verified 07/21/22 09:46 oxycodone AdvReac Unknown UNKN Verified 07/21/22 09:46 Home Medications Medication Instructions Recorded Confirmed Type tamoxifen 20 mg tablet 20 mg PO DAILY 09/29/21 07/21/22 History acetaminophen 500 mg tablet 1,000 mg PO AMPM 05/25/22 07/21/22 History (Tylenol Extra Strength) diphenhydramine HCl 25 mg tablet 25 mg PO HS 05/25/22 07/21/22 History (Benadryl Allergy) hydrocortisone 2.5 % topical cream 1 applic AK TID PRN hemorrhoids 06/06/22 07/21/22 Rx with perineal applicator #30 grams aspirin 81 mg tablet,delayed 81 mg PO DAILY #30 tabs 06/08/22 07/21/22 Rx release citalopram 10 mg tablet 10 mg PO DAILY #30 tabs 06/08/22 07/21/22 Rx levothyroxine 150 mcg tablet 150 mcg PO DAILY #30 tabs 06/14/22 07/21/22 Rx carbidopa 25 mg-levodopa 100 mg 1 tab PO BID #60 tabs 07/15/22 07/21/22 Rx tablet compression socks, large #6 ea 07/15/22 07/21/22 Rx furosemide 20 mg tablet 20 mg PO DAILY #30 tabs 07/15/22 07/21/22 Rx melatonin 3 mg disintegrating 3 mg PO HS PRN sleep #90 tabs 07/15/22 07/21/22 Rx tablet Past Med/Surg History Medical History Adverse drug reaction ROSEMARIE (acute kidney injury) Altered mental status Breast cancer Chest pain CVA (cerebral vascular accident) Depression Elevated troponin Grief reaction History of basal cell carcinoma History of SCC (squamous cell carcinoma) of skin Hypertension Hypokalemia Hypomagnesemia Parkinsonism Spondylolisthesis of lumbar region Unspecified hemorrhoids (03/19/13) Surgical History History of back surgery History of inguinal hernia repair History of lumbar laminectomy for spinal cord decompression History of repair of rectocele History of right knee surgery History of total abdominal hysterectomy Hx of appendectomy Hx of cholecystectomy Hx of laparoscopy S/P removal of left ovary Family History Sister Lung cancer Father Colorectal cancer Brother Colorectal cancer Prostate cancer Mother Colorectal cancer Denies family history of Ovarian cancer Myocardial infarction Breast cancer Social History Smoking Status: Unknown if ever smoked Tobacco Type: Cigarettes Age Started Using Tobacco: 18; Age Quit Using Tobacco: 19; packs per day: 0.5; Second Hand Exposure: No; Hx Alcohol Use: No Hx Substance Use: No Preferred Language: Danish Communication Ability: Impaired Visual Impairment: No Limitations Hearing Ability: Normal Rack Loader Required: No marital status: / Current Living Situation: Intermediate current occupational status: retired 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 HEENT: NCAT. - Eyes - Sclera are white, anicteric, and without injection. - Mouth - MMM - Neck - supple, no appreciable JVD Cardiac: Normal rate and regular rhythm; S1 and S2 present with no murmurs, rubs, or gallops. Pulmonary: Good respiratory effort with symmetric expansion of the chest. No use of accessory muscles. Lungs were clear to auscultation bilaterally with no crackles or wheezes. Abdominal: Normoactive bowel sounds. Abdomen was soft, nondistended, and non- tender to palpation. Extremities: Upper and lower extremities are warm and well perfused. 3+ peripheral edema in the lower extremities bilaterally Results & Data Results & Data ([facility]) Vital Signs (Past 12 Hours) Vital Signs Temp Pulse Pulse Resp BP BP Pulse Ox 07/23/22 23:00 60 20 102/51 L 96 07/23/22 21:01 57 L 20 111/62 97 07/23/22 20:21 63 20 121/60 98 07/23/22 20:03 36.6 C 69 18 119/60 97 O2 Del Method 07/23/22 23:00 Room Air 07/23/22 21:01 Room Air 07/23/22 20:21 Room Air 07/23/22 20:03 Room Air Supervising Physician Co-Signing Physician Notes Attending addendum: I have physically seen this patient, have supervised the medical residents activities, and agree with the H&P unless as otherwise noted. Assessment and Plan: Fluid overload/bilateral lower extremity edema/elevated troponin 29.1- The patient will be admitted to telemetry for serial cardiac enzymes, serial EKG's, cardiac rhythm monitoring and a 2-D echocardiogram with Dopplers. Most recent echo 55 to 60% EF noted on 05/25 Given Lasix 40 mg IV in ED, and placed every morning Check lower extremity venous Dopplers Keep legs elevated Low-sodium diet Follow clinical examination closely CKD stage III- Creatinine 1.11 upon admission Potassium 3.4 magnesium 1.5 Replace electrolytes IV and orally, monitoring closely with diuresis as noted above Parkinsonism/dementia- Continue Sinemet Remaining orders and notations as noted Will need PT/OT assessment prior to discharge Resident Activity Tracking Resident Involvement: Resident Care Provided Care Provided: Adult Hospital Medicine
[2022-07-24] MEDS ORDERED: ACETAMINOPHEN 325 MG TAB PO PRN (01:05)
[2022-07-24 01:14] LABS: Chol HDL Ratio 2.6 (0-5); Cholesterol 156 mg/dl (0-200); HDL Cholesterol 60 mg/dl; LDL Cholesterol Calculated 85 mg/dl; Triglycerides 55 mg/dl (0-150); VLDL Cholesterol 11 mg/dl (0-30)
[2022-07-24] MEDS ORDERED: FUROSEMIDE 40 MG/4 ML VIAL IV ONE (02:25)
[2022-07-24] MEDS ORDERED: POTASSIUM CHLORIDE 10 MEQ TABCR PO ONE (02:25)
[2022-07-24] MEDS: FUROSEMIDE 40 MG/4 ML VIAL IV ONE ×2 (03:30→03:46)
[2022-07-24] MEDS ORDERED: MELATONIN 3 MG TAB PO PRN (04:14)
--- NOTE | 2022-07-24 06:07 | Ultrasound Report ---
BILATERAL LOWER EXTREMITY VENOUS DOPPLER HISTORY: acute lower extremity edema, history of BC COMPARISON STUDY: None. FINDINGS: There is normal compressibility, flow, and augmentation within the bilateral lower extremit y deep venous systems. IMPRESSION: No DVT within the right or left lower extremity. ACT 112: Negative or not required by law. Electronically signed by: Robinson Coon M.D. 07/24/2022 6:06 AM
[2022-07-24 07:48] LABS: Basophils # (auto) 0.04 K/uL (0-0.2); Basophils % (auto) 0.7 %; Eosinophils # (auto) 0.09 K/uL (0-0.50); Eosinophils % (auto) 1.7 %; Hematocrit (blood only) 33.6 % (34.1-44.9); Hemoglobin 10.8 g/dl (12.0-16.0); Immature Granulocytes # (auto) 0.01 K/uL (0.00-0.02); Immature Granulocytes % (auto) 0.2 %; Lymphocytes # (auto) 1.98 K/uL (1.2-3.4); Lymphocytes % (auto) 37.1 %; Mean Corpuscular Hemoglobin 32.5 pg (25.0-34.0); Mean Corpuscular Hgb Conc 32.1 g/dL (32.0-36.0); Mean Corpuscular Volume 101.2 fL (80.0-100.0); Mean Platelet Volume 10.5 fL (9.4-12.3); Monocytes # (auto) 0.77 K/uL (0.24-0.82); Monocytes % (auto) 14.4 %; Neutrophils # (auto) 2.45 K/uL (1.4-6.5); Neutrophils % (auto) 45.9 %; Platelet Count 158 K/uL (130-400); RDW Coefficient of Variation 12.4 % (11.5-14.5); RDW Standard Deviation 46.7 fL (36.4-46.3); Red Blood Count 3.32 M/uL (3.93-5.22); White Blood Count 5.34 K/ul (4.8-10.8)
[2022-07-24] MEDS: ACETAMINOPHEN 500 MG TAB PO SCH ×2 (07:59→20:17)
[2022-07-24] MEDS: TAMOXIFEN CITRATE 10 MG TABLET PO SCH (08:00)
[2022-07-24] MEDS: CITALOPRAM 20 MG TAB PO SCH (08:01)
[2022-07-24] MEDS: ASPIRIN 81 MG ECTAB PO SCH (08:01)
[2022-07-24] MEDS: CARBIDOPA/LEVODOPA 25/100MG TAB PO SCH ×2 (08:01→20:17)
[2022-07-24 08:15] LABS: BUN Creatinine Ratio 13.7 (10-20); Calcium 8.5 mg/dl (8.5-10.1); Est GFR (African American) 62.9 ml/min; Est GFR (Non-African American) 54.2 ml/min; Magnesium 1.7 mg/dl (1.7-2.4); Potassium 4.1 mmol/L (3.5-5.1)
--- NOTE | 2022-07-24 08:36 | CT Scan Report ---
CHEST CTA for AORTIC DISSECTION CT DOSE: 721.88 mGy.cm HISTORY: chest pain into back TECHNIQUE: Multiaxial CT images of the chest were performed both before and after the intravenous adm inistration of contrast to evaluate the aorta. Maximal intensity projection images were also obtained . A dose lowering technique was utilized adhering to the principles of ALARA. COMPARISON STUDY: Chest CTA 05/12/2017. FINDINGS: Noncontrast imaging through the chest shows no evidence for an intramural hematoma within t he thoracic aorta. There is moderate calcified plaque within the thoracic aorta. Stable 3.3 x 2.0 cm hypodense left paraspinal lesion at the T9-T10 level. There is an ectatic ascending thoracic aorta me asuring up to 3.8 cm in diameter. No evidence for an aortic dissection. The heart is mildly enlarged. There are mild coronary artery calcifications. The main pulmonary artery is dilated up to 3.4 cm con sistent with pulmonary arterial hypertension. No filling defects within the central pulmonary arterie s to suggest a pulmonary embolus. No pleural or pericardial effusions. No mediastinal or hilar lympha denopathy. Normal esophagus. Limited views of the upper abdomen demonstrate a normal liver, spleen, a nd adrenal glands. Mild body wall edema. No acute fractures within the visualized osseous structures. No pneumothorax. The central airways are patent. Mild dependent changes seen within the lung bases. No focal lung consolidations to suggest pneumonia. Punctate calcified granuloma within the right uppe r lobe. IMPRESSION: 1. No evidence for an aortic dissection. 2. Pulmonary arterial hypertension. The central pulmonary arteries appear patent. 3. No focal lung consolidations to suggest pneumonia. 4. A stable 3.3 x 2.0 cm hypodense left paraspinal lesion. ACT 112: Negative or not required by law. Electronically signed by: Robinson Coon M.D. 07/24/2022 8:34 AM
[2022-07-24] MEDS ORDERED: FUROSEMIDE 40 MG/4 ML VIAL IV SCH (09:00)
[2022-07-24] MEDS: ENOXAPARIN INJ 40 MG/0.4 ML SYR SQ SCH (12:41)
--- NOTE | 2022-07-24 12:45 | Electrocardiogram Report ---
Test Reason : Blood Pressure : / mmHG Vent. Rate : 065 BPM Atrial Rate : 065 BPM P-R Int : 132 ms QRS Dur : 126 ms QT Int : 468 ms P-R-T Axes : 064 -12 014 degrees QTc Int : 486 ms Poor data quality, interpretation may be adversely affected Normal sinus rhythm Right bundle branch block Septal infarct , age undetermined Abnormal ECG When compared with ECG of 29-MAY-2022 08:19, No significant change was found Confirmed by Jose Edouard ([id number]) on 07/24/2022 12:45:26 PM Referred By: [facility] Confirmed By:Jose Edouard
--- NOTE | 2022-07-24 14:55 | CT Scan Report ---
CT abd pelvis wo con CLINICAL HISTORY: ?pancreatitis; abd pain, elev lipase TECHNIQUE: Helical axial images of the abdomen and pelvis were obtained. Automated dose lowering tech niques and/or adjustment according to patient size were utilized for this exam. This exam was perfor med without intravenous contrast. CT DOSE: 449.11 mGy.cm COMPARISON: Comparison is made to CT abdomen pelvis 06/01/2022 and CTA chest 917 FINDINGS: Lower chest: Atherosclerosis is seen in the coronary arteries. Liver: Unremarkable. No focal lesions are seen. Gallbladder and biliary tree: Patient is status post cholecystectomy. Physiologic prominence of the b iliary ducts is noted. Pancreas: Unremarkable, no focal lesions. Spleen: Unremarkable. Adrenals: Thickening of the right greater than left adrenal glands is noted. Kidneys and ureters: Excretion of contrast is noted in the bilateral collecting systems. This may ref lect prior IV contrast. Bladder: Limited evaluation due to underdistention. Reproductive organs: Patient is status post hysterectomy. Bowel: There is marked thickening of the distal rectum. There is a prominent stool ball in the rectum as well. Patient is status post colonic resection. A few diverticula are seen. Lymph nodes Retroperitoneal: Unremarkable. Pelvic: Unremarkable. Mesenteric: Unremarkable. Peritoneum: Normal. Vessels: Unremarkable. Abdominal wall: Bilateral fat-containing inguinal hernias are seen. Bones: Posterior fixation hardware is seen spanning L3-L5. Degenerative changes are seen in the skele ton. IMPRESSION: 1. No evidence of pancreatitis. 2. Prominent stool ball in the rectum with prominent rectal wall thickening, similar in appearance t o prior exam. Recommend clinical correlation for stercoral colitis/proctitis. 3. Prior cholecystectomy. 4. Diverticulosis without diverticulitis. 5. Additional findings as above. ACT 112: Negative or not required by law. Electronically signed by: Jake Sandoval M.D. 07/24/2022 2:53 PM
[2022-07-24] MEDS ORDERED: MINERAL OIL ENEMA 133 ML BTL PR ONE (15:59)
[2022-07-24] MEDS ORDERED: MAGNESIUM HYDROXIDE SUSP 30 ML UDC PO ONE (17:33)
--- NOTE | 2022-07-24 20:55 | Billing Data ---
Date of Service July 24, 2022 Coding Level of Care Code 25763 Initial Inpt Care Lvl 3
[2022-07-24] MEDS ORDERED: diphenhydrAMINE Capsule 25 MG CAP PO SCH (21:00)
--- NOTE | 2022-07-24 22:07 | Hospitalist Progress Note ---
Date of Service July 24, 2022 Assessment & Plan (1) Fecal impaction: Plan: SEVERE constipation with fecal impaction & evidence of stercoral colitis on CT today. Obtained the CT due to her abdominal pain and the elevated lipase. The pancreas appeared normal on CT. She had severe fecal impaction on CT in late May as well. Mineral oil enema DE x 1 now, then aggressive bowel regimen. Stop benadryl - this can contribute to constipation. The constipation/fecal impaction certainly could have contributed to her presentation. (2) Stercoral colitis: Plan: Rx the fecal impaction. Abx not indicated for this. Stercoral colitis can cause confusion in elderly. (3) Elevated lipase: Plan: Lipase elevated to [address] a/p today without pancreatic abnormalities. Uncertain significance of the high lipase. She does not have her gall bladder, and bile ducts are enlarged but this is expected in the post-cholecystectomy state. LFTs wnl. Simply repeat lipase in am. Repeat LFTs am. (4) Lower extremity edema: Plan: Echo from May 2022 with preserved EF. Mild pulmonary HTN but RV function wnl. No pulmonary edema on exam or by way of imaging. Albumin is wnl. Creatinine is wnl. Previous u/a without proteinuria. I suspect the LE edema is 2nd to venous insufficiency. She does not fit a picture of decompensated CHF. LE venous duplex studies of both legs - negative for DVT. The brawny, hyperpigmented skin of the shins is c/w venous stasis changes. She received IV lasix yesterday and today; will stop IV lasix. Can resume PO lasix tomorrow. Strongly consider compression stockings. Check a u/a just to be sure there is no significant proteinuria (to suggest nephrosis) but doubt such given the normal albumin. (5) Chest pain: Plan: Patient denies that she had chest pain last night; she points to the upper abdomen in the high epigastric region during my visit with her. [id number] she is not the best historian because of her dementia. However, troponins are scantly high, and her EKG does not show ischemia. CTA chest without pathology. Doubt ACS. (6) Aortic ectasia: Plan: Ascending thoracic aortic aneurysm measuring 4 X 4.1 cm without dissection. Seen on CTA chest last pm. (7) Parkinsonism: Plan: Follows with Dr. Broussard as an outpatient - last visit on 07/06, where she was restarted on Sinemet for her tremors. (8) Dementia: Plan: with probable superimposed encephalopathy - perhaps from fecal impaction. supportive care. (9) Chronic kidney disease, stage III (moderate): Plan: CKD stage 3b - baseline CrCl 30-40. BMP in am for stability. (10) Hypertension: Plan: Not on medications for such. BPs all normal or low-normal. (11) Hypothyroidism: Plan: TSH is suppressed, FT4 is mildly high. This is suggestive of too much synthroid. Reduce levothyroxine dose to 137mcg daily. Repeat TSH in 6 weeks. (12) Breast cancer: Plan: History of right-sided invasive lobular carcinoma, diagnosed 2020. Patient was reportedly not interested in surgery at that time. Previous imaging showed 1.4 cm right breast nodule. Continue tamoxifen. (13) Hypokalemia: Plan: replaced resolved (14) Hypomagnesemia: Plan: replaced resolved Plan DVT proph - lovenox updated pt's daughter by phone this evening will need PT and OT evals Admission and Anticipated Discharge Date Admission Date: July 24, 2022 Subjective patient sitting in chair just finished eating lunch she reported she felt full and didn't finish her meal she immediately began to talk about her and was crying she reported that she was having upper abdominal pain that radiated through into her back yesterday - NOT chest pain she felt "unwell" and sick on her stomach when she had the above pain no dyspnea no cough last bowel movement? Review of Systems Review of Systems: gen - feels tired; no fever cv - no chest pain; ongoing edema of legs pulm - no cough, no wheeze, no dyspnea GI - no vomiting Physical Exam Physical Exam: gen - confused; tearful; NAD; sitting in chair comfortably neck - no JVD mouth - MMM heart - RRR, s1 s2, no murmur lungs - CTA b/l, no rales, no wheezing abd - distended, BS+, mildly tender high epigastric region, no RUQ pain; no lower abd pain ext - 2-3+ pitting edema from feet to the knees; pulses 2+ b/l skin - venous stasis changes b/l shins; venous ulceration right mid-morton (covered w/ optifoam); no cellulitis either morton neurology - tremors noted Results & Data Results & Data ([facility]) Vital Signs (Past 12 Hours) Vital Signs Temp Pulse Resp BP Pulse Ox O2 Del Method 07/24/22 14:41 36.7 C 59 L 16 108/58 L 98 Room Air Laboratory Results Laboratory Results - last 24 hr 07/23/22 07/23/22 07/23/22 20:36 20:36 21:48 WBC RBC Hgb Hct MCV MCH MCHC RDW Std Deviation RDW Coeff of Louie Plt Count MPV Immature Gran % (Auto) Neut % (Auto) Lymph % (Auto) Whitley % (Auto) Eos % (Auto) Baso % (Auto) Neut # (Auto) Lymph # (Auto) Whitley # (Auto) Eos # (Auto) Baso # (Auto) Immature Gran # (Auto) Sodium Potassium Chloride Carbon Dioxide Anion Gap BUN Creatinine Est Cr Clr Drug Dosing Est GFR ( Amer) Est GFR (Non-Af Amer) BUN/Creatinine Ratio Glucose Calcium Magnesium 1.5 L Total Bilirubin 0.5 AST 24 ALT < 3 L Alkaline Phosphatase 48 Troponin I High Sens B-Natriuretic Peptide 269 H Total Protein 6.0 Albumin 3.7 Globulin 2.3 L Albumin/Globulin Ratio 1.6 Triglycerides 55 Cholesterol 156 LDL Cholesterol, Calc 85 VLDL Cholesterol, Calc 11 HDL Cholesterol 60 Cholesterol/HDL Ratio 2.6 Lipase 256 H Free T4 1.68 H SARS-CoV-2, RNA, NAAT 07/24/22 07/24/22 07/24/22 00:00 01:25 07:20 WBC 5.34 RBC 3.32 L Hgb 10.8 L Hct 33.6 L MCV 101.2 H MCH 32.5 MCHC 32.1 RDW Std Deviation 46.7 H RDW Coeff of Louie 12.4 Plt Count 158 MPV 10.5 Immature Gran % (Auto) 0.2 Neut % (Auto) 45.9 Lymph % (Auto) 37.1 Whitley % (Auto) 14.4 Eos % (Auto) 1.7 Baso % (Auto) 0.7 Neut # (Auto) 2.45 Lymph # (Auto) 1.98 Whitley # (Auto) 0.77 Eos # (Auto) 0.09 Baso # (Auto) 0.04 Immature Gran # (Auto) 0.01 Sodium Potassium Chloride Carbon Dioxide Anion Gap BUN Creatinine Est Cr Clr Drug Dosing Est GFR ( Amer) Est GFR (Non-Af Amer) BUN/Creatinine Ratio Glucose Calcium Magnesium Total Bilirubin AST ALT Alkaline Phosphatase Troponin I High Sens 25.6 H B-Natriuretic Peptide Total Protein Albumin Globulin Albumin/Globulin Ratio Triglycerides Cholesterol LDL Cholesterol, Calc VLDL Cholesterol, Calc HDL Cholesterol Cholesterol/HDL Ratio Lipase Free T4 SARS-CoV-2, RNA, NAAT NEGATIVE 07/24/22 07:20 WBC RBC Hgb Hct MCV MCH MCHC RDW Std Deviation RDW Coeff of Louie Plt Count MPV Immature Gran % (Auto) Neut % (Auto) Lymph % (Auto) Whitley % (Auto) Eos % (Auto) Baso % (Auto) Neut # (Auto) Lymph # (Auto) Whitley # (Auto) Eos # (Auto) Baso # (Auto) Immature Gran # (Auto) Sodium 138 Potassium 4.1 D Chloride 104 Carbon Dioxide 31 Anion Gap 3 BUN 13 Creatinine 0.95 Est Cr Clr Drug Dosing 40.0 Est GFR ( Amer) 62.9 Est GFR (Non-Af Amer) 54.2 BUN/Creatinine Ratio 13.7 Glucose 84 Calcium 8.5 Magnesium 1.7 Total Bilirubin AST ALT Alkaline Phosphatase Troponin I High Sens B-Natriuretic Peptide Total Protein Albumin Globulin Albumin/Globulin Ratio Triglycerides Cholesterol LDL Cholesterol, Calc VLDL Cholesterol, Calc HDL Cholesterol Cholesterol/HDL Ratio Lipase Free T4 SARS-CoV-2, RNA, NAAT Diagnostic Findings Chest CTA 07/23/22 20:56 CHEST CTA for AORTIC DISSECTION CT DOSE: 721.88 mGy.cm HISTORY: chest pain into back TECHNIQUE: Multiaxial CT images of the chest were performed both before and after the intravenous administration of contrast to evaluate the aorta. Maximal intensity projection images were also obtained. A dose lowering technique was utilized adhering to the principles of ALARA. COMPARISON STUDY: Chest CTA 05/12/2017. FINDINGS: Noncontrast imaging through the chest shows no evidence for an in tramural hematoma within the thoracic aorta. There is moderate calcified plaque within the thoracic aorta. Stable 3.3 x 2.0 cm hypodense left paraspinal lesion at the T9-T10 level. There is an ectatic ascending thoracic aorta measuring up to 3.8 cm in diameter. No evidence for an aortic dissection. The heart is mildly enlarged. There are mild coronary artery calcifications. The main pulmonary kimi ry is dilated up to 3.4 cm consistent with pulmonary arterial hypertension. No filling defects within the central pulmonary arteries to suggest a pulmonary embolus. No pleural or pericardial effusions. No mediastinal or hilar lymphadenopathy. Normal esophagus. Limited views of the upper abdomen demonstrate a normal liver, spleen, and adrenal glands. Mild body wall edema. No acute fractures within the visualized osseous structures. No pneumothorax. The central airways are patent. Mild dependent changes seen within the lung bases. No focal lung consolidations to suggest pneumonia. Punctate calcified granuloma within the right upper lobe. IMPRESSION: 1. No evidence for an aortic dissection. 2. Pulmonary arterial hypertension. The central pulmonary arteries appear patent. 3. No focal lung consolidations to suggest pneumonia. 4. A stable 3.3 x 2.0 cm hypodense left paraspinal lesion. ACT 112: Negative or not required by law. Electronically signed by: Robinson Coon M.D. 07/24/2022 8:34 AM Venous Doppler Study 07/24/22 01:33 BILATERAL LOWER EXTREMITY VENOUS DOPPLER HISTORY: acute lower extremity edema, history of BC COMPARISON STUDY: None. FINDINGS: There is normal compressibility, flow, and augmentation within the bilateral lower extremity deep venous systems. IMPRESSION: No DVT within the right or left lower extremity. ACT 112: Negative or not required by law. Electronically signed by: Robinson Coon M.D. 07/24/2022 6:06 AM Abdomen/Pelvis CT 07/24/22 13:39 CT abd pelvis wo con CLINICAL HISTORY: ?pancreatitis; abd pain, elev lipase TECHNIQUE: Helical axial images of the abdomen and pelvis were obtained. Automated dose lowering techniques and/or adjustment according to patient size were utilized for this exam. This exam was performed without intravenous contrast. CT DOSE: 449.11 mGy.cm COMPARISON: Comparison is made to CT abdomen pelvis 06/01/2022 and CTA chest 917 FINDINGS: Lower chest: Atherosclerosis is seen in the coronary arteries. Liver: Unremarkable. No focal lesions are seen. Gallbladder and biliary tree: Patient is status post cholecystectomy. Physiologic prominence of the biliary ducts is noted. Pancreas: Unremarkable, no focal lesions. Spleen: Unremarkable. Adrenals: Thickening of the right greater than left adrenal glands is noted. Kidneys and ureters: Excretion of contrast is noted in the bilateral collecting systems. This may reflect prior IV contrast. Bladder: Limited evaluation due to underdistention. Reproductive organs: Patient is status post hysterectomy. Bowel: There is marked thickening of the distal rectum. There is a prominent stool ball in the rectum as well. Patient is status post colonic resection. A few diverticula are seen. Lymph nodes Retroperitoneal: Unremarkable. Pelvic: Unremarkable. Mesenteric: Unremarkable. Peritoneum: Normal. Vessels: Unremarkable. Abdominal wall: Bilateral fat-containing inguinal hernias are seen. Bones: Posterior fixation hardware is seen spanning L3-L5. Degenerative changes are seen in the skeleton. IMPRESSION: 1. No evidence of pancreatitis. 2. Prominent stool ball in the rectum with prominent rectal wall thickening, similar in appearance to prior exam. Recommend clinical correlation for stercoral colitis/proctitis. 3. Prior cholecystectomy. 4. Diverticulosis without diverticulitis. 5. Additional findings as above. ACT 112: Negative or not required by law. Electronically signed by: Jake Sandoavl M.D. 07/24/2022 2:53 PM PG Care Time/CCT Total # of Minutes Spent Total Time Spent with Patient: Total time spent is greater than 50% in coordination of care (as documented) at patient's floor/unit and/or counseling patient: Coding Level of Care Code 52234 Subseq Hosp Care Lvl 3 Diagnoses Fecal impaction K56.41 Stercoral colitis K52.89 Elevated lipase R74.8 Lower extremity edema R60.0 Chest pain R07.9 Aortic ectasia I77.819 Parkinsonism G20 Dementia F03.90 Chronic kidney disease, stage III (moderate) N18.3 Hypertension I10 Hypothyroidism E03.9 Breast cancer C50.919 Hypokalemia E87.6 Hypomagnesemia E83.42
[2022-07-25] MEDS: ACETAMINOPHEN 500 MG TAB PO SCH (05:55)
[2022-07-25 06:11] LABS: Basophils # (auto) 0.04 K/uL (0-0.2); Basophils % (auto) 0.7 %; Eosinophils % (auto) 1.8 %; Hematocrit (blood only) 33.3 % (34.1-44.9); Hemoglobin 10.8 g/dl (12.0-16.0); Immature Granulocytes # (auto) 0.03 K/uL (0.00-0.02); Immature Granulocytes % (auto) 0.5 %; Lymphocytes % (auto) 31.6 %; Mean Corpuscular Hemoglobin 32.4 pg (25.0-34.0); Mean Corpuscular Hgb Conc 32.4 g/dL (32.0-36.0); Mean Platelet Volume 10.7 fL (9.4-12.3); Monocytes # (auto) 0.82 K/uL (0.24-0.82); Monocytes % (auto) 14.4 %; Neutrophils # (auto) 2.91 K/uL (1.4-6.5); Platelet Count 163 K/uL (130-400); RDW Coefficient of Variation 12.2 % (11.5-14.5); Red Blood Count 3.33 M/uL (3.93-5.22)
[2022-07-25] MEDS ORDERED: LEVOTHYROXINE SODIUM 137 MCG TABLET PO SCH (06:30)
[2022-07-25 06:33] LABS: Albumin Globulin Ratio 1.6 (0.9-2); Albumin Level 3.1 gm/dl (3.4-5.0); BUN Creatinine Ratio 11.4 (10-20); Bilirubin,Total 0.8 mg/dl (0.2-1.0); Calcium 8.7 mg/dl (8.5-10.1); Creatinine Clr Calc Pharmacy 36.2 ml/min; Est GFR (African American) 55.7 ml/min; Est GFR (Non-African American) 48.1 ml/min; Globulin 1.9 gm/dl (2.5-4.0)
[2022-07-25] MEDS ORDERED: POTASSIUM CHLORIDE 10 MEQ TABCR PO SCH (09:00)
[2022-07-25] MEDS ORDERED: FUROSEMIDE 40 MG TAB PO SCH (09:00)
[2022-07-25 09:26] LABS: Appearance Urine Clear (Clear); Bilirubin Urine Negative (Negative); Blood Urine Negative (Negative); Color Urine Yellow; Glucose Urine UA Negative (Negative); Ketones Urine Negative (Negative); Leukocyte Esterase Urine Negative (Negative); Nitrite Urine Negative (Negative); Protein Urine Negative (Negative); Specific Gravity Urine 1.017 (1.000-1.030); Urobilinogen Urine Negative (Negative); pH Urine 7.5 (4.5-7.5)
[2022-07-25] MEDS: TAMOXIFEN CITRATE 10 MG TABLET PO SCH (09:29)
[2022-07-25] MEDS: CARBIDOPA/LEVODOPA 25/100MG TAB PO SCH (09:29)
[2022-07-25] MEDS: CITALOPRAM 20 MG TAB PO SCH (09:30)
[2022-07-25] MEDS: ASPIRIN 81 MG ECTAB PO SCH (09:30)
[2022-07-25] MEDS: ENOXAPARIN INJ 40 MG/0.4 ML SYR SQ SCH (09:36)
[2022-07-25] MEDS ORDERED: bisacodyL 5 MG TABEC PO ONE (12:48)
[2022-07-25] MEDS: POLYETHYLENE (MIRALAX) 17 GM PACK PO SCH ×4 (13:00→15:39)
--- NOTE | 2022-07-25 17:51 | Discharge Summary ---
Date of Service date of admission - July 24, 2022 date of discharge - July 25, 2022 Admission HPI Per Admitting Provider This is an 87-year-old female with history of CVA, dementia, anxiety, depression, CKD 3, carotid artery plaque, hyperlipidemia, hypertension, hypothyroidism, TIA, parkinsonism who presented to [facility] for evaluation of chest pain and leg swelling. Over the past 2 weeks, patient was noted to have incrementally increasing leg swelling. She was started on Lasix 20 mg initially, but because of worsening swelling, was increased to 40 mg. This is had minimal effect. Otherwise, she denies any other symptomsno paroxysmal nocturnal dyspnea, no orthopnea, no chest pain (except today), no palpitations, no changes in bowel movements. She denies any abdominal pain. No nausea or vomiting. No diarrhea. She has been taking her medications as prescribedthey were dispensed by her care team. Other than starting Sinemet 3 to 4 weeks ago, she denies any other changes in her medications. Medications reviewed and include Tylenol, aspirin, Sinemet, citalopram, Benadryl, Lasix, levothyroxine, melatonin, tamoxifen. Last TTE on 05/25: Normal left ventricular function without regional wall motion abnormalities, EF 55 to 60%, mild concentric LVH, mild aortic regurgitation, mild mitral regurgitation. On arrival in the emergency department, patient was found to have normal vital signs. Labs demonstrated macrocytic anemia at 11.8, mild hypokalemia 3.4, mild hypomagnesemia 1.5, high-sensitivity troponin 29, BNP 269, lipase 256, TSH 0.026, free T4 1.68. CTA of the chest, STAT-Rad: " Borderline a sending thoracic aortic aneurysm measuring 4X 4.1 cm without dissection. No acute airspace disease or effusions. Heart size is normal. Negative for CHF. Thoracic kyphotic deformity without acute fracture." Patient was given magn esium, Lasix 40mg IV, and KCl 40mEq. Principal Diagnosis 1. abdominal pain - likely due to severe constipation/fecal impaction/stercoral colitis 2. mildly elevated lipase - no clinical evidence of pancreatitis - etiology of lipase abnormality uncertain 3. LE edema - no evidence of CHF; likely due to venous insufficiency Discharge Exam gen - awake, alert, a little agitated - insisting on hospital discharge neck - no JVD mouth - MMM heart - RRR, s1 s2, no murmur lungs - CTA b/l, no rales, no wheezing abd - soft, NT, ND, BS+ ext - 1+ edema shins/ankles; pulses 2+ b/l; mild varicose veins skin - venous stasis changes b/l shins; venous ulceration right mid-morton (covered w/ optifoam); no cellulitis either morton neurology - mild tremors noted Discharge Data Allergies Allergy/AdvReac Type Severity Reaction Status Date / Time clarithromycin Allergy Intermediate RASH Verified 07/21/22 09:46 Penicillins Allergy Intermediate RASH Verified 07/21/22 09:46 shellfish derived Allergy Intermediate itch all Verified 07/21/22 09:46 over Fish Containing Products Allergy Unknown SEAFOOD, Verified 07/21/22 09:46 FISH propranolol Allergy Unknown dizziness Verified 07/21/22 09:46 Sulfa (Sulfonamide Allergy Unknown CAN'T Verified 07/21/22 09:46 Antibiotics) REMEMBER codeine AdvReac Intermediate NAUSEA/VOMI Verified 07/21/22 09:46 TING paroxetine [From Paxil] AdvReac Intermediate hallucinati Verified 07/21/22 09:46 ons levofloxacin [From Levaquin] AdvReac Unknown Unknown Verified 07/21/22 09:46 oxycodone AdvReac Unknown UNKN Verified 07/21/22 09:46 Consultations Physical therapy Ordered Studies Chest CTA 07/23/22 20:56 CHEST CTA for AORTIC DISSECTION CT DOSE: 721.88 mGy.cm HISTORY: chest pain into back TECHNIQUE: Multiaxial CT images of the chest were performed both before and after the intravenous administration of contrast to evaluate the aorta. Maximal intensity projection images were also obtained. A dose lowering technique was utilized adhering to the principles of ALARA. COMPARISON STUDY: Chest CTA 05/12/2017. FINDINGS: Noncontrast imaging through the chest shows no evidence for an intramural hematoma within the thoracic aorta. There is moderate calcified plaque within the thoracic aorta. Stable 3.3 x 2.0 cm hypodense left paraspinal lesion at the T9-T10 level. There is an ectatic ascending thoracic aorta measuring up to 3.8 cm in diameter. No evidence for an aortic dissection. The heart is mildly enlarged. There are mild coronary artery calcifications. The main pulmonary artery is dilated up to 3.4 cm consistent with pulmonary arterial hypertension. No filling defects within the central pulmonary arteries to suggest a pulmonary embolus. No pleural or pericardial effusions. No mediastinal or hilar lymphadenopathy. Normal esophagus. Limited views of the upper abdomen demonstrate a normal liver, spleen, and adrenal glands. Mild body wall edema. No acute fractures within the visualized osseous structures. No pneumothorax. The central airways are patent. Mild dependent changes seen within the lung bases. No focal lung consolidations to suggest pneumonia. Punctate calcified granuloma within the right upper lobe. IMPRESSION: 1. No evidence for an aortic dissection. 2. Pulmonary arterial hypertension. The central pulmonary arteries appear patent. 3. No focal lung consolidations to suggest pneumonia. 4. A stable 3.3 x 2.0 cm hypodense left paraspinal lesion. ACT 112: Negative or not required by law. Electronically signed by: Robinson Coon M.D. 07/24/2022 8:34 AM Venous Doppler Study 07/24/22 01:33 BILATERAL LOWER EXTREMITY VENOUS DOPPLER HISTORY: acute lower extremity edema, history of BC COMPARISON STUDY: None. FINDINGS: There is normal compressibility, flow, and augmentation within the bilateral lower extremity deep venous systems. IMPRESSION: No DVT within the right or left lower extremity. ACT 112: Negative or not required by law. Electronically signed by: Robinson Coon M.D. 07/24/2022 6:06 AM Abdomen/Pelvis CT 07/24/22 13:39 CT abd pelvis wo con CLINICAL HISTORY: ?pancreatitis; abd pain, elev lipase TECHNIQUE: Helical axial images of the abdomen and pelvis were obtained. Automated dose lowering techniques and/or adjustment according to patient size were utilized for this exam. This exam was performed without intravenous contrast. CT DOSE: 449.11 mGy.cm COMPARISON: Comparison is made to CT abdomen pelvis 06/01/2022 and CTA chest 917 FINDINGS: Lower chest: Atherosclerosis is seen in the coronary arteries. Liver: Unremarkable. No focal lesions are seen. Gallbladder and biliary tree: Patient is status post cholecystectomy. Physiologic prominence of the biliary ducts is noted. Pancreas: Unremarkable, no focal lesions. Spleen: Unremarkable. Adrenals: Thickening of the right greater than left adrenal glands is noted. Kidneys and ureters: Excretion of contrast is noted in the bilateral collecting systems. This may reflect prior IV contrast. Bladder: Limited evaluation due to underdistention. Reproductive organs: Patient is status post hysterectomy. Bowel: There is marked thickening of the distal rectum. There is a prominent stool ball in the rectum as well. Patient is status post colonic resection. A few diverticula are seen. Lymph nodes Retroperitoneal: Unremarkable. Pelvic: Unremarkable. Mesenteric: Unremarkable. Peritoneum: Normal. Vessels: Unremarkable. Abdominal wall: Bilateral fat-containing inguinal hernias are seen. Bones: Posterior fixation hardware is seen spanning L3-L5. Degenerative changes are seen in the skeleton. IMPRESSION: 1. No evidence of pancreatitis. 2. Prominent stool ball in the rectum with prominent rectal wall thickening, similar in appearance to prior exam. Recommend clinical correlation for stercoral colitis/proctitis. 3. Prior cholecystectomy. 4. Diverticulosis without diverticulitis. 5. Additional findings as above. ACT 112: Negative or not required by law. Electronically signed by: Jake Sandoval M.D. 07/24/2022 2:53 PM Hospital Course (1) Fecal impaction: The patient had presented with reports of "Chest pain" but patient stated that was not the case. The pain was actually abdominal pain. It was upper abdomen but [id number] it was not her chest. Due to the abdominal pain a CT of the abd/pelvis was obtained. SEVERE constipation with fecal impaction & evidence of stercoral colitis was seen. Despite mildly elevated lipase her pancreas appeared normal on CT. She had severe fecal impaction on CT in late May 2022 as well. She refused enemas for her impaction. She refused suppositories. Thus, gave a mini bowel prep with miralax along with other agents. I stopped her benadryl as this can contribute to constipation. She had MULTIPLE large bowel movements prior to discharge. She had no further complaints of abdominal pain. She did not complain to me of chest pain. I recommended a combination of miralax + senokot for bowel maintenance and to remain off benadryl if possible. (2) Stercoral colitis: We treated the fecal impaction as in #1 above. Antibiotics not indicated for this. (3) Elevated lipase: Lipase elevated to [address] a/p without pancreatic abnormalities. Uncertain significance of the high lipase. She does not have her gall bladder, and bile ducts are enlarged but this is expected in the post-cholecystectomy state. LFTs wnl. Repeat lipase hospital day #2 was normal. Repeat LFTs also normal on hospital day #2. Again no clinical evidence of acute pancreatitis while here. (4) Lower extremity edema: Echo from May 2022 with preserved EF of 55-60%. Mild pulmonary HTN but RV function wnl. No pulmonary edema on exam or by way of imaging. Albumin is wnl. Creatinine is wnl. u/a without proteinuria. I suspect the LE edema is 2nd to venous insufficiency. She does not fit a picture of decompensated CHF. LE venous duplex studies of both legs were negative for DVT. The brawny, hyperpigmented skin of the shins is c/w venous stasis changes. She received IV lasix twice during her brief stay. Can resume PO lasix at discharge. Strongly consider compression stockings. I discussed with her family that she can get a referral to [facility] to get fitted for the stockings. (5) Chest pain: Patient denied to me that she ever had chest pain. She consistently stated the pain was in the upper abdomen. [id number] she is not the best historian because of her dementia. Troponins were scantly high but her EKGs did not show ischemic changes. CTA chest without pathology. Doubt ACS. (6) Aortic ectasia: Ascending thoracic aortic aneurysm measuring 4 X 4.1 cm without dissection. As confirmed on CTA chest this admission. (7) Parkinsonism: Follows with Dr. Cresencio Broussard as an outpatient - last visit on 07/06/22, where she was restarted on Sinemet for her tremors. (8) Dementia: with probable superimposed encephalopathy - perhaps from fecal impaction. mental status seemed better by time of discharge. (9) Chronic kidney disease, stage III (moderate): CKD stage 3b - baseline CrCl 30-40. CrCl was 30s during the stay. (10) Hypertension: Not on medications for such. BPs all normal or low-normal while here. (11) Hypothyroidism: TSH is suppressed, FT4 is mildly high. This is suggestive of too much synthroid. Reduced levothyroxine dose to 137mcg daily. Repeat TSH in 6 weeks as outpatient. (12) Breast cancer: History of right-sided invasive lobular carcinoma, diagnosed 2020. Patient was reportedly not interested in surgery at that time. Previous imaging showed 1.4 cm right breast nodule. Continue tamoxifen. (13) Hypokalemia: replaced resolved due to ongoing lasix use as outpatient I recommended KCL 10meq po daily prescription given to her at discharge (14) Hypomagnesemia: replaced resolved due to ongoing lasix use as outpatient I recommended mag oxide 400mg daily prescription given to her at discharge (15) Paraspinal mass: Stable 3.3 x 2.0 cm hypodense left paraspinal lesion at the T9-T10 level. Seen this admission on CT imaging, and was seen in 2017 on imaging then as well. This suggests a stable, benign lesion. No Rx needed at this time. Plan seen by PT - cleared to return to her personal intermediate family updated at bedside prior to discharge Total Time Total Time Spent Total Time Spent (In Minutes): 50 Discharge Plan Discharge Items Patient Disposition: [facility] Reason For Visit: BILATERAL LOWER EXTREMITY EDEMA Discharge Diagnosis: 1. upper abdominal pain - resolved. Exact cause uncertain. Due to severe constipation? Other cause? Mildly elevated lipase level (pancreas test) at admission but pancreas normal on CT scan. 2. severe constipation - slowly improving. 3. hypothyroidism. 4. concern for ongoing depression. 5. low potasium and low magnesium from recent diuretic (furosemide) usage - supplements needed. Activity: Resume your previous activity Non-emergency contact: Primary Care Provider Call non-emergency contact if: you have any medication questions and your symptoms worsen Follow-up/Referrals: Dada Bernard MD [Physician] - (within 1 week ) [facility] [Primary Care Provider] - Diet: Heart Healthy Addtl Attending Provider Instructions: Milo Cantor were admitted to the hospital due to ongoing swelling/edema of both legs and upper abdominal pain that radiated into your back. We did not find congestive heart failure, heart attack, blood clots in your lungs, blood clots in your legs, pneumonia, urinary infection, liver cirrhosis, or other serious conditions. It is likely that your swelling in your legs is from something called "venous insufficiency." Please see handout that describes this in more detail. With respect to the abdominal pain - the exact cause was uncertain. CT scan of your abdomen/pelvis showed SEVERE constipation and impaction. We did not see gallstones in your bile ducts, tumors, pancreatitis, or other abnormalities except the severe constipation. Although your lipase test (pancreas test) was modestly elevated when you arrived you otherwise didn't show signs of pancreatitis. Your constipation was treated with multiple bowel agents and you did move your bowels well on 07/25/22. Recommendations - 1. Your thyroid levels suggest you are on a bit too much thyroid replacement hormone. Please LOWER your levothyroxine dose to 137mcg once daily. I sent this prescription to your pharmacy for you. You can start this tomorrow. 2. For your edema of your legs - * continue the furosemide water pill - take 40mg every morning * you need to take both a potassium and magnesium supplement because of the furosemide * I sent to your pharmacy prescriptions for both the potassium and magnesium; take each of them once daily; you can start these tomorrow 3. Venous insufficiency is best treated with compression stockings. When you see Dr Bernard please ask for a referral to the [facility] Department located at [facility]. They can custom fit the stockings for you. The stockings help keep the fluid out of your legs. 4. For constipation prevention & treatment - you likely need to take a combination of 2 things to keep your bowels regular. Ideally you are having a soft bowel movement at least every other day. Please take a combination of the following [id number] constipation aids on a daily basis - * miralax once daily * senokot 2 tabs daily If you find that you are going too frequently or the stools are too loose simply stop the senokot. 5. I would stop the benadryl at bedtime. This medication can make your constipation much worse. In its place simply take melatonin at bedtime. 6. Please talk to Dr Bernard about your mood and your depression. He can help you with this and adjust your antidepressant as needed. Follow-up - see Dr Bernard or one of his partners within 5-7 days Return to [facility] if - * you have shortness of breath * you have chest pains * you have recurrent abdominal pain * you have fevers over 100 degrees * any other concerns It was our pleasure caring for you at [facility], Dr Giles Pending Studies at Discharge: No Stand-Alone Forms: My [facility] ERUCES, Smoking Cessation Skilled Items Patient informed of condition?: Yes DNR: Yes Discharge Level of Care: Other Communicable Disease: No Discharge Prognosis: Stable Lines: None Urinary Catheter: No Medications and DC Order Prescriptions: New potassium chloride 10 mEq Tablet,Er Particles/Crystals 10 meq PO DAILY Qty: 30 1RF magnesium oxide 400 mg magnesium capsule 400 mg PO DAILY Qty: 30 1RF sennosides [Senokot] 8.6 mg tablet 17.2 mg PO DAILY Qty: 30 2RF Rx Instructions: purchase [id number] Continued hydrocortisone 2.5 % cream with perineal applicator 1 applic RI TID PRN (Reason: hemorrhoids) Qty: 30 2RF carbidopa-levodopa 25-100 mg tablet 1 tab PO BID Qty: 60 5RF Rx Instructions: Take one tab by mouth twice daily (DME) compression socks, large Misc See Rx Instructions .Route Qty: 6 0RF Rx Instructions: As directed (on in the morning/afternoon, to be removed in the evening) citalopram 10 mg tablet 10 mg PO DAILY Qty: 30 11RF aspirin 81 mg tablet,delayed release (DR/EC) 81 mg PO DAILY Qty: 30 11RF acetaminophen [Tylenol Extra Strength] 500 mg Tablet 1,000 mg PO AMPM tamoxifen 20 mg tablet 20 mg PO DAILY Changed furosemide 20 mg tablet 40 mg PO QAM Qty: 30 2RF levothyroxine 137 mcg capsule 137 mcg PO DAILY Qty: 30 5RF melatonin 3 mg tablet,disintegrating 3 mg PO HS Qty: 90 3RF Rx Instructions: Take in addition to Benadryl Discontinued diphenhydramine HCl [Benadryl Allergy] 25 mg Tablet 25 mg PO HS Discharge Orders: Discharge Order (Routine); Ordered 07/25/22 Ordered By: Dale Stallworth/Other Patient Handouts: CVI Admission Data Admit Date/Time: 07/24/22 01:05 Attending Provider: Dale Giles Admit Provider: Lemuel Carr Primary Care Provider: [facility] Other Interventions: Discharge Summary Assessment (RN) Last Done: 07/25/22 17:52 Coding Level of Care Code D/C DAY MANAGEMENT >30 MINS Diagnoses Fecal impaction K56.41 Stercoral colitis K52.89 Elevated lipase R74.8 Lower extremity edema R60.0 Chest pain R07.9 Aortic ectasia I77.819 Parkinsonism G20 Dementia F03.90 Chronic kidney disease, stage III (moderate) N18.3 Hypertension I10 Hypothyroidism E03.9 Breast cancer C50.919 Hypokalemia E87.6 Hypomagnesemia E83.42 Paraspinal mass R22.2
== END 2022-07-25 18:05 | disposition home or self-care (01) | DRG 300 ==
LOC: ED 19:58 → 3N 07-24 01:05 → SUATTDRO 07-24 01:05 → 3N 07-24 04:52

== ENCOUNTER 2024-04-18 09:13 | Inpatient (IN) ==
--- NOTE | 2024-04-18 09:29 | Emergency Department Note ---
Impression & Plan Weakness, Rhinovirus infection, Acute UTI, Hypokalemia ED Provider Note NAME: ADRIEL GIL AGE: 88 SEX: F : 1935 ARRIVES VIA: Walk-In INFORMANT: Patient, ED PROVIDER(S): Moiz Ballesteros MD CHIEF COMPLAINT: Outpatient referral, requesting admission for observation monitoring due to concern for aspiration and continued congestion MEDICAL DECISION MAKING: Patient presented due to concern for worsening congestion and was referred due to to wanting to have the patient admitted for observation and monitoring. IV was established and blood work was obtained along with a chest x-ray. Patient was ordered IV Rocephin as the patient had not taken her morning antibiotics for her UTI. Patient was also ordered IV steroids and breathing treatments as well as p.o. Zyrtec and nasal nasal saline sprays Patient blood work shows a normal white count mild anemia hemoglobin 11.8 with normal platelet count kidney function is unremarkable. Trace elevation of BSG at 106 but nonfasting and not DKA. Chest x-ray does not show obvious pneumonia or pneumothorax. I did speak with the patient's family who would like her admitted. Patient does have a history of dementia. I did have case management reach out to Jose who stated they could increase her level of care but as they [place] a [place] [facility] they do not have specific tear levels of care. I did [place] the on-call hospital service Hubert Donaldson PA-C and Dr. Chavez and the patient was admitted to the medicine service Discussion w/ other healthcare providers: ED case management Hubert Donaldson PA-C and Dr. Chavez Prior /Outside records reviewed: Reviewed a primary care visit from yesterday from Isa Castillo. The patient was seen for rhinovirus infection enterovirus and acute UTI. There was concern about worsening acute mental status change encephalopathy possible aspiration consider IV antibiotics and observation. Patient was seen in the emergency department for UTI symptoms and sinusitis at that time. Culture grew Proteus Mirabella's. Patient was discharged on cefdinir. Differential diagnosis: Infection, dehydration, metabolic abnormality, hypo/hyperglycemia, electrolyte imbalance, anemia, UTI, pneumonia, thyroid dysfunction among others were considered. Diagnostics, as interpreted by me: ECG: None Cardiac monitoring: An order was placed for continuous cardiac monitoring. The monitor shows a rate of 55 with sinus rhythm. Patient was placed on pulse oximetry Medical decision rules: None Imaging studies: I informally interpreted the patient's chest x-ray does not show obvious pneumonia or pneumothorax with formal report to follow. HPI: Patient presents due to concern for possible aspiration and wanting to be monitoring. Patient was seen by Dr. Mathews this morning is referred here for further evaluation and treatment. Patient does have a known history of dementia and most of the history is provided by daughters at bedside. The patient reportedly has had congestion which has not improved within the last 48 hours. Patient is on cefdinir has not taken anything for congestion. Patient currently does reside [facility]. Patient is not had any vomiting and no history of aspiration. The patient has been treating for a UTI. No reported falls or trauma. Patient is verbal and daughter states that she will talk to "like a component assembler supervisor." When asked the patient denies any head or neck pain no chest pain or shortness of breath no nausea or vomiting. Patient's daughter states that ever since she began taking the antibiotic she has had loose stools PAST MEDICAL HISTORY: See Below PAST SURGICAL HISTORY: See Below SOCIAL HISTORY: See Below HOME MEDICATIONS: See Below ALLERGIES: See Below VITALS: See Below PHYSICAL EXAMINATION: GENERAL: NAD, non-toxic. Kyphotic. EYE EXAM: Normal conjunctiva. PERRL, no anisocoria and EOM's grossly intact w/o pain. OROPHARYNX: Moist mucus membranes, grossly normal dentition. NECK: Trachea midline, no stridor. LUNGS: Clear to auscultation. Normal chest wall mechanics. HEART: NSR, no MRG. ABDOMEN: Abdomen soft, non-tender, no masses, no rebound or guarding. BACK: No CVA TTP. SKIN: No rashes and no bruising. UPPER EXTREMITIES: Upper extremities are grossly normal. LOWER EXTREMITIES: Grossly normal, bilateral lower extremity edema with associated wraps in place. NEURO EXAM: Awake and alert follows basic, cranial nerves II-XII grossly intact, normal speech, moves all 4 extremities. Past Med/Surg History Problem List (Updated 04/22/24 @ 08:49 by Moiz Ballesteros MD) Hypokalemia (Acute) Acute UTI (Acute) Weakness (Acute) Malnutrition Generalized weakness Rhinovirus infection (Acute) Enterovirus infection (Acute) Acute UTI (Acute) Hypothyroidism Left rib fracture (Acute 02/11/24) Venous ulcer of right leg Trouble swallowing Hypertension Dementia Breast cancer Fecal impaction COVID-19 (Acute) Venous stasis ulcers of both lower extremities (Acute) Lower extremity edema (Chronic) Open wound of right lower leg (Acute) Venous ulcer of left leg (Acute) Parkinsonism Spondylolisthesis of lumbar region Vitamin D deficiency (Acute) Ventral hernia (Acute) Urge incontinence of urine (Acute) Tremor (Acute) Transient ischemic attack (Acute) Sleep apnea (Acute) Spinal stenosis, lumbar (Acute 03/19/13) Osteoporosis, unspecified (Acute 03/19/13) Lumbar radiculopathy (Acute) Lumbago (Acute 03/19/13) Incisional hernia (Acute) Hyperlipidemia (Acute) Gait disturbance (Acute) Edema (Acute) Esophageal reflux (Acute 03/19/13) Diverticulitis of colon (Acute) Carotid artery plaque (Acute) Chronic sinusitis, unspecified (Acute 03/19/13) Anxiety (Acute) Depression Grief reaction Insomnia History of CVA (cerebrovascular accident) 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 Medical History Elevated brain natriuretic peptide (BNP) level Edema of both lower extremities Hypomagnesemia Hypokalemia Stercoral colitis Elevated lipase Aortic ectasia Chest pain Hypomagnesemia Elevated troponin CVA (cerebral vascular accident) History of basal cell carcinoma History of SCC (squamous cell carcinoma) of skin Chronic kidney disease, stage III (moderate) Grief reaction Unspecified hemorrhoids (03/19/13) Hypokalemia Altered mental status Adverse drug reaction ROSEMARIE (acute kidney injury) Surgical History History of inguinal hernia repair Hx of laparoscopy History of back surgery History of right knee surgery S/P removal of left ovary History of total abdominal hysterectomy History of lumbar laminectomy for spinal cord decompression History of repair of rectocele Hx of appendectomy Hx of cholecystectomy Family History Sister Lung cancer Father Colorectal cancer Myocardial infarction Brother Colorectal cancer Prostate cancer Mother Colorectal cancer Denies family history of Ovarian cancer Breast cancer Social History Smoking Status: Former smoker Tobacco Type: Cigarettes Age Started Using Tobacco: 18; Age Quit Using Tobacco: 19; packs per day: 0.5; Second Hand Exposure: No; Do You Dip or Chew Tobacco: No; Hx Alcohol Use: No Hx Substance Use: No Preferred Language: Malian Communication Ability: Impaired Visual Impairment: No Limitations Hearing Ability: Normal 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 Beliefs That Will Affect Care: None marital status: / Current Living Situation: [facility] current occupational status: retired current occupation: retired from career in [employer] Feels Safe at Home: Yes Childhood Exposure to Second-Hand Smoke: No Diet: regular caffeine: Yes (occasional diet pepsi) Dental Care, Regularly: No Physical Activity Frequency: Does not Exercise Seatbelt Use: always Sunscreen Use: No Assistive Devices: Walker Allergies Allergies Allergy/AdvReac Type Severity Reaction Status Date / Time clarithromycin Allergy Intermediate RASH Verified 04/18/24 08:17 Penicillins Allergy Intermediate RASH Verified 04/18/24 08:17 shellfish derived Allergy Intermediate itch all Verified 04/18/24 08:17 over cheese Allergy Unknown Unknown - Unverified 04/18/24 08:17 On Med list from [employer] Fish Containing Products Allergy Unknown SEAFOOD, Verified 04/18/24 08:17 FISH Sulfa (Sulfonamide Allergy Unknown CAN'T Verified 04/18/24 08:17 Antibiotics) REMEMBER codeine AdvReac Intermediate Hives Verified 04/18/24 08:17 paroxetine [From Paxil] AdvReac Intermediate hallucinati Verified 04/18/24 08:17 ons propranolol AdvReac Intermediate dizziness Verified 04/18/24 08:17 levofloxacin [From Levaquin] AdvReac Unknown Unknown Verified 04/18/24 08:17 NSAIDS (Non-Steroidal AdvReac Unknown Verified 04/18/24 08:17 Anti-Inflamma Home Meds Home Medications Medication Instructions Recorded Confirmed tamoxifen 20 mg tablet 20 mg PO QAM 09/29/21 04/18/24 artificial tears(hypromellose) 0.3 1 drp OPB HS dryness 02/11/24 04/18/24 % eye gel (GenTeal Tears Severe) aspirin 81 mg tablet,delayed 81 mg PO QAM 02/11/24 04/18/24 release carboxymethylcellulose sodium 0.25 1 drp OPB TID dryness 02/11/24 04/18/24 % eye drops (TheraTears) magnesium oxide 400 mg PO QAM 02/11/24 04/18/24 melatonin 5 mg capsule 5 mg PO HS 02/11/24 04/18/24 pantoprazole 40 mg tablet,delayed 40 mg PO DAILYBB 02/11/24 04/18/24 release potassium chloride 10 mEq 10 meq PO QAM 02/11/24 04/18/24 tablet,extended release(part/cryst) acetaminophen 500 mg tablet 1,000 mg PO BID PRN pain 04/16/24 04/18/24 (Tylenol Extra Strength) furosemide 40 mg tablet 40 mg PO DAILY 04/16/24 04/18/24 sennosides 8.6 mg tablet 17.2 mg PO QAM 04/16/24 04/18/24 levothyroxine 137 mcg tablet 137 mcg PO DAILY 04/18/24 04/18/24 olanzapine 2.5 mg tablet 2.5 mg PO HS 04/18/24 04/18/24 Previous Rx's Medication Instructions Recorded compression socks, large #6 ea 07/15/22 carbidopa ER 25 mg-levodopa 100 mg 1 tab PO TID #90 tabs 11/30/23 tablet,extended release diclofenac sodium 1 % topical gel 4 g topical QID #100 grams 04/04/24 (Voltaren Arthritis Pain) oxycodone 5 mg tablet 5 mg PO Q6H PRN pain #10 tabs 04/04/24 cefdinir 300 mg capsule 300 mg PO BID 5 days #10 caps 04/16/24 Results & Data (ED) Vital Signs Vital Signs - 24 hr 04/18/24 09:18 Temperature 37.4 C Temperature Source Temporal Artery Scan Pulse Rate 82 Respiratory Rate 18 Respiratory Effort / Characteristics Non-Labored Respiratory Depth Normal Blood Pressure 131/72 Blood Pressure Mean 91 Pulse Oximetry 94 Sepsis Recent Fever Within 48 Hours No Sepsis New/Unexplained Change in Mental Status No Sepsis Action Taken by Nursing No Action Required Home Medications Current Medication List: was personally reviewed by me Laboratory Data Attestation: I reviewed the patient's lab results. 04/22/24 07:18 04/22/24 07:18 Lab Results 04/18/24 Range/Units 09:45 WBC 10.38 (4.8-10.8) K/ul RBC 3.77 L (4.20-5.40) M/uL Hgb 11.8 L (12.0-16.0) g/dl Hct 36.1 L (37.0-47.0) % MCV 95.8 (80.0-100.0) fL MCH 31.3 (25.0-34.0) pg MCHC 32.7 (32.0-36.0) g/dL RDW Std Deviation 42.5 (36.4-46.3) fL RDW Coeff of Louie 12.1 (11.5-14.5) % Plt Count 216 (130-400) K/uL MPV 10.0 (9.4-12.4) fL Immature Gran % (Auto) 1.7 % Neut % (Auto) 77.1 % Lymph % (Auto) 11.1 % Alcorn % (Auto) 9.7 % Eos % (Auto) 0.1 % Baso % (Auto) 0.3 % Neut # (Auto) 8.00 H (1.40-6.50) K/uL Lymph # (Auto) 1.15 L (1.20-3.40) K/uL Alcorn # (Auto) 1.01 H (0.11-0.59) K/uL Eos # (Auto) 0.01 (0.00-0.50) K/uL Baso # (Auto) 0.03 (0.00-0.20) K/uL Immature Gran # (Auto) 0.18 (0.01-0.20) K/uL Sodium 138 (136-145) mmol/L Potassium 3.3 L (3.5-5.1) mmol/L Chloride 99 (98-107) mmol/L Carbon Dioxide 30 (21-32) mmol/L Anion Gap 9 (3-11) BUN 16 (6-23) mg/dl Creatinine 1.16 (0.6-1.2) mg/dl Est Cr Clr Drug Dosing Not Reportable Est GFR ( Amer) 49.0 ml/min Est GFR (Non-Af Amer) 42.3 ml/min BUN/Creatinine Ratio 13.8 (10-20) Glucose 106 H (70-99(Fasting)) mg/dl Calcium 8.9 (8.6-10.3) mg/dl Magnesium 1.7 (1.7-2.4) mg/dl Total Bilirubin 1.1 H (0.2-1.0) mg/dl AST 31 (13-39) U/L ALT 5 L (7-52) U/L Alkaline Phosphatase 51 (34-104) U/L Total Protein 7.3 (6.0-8.3) gm/dl Albumin 3.6 (3.4-5.0) gm/dl Globulin 3.7 (2.5-4.0) gm/dl Albumin/Globulin Ratio 1.0 (0.9-2) TSH 0.305 (0.300-4.500) uIu/ml Administered Medications Acetaminophen (Acetaminophen 325 Mg Tab) 650 mg PO Q4H PRN PRN Reason: headache, fever Stop: 05/21/24 10:41 Last Admin: 04/22/24 06:37 Dose: 650 mg Documented By: SYLVAIN Aspirin (Aspirin 81 Mg Ectab) 81 mg PO QAM [facility] Stop: 05/19/24 08:59 Last Admin: 04/22/24 08:27 Dose: 81 mg Documented By: Admin: 04/21/24 08:53 Dose: 81 mg Documented By: Admin: 04/20/24 08:13 Dose: 81 mg Documented By: Admin: 04/19/24 09:04 Dose: 81 mg Documented By: JERRY Carbidopa/Levodopa (Carbidopa/Levodopa 25/100mg Ext Rel Tab) 1 tab PO TID [facility] Stop: 05/18/24 20:59 Last Admin: 04/22/24 08:27 Dose: 1 tab Documented By: Admin: 04/21/24 20:26 Dose: 1 tab Documented By: Admin: 04/21/24 16:11 Dose: 1 tab Documented By: Admin: 04/21/24 08:53 Dose: 1 tab Documented By: Admin: 04/20/24 19:42 Dose: 1 tab Documented By: Admin: 04/20/24 13:49 Dose: 1 tab Documented By: Admin: 04/20/24 08:13 Dose: 1 tab Documented By: Admin: 04/19/24 21:45 Dose: 1 tab Documented By: Admin: 04/19/24 16:17 Dose: 1 tab Documented By: Admin: 04/19/24 16:17 Dose: Not Given Documented By: Admin: 04/18/24 20:42 Dose: 1 tab Documented By: KEVIN Cephalexin HCl (Cephalexin 500 Mg Cap) 500 mg PO BID ROSEMARY; Protocol Stop: 04/25/24 12:59 Last Admin: 04/22/24 08:27 Dose: 500 mg Documented By: Admin: 04/21/24 20:25 Dose: 500 mg Documented By: Admin: 04/21/24 08:53 Dose: 500 mg Documented By: Admin: 04/20/24 19:41 Dose: 500 mg Documented By: Admin: 04/20/24 13:45 Dose: 500 mg Documented By: JERRY Guaifenesin (Guaifenesin 600 Mg Tabcr) 600 mg PO Q12 [facility] Stop: 05/18/24 11:14 Last Admin: 04/22/24 08:26 Dose: 600 mg Documented By: Admin: 04/21/24 20:25 Dose: 600 mg Documented By: Admin: 04/21/24 08:54 Dose: 600 mg Documented By: Admin: 04/20/24 19:41 Dose: 600 mg Documented By: Admin: 04/20/24 08:13 Dose: 600 mg Documented By: Admin: 04/19/24 21:45 Dose: 600 mg Documented By: Admin: 04/19/24 09:04 Dose: 600 mg Documented By: Admin: 04/18/24 20:42 Dose: 600 mg Documented By: Admin: 04/18/24 11:26 Dose: 600 mg Documented By: HARRISON Heparin Sodium (Porcine) (Heparin Sod 5,000 Unit/0.5 Ml Vial) 5,000 units SQ Q12 [facility] Stop: 05/18/24 21:59 Last Admin: 04/22/24 08:26 Dose: 5,000 units Documented By: Admin: 04/21/24 20:26 Dose: 5,000 units Documented By: Admin: 04/21/24 08:54 Dose: 5,000 units Documented By: Admin: 04/20/24 19:41 Dose: 5,000 units Documented By: Admin: 04/20/24 08:13 Dose: 5,000 units Documented By: Admin: 04/19/24 21:45 Dose: 5,000 units Documented By: Admin: 04/19/24 09:05 Dose: 5,000 units Documented By: Admin: 04/19/24 03:53 Dose: 5,000 units Documented By: TROY Levothyroxine Sodium (Levothyroxine Sodium 137 Mcg Tablet) [facility]: 05/19/24 06:29 Last Admin: 04/22/24 06:37 Dose: 137 mcg Documented By: Admin: 04/21/24 05:54 Dose: 137 mcg Documented By: Admin: 04/20/24 04:56 Dose: 137 mcg Documented By: Admin: 04/19/24 05:57 Dose: 137 mcg Documented By: JOVANNY Melatonin (Melatonin 3 Mg Tab) 3 mg PO [facility] Stop: 05/18/24 20:59 Last Admin: 04/21/24 20:29 Dose: 3 mg Documented By: Admin: 04/20/24 19:40 Dose: 3 mg Documented By: Admin: 04/19/24 21:45 Dose: 3 mg Documented By: Admin: 04/18/24 20:21 Dose: Not Given Documented By: KEVIN Olanzapine (Olanzapine 2.5 Mg Tab) 2.5 mg PO [facility] Stop: 05/18/24 20:59 Last Admin: 04/21/24 20:26 Dose: 2.5 mg Documented By: Admin: 04/20/24 19:42 Dose: 2.5 mg Documented By: Admin: 04/19/24 21:45 Dose: 2.5 mg Documented By: Admin: 04/18/24 20:42 Dose: 2.5 mg Documented By: KEVIN Pantoprazole Sodium (Pantoprazole 40 Mg Tab) [facility] Stop: 05/19/24 06:29 Last Admin: 04/22/24 06:37 Dose: 40 mg Documented By: Admin: 04/21/24 05:54 Dose: 40 mg Documented By: Admin: 04/20/24 04:56 Dose: 40 mg Documented By: Admin: 04/19/24 05:57 Dose: 40 mg Documented By: JOVANNY Tamoxifen Citrate (Tamoxifen Citrate 10 Mg Tablet) 20 mg PO [facility] Stop: 05/19/24 08:59 Last Admin: 04/22/24 08:26 Dose: 20 mg Documented By: INDIO Co-signed By: STEVE Admin: 04/21/24 08:54 Dose: 20 mg Documented By: JERRY Co-signed By: RADHA Admin: 04/20/24 08:13 Dose: 20 mg Documented By: JERRY Co-signed By: JOVANA Admin: 04/19/24 09:04 Dose: 20 mg Documented By: JERRY Co-signed By: TMP Discontinued Medications Albuterol (Albut/Ipratrop 3mg/0.5mg Neb 3 Ml Vial) 3 ml NEB NOW STA; Protocol Stop: 04/18/24 09:42 Last Admin: 04/18/24 09:56 Dose: 3 ml Documented By: NARESH Cetirizine HCl (Cetirizine Hcl 10 Mg Tablet) 5 mg PO NOW ONE Stop: 04/18/24 09:43 Last Admin: 04/18/24 09:56 Dose: 5 mg Documented By: NARESH Ceftriaxone Sodium (Rocephin) 2,000 mg in 50 mls @ 100 mls/hr IV NOW STA Stop: 04/18/24 10:07 Last Infusion: 04/18/24 10:53 Dose: Infused Documented By: Admin: 04/18/24 09:56 Dose: 100 mls/hr Documented By: NARESH Potassium Chloride (K Boo / Wtr) 10 meq in 100 mls @ 100 mls/hr IV Q1H [facility] Stop: 04/18/24 13:59 Last Infusion: 04/18/24 15:21 Dose: Infused Documented By: Admin: 04/18/24 13:45 Dose: 100 mls/hr Documented By: Infusion: 04/18/24 13:40 Dose: Infused Documented By: Admin: 04/18/24 12:40 Dose: 100 mls/hr Documented By: Infusion: 04/18/24 12:40 Dose: Infused Documented By: Admin: 04/18/24 11:26 Dose: 100 mls/hr Documented By: HARRISON Magnesium Sulfate/Dextrose (Magnesium Sulfate / D5w) 1 gm in 100 mls @ 50 mls/hr IV Q2H [facility] Stop: 04/18/24 14:59 Last Infusion: 04/18/24 16:18 Dose: Infused Documented By: Admin: 04/18/24 13:32 Dose: 50 mls/hr Documented By: Infusion: 04/18/24 13:32 Dose: Infused Documented By: Admin: 04/18/24 11:26 Dose: 50 mls/hr Documented By: HARRISON Acetaminophen (Ofirmev) 1,000 mg in 100 mls @ 400 mls/hr IV Q8H PRN PRN Reason: headache,fever,or pain (1-4) Stop: 04/21/24 10:53 Last Infusion: 04/20/24 20:05 Dose: Infused Documented By: Admin: 04/20/24 19:49 Dose: 400 mls/hr Documented By: Infusion: 04/20/24 03:00 Dose: Infused Documented By: Admin: 04/20/24 02:38 Dose: 400 mls/hr Documented By: SYLVAIN Lactated Ringer's (Lr) 1,000 mls @ 80 mls/hr IV .[id number] [facility] Stop: 04/19/24 02:44 Last Infusion: 04/19/24 03:37 Dose: Infused Documented By: Admin: 04/18/24 15:18 Dose: 80 mls/hr Documented By: KEVIN Ceftriaxone Sodium (Rocephin) 2,000 mg in 50 mls @ 100 mls/hr IV Q24H [facility] Stop: 04/24/24 09:59 Last Infusion: 04/20/24 11:05 Dose: Infused Documented By: Admin: 04/20/24 10:04 Dose: 100 mls/hr Documented By: Infusion: 04/19/24 10:07 Dose: Infused Documented By: Admin: 04/19/24 09:04 Dose: 100 mls/hr Documented By: JERRY Methylprednisolone 40 mg/ (Syringe) 0.64 mls @ 1.5 mls/min IV Q12 [facility] Stop: 05/19/24 14:44 Last Admin: 04/20/24 08:12 Dose: 1.5 mls/min Documented By: Admin: 04/19/24 21:46 Dose: 1.5 mls/min Documented By: Admin: 04/19/24 16:18 Dose: 1.5 mls/min Documented By: JERRY Methylprednisolone (Methylprednisolone 125 Mg/2 Ml Vial) 60 mg IV NOW STA Stop: 04/18/24 09:42 Last Admin: 04/18/24 09:56 Dose: 60 mg Documented By: NARESH Sodium Chloride (Sodium Chloride 0.65% Na Soln 45 Ml ([place])) 2 sprays NA NOW ONE Stop: 04/18/24 09:42 Last Admin: 04/18/24 09:56 Dose: 2 sprays Documented By: NARESH Imaging Data Radiologist's Impression: Chest X-Ray 04/18/24 09:38 XR chest 1V portable CLINICAL HISTORY: weakness COMPARISON STUDY: Chest CT February 11, 2024. Chest radiograph April 16, 2024. FINDINGS: This exam is compromised given difficulty positioning. Hazy left basilar opacity likely reflects atelectasis. There is no pneumothorax or pleural effusion. No evidence for overt pulmonary edema. IMPRESSION: 1. Exam compromised given difficulty positioning. No definite acute findings. 2. Mild left basilar opacity favors atelectasis. ACT 112: Negative or not required by law. Electronically signed by: Ubaldo Benavidez M.D. 04/18/2024 10:16 AM Discharge Plan Visit Data Chief Complaint: Referred by Doctor Stated Complaint: RHINOVIRUS, UTI, CONGESTION, WEAKNESS ED Provider: Moiz Ballesteros Discharge Problem: Weakness, Rhinovirus infection, Acute UTI, Hypokalemia Patient Disposition: Admitted As Inpatient Discharge Instructions Interventions: ED Discharge Assessment Last Done: 04/19/24 06:28
[2024-04-18] MEDS: cefTRIAXone SODIUM 2,000 MG/50 ML BAG IV STA (09:56)
[2024-04-18] MEDS: SODIUM CHLORIDE 0.65% NA SOLN 45 ML (OCEAN) ONE (09:56)
[2024-04-18] MEDS: ALBUT/IPRATROP 3MG/0.5MG NEB 3 ML VIAL NEB STA (09:56)
[2024-04-18] MEDS: CETIRIZINE HCL 10 MG TABLET PO ONE (09:56)
[2024-04-18] MEDS: methylPREDNISolone 125 MG/2 ML VIAL IV STA (09:56)
[2024-04-18 10:05] LABS: Basophils # (auto) 0.03 K/uL (0.00-0.20); Basophils % (auto) 0.3 %; Eosinophils # (auto) 0.01 K/uL (0.00-0.50); Eosinophils % (auto) 0.1 %; Hematocrit (blood only) 36.1 % (37.0-47.0); Hemoglobin 11.8 g/dl (12.0-16.0); Immature Granulocytes # (auto) 0.18 K/uL (0.01-0.20); Immature Granulocytes % (auto) 1.7 %; Lymphocytes # (auto) 1.15 K/uL (1.20-3.40); Lymphocytes % (auto) 11.1 %; Mean Corpuscular Hemoglobin 31.3 pg (25.0-34.0); Mean Corpuscular Hgb Conc 32.7 g/dL (32.0-36.0); Mean Corpuscular Volume 95.8 fL (80.0-100.0); Monocytes # (auto) 1.01 K/uL (0.11-0.59); Monocytes % (auto) 9.7 %; Neutrophils % (auto) 77.1 %; Platelet Count 216 K/uL (130-400); RDW Coefficient of Variation 12.1 % (11.5-14.5); RDW Standard Deviation 42.5 fL (36.4-46.3); Red Blood Count 3.77 M/uL (4.20-5.40); White Blood Count 10.38 K/ul (4.8-10.8)
--- NOTE | 2024-04-18 10:17 | XRay Report ---
XR chest 1V portable CLINICAL HISTORY: weakness COMPARISON STUDY: Chest CT February 11, 2024. Chest radiograph April 16, 2024. FINDINGS: This exam is compromised given difficulty positioning. Hazy left basilar opacity likely ref lects atelectasis. There is no pneumothorax or pleural effusion. No evidence for overt pulmonary rosanna a. IMPRESSION: 1. Exam compromised given difficulty positioning. No definite acute findings. 2. Mild left basilar opacity favors atelectasis. ACT 112: Negative or not required by law. Electronically signed by: Ubaldo Benavidez M.D. 04/18/2024 10:16 AM
[2024-04-18 10:25] LABS: Alanine Aminotransferase 5 U/L (7-52); Albumin Level 3.6 gm/dl (3.4-5.0); Alkaline Phosphatase 51 U/L (34-104); Anion Gap 9 (3-11); Aspartate Aminotransferase 31 U/L (13-39); BUN Creatinine Ratio 13.8 (10-20); Bilirubin,Total 1.1 mg/dl (0.2-1.0); Blood Urea Nitrogen 16 mg/dl (6-23); Calcium 8.9 mg/dl (8.6-10.3); Carbon Dioxide 30 mmol/L (21-32); Chloride 99 mmol/L (98-107); Est GFR (Non-African American) 42.3 ml/min; Globulin 3.7 gm/dl (2.5-4.0); Glucose 106 mg/dl (70-99(Fasting)); Magnesium 1.7 mg/dl (1.7-2.4); Potassium 3.3 mmol/L (3.5-5.1); Sodium 138 mmol/L (136-145); Total Protein 7.3 gm/dl (6.0-8.3)
[2024-04-18 10:40] LABS: Thyroid Stimulating Hormone 0.305 uIu/ml (0.300-4.500)
--- NOTE | 2024-04-18 10:51 | History & Physical Report ---
Date of Service April 18, 2024 Assessment & Plan (1) Generalized weakness: Plan: Admit to med/telemetry on pulse oximetry Currently hemodynamically stable, stable on room air, but significantly weak Was initially diagnosed with UTI and rhinovirus on 04/16/2024 Was started on cefdinir and has been living at [facility] Patient has had ongoing clinical decline, significant concern for possible aspiration from family and staff at [facility] Will wait for med rec to be completed but it appears that the patient has recently been prescribed as needed Xanax and at bedtime Remeron within the past 2 to 3 months Would try to avoid as needed Xanax as this could significantly increase her fatigue/weakness during the day Could consider continuing at bedtime Remeron if she is having difficulty sleeping throughout the night Family feels patient needs higher level of care which will require admission and evaluation by PT/OT Patient noted to have potassium of 3.3 today, this could also be contributing to her weakness along with her acute infections PT/OT consults have been placed Aspiration/fall precautions Will have her nurse perform a dysphagia screen, if she fails we will consult speech for further assessment Bilateral LEA stockings for DVT prophylaxis AM CBC, BMP, mag, PT/INR (2) Rhinovirus infection: Plan: Chest x-ray negative for pneumonia today Initially tested positive on 04/16/2024 Currently stable on room air Supportive treatment at this time with incentive spirometry, flutter therapy, every 4 hours as needed albuterol nebulizer treatments Start every 12 hours guaifenesin As needed O2 to keep SpO2 at or above 90% (3) Acute UTI: Plan: Initially diagnosed with UTI on 09/29 Started on cefdinir at the time of UTI diagnosis Urine cultures from 04/16/2024 have grown pansensitive Proteus Mirabilis Patient was given a dose of ceftriaxone in the ED prior to admission For now we will continue with IV ceftriaxone with her increased aspiration risk at this time (4) Hypokalemia: Plan: Potassium noted to be 3.3 today Magnesium level of 1.7 Will order 10 mEq IV KCl x 3 bags and 1 g IV mag sulfate x 2 bags on admission Will hold oral potassium for now with her aspiration risk May require additional IV doses of potassium Monitor daily renal function and electrolytes (5) Venous ulcer of right leg: Plan: Patient's daughter explains that the patient is followed at the wound care clinic outpatient for chronic venous stasis ulcers on the bilateral posterior calves Patient was last seen in the wound care clinic last week, no concerns for infection at that time Will consult wound care nurse to follow-up patient is admitted Will place orders to have bilateral lower extremities elevated, heel precaut ions, and bilateral LEA stockings (6) Hypothyroidism: Plan: Continue levothyroxine (7) Dementia: Plan: Fall/aspiration precautions have been ordered PT/OT consults Patient will likely need admission to SNF for higher level of care at time of discharge (8) Parkinsonism: Plan: Continue carbidopalevodopa (9) Esophageal reflux: Plan: Continue PPI Plan the patient was discussed with Dr. Chavez at the time of the admission History of Present Illness Chief Complaint: Generalized weakness, concern for aspiration, needs placement Primary Care Provider: DO Kirti Delacruz is an 88-year-old female with a past medical history significant for dementia, hypothyroidism, parkinsonism, TIA, SONIA who presented to the [facility] ED on 04/18/2024 at the at the recommendation of her PCP due to concerns for aspiration pneumonia and clinical decline with a recent diagnosis of a UTI and rhinovirus infection. She remained stable while in the ED. Labs were significant for a potassium of 3.3, magnesium 1.7, but were otherwise unremarkable. Chest x-ray was read as no definite acute findings, with mild left basilar opacity which was favoring atelectasis. The ED spoke with Jose monroy and family regarding disposition, at this time family would like the patient to be admitted as they are interested in SNF placement. Prior to admission the patient was given 60 mg IV Solu-Medrol, a dose of ceftriaxone, and albuterol nebulizer treatment, 5 mg p.o. cetirizine, and sodium chloride nasal spray. Per chart review, the patient was seen in the [facility] ED on 04/16/2024 and was diagnosed with a UTI and found to be rhinovirus positive. She was started on cefdinir for her UTI. Urine cultures from 04/16/2024 have grown pansensitive Proteus Mirabilis. Patient was sitting in bed in no acute distress at the time exam with her daughter bedside. History was obtained from the patient's daughter due to the patient's history of dementia. Her daughter explains that the patient's dementia prevents her from being an accurate historian. Patient's daughter confirms the above history, states that her mother has had significant clinical decline over the past 3 weeks. They agree that she needs increased care compared to what she is currently receiving at [facility] and is interested in her mother being placed in a facility with higher level of care at the time of discharge. When asked, patient says she feels lousy, she does feel as though the breathing treatment helped her respiratory symptoms. I confirmed with the daughter that the patient is a DNR/DNI and the patient's daughter, Nilsa, is her POA. Please refer to Dr. Chavez's attestation for any changes to the treatment plan. Allergies Allergy/AdvReac Type Severity Reaction Status Date / Time clarithromycin Allergy Intermediate RASH Verified 04/18/24 08:17 Penicillins Allergy Intermediate RASH Verified 04/18/24 08:17 shellfish derived Allergy Intermediate itch all Verified 04/18/24 08:17 over cheese Allergy Unknown Unknown - Unverified 04/18/24 08:17 On Med list from [facility] Fish Containing Products Allergy Unknown SEAFOOD, Verified 04/18/24 08:17 FISH Sulfa (Sulfonamide Allergy Unknown CAN'T Verified 04/18/24 08:17 Antibiotics) REMEMBER codeine AdvReac Intermediate Hives Verified 04/18/24 08:17 paroxetine [From Paxil] AdvReac Intermediate hallucinati Verified 04/18/24 08:17 ons propranolol AdvReac Intermediate dizziness Verified 04/18/24 08:17 levofloxacin [From Levaquin] AdvReac Unknown Unknown Verified 04/18/24 08:17 NSAIDS (Non-Steroidal AdvReac Unknown Verified 04/18/24 08:17 Anti-Inflamma Home Medications Medication Instructions Recorded Confirmed Type tamoxifen 20 mg tablet 20 mg PO QAM 09/29/21 04/18/24 History compression socks, large #6 ea 07/15/22 04/18/24 Rx carbidopa ER 25 mg-levodopa 100 mg 1 tab PO TID #90 tabs 11/30/23 04/18/24 Rx tablet,extended release artificial tears(hypromellose) 0.3 1 drp OPB HS dryness 02/11/24 04/18/24 History % eye gel (GenTeal Tears Severe) aspirin 81 mg tablet,delayed 81 mg PO QAM 02/11/24 04/18/24 History release carboxymethylcellulose sodium 0.25 1 drp OPB TID dryness 02/11/24 04/18/24 History % eye drops (TheraTears) magnesium oxide 400 mg PO QAM 02/11/24 04/18/24 History melatonin 5 mg capsule 5 mg PO HS 02/11/24 04/18/24 History pantoprazole 40 mg tablet,delayed 40 mg PO DAILYBB 02/11/24 04/18/24 History release potassium chloride 10 mEq 10 meq PO QAM 02/11/24 04/18/24 History tablet,extended release(part/cryst) diclofenac sodium 1 % topical gel 4 g topical QID #100 grams 04/04/24 04/18/24 Rx (Voltaren Arthritis Pain) oxycodone 5 mg tablet 5 mg PO Q6H PRN pain #10 tabs 04/04/24 04/18/24 Rx acetaminophen 500 mg tablet 1,000 mg PO BID PRN pain 04/16/24 04/18/24 History (Tylenol Extra Strength) cefdinir 300 mg capsule 300 mg PO BID 5 days #10 caps 04/16/24 04/18/24 Rx furosemide 40 mg tablet 40 mg PO DAILY 04/16/24 04/18/24 History sennosides 8.6 mg tablet 17.2 mg PO QAM 04/16/24 04/18/24 History levothyroxine 137 mcg tablet 137 mcg PO DAILY 04/18/24 04/18/24 History olanzapine 2.5 mg tablet 2.5 mg PO HS 04/18/24 04/18/24 History Past Med/Surg History Problem List (Updated 04/18/24 @ 11:19 by Hubert Donaldson PA-C) Generalized weakness Rhinovirus infection (Acute) Enterovirus infection (Acute) Acute UTI (Acute) Hypothyroidism Left rib fracture (Acute 02/11/24) Venous ulcer of right leg Trouble swallowing Hypertension Dementia Breast cancer Fecal impaction COVID-19 (Acute) Venous stasis ulcers of both lower extremities (Acute) Lower extremity edema (Chronic) Open wound of right lower leg (Acute) Venous ulcer of left leg (Acute) Parkinsonism Spondylolisthesis of lumbar region Vitamin D deficiency (Acute) Ventral hernia (Acute) Urge incontinence of urine (Acute) Tremor (Acute) Transient ischemic attack (Acute) Sleep apnea (Acute) Spinal stenosis, lumbar (Acute 03/19/13) Osteoporosis, unspecified (Acute 03/19/13) Lumbar radiculopathy (Acute) Lumbago (Acute 03/19/13) Incisional hernia (Acute) Hyperlipidemia (Acute) Gait disturbance (Acute) Edema (Acute) Esophageal reflux (Acute 03/19/13) Diverticulitis of colon (Acute) Carotid artery plaque (Acute) Chronic sinusitis, unspecified (Acute 03/19/13) Anxiety (Acute) Depression Grief reaction Insomnia History of CVA (cerebrovascular accident) 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 Medical History Elevated brain natriuretic peptide (BNP) level Edema of both lower extremities Hypomagnesemia Hypokalemia Stercoral colitis Elevated lipase Aortic ectasia Chest pain Hypomagnesemia Elevated troponin CVA (cerebral vascular accident) History of basal cell carcinoma History of SCC (squamous cell carcinoma) of skin Chronic kidney disease, stage III (moderate) Grief reaction Unspecified hemorrhoids (03/19/13) Hypokalemia Altered mental status Adverse drug reaction ROSEMARIE (acute kidney injury) Surgical History History of inguinal hernia repair Hx of laparoscopy History of back surgery History of right knee surgery S/P removal of left ovary History of total abdominal hysterectomy History of lumbar laminectomy for spinal cord decompression History of repair of rectocele Hx of appendectomy Hx of cholecystectomy Family History Sister Lung cancer Father Colorectal cancer Myocardial infarction Brother Colorectal cancer Prostate cancer Mother Colorectal cancer Denies family history of Ovarian cancer Breast cancer Social History Smoking Status: Former smoker Tobacco Type: Cigarettes Age Started Using Tobacco: 18; Age Quit Using Tobacco: 19; packs per day: 0.5; Second Hand Exposure: No; Do You Dip or Chew Tobacco: No; Hx Alcohol Use: No Hx Substance Use: No Preferred Language: Serbian Communication Ability: Impaired Visual Impairment: No Limitations Hearing Ability: Normal Solder Sprayer Required: No Beliefs That Will Affect Care: None marital status: / Current Living Situation: Alf current occupational status: retired current occupation: retired from career in [employer] Feels Safe at Home: Yes Childhood Exposure to Second-Hand Smoke: No Diet: regular caffeine: Yes (occasional diet pepsi) Dental Care, Regularly: No Physical Activity Frequency: Does not Exercise Seatbelt Use: always Sunscreen Use: No Assistive Devices: Denture - Upper, Denture - Lower, Glasses and Walker Physical Exam Physical Exam: Physical Exam: General: In no acute distress, stated age, ill appearing but non-toxic HEENT: Normocephalic, atraumatic, no scleral icterus, pupils around round, symmetrical, and reactive to light, moist mucus membranes, trachea midline, no thyromegaly Chest/Pulm: No respiratory distress, symmetrical chest expansion, scattered expiratory wheezing Cardiac: RRR, no murmurs noted Abdomen: Negative for ascites and bruising, normoactive bowel sounds, soft, non-tender to palpation throughout Musculoskeletal: No acute trauma on exam. Patent with significant Kyphosis of her thoracic spine Extremities: Radial, dorsalis pedis, and posterior tibial pulses are intact and symmetrical, BL LE's currently wrapped due to chronic swelling Skin: Warm, dry, no Jaundice noted Neuro: Baseline tremor noted, patient oriented to self only (is her bas bao), no focal neuro defects Psych: No acute distress, calm and cooperative during the exam Results & Data Results & Data Vital Signs (Past 12 Hours) Vital Signs Temp Pulse Resp BP Pulse Ox O2 Del Method 04/18/24 10:12 79 04/18/24 09:44 80 20 93 Room Air 04/18/24 09:18 37.4 C 82 18 131/72 94 Laboratory Results Abnormal lab results 04/18/24 Range/Units 09:45 RBC 3.77 L (4.20-5.40) M/uL Hgb 11.8 L (12.0-16.0) g/dl Hct 36.1 L (37.0-47.0) % Neut # (Auto) 8.00 H (1.40-6.50) K/uL Lymph # (Auto) 1.15 L (1.20-3.40) K/uL Emanuel # (Auto) 1.01 H (0.11-0.59) K/uL Potassium 3.3 L (3.5-5.1) mmol/L Glucose 106 H (70-99(Fasting)) mg/dl Total Bilirubin 1.1 H (0.2-1.0) mg/dl ALT 5 L (7-52) U/L Diagnostic Findings Chest X-Ray 04/18/24 09:38 XR chest 1V portable CLINICAL HISTORY: weakness COMPARISON STUDY: Chest CT February 11, 2024. Chest radiograph April 16, 2024. FINDINGS: This exam is compromised given difficulty positioning. Hazy left basilar opacity likely reflects atelectasis. There is no pneumothorax or pleural effusion. No evidence for overt pulmonary edema. IMPRESSION: 1. Exam compromised given difficulty positioning. No definite acute findings. 2. Mild left basilar opacity favors atelectasis. ACT 112: Negative or not required by law. Electronically signed by: Ubaldo Benavidez M.D. 04/18/2024 10:16 AM ECG Additional Comments: Wide QRS rhythm Right bundle branch block Abnormal ECG When compared with ECG of 16-APR-2024 16:44, Wide QRS rhythm has replaced Sinus rhythm Code Status & VTE Plan Code Status DNR/DNI VTE Prophylaxis Plan VTE Prophylaxis will be ordered: Yes Supervising Physician Co-Signing Physician Notes I personally saw and examined the patient. I verified all duong points and agree with Hubert Donaldson PA-C with the following exceptions and/or additions: 88 year old female presents to the ER with generalized weakness. Unable to get any history from patient due to dementia but she denies any pain. O/E Alert but orientated to name only, HS RRR, no murmurs, Chest CTAB, Abdo SNT, no CVA tenderness, moving all 4 extremities but no following commands well A/P UTI - switch cefdinir for ceftriaxone Rhinovirus - symptomatic care only Venous ulcers - not inspected on admission as recently wrapped, wound care to see tomorrow, no over cellulitis outside of wrapping and no fever and already on ceftriaxone for UTI PG Care Time/CCT Total # of Minutes Spent Total Time Spent with Patient: Total time spent is greater than 50% in coordination of care (as documented) at patient's floor/unit and/or counseling patient: Coding [place] [address] INT INP/OBS CARE 2/55MIN Patient Type Established Medical Decision Making Moderate Complexity Diagnoses Generalized weakness R53.1 Rhinovirus infection B34.8 Acute UTI N39.0 Hypokalemia E87.6 Venous ulcer of right leg I83.019; L97.919 Hypothyroidism E03.9 Dementia F03.90 Parkinsonism G20 Esophageal reflux K21.9
[2024-04-18] MEDS ORDERED: ALBUTEROL 0.5% NEB SOLN 2.5 MG/0.5 ML VIAL NEB PRN (10:53)
[2024-04-18] MEDS: MAGNESIUM SULFATE / D5W 1 GM/100 ML BAG IV SCH (11:26)
[2024-04-18] MEDS: POTASSIUM CHLORIDE / WTR 10 MEQ/100 ML PLCT IV SCH (11:26)
[2024-04-18] MEDS: guaiFENesin 600 MG TABCR PO SCH (11:26)
[2024-04-18] MEDS: LACTATED RINGER'S 1,000 ML IV SCH (15:18)
--- NOTE | 2024-04-18 17:45 | Electrocardiogram Report ---
Test Reason : Blood Pressure : / mmHG Vent. Rate : 079 BPM Atrial Rate : 000 BPM P-R Int : 000 ms QRS Dur : 132 ms QT Int : 450 ms P-R-T Axes : 000 014 007 degrees QTc Int : 516 ms Sinus rhythm Right bundle branch block Abnormal ECG Confirmed by Dada Mcgraw ([id number]) on 04/18/2024 5:45:12 PM Referred By: Pam Vega Confirmed By:Jerry Mcgraw
[2024-04-18] MEDS: MELATONIN 3 MG TAB PO SCH (20:21)
[2024-04-18] MEDS: CARBIDOPA/LEVODOPA 25/100MG EXT REL TAB PO SCH (20:42)
[2024-04-18] MEDS: OLANZAPINE 2.5 MG TAB PO SCH (20:42)
[2024-04-19] MEDS: HEPARIN SOD 5,000 UNIT/0.5 ML VIAL SQ SCH (03:53)
[2024-04-19] MEDS: PANTOprazole 40 MG TAB PO SCH (05:57)
[2024-04-19] MEDS: LEVOTHYROXINE SODIUM 137 MCG TABLET PO SCH (05:57)
[2024-04-19] MEDS: TAMOXIFEN CITRATE 10 MG TABLET PO SCH (09:04)
[2024-04-19] MEDS: cefTRIAXone SODIUM 2,000 MG/50 ML BAG IV SCH (09:04)
[2024-04-19] MEDS: ASPIRIN 81 MG ECTAB PO SCH (09:04)
[2024-04-19 11:11] LABS: Basophils # (auto) 0.01 K/uL (0.00-0.20); Basophils % (auto) 0.1 %; Hematocrit (blood only) 32.9 % (37.0-47.0); Hemoglobin 11.4 g/dl (12.0-16.0); Immature Granulocytes # (auto) 0.09 K/uL (0.01-0.20); Immature Granulocytes % (auto) 0.9 %; Lymphocytes # (auto) 1.17 K/uL (1.20-3.40); Lymphocytes % (auto) 11.6 %; Mean Corpuscular Hemoglobin 31.9 pg (25.0-34.0); Mean Corpuscular Hgb Conc 34.7 g/dL (32.0-36.0); Mean Corpuscular Volume 92.2 fL (80.0-100.0); Mean Platelet Volume 10.2 fL (9.4-12.4); Monocytes # (auto) 0.97 K/uL (0.11-0.59); Monocytes % (auto) 9.7 %; Neutrophils # (auto) 7.81 K/uL (1.40-6.50); Neutrophils % (auto) 77.7 %; Platelet Count 228 K/uL (130-400); RDW Coefficient of Variation 11.5 % (11.5-14.5); Red Blood Count 3.57 M/uL (4.20-5.40); White Blood Count 10.05 K/ul (4.8-10.8)
[2024-04-19 11:28] LABS: BUN Creatinine Ratio 24.3 (10-20); Calcium 8.7 mg/dl (8.6-10.3); Creatinine Clr Calc Pharmacy 35.6 ml/min; Est GFR (African American) 51.7 ml/min; Est GFR (Non-African American) 44.6 ml/min; Magnesium 2.1 mg/dl (1.7-2.4); Potassium 3.7 mmol/L (3.5-5.1)
[2024-04-19 11:40] LABS: Prothrombin Time 11.3 Seconds (9.0-12.0)
--- NOTE | 2024-04-19 13:08 | Electrocardiogram Report ---
Test Reason : Blood Pressure : / mmHG Vent. Rate : 046 BPM Atrial Rate : 046 BPM P-R Int : 130 ms QRS Dur : 136 ms QT Int : 540 ms P-R-T Axes : 058 -04 010 degrees QTc Int : 472 ms Sinus bradycardia Right bundle branch block Abnormal ECG Confirmed by Dada Mcgraw ([id number]) on 04/19/2024 1:07:52 PM Referred By: Pam Vega Confirmed By:Jerry Mcgraw
--- NOTE | 2024-04-19 15:20 | Hospitalist Progress Note ---
Date of Service April 19, 2024 Assessment & Plan (1) Generalized weakness: Plan: Admit to med/telemetry on pulse oximetry Currently hemodynamically stable, stable on room air, but significantly weak Was initially diagnosed with UTI and rhinovirus on 04/16/2024 Was started on cefdinir and has been living at [facility] Patient has had ongoing clinical decline, significant concern for possible aspiration from family and staff at [facility] Will wait for med rec to be completed but it appears that the patient has recently been prescribed as needed Xanax and at bedtime Remeron within the past 2 to 3 months Would try to avoid as needed Xanax as this could significantly increase her fatigue/weakness during the day Could consider continuing at bedtime Remeron if she is having difficulty sleeping throughout the night Family feels patient needs higher level of care which will require admission and evaluation by PT/OT Patient noted to have potassium of 3.3 today, this could also be contributing to her weakness along with her acute infections PT/OT consults have been placed Aspiration/fall precautions Will have her nurse perform a dysphagia screen, if she fails we will consult speech for further assessment Bilateral LEA stockings for DVT prophylaxis AM CBC, BMP, mag, PT/INR (2) Rhinovirus infection: Plan: Chest x-ray negative for pneumonia today Initially tested positive on 04/16/2024 Currently stable on room air Supportive treatment at this time with incentive spirometry, flutter therapy, every 4 hours as needed albuterol nebulizer treatments Start every 12 hours guaifenesin As needed O2 to keep SpO2 at or above 90% (3) Acute UTI: Plan: Initially diagnosed with UTI on 09/29 Started on cefdinir at the time of UTI diagnosis Urine cultures from 04/16/2024 have grown pansensitive Proteus Mirabilis Patient was given a dose of ceftriaxone in the ED prior to admission For now we will continue with IV ceftriaxone with her increased aspiration risk at this time (4) Hypokalemia: Plan: Potassium noted to be 3.3 today Magnesium level of 1.7 Will order 10 mEq IV KCl x 3 bags and 1 g IV mag sulfate x 2 bags on admission Will hold oral potassium for now with her aspiration risk May require additional IV doses of potassium Monitor daily renal function and electrolytes (5) Venous ulcer of right leg: Plan: Patient's daughter explains that the patient is followed at the wound care clinic outpatient for chronic venous stasis ulcers on the bilateral posterior calves Patient was last seen in the wound care clinic last week, no concerns for infection at that time Will consult wound care nurse to follow-up patient is admitted Will place orders to have bilateral lower extremities elevated, heel precaut ions, and bilateral LEA stockings (6) Hypothyroidism: Plan: Continue levothyroxine (7) Dementia: Plan: Fall/aspiration precautions have been ordered PT/OT consults Patient will likely need admission to SNF for higher level of care at time of discharge (8) Parkinsonism: Plan: Continue carbidopalevodopa (9) Esophageal reflux: Plan: Continue PPI Plan the patient was discussed with Dr. Chavez at the time of the admission Admission and Anticipated Discharge Date Admission Date: April 18, 2024 Subjective reports cough, poor appetite Review of Systems Review of Systems: All systems reviewed & are unremarkable except as noted in Subjective Physical Exam Physical Exam: head atraumatic neck supple chest decreased breath sounds at bases heart S1S2 regular abdomen soft, nt, nd, bs extremities no edema neuro AA Results & Data Results & Data Vital Signs (Past 12 Hours) Vital Signs Temp Pulse Pulse Pulse Resp BP Pulse Ox 04/19/24 15:13 36.5 C 60 16 108/51 L 91 04/19/24 11:59 36.7 C 60 16 100/52 L 98 04/19/24 07:54 36.7 C 66 16 101/50 L 92 04/19/24 07:19 42 L 04/19/24 04:30 04/19/24 04:23 36.4 C L 49 L 18 108/65 93 04/19/24 04:20 46 L O2 Del Method 04/19/24 15:13 Room Air 04/19/24 11:59 Room Air 04/19/24 07:54 Room Air 04/19/24 07:19 04/19/24 04:30 Room Air 04/19/24 04:23 Room Air 04/19/24 04:20 PG Care Time/CCT Total # of Minutes Spent Total Time Spent with Patient: Total time spent is greater than 50% in coordination of care (as documented) at patient's floor/unit and/or counseling patient: Coding Level of Care Code 31403 SUB INP/OBS CARE 2/35MIN Diagnoses Generalized weakness R53.1 Rhinovirus infection B34.8 Acute UTI N39.0 Hypokalemia E87.6 Venous ulcer of right leg I83.019; L97.919 Hypothyroidism E03.9 Dementia F03.90 Parkinsonism G20 Esophageal reflux K21.9
[2024-04-19] MEDS: methylPREDNISolone 40 MG in SYRINGE 0 ML IV SCH (16:18)
[2024-04-20] MEDS: ACETAMINOPHEN 1,000 MG/100 ML VIAL IV PRN (02:38)
[2024-04-20] MEDS ORDERED: ONDANSETRON INJ 2 MG/ML 2 ML VIAL IV PRN (06:30)
[2024-04-20 07:27] LABS: Basophils # (auto) 0.01 K/uL (0.00-0.20); Basophils % (auto) 0.1 %; Hematocrit (blood only) 37.4 % (37.0-47.0); Hemoglobin 12.8 g/dl (12.0-16.0); Immature Granulocytes % (auto) 1.4 %; Lymphocytes # (auto) 0.68 K/uL (1.20-3.40); Lymphocytes % (auto) 9.8 %; Mean Corpuscular Hemoglobin 31.4 pg (25.0-34.0); Mean Corpuscular Hgb Conc 34.2 g/dL (32.0-36.0); Mean Corpuscular Volume 91.9 fL (80.0-100.0); Mean Platelet Volume 10.4 fL (9.4-12.4); Monocytes # (auto) 0.11 K/uL (0.11-0.59); Monocytes % (auto) 1.6 %; Neutrophils # (auto) 6.01 K/uL (1.40-6.50); Neutrophils % (auto) 87.1 %; Platelet Count 280 K/uL (130-400); RDW Coefficient of Variation 11.5 % (11.5-14.5); RDW Standard Deviation 38.8 fL (36.4-46.3); Red Blood Count 4.07 M/uL (4.20-5.40); White Blood Count 6.91 K/ul (4.8-10.8)
[2024-04-20 07:35] LABS: Prothrombin Time 11.3 Seconds (9.0-12.0)
[2024-04-20 07:49] LABS: BUN Creatinine Ratio 29.8 (10-20); Calcium 8.9 mg/dl (8.6-10.3); Creatinine Clr Calc Pharmacy 34.7 ml/min; Est GFR (African American) 50.1 ml/min; Est GFR (Non-African American) 43.2 ml/min; Magnesium 2.1 mg/dl (1.7-2.4); Potassium 3.7 mmol/L (3.5-5.1)
[2024-04-20] MEDS: cephALEXin 500 MG CAP PO SCH (13:45)
--- NOTE | 2024-04-20 16:05 | Hospitalist Progress Note ---
Date of Service April 20, 2024 Assessment & Plan (1) Generalized weakness: Plan: needs rehab at discharge (2) Rhinovirus infection: Plan: Chest x-ray negative for pneumonia today Initially tested positive on 04/16/2024 Currently stable on room air Supportive treatment at this time with incentive spirometry, flutter therapy, every 4 hours as needed albuterol nebulizer treatments Start every 12 hours guaifenesin As needed O2 to keep SpO2 at or above 90% - will stop steroids, patient is more confused (3) Acute UTI: Plan: Initially diagnosed with UTI on 09/29 Started on cefdinir at the time of UTI diagnosis Urine cultures from 04/16/2024 have grown pansensitive Proteus Mirabilis Patient was given a dose of ceftriaxone in the ED prior to admission [facility] (4) Hypokalemia: Plan: Potassium noted to be 3.3 in ER Magnesium level of 1.7 Will order 10 mEq IV KCl x 3 bags and 1 g IV mag sulfate x 2 bags on admission Will hold oral potassium for now with her aspiration risk May require additional IV doses of potassium Monitor daily renal function and electrolytes (5) Venous ulcer of right leg: Plan: Patient's daughter explains that the patient is followed at the wound care clinic outpatient for chronic venous stasis ulcers on the bilateral posterior calves Patient was last seen in the wound care clinic last week, no concerns for infection at that time Will consult wound care nurse to follow-up patient is admitted Will place orders to have bilateral lower extremities elevated, heel precautions, and bilateral LEA stockings (6) Hypothyroidism: Plan: Continue levothyroxine (7) Dementia: Plan: Fall/aspiration precautions have been ordered PT/OT consults Patient will likely need admission to SNF for higher level of care at time of discharge (8) Parkinsonism: Plan: Continue carbidopalevodopa (9) Esophageal reflux: Plan: Continue PPI Plan the patient was discussed with Dr. Chavez at the time of the admission Admission and Anticipated Discharge Date Admission Date: April 18, 2024 Subjective reports cough, poor appetite, more confused today Review of Systems Review of Systems: All systems reviewed & are unremarkable except as noted in Subjective Physical Exam Physical Exam: head atraumatic neck supple chest decreased breath sounds at bases heart S1S2 regular abdomen soft, nt, nd, bs extremities no edema neuro confused Results & Data Results & Data Vital Signs (Past 12 Hours) Vital Signs Temp Pulse Resp BP Pulse Ox O2 Del Method 04/20/24 15:45 36.6 C 100 H 18 155/67 H 95 Room Air 04/20/24 11:11 36.8 C 95 H 20 138/73 95 Room Air 04/20/24 07:39 36.5 C 106 H 20 118/52 L 97 Room Air Laboratory Results Abnormal lab results 04/20/24 Range/Units 06:42 RBC 4.07 L (4.20-5.40) M/uL Lymph # (Auto) 0.68 L (1.20-3.40) K/uL BUN 34 H (6-23) mg/dl BUN/Creatinine Ratio 29.8 H (10-20) Glucose 122 H (70-99(Fasting)) mg/dl PG Care Time/CCT Total # of Minutes Spent Total Time Spent with Patient: Total time spent is greater than 50% in coordination of care (as documented) at patient's floor/unit and/or counseling patient: Coding Level of Care Code 69008 SUB INP/OBS CARE 2/35MIN Diagnoses Generalized weakness R53.1 Rhinovirus infection B34.8 Acute UTI N39.0 Hypokalemia E87.6 Venous ulcer of right leg I83.019; L97.919 Hypothyroidism E03.9 Dementia F03.90 Parkinsonism G20 Esophageal reflux K21.9
[2024-04-21 06:51] LABS: Basophils # (auto) 0.02 K/uL (0.00-0.20); Basophils % (auto) 0.3 %; Hematocrit (blood only) 37.7 % (37.0-47.0); Hemoglobin 13.1 g/dl (12.0-16.0); Immature Granulocytes # (auto) 0.13 K/uL (0.01-0.20); Immature Granulocytes % (auto) 1.7 %; Lymphocytes # (auto) 1.23 K/uL (1.20-3.40); Lymphocytes % (auto) 15.8 %; Mean Corpuscular Hemoglobin 31.8 pg (25.0-34.0); Mean Corpuscular Hgb Conc 34.7 g/dL (32.0-36.0); Mean Corpuscular Volume 91.5 fL (80.0-100.0); Mean Platelet Volume 10.6 fL (9.4-12.4); Monocytes % (auto) 10.3 %; Neutrophils # (auto) 5.61 K/uL (1.40-6.50); Neutrophils % (auto) 71.9 %; Platelet Count 294 K/uL (130-400); RDW Coefficient of Variation 11.4 % (11.5-14.5); RDW Standard Deviation 38.4 fL (36.4-46.3); Red Blood Count 4.12 M/uL (4.20-5.40); White Blood Count 7.79 K/ul (4.8-10.8)
[2024-04-21 07:05] LABS: BUN Creatinine Ratio 31.2 (10-20); Calcium 9.1 mg/dl (8.6-10.3); Creatinine Clr Calc Pharmacy 36.3 ml/min; Est GFR (African American) 52.9 ml/min; Est GFR (Non-African American) 45.6 ml/min; Magnesium 2.2 mg/dl (1.7-2.4); Potassium 3.8 mmol/L (3.5-5.1)
[2024-04-21 07:15] LABS: INR 1.1 (0.9-1.1); Prothrombin Time 11.9 Seconds (9.0-12.0)
--- NOTE | 2024-04-21 12:57 | Hospitalist Progress Note ---
Date of Service April 21, 2024 Assessment & Plan (1) Generalized weakness: Plan: needs rehab at discharge (2) Rhinovirus infection: Plan: Chest x-ray negative for pneumonia today Initially tested positive on 04/16/2024 Currently stable on room air Supportive treatment at this time with incentive spirometry, flutter therapy, every 4 hours as needed albuterol nebulizer treatments Start every 12 hours guaifenesin As needed O2 to keep SpO2 at or above 90% - will stop steroids, patient is more confused (3) Acute UTI: Plan: Initially diagnosed with UTI on 09/29 Started on cefdinir at the time of UTI diagnosis Urine cultures from 04/16/2024 have grown pansensitive Proteus Mirabilis Patient was given a dose of ceftriaxone in the ED prior to admission transition to keflex (4) Hypokalemia: Plan: Potassium noted to be 3.3 in ER Magnesium level of 1.7 - K 3.8 mg 2.2 (5) Venous ulcer of right leg: Plan: Patient's daughter explains that the patient is followed at the wound care clinic outpatient for chronic venous stasis ulcers on the bilateral posterior calves Patient was last seen in the wound care clinic last week, no concerns for infection at that time Will consult wound care nurse to follow-up patient is admitted Will place orders to have bilateral lower extremities elevated, heel precautions, and bilateral LEA stockings (6) Hypothyroidism: Plan: Continue levothyroxine (7) Dementia: Plan: Fall/aspiration precautions have been ordered PT/OT consults Patient will likely need admission to SNF for higher level of care at time of discharge (8) Parkinsonism: Plan: Continue carbidopalevodopa (9) Esophageal reflux: Plan: Continue PPI (10) Malnutrition: Plan: decreased po intake for the last few days appetite is still poor Plan the patient was discussed with Dr. Chavez at the time of the admission Admission and Anticipated Discharge Date Admission Date: April 18, 2024 Subjective reports cough, poor appetite, remains confused Physical Exam Physical Exam: head atraumatic neck supple chest decreased breath sounds at bases heart S1S2 regular abdomen soft, nt, nd, bs extremities no edema neuro confused Results & Data Results & Data Vital Signs (Past 12 Hours) Vital Signs Temp Pulse Pulse Resp BP Pulse Ox O2 Del Method 04/21/24 11:33 36.5 C 56 L 16 125/61 96 Room Air 04/21/24 07:40 36.7 C 55 L 16 110/61 96 Room Air 04/21/24 07:39 53 L PG Care Time/CCT Total # of Minutes Spent Total Time Spent with Patient: Total time spent is greater than 50% in coordination of care (as documented) at patient's floor/unit and/or counseling patient: Coding Level of Care Code 08543 SUB INP/OBS CARE 2/35MIN Diagnoses Generalized weakness R53.1 Rhinovirus infection B34.8 Acute UTI N39.0 Hypokalemia E87.6 Venous ulcer of right leg I83.019; L97.919 Hypothyroidism E03.9 Dementia F03.90 Parkinsonism G20 Esophageal reflux K21.9 Malnutrition E46
[2024-04-22] MEDS: ACETAMINOPHEN 325 MG TAB PO PRN (06:37)
[2024-04-22 08:05] LABS: Basophils # (auto) 0.03 K/uL (0.00-0.20); Basophils % (auto) 0.4 %; Eosinophils # (auto) 0.02 K/uL (0.00-0.50); Eosinophils % (auto) 0.3 %; Hemoglobin 12.6 g/dl (12.0-16.0); Immature Granulocytes # (auto) 0.13 K/uL (0.01-0.20); Immature Granulocytes % (auto) 1.7 %; Lymphocytes # (auto) 1.86 K/uL (1.20-3.40); Lymphocytes % (auto) 24.8 %; Mean Corpuscular Hemoglobin 31.6 pg (25.0-34.0); Mean Corpuscular Hgb Conc 34.1 g/dL (32.0-36.0); Mean Corpuscular Volume 92.7 fL (80.0-100.0); Mean Platelet Volume 10.4 fL (9.4-12.4); Monocytes % (auto) 9.3 %; Neutrophils # (auto) 4.75 K/uL (1.40-6.50); Neutrophils % (auto) 63.5 %; Platelet Count 252 K/uL (130-400); RDW Coefficient of Variation 11.5 % (11.5-14.5); RDW Standard Deviation 39.3 fL (36.4-46.3); Red Blood Count 3.99 M/uL (4.20-5.40); White Blood Count 7.49 K/ul (4.8-10.8)
[2024-04-22 08:28] LABS: BUN Creatinine Ratio 26.2 (10-20); Calcium 8.6 mg/dl (8.6-10.3); Est GFR (African American) 54.1 ml/min; Est GFR (Non-African American) 46.6 ml/min; Potassium 3.5 mmol/L (3.5-5.1)
[2024-04-22] MEDS ORDERED: CHLORASEPTIC (PHENOL) 1.4% SOLN 180 ML BTL MT PRN (10:56)
[2024-04-22] MEDS: POLYETHYLENE (MIRALAX) 17 GM PACK PO PRN (11:24)
--- NOTE | 2024-04-22 13:52 | Discharge Summary ---
Discharge Summary Date of Service April 22, 2024 Principal Dx & Hospital Course #1 = Principal Diagnosis (1) Generalized weakness: Has had ongoing clinical decline. Was admitted for placement/rehab, which is what PT/OT recommended, but family and patient declined this. [facility] willing to accept patient back and plan to discharge today. (2) Rhinovirus infection: Chest x-ray negative for pneumonia on admission. initially tested positive on 04/16/2024 Steroids stopped for increase confusion Continue supportive treatment at this time with incentive spirometry, flutter therapy, mucinex and throat spray at discharge. Has been stable on room air (3) Acute UTI: Initially diagnosed with UTI on 04/16, culture with duque sensitive Proteus Mirabilis Was given ceftriaxone and then transitioned to keflex - continue Keflex for 5 more doses through 04/24 PM (4) Hypokalemia: Potassium noted to be 3.3 in ER, Magnesium level of 1.7 Repleted and resolved. (5) Venous ulcer of right leg: Followed by the wound care clinic outpatient for chronic venous stasis ulcers on the bilateral posterior calves wound care nurse consulted - continue recommendations at discharge (6) Malnutrition: Poor appetite - received Boost shakes while inpatient - recommend continued supplementation at discharge Plan Chronic stable medical problems: * esophageal reflux - continue PPI * Parkinsonism - continue carbidopa-levodopa * Dementia * hypothyroidism - continue levothyroxine Dispo: discharge to [facility] today Notes For Next Care Provider Patient was admitted with concerns for worsening weakness and need for placement . Day of discharge family and patient not wanting placement, discharged back to [facility] with HH. cotninue treatment for UTI Supportive care for rhinovirus would recommend continued nutritional supplement Medication Changes From Visit keflex x 5 doses Admission HPI Per Admitting Provider Kirti is an 88-year-old female with a past medical history significant for dementia, hypothyroidism, parkinsonism, TIA, SONIA who presented to the [facility] ED on 04/18/2024 at the at the recommendation of her PCP due to concerns for aspiration pneumonia and clinical decline with a recent diagnosis of a UTI and rhinovirus infection. She remained stable while in the ED. Labs were significant for a potassium of 3.3, magnesium 1.7, but were otherwise unremarkable. Chest x-ray was read as no definite acute findings, with mild left basilar opacity which was favoring atelectasis. The ED spoke with Jose monroy and family regarding disposition, at this time family would like the patient to be admitted as they are interested in SNF placement. Prior to admission the patient was given 60 mg IV Solu-Medrol, a dose of ceftriaxone, and albuterol nebulizer treatment, 5 mg p.o. cetirizine, and sodium chloride nasal spray. Per chart review, the patient was seen in the [facility] ED on 04/16/2024 and was diagnosed with a UTI and found to be rhinovirus positive. She was started on cefdinir for her UTI. Urine cultures from 04/16/2024 have grown pansensitive Proteus Mirabilis. Patient was sitting in bed in no acute distress at the time exam with her daughter bedside. History was obtained from the patient's daughter due to the patient's history of dementia. Her daughter explains that the patient's dementia prevents her from being an accurate historian. Patient's daughter confirms the above history, states that her mother has had significant clinical decline over the past 3 weeks. They agree that she needs increased care compared to what she is currently receiving at [facility] and is interested in her mother being placed in a facility with higher level of care at the time of discharge. When asked, patient says she feels lousy, she does feel as though the breathing treatment helped her respiratory symptoms. I confirmed with the daughter that the patient is a DNR/DNI and the patient's daughter, Nilsa, is her POA. Please refer to Dr. Chavez's attestation for any changes to the treatment plan. Discharge Exam General: NAD, VS as above Resp: normal respiratory effort, wet cough, no sputum production, no wheezing CV: RRR, no murmur, Abd: normal bowel sounds, non tender, no hepatosplenomegaly Extremities: Moves all extremities, no edema Neuro: A&O x1, able to make needs known Skin: intact, no lesions noted Updated Medication List Medication Instructions Recorded Confirmed Type tamoxifen 20 mg tablet 20 mg PO QAM 09/29/21 04/18/24 History compression socks, large #6 ea 07/15/22 04/18/24 Rx carbidopa ER 25 mg-levodopa 100 mg 1 tab PO TID #90 tabs 11/30/23 04/18/24 Rx tablet,extended release artificial tears(hypromellose) 0.3 1 drp OPB HS dryness 02/11/24 04/18/24 History % eye gel (GenTeal Tears Severe) aspirin 81 mg tablet,delayed 81 mg PO QAM 02/11/24 04/18/24 History release carboxymethylcellulose sodium 0.25 1 drp OPB TID dryness 02/11/24 04/18/24 History % eye drops (TheraTears) magnesium oxide 400 mg PO QAM 02/11/24 04/18/24 History melatonin 5 mg capsule 5 mg PO HS 02/11/24 04/18/24 History pantoprazole 40 mg tablet,delayed 40 mg PO DAILYBB 02/11/24 04/18/24 History release potassium chloride 10 mEq 10 meq PO QAM 02/11/24 04/18/24 History tablet,extended release(part/cryst) diclofenac sodium 1 % topical gel 4 g topical QID #100 grams 04/04/24 04/18/24 Rx (Voltaren Arthritis Pain) oxycodone 5 mg tablet 5 mg PO Q6H PRN pain #10 tabs 04/04/24 04/18/24 Rx acetaminophen 500 mg tablet 1,000 mg PO BID PRN pain 04/16/24 04/18/24 History (Tylenol Extra Strength) furosemide 40 mg tablet 40 mg PO DAILY 04/16/24 04/18/24 History sennosides 8.6 mg tablet 17.2 mg PO QAM 04/16/24 04/18/24 History levothyroxine 137 mcg tablet 137 mcg PO DAILY 04/18/24 04/18/24 History olanzapine 2.5 mg tablet 2.5 mg PO HS 04/18/24 04/18/24 History cephalexin 500 mg capsule 500 mg PO BID #5 caps 04/22/24 Rx guaifenesin 600 mg tablet, 600 mg PO Q12 #10 tabs 04/22/24 Rx extended release 12 hr (Mucinex) phenol 1.4 % mucosal aerosol spray 1 spray MT Q2H PRN sore throat 04/22/24 Rx (Sore Throat (phenol)) #177 mL Hospital Stay Data Consultations 04/18/24 10:44 ED Decision to Admit Stat Diagnostic Imagining Performed Chest X-Ray 04/18/24 09:38 XR chest 1V portable CLINICAL HISTORY: weakness COMPARISON STUDY: Chest CT February 11, 2024. Chest radiograph April 16, 2024. FINDINGS: This exam is compromised given difficulty positioning. Hazy left basilar opacity likely reflects atelectasis. There is no pneumothorax or pleural effusion. No evidence for overt pulmonary edema. IMPRESSION: 1. Exam compromised given difficulty positioning. No definite acute findings. 2. Mild left basilar opacity favors atelectasis. ACT 112: Negative or not required by law. Electronically signed by: Ubaldo Benavidez M.D. 04/18/2024 10:16 AM Pending Results Patient Have Any Pending Studies at Discharge: No Discharge Instructions Given to Patient (Per Discharging Provider) Ms. Pink, Milo were hospitalized after having weakness. Known to have rhinovirus and a UTI. You were treated with IV antibiotics for the urinary tract infection which was then switched to oral antibiotics. You have five more doses of Keflex, next dose PM of 04/22. You were treated with supportive care for the rhinovirus. You should continue taking Mucinex and using the throat spray. Can use Tylenol for pain. Continue to use incentive spirometer. Therapy recommended that you go to rehab to get stronger, but you are your family declined this. You should work with the home therapy at you personal nursing home to get stronger. Would recommend continued boost or other nutritional supplements to help with your oral intake. Follow-up appointments: Make an appointment with your primary care physician within one week of discharge. A copy of this summary will be sent to them. Every time you see your primary care physician, or any other doctor, bring your medication list, and a list of questions. CONTACT YOUR PRIMARY CARE PROVIDER if you experience any of the following: Shortness of breath or difficulty breathing Fevers or chills Feeling tired with normal activity or experiencing dizziness or fainting Difficulty following your treatment plan, or difficulty taking medications CALL 911 OR GO TO THE EMERGENCY DEPARTMENT if you experience any of the following: Severe abdominal pain or nausea/vomiting Severe chest pain, or chest pain that radiates (moves) to your jaw or arm Sudden, severe shortness of breath or difficulty breathing Thank you for allowing us to participate in your care. Total Time Total Time Spent Total Time Spent (In Minutes): Time spend day of discharge 35 minutes including direct patient care, medication reconciliation, documentation, review of labs and images, and coordination of care. Supervising Physician Co-Signing Physician Notes PA Supervision Note: I personally saw and examined the patient. I verified all duong points and agree with TARIQ Brown with the following exceptions and/or additions: S-Pt feeling better, mild cough remains. Is upset about having been in the hospital. O- Vitals reviewed Gen: [AAOx1, NAD] HEENT: [anicteric sclerae, EOMI] CV: [RRR no mgr nl S1S2] Pulm: [CTAB no wcr] A/P-88 yo female here with Rhinovirus, weakness, UTI. Improving and stable for dc to [facility] Coding Level of Care Code 83833 INP/OBS DISCH >30 MIN Diagnoses Generalized weakness R53.1 Rhinovirus infection B34.8 Acute UTI N39.0 Hypokalemia E87.6 Venous ulcer of right leg I83.019; L97.919 Malnutrition E46
== END 2024-04-22 16:58 | disposition home health service (06) | DRG 690 ==
LOC: ED 09:13 → EDINP 10:52 → SUATTDRO 10:52 → 2W 04-19 04:16

== ENCOUNTER 2024-05-08 13:41 | Inpatient (IN) ==
--- NOTE | 2024-05-08 14:12 | Emergency Department Note ---
Impression & Plan Weakness, Somnolence, Acute dehydration, Dementia ED Provider Note NAME: ADRIEL GIL AGE: 88 SEX: F : 1935 ARRIVES VIA: Ambulance INFORMANT: [Patient][family] ED PROVIDER(S): [Camilo Malik MD] CHIEF COMPLAINT: Weakness, confusion HISTORY OF PRESENT ILLNESS: The patient is an 88-year-old female who was discharged from our hospital on the of last month, about 2 weeks ago. She was in for confusion and was found to have a UTI. She left on antibiotics but they have finished. In the last week or so, the patient has had a decline. She is more confused and has not been eating or drinking. She was drooling at 1 point. There is concern for return of UTI or even dehydration. The patient cannot give me any history, the history was obtained from the nursing staff, EMS and the family PMHx/PSHx/Social Hx: See Below PHYSICAL EXAM: GENERAL: Patient is in no acute distress. HEENT: No acute trauma, normocephalic atraumatic, mucous membranes moist, no nasal congestion. NECK: No stridor, no adenopathy, no meningismus, trachea is midline. LUNGS: Clear to auscultation bilaterally when listening anterior, no wheeze, no rhonchi, breath sounds equal. HEART: Without murmurs gallops or rubs, regular rate and rhythm. ABDOMEN: Soft, nontender, no peritonitis. EXTREMITIES: No cyanosis, full range of motion of all the joints without pain or difficulty. Wraps on both lower extremities. NEUROLOGIC: Somnolent, seen to move all extremities. SKIN: No jaundice, no diaphoresis. DIFFERENTIAL DIAGNOSIS: UTI, dehydration, pneumonia, viral illness, electrolyte imbalance, stroke, among others. EMERGENCY DEPARTMENT PROCEDURES: MEDICAL DECISION MAKING: There is no leukocytosis or concerning anemia. There is a normal platelet count. There is no renal failure or significant electrolyte abnormality. Lactic acid level was not elevated making sepsis less likely. There was some subtle liver enzyme elevations of unknown significance. Patient appeared to be in a euthyroid state. ECG showed a normal stress rhythm, there was no acute ST elevation. Cardiac enzyme testing x 2 shows a slight elevation but the values are stable indicating a chronic condition, no evidence for acute cardiac injury by laboratory testing. Urinalysis did suggest some dehydration, there was no obvious infection. Brain CT showed no acute bleed or mass effect. Chest x-ray did not show pneumonia or CHF. On exam, the patient seemed somnolent. The patient received IV saline, 1 L. I had a discussion with the patient's daughter. The patient has been declining as of late. Testing here in the ED today does not show any acute medical emergency or real reason for her somnolence/mental decline. The family would be interested in hospice care. Case management did come and speak with the family. The patient is going to be hospitalized and hospice care is going to be organized. The on-call hospitalist was consulted. Prior/Outside records/notes reviewed: Today's EMS notes describing her presentation and transport to this hospital. Discharge summary note from 04/22/2024 describing her presentation, confusion and UTI diagnosis ECG per my interpretation: Indication was weakness. The ECG shows what appears to be a normal sinus rhythm with a rate of 91. There is baseline artifact. LVH is present. There is no acute ST elevation, no PVCs. QTc is 506. Continuous Cardiac Monitoring per my interpretation: An order was placed for continuous cardiac monitoring. The monitor shows a rate of 92 with normal sinus rhythm. Imaging/x-ray results per my interpretation: Chest x-ray does not show acute infiltrate, pneumonia, CHF. Chronic Medical/Social conditions affecting care: Advanced age. Care/Management discussed with: Case management, the on-call hospitalist. Level of care consideration(s): After review of the information above and other included data: --I believe the patient requires escalation of care to admission DISPOSITION: Admission Past Med/Surg History Problem List (Updated 05/08/24 @ 18:49 by Camilo Malik MD) Dementia (Acute) Acute dehydration (Acute) Somnolence (Acute) Weakness (Acute) Venous ulcer Malnutrition Goals of care, counseling/discussion Left rib fracture (Acute 02/11/24) Trouble swallowing Hypertension Breast cancer Fecal impaction Venous stasis ulcers of both lower extremities (Acute) Venous ulcer of left leg (Acute) Spondylolisthesis of lumbar region Vitamin D deficiency (Acute) Ventral hernia (Acute) Urge incontinence of urine (Acute) Tremor (Acute) Transient ischemic attack (Acute) Sleep apnea (Acute) Spinal stenosis, lumbar (Acute 03/19/13) Osteoporosis, unspecified (Acute 03/19/13) Lumbar radiculopathy (Acute) Incisional hernia (Acute) Hyperlipidemia (Acute) Gait disturbance (Acute) Esophageal reflux (Acute 03/19/13) Diverticulitis of colon (Acute) Carotid artery plaque (Acute) Chronic sinusitis, unspecified (Acute 03/19/13) Anxiety (Acute) Depression Grief reaction Insomnia History of CVA (cerebrovascular accident) 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 Medical History Generalized weakness Venous ulcer of right leg Parkinsonism Dementia Hypothyroidism Elevated brain natriuretic peptide (BNP) level Edema of both lower extremities Hypomagnesemia Stercoral colitis Elevated lipase Aortic ectasia Chest pain Hypomagnesemia Elevated troponin CVA (cerebral vascular accident) History of basal cell carcinoma History of SCC (squamous cell carcinoma) of skin Chronic kidney disease, stage III (moderate) Grief reaction Unspecified hemorrhoids (03/19/13) Hypokalemia Altered mental status Adverse drug reaction ROSEMARIE (acute kidney injury) Surgical History History of inguinal hernia repair Hx of laparoscopy History of back surgery History of right knee surgery S/P removal of left ovary History of total abdominal hysterectomy History of lumbar laminectomy for spinal cord decompression History of repair of rectocele Hx of appendectomy Hx of cholecystectomy Family History Sister Lung cancer Father Colorectal cancer Myocardial infarction Brother Colorectal cancer Prostate cancer Mother Colorectal cancer Denies family history of Ovarian cancer Breast cancer Social History Smoking Status: Never smoker Tobacco Type: Cigarettes Age Started Using Tobacco: 18; Age Quit Using Tobacco: 19; packs per day: 0.5; Second Hand Exposure: No; Do You Dip or Chew Tobacco: No; Hx Alcohol Use: No Hx Substance Use: No Preferred Language: Hungarian Communication Ability: Impaired Visual Impairment: No Limitations Hearing Ability: Normal 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 Beliefs That Will Affect Care: None marital status: / Current Living Situation: Assisted current occupational status: retired current occupation: retired from career in [employer] Feels Safe at Home: Yes Childhood Exposure to Second-Hand Smoke: No Diet: regular caffeine: Yes (occasional diet pepsi) Dental Care, Regularly: No Physical Activity Frequency: Does not Exercise Seatbelt Use: always Sunscreen Use: No Assistive Devices: Walker Allergies Allergies Allergy/AdvReac Type Severity Reaction Status Date / Time clarithromycin Allergy Intermediate RASH Verified 05/06/24 13:20 Penicillins Allergy Intermediate RASH Verified 05/06/24 13:20 shellfish derived Allergy Intermediate itch all Verified 05/06/24 13:20 over cheese Allergy Unknown Unknown - Unverified 05/06/24 13:20 On Med list from [employer] Fish Containing Products Allergy Unknown SEAFOOD, Verified 05/06/24 13:20 FISH Sulfa (Sulfonamide Allergy Unknown CAN'T Verified 05/06/24 13:20 Antibiotics) REMEMBER codeine AdvReac Intermediate Hives Verified 05/06/24 13:20 paroxetine [From Paxil] AdvReac Intermediate hallucinati Verified 05/06/24 13:20 ons propranolol AdvReac Intermediate dizziness Verified 05/06/24 13:20 levofloxacin [From Levaquin] AdvReac Unknown Unknown Verified 05/06/24 13:20 NSAIDS (Non-Steroidal AdvReac Unknown Verified 05/06/24 13:20 Anti-Inflamma Home Meds Home Medications Medication Instructions Recorded Confirmed tamoxifen 20 mg tablet 20 mg PO QAM 09/29/21 05/08/24 artificial tears(hypromellose) 0.3 1 drp OPB HS dryness 02/11/24 05/08/24 % eye gel (GenTeal Tears Severe) aspirin 81 mg tablet,delayed 81 mg PO QAM 02/11/24 05/08/24 release carboxymethylcellulose sodium 0.25 1 drp OPB TID dryness 02/11/24 05/08/24 % eye drops (TheraTears) melatonin 5 mg capsule 5 mg PO HS 02/11/24 05/08/24 pantoprazole 40 mg tablet,delayed 40 mg PO DAILYBB 02/11/24 05/08/24 release potassium chloride 10 mEq 10 meq PO QAM 02/11/24 05/08/24 tablet,extended release(part/cryst) acetaminophen 500 mg tablet 1,000 mg PO BID PRN pain 04/16/24 05/08/24 (Tylenol Extra Strength) furosemide 40 mg tablet 40 mg PO DAILY 04/16/24 05/08/24 sennosides 8.6 mg tablet 17.2 mg PO QAM 04/16/24 05/08/24 levothyroxine 137 mcg tablet 137 mcg PO DAILY 04/18/24 05/08/24 olanzapine 2.5 mg tablet 2.5 mg PO HS 04/18/24 05/08/24 Previous Rx's Medication Instructions Recorded compression socks, large #6 ea 07/15/22 carbidopa ER 25 mg-levodopa 100 mg 1 tab PO TID #90 tabs 11/30/23 tablet,extended release diclofenac sodium 1 % topical gel 4 g topical QID #100 grams 04/04/24 (Voltaren Arthritis Pain) oxycodone 5 mg tablet 5 mg PO Q6H PRN pain #10 tabs 04/04/24 phenol 1.4 % mucosal aerosol spray 1 spray MT Q2H PRN sore throat 04/22/24 (Sore Throat (phenol)) #177 mL magnesium oxide 400 mg PO QAM #90 caps 04/29/24 Results & Data (ED) Vital Signs Vital Signs - 24 hr 05/08/24 13:48 05/08/24 13:48 05/08/24 13:53 Temperature 36.9 C Temperature Source Oral Pulse Rate 98 H 92 H Pulse Rate [Apical] 92 H Pulse Rhythm Regular Pulse Rhythm [Apical] Regular Pulse Strength Normal Pulse Strength [Apical] Normal Respiratory Rate 16 18 Respiratory Effort / Characteristics Non-Labored Spontaneous Non-Labored Spontaneous Respiratory Depth Normal Normal Respiratory Pattern Regular Regular Blood Pressure 130/73 Blood Pressure [Left Arm] 130/73 Blood Pressure Mean 92 Blood Pressure Mean [Left Arm] 92 Blood Pressure Position Lying Blood Pressure Position [Left Arm] Pulse Oximetry 94 94 Oxygen Delivery Method Room Air Room Air Sepsis Recent Fever Within 48 Hours No Sepsis New/Unexplained Change in Mental Status No Sepsis Action Taken by Nursing No Action Required 05/08/24 14:03 05/08/24 15:33 05/08/24 17:00 Temperature Temperature Source Pulse Rate 92 H Pulse Rate [Apical] 77 57 L Pulse Rhythm Regular Pulse Rhythm [Apical] Regular Regular Pulse Strength Pulse Strength [Apical] Normal Normal Respiratory Rate 16 16 16 Respiratory Effort / Characteristics Non-Labored Spontaneous Non-Labored Spontaneous Respiratory Depth Normal Normal Respiratory Pattern Regular Regular Blood Pressure Blood Pressure [Left Arm] 130/73 103/53 L Blood Pressure Mean Blood Pressure Mean [Left Arm] 92 69 Blood Pressure Position Blood Pressure Position [Left Arm] Lying Lying Pulse Oximetry 94 94 94 Oxygen Delivery Method Room Air Room Air Room Air Sepsis Recent Fever Within 48 Hours Sepsis New/Unexplained Change in Mental Status Sepsis Action Taken by Nursing 05/08/24 18:02 Temperature Temperature Source Pulse Rate 60 Pulse Rate [Apical] Pulse Rhythm Pulse Rhythm [Apical] Pulse Strength Pulse Strength [Apical] Respiratory Rate Respiratory Effort / Characteristics Respiratory Depth Respiratory Pattern Blood Pressure Blood Pressure [Left Arm] Blood Pressure Mean Blood Pressure Mean [Left Arm] Blood Pressure Position Blood Pressure Position [Left Arm] Pulse Oximetry Oxygen Delivery Method Sepsis Recent Fever Within 48 Hours Sepsis New/Unexplained Change in Mental Status Sepsis Action Taken by Assisted Medications Current Medication List: was personally reviewed by me Laboratory Data Attestation: I reviewed the patient's lab results. 05/08/24 14:15 05/08/24 15:33 Lab Results 05/08/24 05/08/24 05/08/24 Range/Units 14:15 15:19 15:33 WBC 10.29 (4.8-10.8) K/ul RBC 4.28 (4.20-5.40) M/uL Hgb 13.4 (12.0-16.0) g/dl Hct 39.8 (37.0-47.0) % MCV 93.0 (80.0-100.0) fL MCH 31.3 (25.0-34.0) pg MCHC 33.7 (32.0-36.0) g/dL RDW Std Deviation 42.5 (36.4-46.3) fL RDW Coeff of Louie 12.5 (11.5-14.5) % Plt Count 195 (130-400) K/uL MPV 11.0 (9.4-12.4) fL Immature Gran % (Auto) 0.4 % Neut % (Auto) 77.7 % Lymph % (Auto) 12.1 % Carter % (Auto) 9.3 % Eos % (Auto) 0.1 % Baso % (Auto) 0.4 % Neut # (Auto) 7.99 H (1.40-6.50) K/uL Lymph # (Auto) 1.25 (1.20-3.40) K/uL Carter # (Auto) 0.96 H (0.11-0.59) K/uL Eos # (Auto) 0.01 (0.00-0.50) K/uL Baso # (Auto) 0.04 (0.00-0.20) K/uL Immature Gran # (Auto) 0.04 (0.01-0.20) K/uL Sodium 134 L (136-145) mmol/L Potassium TNP 3.8 Chloride 94 L (98-107) mmol/L Carbon Dioxide 29 (21-32) mmol/L Anion Gap 11 (3-11) BUN 20 (6-23) mg/dl Creatinine 1.05 (0.6-1.2) mg/dl Est Cr Clr Drug Dosing 35.3 ml/min Est GFR ( Amer) 55.3 ml/min Est GFR (Non-Af Amer) 47.7 ml/min BUN/Creatinine Ratio 19.0 (10-20) Glucose 156 H (70-99(Fasting)) mg/dl Lactate 1.4 (0.4-2.0) mmol/L Calcium 9.0 (8.6-10.3) mg/dl Magnesium 1.7 (1.7-2.4) mg/dl Total Bilirubin 1.3 H (0.2-1.0) mg/dl AST TNP 58 H ALT 11 (7-52) U/L Alkaline Phosphatase 65 (34-104) U/L Troponin I High Sens 23.5 H 23.4 H (0-14) pg/ml Total Protein 7.5 (6.0-8.3) gm/dl Albumin 3.7 (3.4-5.0) gm/dl Globulin 3.8 (2.5-4.0) gm/dl Albumin/Globulin Ratio 1.0 (0.9-2) TSH 0.400 (0.300-4.500) uIu/ml Urine Color Dark Yellow Urine Appearance Clear (Clear) Urine pH 5.0 (4.5-7.5) Ur Specific Parsons 1.023 (1.000-1.030) Urine Protein Trace H (Negative) Urine Glucose (UA) Negative (Negative) Urine Ketones Trace H (Negative) Urine Blood Negative (Negative) Urine Nitrite Negative (Negative) Urine Bilirubin 1+ H (Negative) Urine Urobilinogen Negative (Negative) Ur Leukocyte Esterase Trace H (Negative) Urine WBC (Auto) 0-5 (0-5) /hpf Urine RBC (Auto) 0-2 (0-2) /hpf U Hyaline Cast (Auto) 3-5 H (0-2) /lpf U Epithel Cells (Auto) 6-10 H (0-2) /hpf Urine Bacteria (Auto) 1+ H (None Seen) Hyaline Casts Present A (None Presnt) /lpf Administered Medications Discontinued Medications Sodium Chloride (Nss) 500 mls @ 999 mls/hr IV .Q31M ROSEMARY Stop: 05/08/24 14:45 Last Infusion: 05/08/24 15:02 Dose: Infused Documented By: Admin: 05/08/24 14:28 Dose: 999 mls/hr Documented By: SNS Sodium Chloride (Nss) 500 mls @ 999 mls/hr IV .Q31M ONE Stop: 05/08/24 16:45 Last Infusion: 05/08/24 17:17 Dose: Infused Documented By: Admin: 05/08/24 16:20 Dose: 999 mls/hr Documented By: IRWIN Imaging Data Radiologist's Impression: Chest X-Ray 05/08/24 14:03 XR chest 1V portable HISTORY: weakness COMPARISON: Chest 04/18/2024. FINDINGS: No pneumothorax. No pleural fusions. There are low lung volumes. A small left basilar density persists. The right lung is clear. The heart is mildly enlarged. No evidence for pulmonary edema. Degenerative changes within the shoulders. IMPRESSION: 1. Persistent left basilar densities. This is nonspecific but favors atelectasis. A pneumonia also remains in the differential diagnosis. 2. Stable mild cardiomegaly. ACT 112: Negative or not required by law. Electronically signed by: Robinson Coon M.D. 05/08/2024 2:[address] 05/08/24 14:04 CT OF THE HEAD WITHOUT CONTRAST CLINICAL HISTORY: Confusion. COMPARISON STUDY: MRI of the brain May 24, 2018. Head CT January 28, 2023. CT DOSE: 547.75 mGy.cm TECHNIQUE: Helical axial images of the head were obtained without IV contrast. Automated exposure control was utilized for the study. A dose lowering technique was utilized adhering to the principles of ALARA. FINDINGS: No acute intracranial hemorrhage, midline shift or mass effect is present. The ventricular system is stable. White matter hypodensities are unchanged and favor small vessel disease. There is mild atrophy. The basal cisterns are patent. No extra-axial collections are present. There are no findings to suggest acute dural sinus thrombosis or acute territorial infarct. No significant calvarial abnormalities are present. Visualized portions of the sinuses and mastoid air cells are clear. IMPRESSION: No acute intracranial findings. No change in appearance of the brain. ACT 112: Negative or not required by law. Electronically signed by: Ubaldo Benavidez M.D. 05/08/2024 3:05 PM Discharge Plan Visit Data Chief Complaint: Urinary Symptoms Stated Complaint: URINARY SYMPTOMS ED Provider: Camilo Malik Discharge Problem: Weakness, Somnolence, Acute dehydration, Dementia Patient Disposition: Admitted As Inpatient Condition: Fair Forms Stand Alone Forms: [facility] [place] [employer] Prescriptions Prescriptions: No Action (DME) compression socks, large Misc See Rx Instructions .Route Qty: 6 0RF Rx Instructions: As directed (on in the morning/afternoon, to be removed in the evening) magnesium oxide 400 mg magnesium capsule 400 mg PO QAM Qty: 90 3RF carbidopa-levodopa 25-100 mg tablet extended release 1 tab PO TID Qty: 90 6RF diclofenac sodium [Voltaren Arthritis Pain] 1 % gel 4 g topical QID Qty: 100 5RF Rx Instructions: apply to right shoulder and sacrum (low back). oxycodone 5 mg tablet 5 mg PO Q6H PRN (Reason: pain) Qty: 10 0RF tamoxifen 20 mg tablet 20 mg PO QAM TheraTears 0.25 % Drops 1 drp OPB TID Rx Instructions: TAKE WITH BREAKFAST,LUNCH AND DINNER GenTeal Tears Severe Gel 0.3 % Gel 1 drp OPB HS aspirin 81 mg tablet,delayed release (DR/EC) 81 mg PO QAM pantoprazole 40 mg tablet,delayed release (DR/EC) 40 mg PO DAILYBB potassium chloride 10 mEq tablet,ER particles/crystals 10 meq PO QAM melatonin 5 mg capsule 5 mg PO HS levothyroxine 137 mcg tablet 137 mcg PO DAILY olanzapine 2.5 mg tablet 2.5 mg PO HS Sore Throat (phenol) 1.4 % Aerosol,Rule 1 spray MT Q2H PRN (Reason: sore throat) Qty: 177 0RF acetaminophen [Tylenol Extra Strength] 500 mg tablet 1,000 mg PO BID MDD 3G PRN (Reason: pain) Rx Instructions: do not exceed 3,000mg total per day furosemide 40 mg tablet 40 mg PO DAILY sennosides 8.6 mg Tablet 17.2 mg PO QAM Referrals Referrals: Pam Vega DO [Primary Care Provider] - Discharge Problem: Dementia Qualifiers: Dementia type: unspecified type Dementia severity: severe Dementia behavioral or psychological symptom: with other behavioral disturbance Qualified Code(s): F 03.C18 - Unspecified dementia, severe, with other behavioral disturbance
[2024-05-08] MEDS: SODIUM CHLORIDE 0.9% 500 ML IV SCH (14:28)
--- NOTE | 2024-05-08 14:46 | XRay Report ---
XR chest 1V portable HISTORY: weakness COMPARISON: Chest 04/18/2024. FINDINGS: No pneumothorax. No pleural fusions. There are low lung volumes. A small left basilar densi ty persists. The right lung is clear. The heart is mildly enlarged. No evidence for pulmonary edema. Degenerative changes within the shoulders. IMPRESSION: 1. Persistent left basilar densities. This is nonspecific but favors atelectasis. A pneumonia also re pat in the differential diagnosis. 2. Stable mild cardiomegaly. ACT 112: Negative or not required by law. Electronically signed by: Robinson Coon M.D. 05/08/2024 2:44 PM
[2024-05-08 15:01] LABS: Basophils # (auto) 0.04 K/uL (0.00-0.20); Basophils % (auto) 0.4 %; Eosinophils # (auto) 0.01 K/uL (0.00-0.50); Eosinophils % (auto) 0.1 %; Hematocrit (blood only) 39.8 % (37.0-47.0); Hemoglobin 13.4 g/dl (12.0-16.0); Immature Granulocytes # (auto) 0.04 K/uL (0.01-0.20); Immature Granulocytes % (auto) 0.4 %; Lymphocytes # (auto) 1.25 K/uL (1.20-3.40); Lymphocytes % (auto) 12.1 %; Mean Corpuscular Hemoglobin 31.3 pg (25.0-34.0); Mean Corpuscular Hgb Conc 33.7 g/dL (32.0-36.0); Monocytes # (auto) 0.96 K/uL (0.11-0.59); Monocytes % (auto) 9.3 %; Neutrophils # (auto) 7.99 K/uL (1.40-6.50); Neutrophils % (auto) 77.7 %; Platelet Count 195 K/uL (130-400); RDW Coefficient of Variation 12.5 % (11.5-14.5); RDW Standard Deviation 42.5 fL (36.4-46.3); Red Blood Count 4.28 M/uL (4.20-5.40); White Blood Count 10.29 K/ul (4.8-10.8)
[2024-05-08 15:04] LABS: Alanine Aminotransferase 11 U/L (7-52); Albumin Level 3.7 gm/dl (3.4-5.0); Alkaline Phosphatase 65 U/L (34-104); Anion Gap 11 (3-11); Bilirubin,Total 1.3 mg/dl (0.2-1.0); Blood Urea Nitrogen 20 mg/dl (6-23); Carbon Dioxide 29 mmol/L (21-32); Chloride 94 mmol/L (98-107); Creatinine Clr Calc Pharmacy 35.3 ml/min; Est GFR (African American) 55.3 ml/min; Est GFR (Non-African American) 47.7 ml/min; Globulin 3.8 gm/dl (2.5-4.0); Glucose 156 mg/dl (70-99(Fasting)); Magnesium 1.7 mg/dl (1.7-2.4); Sodium 134 mmol/L (136-145); Total Protein 7.5 gm/dl (6.0-8.3)
--- NOTE | 2024-05-08 15:07 | CT Scan Report ---
CT OF THE HEAD WITHOUT CONTRAST CLINICAL HISTORY: Confusion. COMPARISON STUDY: MRI of the brain May 24, 2018. Head CT January 28, 2023. CT DOSE: 547.75 mGy.cm TECHNIQUE: Helical axial images of the head were obtained without IV contrast. Automated exposure con trol was utilized for the study. A dose lowering technique was utilized adhering to the principles o f ALARA. FINDINGS: No acute intracranial hemorrhage, midline shift or mass effect is present. The ventricular system is stable. White matter hypodensities are unchanged and favor small vessel disease. There is m ild atrophy. The basal cisterns are patent. No extra-axial collections are present. There are no find ings to suggest acute dural sinus thrombosis or acute territorial infarct. No significant calvarial a bnormalities are present. Visualized portions of the sinuses and mastoid air cells are clear. IMPRESSION: No acute intracranial findings. No change in appearance of the brain. ACT 112: Negative or not required by law. Electronically signed by: Ubaldo Benavidez M.D. 05/08/2024 3:05 PM
[2024-05-08 15:10] LABS: Troponin I High Sensitivity 23.5 pg/ml (0-14)
[2024-05-08 16:12] LABS: Appearance Urine Clear (Clear); Bacteria Urine Automated 1+ (None Seen); Bilirubin Urine 1+ (Negative); Blood Urine Negative (Negative); Color Urine Dark Yellow; Glucose Urine UA Negative (Negative); Hyaline Casts Urine Present /lpf (None Presnt); Ketones Urine Trace (Negative); Leukocyte Esterase Urine Trace (Negative); Nitrite Urine Negative (Negative); Protein Urine Trace (Negative); RBC Urine Automated 0-2 /hpf (0-2); Specific Gravity Urine 1.023 (1.000-1.030); Urobilinogen Urine Negative (Negative); WBC Urine Automated 0-5 /hpf (0-5)
[2024-05-08 16:18] LABS: Potassium 3.8 mmol/L (3.5-5.1)
[2024-05-08] MEDS: SODIUM CHLORIDE 0.9% 500 ML IV ONE (16:20)
[2024-05-08 16:38] LABS: Troponin I High Sensitivity 23.4 pg/ml (0-14)
--- NOTE | 2024-05-08 17:42 | History & Physical Report ---
Date of Service May 08, 2024 Assessment & Plan (1) Altered mental status: Plan: Progressive chronic decline, acute on chronic altered mental status With background of chronic dementia and cognitive decline Patient does have a left-sided facial droop which is reportedly new, CT is normal. Discussed MRI with the patient's daughter, notes that if there was a stroke this would not change her management and patient has not been able to tolerate MRIs in the past and will defer this on admission. She does withdraw to noxious stimuli in her hands and feet bilaterally, strength examination is limited by mental status. May repeat CT at 24 hours if needed No leukocytosis, sodium 134, creatinine is normal, T. bili chronically mildly elevated, slight AST elevation without ALT/alk phos elevation. Chronic mild troponin elevation stable at 23 UA is contaminated versus infected appearing. 1+ bacteria with leukocyte esterase, patient is volume contracted and urine does have 6-10 epithelial cells. Will treat empirically with Rocephin pending culture to cover for any potential recurrent UTI. No history of resistant UTIs. Blood cultures and urine cultures are pending Head CT without acute findings Chest x-ray: Left basilar densities persist, favoring atelectasis but from which pneumonia is not excluded. Stable mild cardiomegaly Recently rhinovirus positive 04/16/24 (2) Goals of care, counseling/discussion: Plan: Goals of care, hospice planning Patient was [facility]ing to [facility] however current services available are not able to meet patient's needs, and hospice has not yet set up. Discussed with patient's daughter. Would like to continue current conservative medical care including antibiotics/fluids, and work on setting up [facility] services and transitioning back to [facility] with hospice once set up. CM consulted. (3) Malnutrition: Plan: Malnutrition With poor p.o. intake Boost supplementation (4) Venous ulcer: Plan: Venous ulcer of the right leg No acute infection, continue wound care Plan Chronic stable issues: GERD: Continue PPI Parkinsonism: Continue carbidopa/levodopa Hypothyroidism: Continue Synthroid DVT PPx: SCDs Diet: NPO pending improvement in mentation, speech eval Dispo: M/T CODE: DNR/DNI History of Present Illness Primary Care Provider: Pam VegaDO Cotto is an 88-year-old female with past medical history of dementia, parkinsonism, TIA, SONIA, hypothyroidism who was recently discharged 04/22/2024 after an admission for generalized weakness with ongoing clinical decline acutely worsened in the setting of a UTI. She Cathleen presents emergency department with worsening confusion, no p.o. intake, obtunded status, and drool ing at her fdc. Due to her continued decline family is transitioning to hospice however are not unable to do this at [place] and due to her acute on chronic decline request admission with conservative care History is limited by dementia and mental status. Transitioning to hospice as an outpatient. Hx demetia. Resident at [facility], increased altered mental status and poor PO intake in the last week. Last week progressively poor appetite, poor PO intake, and increased weakness. Sleeping more. Today at [facility] tried to eat a hotdog but couldn't really get more than a nibble and a sip of water. Had discussed with case management [facility] Has had a slight left facial droop and some drooling in the last few days. Intermittently responsive and has been moving both her upper extremities. Patient is not able to tolerate MRIs. No chest pain, chest pressure, cough, or fevers. Decreased UOP otherwise no urinary sx/change. No abdominal tenderness. very poor appetite Primary contact Nilsa Pink [phone]. Working to set up [facility] services at [facility], but has not been able to set these u pyet. Would like to continue current conservative medical care including fluids and abx if indicated, while having these services set up with . Medical History: Reviewed Medications: Reviewed Surgical History: Reviewed Family history: Reviewed Allergies: Reviewed Social History: Reviewed Code Status: DNR/DNI, confirmed with family at bedside Allergies Allergy/AdvReac Type Severity Reaction Status Date / Time clarithromycin Allergy Intermediate RASH Verified 05/06/24 13:20 Penicillins Allergy Intermediate RASH Verified 05/06/24 13:20 shellfish derived Allergy Intermediate itch all Verified 05/06/24 13:20 over cheese Allergy Unknown Unknown - Unverified 05/06/24 13:20 On Med list from [facility] Fish Containing Products Allergy Unknown SEAFOOD, Verified 05/06/24 13:20 FISH Sulfa (Sulfonamide Allergy Unknown CAN'T Verified 05/06/24 13:20 Antibiotics) REMEMBER codeine AdvReac Intermediate Hives Verified 05/06/24 13:20 paroxetine [From Paxil] AdvReac Intermediate hallucinati Verified 05/06/24 13:20 ons propranolol AdvReac Intermediate dizziness Verified 05/06/24 13:20 levofloxacin [From Levaquin] AdvReac Unknown Unknown Verified 05/06/24 13:20 NSAIDS (Non-Steroidal AdvReac Unknown Verified 05/06/24 13:20 Anti-Inflamma Home Medications Medication Instructions Recorded Confirmed Type tamoxifen 20 mg tablet 20 mg PO QAM 09/29/21 05/08/24 History compression socks, large #6 ea 07/15/22 05/06/24 Rx carbidopa ER 25 mg-levodopa 100 mg 1 tab PO TID #90 tabs 11/30/23 05/08/24 Rx tablet,extended release artificial tears(hypromellose) 0.3 1 drp OPB HS dryness 02/11/24 05/08/24 History % eye gel (GenTeal Tears Severe) aspirin 81 mg tablet,delayed 81 mg PO QAM 02/11/24 05/08/24 History release carboxymethylcellulose sodium 0.25 1 drp OPB TID dryness 02/11/24 05/08/24 History % eye drops (TheraTears) melatonin 5 mg capsule 5 mg PO HS 02/11/24 05/08/24 History pantoprazole 40 mg tablet,delayed 40 mg PO DAILYBB 02/11/24 05/08/24 History release potassium chloride 10 mEq 10 meq PO QAM 02/11/24 05/08/24 History tablet,extended release(part/cryst) diclofenac sodium 1 % topical gel 4 g topical QID #100 grams 04/04/24 05/08/24 Rx (Voltaren Arthritis Pain) oxycodone 5 mg tablet 5 mg PO Q6H PRN pain #10 tabs 04/04/24 05/08/24 Rx acetaminophen 500 mg tablet 1,000 mg PO BID PRN pain 04/16/24 05/08/24 History (Tylenol Extra Strength) furosemide 40 mg tablet 40 mg PO DAILY 04/16/24 05/08/24 History sennosides 8.6 mg tablet 17.2 mg PO QAM 04/16/24 05/08/24 History levothyroxine 137 mcg tablet 137 mcg PO DAILY 04/18/24 05/08/24 History olanzapine 2.5 mg tablet 2.5 mg PO HS 04/18/24 05/08/24 History phenol 1.4 % mucosal aerosol spray 1 spray MT Q2H PRN sore throat 04/22/24 05/08/24 Rx (Sore Throat (phenol)) #177 mL magnesium oxide 400 mg PO QAM #90 caps 04/29/24 05/08/24 Rx Past Med/Surg History Problem List (Updated 05/08/24 @ 17:59 by Malcom Talbot MD) Venous ulcer Malnutrition Goals of care, counseling/discussion Left rib fracture (Acute 02/11/24) Trouble swallowing Hypertension Breast cancer Fecal impaction Venous stasis ulcers of both lower extremities (Acute) Venous ulcer of left leg (Acute) Spondylolisthesis of lumbar region Vitamin D deficiency (Acute) Ventral hernia (Acute) Urge incontinence of urine (Acute) Tremor (Acute) Transient ischemic attack (Acute) Sleep apnea (Acute) Spinal stenosis, lumbar (Acute 03/19/13) Osteoporosis, unspecified (Acute 03/19/13) Lumbar radiculopathy (Acute) Incisional hernia (Acute) Hyperlipidemia (Acute) Gait disturbance (Acute) Esophageal reflux (Acute 03/19/13) Diverticulitis of colon (Acute) Carotid artery plaque (Acute) Chronic sinusitis, unspecified (Acute 03/19/13) Anxiety (Acute) Depression Grief reaction Insomnia History of CVA (cerebrovascular accident) 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 Medical History Weakness Elevated brain natriuretic peptide (BNP) level Edema of both lower extremities Hypomagnesemia Hypokalemia Stercoral colitis Elevated lipase Aortic ectasia Chest pain Hypomagnesemia Elevated troponin CVA (cerebral vascular accident) History of basal cell carcinoma History of SCC (squamous cell carcinoma) of skin Chronic kidney disease, stage III (moderate) Grief reaction Unspecified hemorrhoids (03/19/13) Hypokalemia Altered mental status Adverse drug reaction ROSEMARIE (acute kidney injury) Surgical History History of inguinal hernia repair Hx of laparoscopy History of back surgery History of right knee surgery S/P removal of left ovary History of total abdominal hysterectomy History of lumbar laminectomy for spinal cord decompression History of repair of rectocele Hx of appendectomy Hx of cholecystectomy Family History Sister Lung cancer Father Colorectal cancer Myocardial infarction Brother Colorectal cancer Prostate cancer Mother Colorectal cancer Denies family history of Ovarian cancer Breast cancer Social History Smoking Status: Never smoker Tobacco Type: Cigarettes Age Started Using Tobacco: 18; Age Quit Using Tobacco: 19; packs per day: 0.5; Second Hand Exposure: No; Do You Dip or Chew Tobacco: No; Hx Alcohol Use: No Hx Substance Use: No Preferred Language: Lao Communication Ability: Impaired Visual Impairment: No Limitations Hearing Ability: Normal Flower Grower Required: No Beliefs That Will Affect Care: None marital status: / Current Living Situation: Senior Care current occupational status: retired current occupation: retired from career in [employer] Feels Safe at Home: Yes Childhood Exposure to Second-Hand Smoke: No Diet: regular caffeine: Yes (occasional diet pepsi) Dental Care, Regularly: No Physical Activity Frequency: Does not Exercise Seatbelt Use: always Sunscreen Use: No Assistive Devices: Walker Physical Exam Physical Exam: General: Arouses transiently to noxious stimuli and loud voice but does not follow commands or answer questions HEENT: Left-sided facial droop is present, unable to assess strength/correction due to mentation Pulm: CTAB A&P. -wheezes, -rales, -rhonchi. Symmetrical chest rise. No increased work of breathing. No respiratory distress. Cardiac: RRR, +soft sm. Radial pulses intact and symmetrical. Abdominal: nondistended, soft. BS present. Results & Data Results & Data Vital Signs (Past 12 Hours) Vital Signs Temp Pulse Pulse Resp BP BP Pulse Ox 05/08/24 17:00 57 L 16 103/53 L 94 05/08/24 15:33 77 16 130/73 94 05/08/24 14:03 92 H 16 94 05/08/24 13:53 92 H 05/08/24 13:48 92 H 18 130/73 94 05/08/24 13:48 36.9 C 98 H 16 130/73 94 O2 Del Method 05/08/24 17:00 Room Air 05/08/24 15:33 Room Air 05/08/24 14:03 Room Air 05/08/24 13:53 05/08/24 13:48 Room Air 05/08/24 13:48 Room Air PG Care Time/CCT Total # of Minutes Spent Total Time Spent with Patient: Total time spent is greater than 50% in coordination of care (as documented) at patient's floor/unit and/or counseling patient: Coding Level of Care Code 46466 INT INP/OBS CARE 2/55MIN Diagnoses Altered mental status R41.82 Goals of care, counseling/discussion Z71.89 Malnutrition E46 Venous ulcer I83.009; L97.909
[2024-05-08] MEDS: D5W AND LACTATED RINGERS 1,000 ML IV SCH (18:49)
[2024-05-08] MEDS ORDERED: CHLORASEPTIC (PHENOL) 1.4% SOLN 180 ML BTL MT PRN (20:40)
[2024-05-08] MEDS: LACTATED RINGER'S 250 ML IV ONE (22:23)
[2024-05-08] MEDS: cefTRIAXone SODIUM 2,000 MG/50 ML BAG IV SCH (22:24)
[2024-05-08] MEDS: CARBIDOPA/LEVODOPA 25/100MG EXT REL TAB PO SCH (22:24)
[2024-05-08] MEDS: OLANZAPINE 2.5 MG TAB PO SCH (22:24)
[2024-05-08] MEDS: ARTIFICIAL TEARS OP SCH (22:24)
[2024-05-08] MEDS: MELATONIN 3 MG TAB PO SCH (22:24)
[2024-05-09] MEDS: PANTOprazole 40 MG TAB PO SCH (06:31)
[2024-05-09] MEDS: LEVOTHYROXINE SODIUM 137 MCG TABLET PO SCH (06:31)
[2024-05-09 06:33] LABS: BUN Creatinine Ratio 18.8 (10-20); Calcium 7.8 mg/dl (8.6-10.3); Creatinine Clr Calc Pharmacy 43.8 ml/min; Est GFR (African American) 71.4 ml/min; Est GFR (Non-African American) 61.6 ml/min; Potassium 3.4 mmol/L (3.5-5.1)
[2024-05-09 06:38] LABS: Basophils # (auto) 0.04 K/uL (0.00-0.20); Basophils % (auto) 0.6 %; Eosinophils # (auto) 0.12 K/uL (0.00-0.50); Eosinophils % (auto) 1.8 %; Hematocrit (blood only) 29.4 % (37.0-47.0); Hemoglobin 9.9 g/dl (12.0-16.0); Immature Granulocytes # (auto) 0.03 K/uL (0.01-0.20); Immature Granulocytes % (auto) 0.5 %; Lymphocytes % (auto) 24.6 %; Mean Corpuscular Hemoglobin 31.2 pg (25.0-34.0); Mean Corpuscular Hgb Conc 33.7 g/dL (32.0-36.0); Mean Corpuscular Volume 92.7 fL (80.0-100.0); Mean Platelet Volume 11.1 fL (9.4-12.4); Monocytes # (auto) 0.74 K/uL (0.11-0.59); Monocytes % (auto) 11.4 %; Neutrophils # (auto) 3.97 K/uL (1.40-6.50); Neutrophils % (auto) 61.1 %; Platelet Count 154 K/uL (130-400); RDW Coefficient of Variation 11.9 % (11.5-14.5); RDW Standard Deviation 41.2 fL (36.4-46.3); Red Blood Count 3.17 M/uL (4.20-5.40)
--- NOTE | 2024-05-09 07:43 | Electrocardiogram Report ---
Test Reason : Blood Pressure : / mmHG Vent. Rate : 091 BPM Atrial Rate : 091 BPM P-R Int : 122 ms QRS Dur : 128 ms QT Int : 412 ms P-R-T Axes : 029 -22 034 degrees QTc Int : 506 ms Normal sinus rhythm Left ventricular hypertrophy with QRS widening ( R in aVL , Carl product ) Cannot rule out Septal infarct , age undetermined Abnormal ECG When compared with ECG of 18-APR-2024 19:01, Vent. rate has increased BY 45 BPM Right bundle branch block is no longer Present Confirmed by Pramod Bryan ([id number]) on 05/09/2024 7:42:54 AM Referred By: REFERRED SELF Confirmed By:Pramod Bryan
--- OUTSIDE RECORDS SUMMARY | 2024-05-09 08:15 | External Medical Summary | Summary of Care ---
Author Name Unknown Organization [facility] Address [address] [place] [address] Phone [phone] Care Team Providers Care Management Retail Intern Name Role Phone Dada Bernard MD Primary Care Provi broderick Encounter Details Date Type Department Care Team (Late st Contact Info) Description 04/22/2024 Population Health External Data Unspecified Department Allergies Active Allergy Reactions Criticality Noted Date Comments Clarithromycin 10/11/2004 hives Clarithromycin 03/14/2011 Codeine 03/21/2012 Morphine And Codeine 05/01/2006 Oxycodone Nausea/vomiting 04/13/2016 Penicillins 10/11/2004 rash Sulfa Antibiotics 10/11/2004 rash documented as of this encounter (statuses as of 04/22/2024) Medications Medication Sig Dispensed Refills Start Date End Date Status levothyroxine (LEVOXYL) 100 MCG Tablet Take 1 Tablet by mouth daily first thing in the morning. Active LORAzepam (ATIVAN) 0.5 MG Tablet Take 1 Tablet by mouth every 6 hours as needed. Active milk of magnesia (MILK OF MAGNESIA) 400 MG/5ML suspension Take by mouth daily as needed for Constipation. Active polyethylene glycol 3350 (MIRALAX) 255 gram powder Mix 1/2 capful with Citrucel daily 1 Bottle 3 07/19/2018 Active Methylcellulose, Laxative, (CITRUCEL) oral powder Take one scoop (heaping tablespoon) daily mixed with Miralax 1 Bottle 07/19/2018 Active Acetaminophen 500 MG Oral Tablet (Tylenol) Take 1 Tablet by mouth every 6 hours as needed. Active Aspirin Low Dose 81 MG Oral Tablet Delayed Release Take 1 Tablet by mouth in the morning. 06/09/2022 Active carbidopa-levodopa 10-100 mg per tab 2.5-25 MG OR TABS Take 0.25 Tablets by mouth in the morning and 0.25 Tablets at noon and 0.25 Tablets before bedtime. Active Furosemide 40 MG Oral Tablet (Lasix) Take 1 Tablet by mouth in the morning and 1 Tablet before bedtime. Active Diclofenac Sodium 1 % External Gel (Voltaren) FOUR TIMES DAILY 01/28/2023 Active Magnesium Oxide 400 MG Oral Capsule 1 Capsule. 07/25/2022 Active Melatonin 3 MG Oral Tablet Disintegrating 3 mg. 07/25/2022 Act maximino Potassium Chloride Jacquie ER 10 MEQ Oral Tablet Extended Release Take 1 Tablet by mouth in the morning. 02/05/2023 Active Preethi-kate 8.6 MG Oral Tablet Take 2 Tablets by mouth in the morning. 04/24/2023 Active Sertraline HCl 25 MG Oral Tablet (Zoloft) Take 1 Tablet by mouth in the morning. 04/16/2023 Active oxyCODONE-Acetaminophe n 5-300 MG Oral Tablet Take by mouth. Active Triamcinolone Acetonide 0.1 % External Ointment (Aristocort) Apply topically to affected area 2 times a day. Apply to leg Active Tamoxifen Citrate 20 MG Oral TabletIndications:Nikki st carcinoma, female, right (HCC) Take 1 Tablet by mouth in the morning. 90 Tablet 2 11/15/2023 Active OLANZapine ODT 5 mg per tab 2.[address] on tongue daily. Active documented as of this encounter (statuses as of 04/22/2024) Active Problems Problem Noted Date Diagnosed Date Breast carcinoma, female, right 12/15/2021 Chronic constipation 07/19/2018 Essential and other specified forms of tremor ADVANCE DIRECTIVE INFORMATION 05/01/2006 Overview: No, Advance Directive brochure offered , patient declined. documented as of this encounter (statuses as of 04/22/2024) Immunizations Name Administration Dates Next Due Seasonal Influenza, Split, IIV3, With Preserve, Inj 09/11/2006 documented as of this encounter Social History Tobacco Use Types Packs/Day Years Used Date Smoking Tobacco: Former Cigarettes Smokeless Tobacco: Never Comments:quit in 1991 Alcohol Use Standard Drinks/Week Comments No 0 (1 standard drink = 0.6 oz pur e alcohol) Sex and Gender Information Value Date Recorded Sex Assigned at Not on file Gender Identity Not on file Sexual Orientation Not on file Job Start Date Occupation Industry Not on file Not on file Not on file documented as of this encounter Plan of Treatment Upcoming Encounters Date Type Department Care Team (Late st Contact Info) Description 07/29/2024 10:00 AM EDT Imaging Radiology [facility] [address] [facility] [place] [id number] 09/10/2024 10:30 AM EST Laboratory Laboratory [facility] [address] [place] [id number] [facility] [address] [facility] [place] [id number] 09/17/2024 3:00 PM EST Office Visit Hematology/Oncology [facility] [address] [place] [address] Princess Ordoñez MD [address] [place] [address] Health Maintenance Due Date Last Done Comments DXA Scan 1935 Depression Screening 1947 DTaP,Tdap,and Td Vaccines (1 - Tdap) 1954 COVID-19 Vaccine ( - 2022- season) 2023 Influenza Vaccine (FLU shot) (Season Ended) 2024 07/11/2017, 08/22/2016, 09/15/2014, Additional history exists TSH 02/20/2025 02/21/2024 Pneumococcal Vaccine: 65+ Years Completed 02/06/2018, 09/02/2016 Zoster Vaccines Completed 12/14/2020, 07/28/2020 GARDASIL-HPV IMMUNIZATION SERIES Aged Out No longer eligible based on patient's age to complete this topic Hepatitis B Aged Out No longer eligi ble based on patient's age to complete this topic MENINGOCOCCAL (MENACTRA/MENVEO) Aged Out No longer eligible based on patient's age to complete this topic documented as of this encounter Medical Devices Not on filedocumented as of this encounter Care Teams Management Retail Intern Relationship Specialty Start Date End Date Dada Bernard MD [address] [place] [address] [place] [address] PCP - General Internal Medicine 06/02/15 documented as of this encounter
--- OUTSIDE RECORDS SUMMARY | 2024-05-09 08:15 | External Medical Summary | Summary of Care ---
Author Name Unknown Organization [facility] Address [address] [place] [address] Phone [phone] Care Team Providers Care Certified Cytotechnologist Name Role Phone Dada Bernard MD Primary Care Provi broderick Encounter Details Date Type Department Care Team (Late st Contact Info) Description 04/24/2024 Population Health External Data Unspecified Department Allergies Active Allergy Reactions Criticality Noted Date Comments Clarithromycin 10/11/2004 hives Clarithromycin 03/14/2011 Codeine 03/21/2012 Morphine And Codeine 05/01/2006 Oxycodone Nausea/vomiting 04/13/2016 Penicillins 10/11/2004 rash Sulfa Antibiotics 10/11/2004 rash documented as of this encounter (statuses as of 04/24/2024) Medications Medication Sig Dispensed Refills Start Date [...] as of this encounter (statuses as of 04/24/2024) Active Problems Problem Noted Date Diagnosed Date Breast carcinoma, female, right 12/15/2021 Chronic constipation 07/19/2018 Essential and other specified forms of tremor ADVANCE DIRECTIVE INFORMATION 05/01/2006 Overview: No, Advance Directive brochure offered , patient declined. documented as of this encounter (statuses as of 04/24/2024) Immunizations Name Administration Dates Next Due Seasonal Influenza, Split, IIV3, With Preserve, Inj 09/11/2006 documented as of this encounter Social History Tobacco Use Types Packs/Day Years Used Date Smoking Tobacco: Former Cigarettes Smokeless Tobacco: Never Comments:quit in 1991 Alcohol Use Standard Drinks/Week Comments No 0 (1 standard drink = 0.6 oz pur e alcohol) Utilities Answer Date Recorded Do you have trouble paying y our heating, water, or electric bill? (Adult - for ages 18 years and over) Not on file 04/23/2024 Is your family able to pay t he heat, water, or electric bill? (Household - for ages 0-17 years) Not on file 04/23/2024 Does your family have access to good internet? (Household - for ages 0-17 years) Not on file 04/23/2024 Social Connections Answer Date Recorded How often do you feel lonely or isolated from those around you? (Adult - for ages 18 years and over) Not on file 04/23/2024 Sex and Gender Information Value Date Recorded Sex Assigned at Not on file Gender Identity Not on file Sexual Orientation Not on file Job Start Date Occupation Industry Not on file Not on file Not on file documented as of this encounter Plan of Treatment Upcoming Encounters Date Type Department Care Team (Late st Contact Info) Description 07/29/2024 10:00 AM EDT Imaging Radiology [address] [facility] [place] [id number] 09/10/2024 10:30 AM EST Laboratory Laboratory [facility] [address] [place] [address] [facility] [address] [facility] [place] [address] 09/17/2024 3:00 PM EST Office Visit Hematology/Oncology [facility] [address] [place] [phone] Princess Ordoñez MD [address] [place] [address] Health Maintenance Due Date Last Done Comments DXA Scan 1935 Depression Screening 1948 DTaP,Tdap,and Td Vaccines (1 - Tdap) 1954 COVID-19 Vaccine ( - 2023-24 season) 2023 Influenza Vaccine (FLU shot) (Season [...] filedocumented as of this encounter Care Teams Certified Cytotechnologist Relationship Specialty Start Date End Date Dada Bernard MD [address] [facility] [place] [id number] PCP - General Internal Medicine 06/02/15 documented as of this encounter
[2024-05-09] MEDS: ACETAMINOPHEN 325 MG TAB PO PRN (08:24)
[2024-05-09] MEDS: ASPIRIN 81 MG ECTAB PO SCH (08:26)
[2024-05-09] MEDS: POTASSIUM CHLORIDE 10 MEQ TABCR PO SCH (08:27)
[2024-05-09] MEDS: TAMOXIFEN CITRATE 10 MG TABLET PO SCH (08:27)
[2024-05-09] MEDS: SENNA 8.6 MG TAB PO SCH (08:27)
[2024-05-09] MEDS ORDERED: ARTIFICIAL TEARS OP SCH (09:00)
[2024-05-09] MEDS: ARTIFICIAL TEARS OP SCH (12:21)
--- NOTE | 2024-05-09 13:58 | Hospitalist Progress Note ---
Date of Service May 09, 2024 Assessment & Plan (1) Metabolic encephalopathy: Plan: Progressive chronic decline versus acute on chronic altered mental status With background of chronic dementia and cognitive decline Patient does have a left-sided facial droop which is reportedly new, CT is normal. Discussed MRI with the patient's daughter, notes that if there was a stroke this would not change her management and patient has not been able to tolerate MRIs in the past and will defer this on admission. Patient is being treated for UTI. This could be related to a UTI Per daughter, the patient is more awake today. Improved clinically. She is going to check with her sister if they want to proceed towards hospice anymore since she is better. In the meantime, we will proceed with IV antibiotics, follow culture results, get PT/OT involved (2) Goals of care, counseling/discussion: Plan: With progressive decline over the past few days, the family was considering hospice. However since the patient is more awake and is eating better today, they are now questioning whether this would be the right decision. Case management involved Will continue to treat UTI and deconditioning in the meantime Awaiting further decisions on goals of care from family (3) Altered mental status: Plan: See problem #1 (4) Malnutrition: Plan: Malnutrition With poor p.o. intake Boost supplementation (5) Venous ulcer: Plan: Venous ulcer of the right leg No acute infection, continue wound care Plan Chronic stable issues: GERD: Continue PPI Parkinsonism: Continue carbidopa/levodopa Hypothyroidism: Continue Synthroid DVT PPx: SCDs Diet: NPO pending improvement in mentation, speech eval Dispo: M/T CODE: DNR/DNI Admission and Anticipated Discharge Date Admission Date: May 08, 2024 Subjective Per daughter, patient is eating better today. She is more awake. Review of Systems Review of Systems: All systems reviewed & are unremarkable except as noted in Subjective Physical Exam Physical Exam: General: Awake, conversant. AO x 1 Heart: S1, S2/regular rate and rhythm, no murmur rubs or gallops Lungs: Clear to auscultation bilaterally. Normal effort Abdomen: Soft/nontender/nondistended. No hepatosplenomegaly Extremities: No clubbing/cyanosis. No edema Behavior: Appropriate, cooperative Results & Data Results & Data Vital Signs (Past 12 Hours) Vital Signs Temp Pulse Pulse Resp BP Pulse Ox O2 Del Method 05/09/24 11:25 36.6 C 53 L 18 92/57 L 98 Room Air 05/09/24 08:31 36.7 C 62 16 101/62 92 Nasal Cannula 05/09/24 08:16 Nasal Cannula 05/09/24 07:42 43 L 05/09/24 02:51 36.7 C 58 L 18 94/53 L 100 Nasal Cannula O2 Flow Rate 05/09/24 11:25 05/09/24 08:31 2 05/09/24 08:16 2 05/09/24 07:42 05/09/24 02:51 2 Laboratory Results Abnormal lab results 05/08/24 05/08/24 05/08/24 Range/Units 14:15 15:19 15:33 RBC (4.20-5.40) M/uL Hgb (12.0-16.0) g/dl Hct (37.0-47.0) % Neut # (Auto) 7.99 H (1.40-6.50) K/uL [place] # (Auto) 0.96 H (0.11-0.59) K/uL Sodium 134 L (136-145) mmol/L Potassium (3.5-5.1) mmol/L Chloride 94 L (98-107) mmol/L Glucose 156 H (70-99(Fasting)) mg/dl Calcium (8.6-10.3) mg/dl Total Bilirubin 1.3 H (0.2-1.0) mg/dl AST 58 H (13-39) U/L Troponin I High Sens 23.5 H 23.4 H (0-14) pg/ml Urine Protein Trace H (Negative) Urine Ketones Trace H (Negative) Urine Bilirubin 1+ H (Negative) Ur Leukocyte Esterase Trace H (Negative) U Hyaline Cast (Auto) 3-5 H (0-2) /lpf U Epithel Cells (Auto) 6-10 H (0-2) /hpf Urine Bacteria (Auto) 1+ H (None Seen) Hyaline Casts Present A (None Presnt) /lpf 05/09/24 Range/Units 05:37 RBC 3.17 L (4.20-5.40) M/uL Hgb 9.9 L D (12.0-16.0) g/dl Hct 29.4 L (37.0-47.0) % Neut # (Auto) (1.40-6.50) K/uL [place] # (Auto) 0.74 H (0.11-0.59) K/uL Sodium (136-145) mmol/L Potassium 3.4 L (3.5-5.1) mmol/L Chloride (98-107) mmol/L Glucose 148 H (70-99(Fasting)) mg/dl Calcium 7.8 L (8.6-10.3) mg/dl Total Bilirubin (0.2-1.0) mg/dl AST (13-39) U/L Troponin I High Sens (0-14) pg/ml Urine Protein (Negative) Urine Ketones (Negative) Urine Bilirubin (Negative) Ur Leukocyte Esterase (Negative) U Hyaline Cast (Auto) (0-2) /lpf U Epithel Cells (Auto) (0-2) /hpf Urine Bacteria (Auto) (None Seen) Hyaline Casts (None Presnt) /lpf Diagnostic Findings Chest X-Ray 05/08/24 14:03 XR chest 1V portable HISTORY: weakness COMPARISON: Chest 04/18/2024. FINDINGS: No pneumothorax. No pleural fusions. There are low lung volumes. A small left basilar density persists. The right lung is clear. The heart is mildly enlarged. No evidence for pulmonary edema. Degenerative changes within the shoulders. IMPRESSION: 1. Persistent left basilar densities. This is nonspecific but favors atelectasis. A pneumonia also remains in the differential diagnosis. 2. Stable mild cardiomegaly. ACT 112: Negative or not required by law. Electronically signed by: Robinson Coon M.D. 05/08/2024 2:[address] 05/08/24 14:04 CT OF THE HEAD WITHOUT CONTRAST CLINICAL HISTORY: Confusion. COMPARISON STUDY: MRI of the brain May 24, 2018. Head CT January 28, 2023. CT DOSE: 547.75 mGy.cm TECHNIQUE: Helical axial images of the head were obtained without IV contrast. Automated exposure control was utilized for the study. A dose lowering technique was utilized adhering to the principles of ALARA. FINDINGS: No acute intracranial hemorrhage, midline shift or mass effect is present. The ventricular system is stable. White matter hypodensities are unchanged and favor small vessel disease. There is mild atrophy. The basal cisterns are patent. No extra-axial collections are present. There are no findings to suggest acute dural sinus thrombosis or acute territorial infarct. No significant calvarial abnormalities are present. Visualized portions of the sinuses and mastoid air cells are clear. IMPRESSION: No acute intracranial findings. No change in appearance of the brain. ACT 112: Negative or not required by law. Electronically signed by: Ubaldo Benavidez M.D. 05/08/2024 3:05 PM PG Care Time/CCT Total # of Minutes Spent Total Time Spent with Patient: Total time spent is greater than 50% in coordination of care (as documented) at patient's floor/unit and/or counseling patient: Coding Level of Care Code 20616 SUB INP/OBS CARE 2/35MIN Diagnoses Metabolic encephalopathy G93.41 Goals of care, counseling/discussion Z71.89 Altered mental status R41.82 Malnutrition E46 Venous ulcer I83.009; L97.909
[2024-05-09 18:26] LABS: A calco-baum cmplx NotReported Not Detected (NotDetected); Bact fragilis Not Reported Not Detected (NotDetected); Blood Culture Id Panel See PCR Comment (NotDetected); C auris Not Reported Not Detected (NotDetected); Calbicans Not Reported Not Detected (NotDetected); Candida glabrata Not Reported Not Detected (NotDetected); Candida krusei Not Reported Not Detected (NotDetected); Cneoformans/gatti Not Reported Not Detected (NotDetected); Cparapsilosis Not Reported Not Detected (NotDetected); E cloacae compx Not Reported Not Detected (NotDetected); Efaecalis Not Reported Not Detected (NotDetected); Efaecium Not Reported Not Detected (NotDetected); Enterobacterales Not Reported Not Detected (NotDetected); Escherichia coli Not Reported Not Detected (NotDetected); H influenzae Not Reported Not Detected (NotDetected); K aerogenes Not Reported Not Detected (NotDetected); Koxytoca Not Reported Not Detected (NotDetected); Kpneumoniae grp Not Reported Not Detected (NotDetected); Lmonocyt Not Reported Not Detected (NotDetected); N meningitidis Not Reported Not Detected (NotDetected); P aeruginosa Not Reported Not Detected (NotDetected); Proteus spp Not Reported Not Detected (NotDetected); Salmonella spp Not Reported Not Detected (NotDetected); Staph lugdunensis Not Reported Not Detected (NotDetected); Staph spp. Not Reported DETECTED (NotDetected); Staphaureus Not Reported Not Detected (NotDetected); Staphepi Not Reported DETECTED (NotDetected); Stenmaltophilia Not Reported Not Detected (NotDetected); Strep agal(GrpB) Not Reported Not Detected (NotDetected); Strep pneum Not Reported Not Detected (NotDetected); Strep pyog (GrpA) Not Reported Not Detected (NotDetected); Strep spp Not Reported Not Detected (NotDetected)
[2024-05-09 18:28] LABS: Staphylococcus epidermidis DETECTED (NotDetected); Staphylococcus spp. DETECTED (NotDetected); mecAC Resistant Gene DETECTED (NotDetected)
[2024-05-10 05:30] LABS: Basophils # (auto) 0.03 K/uL (0.00-0.20); Basophils % (auto) 0.5 %; Eosinophils # (auto) 0.15 K/uL (0.00-0.50); Eosinophils % (auto) 2.4 %; Hematocrit (blood only) 30.1 % (37.0-47.0); Immature Granulocytes # (auto) 0.03 K/uL (0.01-0.20); Immature Granulocytes % (auto) 0.5 %; Lymphocytes # (auto) 1.92 K/uL (1.20-3.40); Lymphocytes % (auto) 30.5 %; Mean Corpuscular Hemoglobin 31.3 pg (25.0-34.0); Mean Corpuscular Hgb Conc 33.2 g/dL (32.0-36.0); Mean Corpuscular Volume 94.4 fL (80.0-100.0); Mean Platelet Volume 10.6 fL (9.4-12.4); Monocytes # (auto) 0.68 K/uL (0.11-0.59); Monocytes % (auto) 10.8 %; Neutrophils # (auto) 3.48 K/uL (1.40-6.50); Neutrophils % (auto) 55.3 %; Platelet Count 141 K/uL (130-400); RDW Coefficient of Variation 12.1 % (11.5-14.5); RDW Standard Deviation 42.2 fL (36.4-46.3); Red Blood Count 3.19 M/uL (4.20-5.40); White Blood Count 6.29 K/ul (4.8-10.8)
[2024-05-10 05:36] LABS: BUN Creatinine Ratio 14.1 (10-20); Calcium 8.1 mg/dl (8.6-10.3); Creatinine Clr Calc Pharmacy 43.8 ml/min; Est GFR (African American) 71.4 ml/min; Est GFR (Non-African American) 61.6 ml/min; Potassium 3.4 mmol/L (3.5-5.1)
--- NOTE | 2024-05-10 12:57 | Hospitalist Progress Note ---
Date of Service May 10, 2024 Assessment & Plan (1) Metabolic encephalopathy: Plan: Progressive chronic decline versus acute on chronic altered mental status With background of chronic dementia and cognitive decline Patient does have a left-sided facial droop which is reportedly new, CT is normal. Discussed MRI with the patient's daughter, notes that if there was a stroke this would not change her management and patient has not been able to tolerate MRIs in the past and will defer this on admission. Patient is being treated for UTI. This could be related to a UTI although her urine culture is negative Per daughter, the patient is more awake since she got hospitalized. The daughter decided that they would like to pursue hospice 365. Case management involved. PT/OT involved. In the meantime, we will proceed with IV antibiotics (2) Goals of care, counseling/discussion: Plan: With progressive decline over the past few days, the family was considering hospice. However since the patient is more awake and is eating better yesterday, the daughter was questioning whether this would be the right decision. Today the daughter is now board decided on hospice looking at the big picture of things. The patient has been declining overall and has had good days and bad days. Case management involved Will continue to treat UTI and deconditioning in the meantime (3) Altered mental status: Plan: See problem #1 (4) Malnutrition: Plan: Malnutrition With poor p.o. intake Boost supplementation (5) Venous ulcer: Plan: Venous ulcer of the right leg No acute infection, continue wound care Plan Chronic stable issues: GERD: Continue PPI Parkinsonism: Continue carbidopa/levodopa Hypothyroidism: Continue Synthroid DVT PPx: SCDs Diet: NPO pending improvement in mentation, speech eval Dispo: M/T CODE: DNR/DNI Admission and Anticipated Discharge Date Admission Date: May 08, 2024 Subjective Patient is awake. Daughter at the bedside. Patient denies any chest pain or shortness of breath Review of Systems Review of Systems: All systems reviewed & are unremarkable except as noted in Subjective Physical Exam Physical Exam: General: Awake, conversant. AO x 1.. She is smiling today. Heart: S1, S2/regular rate and rhythm, no murmur rubs or gallops Lungs: Clear to auscultation bilaterally. Normal effort Abdomen: Soft/nontender/nondistended. No hepatosplenomegaly Extremities: No clubbing/cyanosis. No edema Behavior: Appropriate, cooperative Results & Data Results & Data Vital Signs (Past 12 Hours) Vital Signs Temp Pulse Pulse Resp BP BP Pulse Ox 05/10/24 11:11 37.2 C 61 18 110/59 L 96 05/10/24 07:32 36.5 C 55 L 18 109/57 L 100 05/10/24 07:00 45 L 05/10/24 05:07 65 05/10/24 04:17 36.9 C 54 L 20 103/62 97 05/10/24 01:15 37.3 C 61 20 106/64 98 O2 Del Method O2 Flow Rate 05/10/24 11:11 Room Air 05/10/24 07:32 Nasal Cannula 2 05/10/24 07:00 05/10/24 05:07 05/10/24 04:17 Nasal Cannula 2 05/10/24 01:15 Nasal Cannula 2 Laboratory Results Abnormal lab results 05/08/24 05/10/24 Range/Units 14:15 05:00 RBC 3.19 L (4.20-5.40) M/uL Hgb 10.0 L (12.0-16.0) g/dl Hct 30.1 L (37.0-47.0) % [place] # (Auto) 0.68 H (0.11-0.59) K/uL Potassium 3.4 L (3.5-5.1) mmol/L Glucose 105 H (70-99(Fasting)) mg/dl Calcium 8.1 L (8.6-10.3) mg/dl Staphylococcus sp PCR DETECTED A (NotDetected) mecA/C-Methicil Resis Gene DETECTED A (NotDetected) Staph epidermidis (PCR) DETECTED A (NotDetected) PG Care Time/CCT Total # of Minutes Spent Total Time Spent with Patient: Total time spent is greater than 50% in coordination of care (as documented) at patient's floor/unit and/or counseling patient: Coding Level of Care Code 54594 SUB INP/OBS CARE 2/35MIN Diagnoses Metabolic encephalopathy G93.41 Goals of care, counseling/discussion Z71.89 Altered mental status R41.82 Malnutrition E46 Venous ulcer I83.009; L97.909
[2024-05-10] MEDS: cephALEXin 500 MG CAP PO SCH (21:18)
[2024-05-10] MEDS: EUCERIN CR 120 GM JAR EXT SCH (21:19)
[2024-05-11 08:16] LABS: Basophils # (auto) 0.04 K/uL (0.00-0.20); Basophils % (auto) 0.7 %; Eosinophils # (auto) 0.19 K/uL (0.00-0.50); Eosinophils % (auto) 3.4 %; Hemoglobin 10.4 g/dl (12.0-16.0); Immature Granulocytes # (auto) 0.05 K/uL (0.01-0.20); Immature Granulocytes % (auto) 0.9 %; Lymphocytes # (auto) 1.43 K/uL (1.20-3.40); Lymphocytes % (auto) 25.4 %; Mean Corpuscular Hgb Conc 32.5 g/dL (32.0-36.0); Mean Corpuscular Volume 95.2 fL (80.0-100.0); Mean Platelet Volume 10.6 fL (9.4-12.4); Monocytes # (auto) 0.65 K/uL (0.11-0.59); Monocytes % (auto) 11.5 %; Neutrophils # (auto) 3.28 K/uL (1.40-6.50); Neutrophils % (auto) 58.1 %; Platelet Count 151 K/uL (130-400); RDW Coefficient of Variation 12.2 % (11.5-14.5); RDW Standard Deviation 42.2 fL (36.4-46.3); Red Blood Count 3.36 M/uL (4.20-5.40); White Blood Count 5.64 K/ul (4.8-10.8)
[2024-05-11 08:17] LABS: BUN Creatinine Ratio 9.8 (10-20); Calcium 7.8 mg/dl (8.6-10.3); Creatinine Clr Calc Pharmacy 46.3 ml/min; Est GFR (African American) 74.6 ml/min; Est GFR (Non-African American) 64.3 ml/min; Potassium 3.8 mmol/L (3.5-5.1)
--- NOTE | 2024-05-11 13:07 | Hospitalist Progress Note ---
Date of Service May 11, 2024 Assessment & Plan (1) Metabolic encephalopathy: Plan: Progressive chronic decline versus acute on chronic altered mental status With background of chronic dementia and cognitive decline Patient does have a left-sided facial droop which is reportedly new, CT is normal. Discussed MRI with the patient's daughter, notes that if there was a stroke this would not change her management and patient has not been able to tolerate MRIs in the past and will defer this on admission. Patient is being treated for UTI. This could be related to a UTI although her urine culture is negative Per daughter, the patient is more awake since she got hospitalized. The daughter decided that they would like to pursue hospice 365. Case management involved. PT/OT involved. In the meantime, we will proceed with oral antibiotics (2) Goals of care, counseling/discussion: Plan: With progressive decline over the past few days, the family was considering hospice. However since the patient is more awake and is eating better yesterday, the daughter was questioning whether this would be the right decision. Today the daughter is now board decided on hospice looking at the big picture of things. The patient has been declining overall and has had good days and bad days. Case management involved Will continue to treat UTI and deconditioning in the meantime (3) Altered mental status: Plan: See problem #1 (4) Malnutrition: Plan: Malnutrition With poor p.o. intake Boost supplementation (5) Venous ulcer: Plan: Venous ulcer of the right leg No acute infection, continue wound care Plan Chronic stable issues: GERD: Continue PPI Parkinsonism: Continue carbidopa/levodopa Hypothyroidism: Continue Synthroid DVT PPx: SCDs CODE: DNR/DNI Admission and Anticipated Discharge Date Admission Date: May 08, 2024 Subjective Patient feels well. No new complaints. Denies chest pain or shortness of breath. Review of Systems Review of Systems: All systems reviewed & are unremarkable except as noted in Subjective Physical Exam Physical Exam: General: Awake, conversant. AO x 1.. She is smiling today. Heart: S1, S2/regular rate and rhythm, no murmur rubs or gallops Lungs: Clear to auscultation bilaterally. Normal effort Abdomen: Soft/nontender/nondistended. No hepatosplenomegaly Extremities: No clubbing/cyanosis. No edema Behavior: Appropriate, cooperative Results & Data Results & Data Vital Signs (Past 12 Hours) Vital Signs Temp Pulse Resp BP Pulse Ox O2 Del Method 05/11/24 08:00 Room Air 05/11/24 07:25 37 C 69 20 98/60 L 95 Room Air Laboratory Results Abnormal lab results 05/11/24 Range/Units 07:16 RBC 3.36 L (4.20-5.40) M/uL Hgb 10.4 L (12.0-16.0) g/dl Hct 32.0 L (37.0-47.0) % [place] # (Auto) 0.65 H (0.11-0.59) K/uL BUN/Creatinine Ratio 9.8 L (10-20) Calcium 7.8 L (8.6-10.3) mg/dl PG Care Time/CCT Total # of Minutes Spent Total Time Spent with Patient: Total time spent is greater than 50% in coordination of care (as documented) at patient's floor/unit and/or counseling patient: Coding Level of Care Code 51073 SUB INP/OBS CARE 2/35MIN Diagnoses Metabolic encephalopathy G93.41 Goals of care, counseling/discussion Z71.89 Altered mental status R41.82 Malnutrition E46 Venous ulcer I83.009; L97.909
--- NOTE | 2024-05-12 15:49 | Hospitalist Progress Note ---
Date of Service May 12, 2024 Assessment & Plan (1) Metabolic encephalopathy: Plan: Progressive chronic decline versus acute on chronic altered mental status With background of chronic dementia and cognitive decline Patient does have a left-sided facial droop which is reportedly new, CT is normal. Discussed MRI with the patient's daughter, notes that if there was a stroke this would not change her management and patient has not been able to tolerate MRIs in the past and will defer this on admission. Patient is being treated for UTI. This could be related to a UTI although her urine culture is negative Per daughter, the patient is more awake since she got hospitalized. The daughter decided that they would like to pursue hospice 365. Case management involved. PT/OT involved. In the meantime, we will proceed with oral antibiotics (2) Goals of care, counseling/discussion: Plan: With progressive decline over the past few days, the family was considering hospice. However since the patient is more awake and is eating better yesterday, the daughter was questioning whether this would be the right decision. Today the daughter is now board decided on hospice looking at the big picture of things. The patient has been declining overall and has had good days and bad days. Case management involved Will continue to treat UTI and deconditioning in the meantime (3) Altered mental status: Plan: See problem #1 (4) Malnutrition: Plan: Malnutrition With poor p.o. intake Boost supplementation (5) Venous ulcer: Plan: Venous ulcer of the right leg No acute infection, continue wound care Plan Chronic stable issues: GERD: Continue PPI Parkinsonism: Continue carbidopa/levodopa Hypothyroidism: Continue Synthroid DVT PPx: SCDs CODE: DNR/DNI Likely discharge tomorrow to [facility] with [facility] Admission and Anticipated Discharge Date Admission Date: May 08, 2024 Subjective Patient is sleeping. I did not wake her up since she is comfort care. Spoke to nurse who did not raise any concerns. Review of Systems Review of Systems: All systems reviewed & are unremarkable except as noted in Subjective Physical Exam Physical Exam: General: Sleeping. Appears comfortable. Did not wake her up. Results & Data Results & Data Vital Signs (Past 12 Hours) Vital Signs Temp Pulse Resp BP Pulse Ox O2 Del Method 05/12/24 15:09 36.9 C 69 20 97/62 L 95 Room Air 05/12/24 07:15 Room Air 05/12/24 06:00 36.8 C 73 18 122/85 95 Room Air PG Care Time/CCT Total # of Minutes Spent Total Time Spent with Patient: Total time spent is greater than 50% in coordination of care (as documented) at patient's floor/unit and/or counseling patient: Coding Level of Care Code 60643 SUB INP/OBS CARE 2/35MIN Diagnoses Metabolic encephalopathy G93.41 Goals of care, counseling/discussion Z71.89 Altered mental status R41.82 Malnutrition E46 Venous ulcer I83.009; L97.909
--- NOTE | 2024-05-13 11:13 | Discharge Summary ---
Date of Service May 13, 2024 Admission HPI Per Admitting Provider Kirti is an 88-year-old female with past medical history of dementia, parkinsonism, TIA, SONIA, hypothyroidism who was recently discharged 04/22/2024 after an admission for generalized weakness with ongoing clinical decline a cutely worsened in the setting of a UTI. She Cathleen presents emergency department with worsening confusion, no p.o. intake, obtunded status, and drooling at her jail. Due to her continued decline family is transitioning to hospice however are not unable to do this at [facility] and due to her acute on chronic decline request admission with conservative care History is limited by dementia and mental status. Transitioning to hospice as an outpatient. Hx demetia. Resident at [facility], increased altered mental status and poor PO intake in the last week. Last week progressively poor appetite, poor PO intake, and increased weakness. Sleeping more. Today at [facility] tried to eat a hotdog but couldn't really get more than a nibble and a sip of water. Had discussed with case management [facility] Has had a slight left facial droop and some drooling in the last few days. Intermittently responsive and has been moving both her upper extremities. Patient is not able to tolerate MRIs. No chest pain, chest pressure, cough, or fevers. Decreased UOP otherwise no urinary sx/change. No abdominal tenderness. very poor appetite Primary contact Nilsa Pink [phone]. Working to set up 365 hospice services at [facility], but has not been able to set these u pyet. Would like to continue current conservative medical care including fluids and abx if indicated, while having these services set up with . Medical History: Reviewed Medications: Reviewed Surgical History: Reviewed Family history: Reviewed Allergies: Reviewed Social History: Reviewed Code Status: DNR/DNI, confirmed with family at bedside Admission Exam Per Admitting Provider General: Arouses transiently to noxious stimuli and loud voice but does not follow commands or answer questions HEENT: Left-sided facial droop is present, unable to assess strength/correction due to mentation Pulm: CTAB A&P. -wheezes, -rales, -rhonchi. Symmetrical chest rise. No increased work of breathing. No respiratory distress. Cardiac: RRR, +soft sm. Radial pulses intact and symmetrical. Abdominal: nondistended, soft. BS present. Principal Diagnosis Metabolic encephalopathy. Progressive decline versus acute on chronic. Discharge Exam General: Sleeping. Appears comfortable. Did not wake her up. Discharge Data Allergies Allergy/AdvReac Type Severity Reaction Status Date / Time clarithromycin Allergy Intermediate RASH Verified 05/06/24 13:20 Penicillins Allergy Intermediate RASH Verified 05/06/24 13:20 shellfish derived Allergy Intermediate itch all Verified 05/06/24 13:20 over cheese Allergy Unknown Unknown - Unverified 05/06/24 13:20 On Med list from [facility] Fish Containing Products Allergy Unknown SEAFOOD, Verified 05/06/24 13:20 FISH Sulfa (Sulfonamide Allergy Unknown CAN'T Verified 05/06/24 13:20 Antibiotics) REMEMBER codeine AdvReac Intermediate Hives Verified 05/06/24 13:20 paroxetine [From Paxil] AdvReac Intermediate hallucinati Verified 05/06/24 13:20 ons propranolol AdvReac Intermediate dizziness Verified 05/06/24 13:20 levofloxacin [From Levaquin] AdvReac Unknown Unknown Verified 05/06/24 13:20 NSAIDS (Non-Steroidal AdvReac Unknown Verified 05/06/24 13:20 Anti-Inflamma Consultations 05/08/24 17:34 ED Decision to Admit Stat Ordered Studies 05/08/24 14:04 CT head/brain wo con Stat Hospital Course (1) Metabolic encephalopathy: Progressive chronic decline versus acute on chronic altered mental status With background of chronic dementia and cognitive decline Patient does have a left-sided facial droop which is reportedly new, CT is normal. Discussed MRI with the patient's daughter, notes that if there was a stroke this would not change her management and patient has not been able to tolerate MRIs in the past and will defer this on admission. Patient is being treated for UTI. This could be related to a UTI although her urine culture is negative Per daughter, the patient is more awake since she got hospitalized. The daughter decided that they would like to pursue hospice 365. Case management involved. PT/OT involved. Completed 5 days of antibiotics. (2) Goals of care, counseling/discussion: With progressive decline over the past few days, the family was considering hospice. However since the patient is more awake and is eating better yesterday, the daughter was questioning whether this would be the right decision. Today the daughter is now board decided on hospice looking at the big picture of things. The patient has been declining overall and has had good days and bad days. Case management involved Completed UTI treatment (3) Altered mental status: See problem #1 (4) Malnutrition: Malnutrition With poor p.o. intake Boost supplementation (5) Venous ulcer: Venous ulcer of the right leg No acute infection, continue wound care Plan Chronic stable issues: GERD: Continue PPI Parkinsonism: Continue carbidopa/levodopa Hypothyroidism: Continue Synthroid DVT PPx: SCDs CODE: DNR/DNI Discharge to [facility] with hospice [facility]. Spoke to daughter today 05/13 to update her Total Time Total Time Spent Total Time Spent (In Minutes): 35 Discharge Plan Discharge Items Patient Disposition: Transfer [facility] Reason For Visit: AMS Discharge Diagnosis: Metabolic encephalopathy. Progressive decline versus acute on chronic. Activity: Resume your previous activity Non-emergency contact: Primary Care Provider Call non-emergency contact if: you have any medication questions and your sym ptoms worsen Follow-up/Referrals: Pam Vega DO [Primary Care Provider] - Diet: Regular Addtl Attending Provider Instructions: Advised to see PCP as needed Pending Studies at Discharge: No Stand-Alone Forms: My [facility] Skilled Items Patient informed of condition?: Yes DNR: Yes Discharge Level of Care: Other Communicable Disease: No Discharge Prognosis: Stable Lines: None Urinary Catheter: No Medications and DC Order Prescriptions: Continued (DME) compression socks, large Misc See Rx Instructions .Route Qty: 6 0RF Rx Instructions: As directed (on in the morning/afternoon, to be removed in the evening) magnesium oxide 400 mg magnesium capsule 400 mg PO QAM Qty: 90 3RF carbidopa-levodopa 25-100 mg tablet extended release 1 tab PO TID Qty: 90 6RF diclofenac sodium [Voltaren Arthritis Pain] 1 % gel 4 g topical QID Qty: 100 5RF Rx Instructions: apply to right shoulder and sacrum (low back). oxycodone 5 mg tablet 5 mg PO Q6H PRN (Reason: pain) Qty: 10 0RF tamoxifen 20 mg tablet 20 mg PO QAM TheraTears 0.25 % Drops 1 drp OPB TID Rx Instructions: TAKE WITH BREAKFAST,LUNCH AND DINNER GenTeal Tears Severe Gel 0.3 % Gel 1 drp OPB HS aspirin 81 mg tablet,delayed release (DR/EC) 81 mg PO QAM pantoprazole 40 mg tablet,delayed release (DR/EC) 40 mg PO DAILYBB potassium chloride 10 mEq tablet,ER particles/crystals 10 meq PO QAM melatonin 5 mg capsule 5 mg PO HS levothyroxine 137 mcg tablet 137 mcg PO DAILY olanzapine 2.5 mg tablet 2.5 mg PO HS Sore Throat (phenol) 1.4 % Aerosol,[place] 1 spray MT Q2H PRN (Reason: sore throat) Qty: 177 0RF acetaminophen [Tylenol Extra Strength] 500 mg tablet 1,000 mg PO BID MDD 3G PRN (Reason: pain) Rx Instructions: do not exceed 3,000mg total per day furosemide 40 mg tablet 40 mg PO DAILY sennosides 8.6 mg Tablet 17.2 mg PO QAM Discharge Orders: Discharge Order (Routine); Ordered 05/13/24 Ordered By: Eliezer Ziegler Admission Data Admit Date/Time: 05/08/24 18:04 Attending Provider: Eliezer Ziegler Admit Provider: Malcom Talbot Primary Care Provider: Pam Vega Other Providers: Malcom Talbot Other Interventions: Discharge Summary Assessment (RN) Last Done: 05/13/24 11:08 Coding Level of Care Code 27429 INP/OBS DISCH >30 MIN Diagnoses Metabolic encephalopathy G93.41 Goals of care, counseling/discussion Z71.89 Altered mental status R41.82 Malnutrition E46 Venous ulcer I83.009; L97.909
[2024-05-13] MEDS: SOD PHOSPHATE/SOD BIPHOSPHATE ENEMA 132 ML BTL PR STA (12:30)
== END 2024-05-13 14:14 | DRG 689 ==
LOC: ED 13:41 → SUATTDRO 18:04 → 2W 18:04 → 3N 05-10 17:58